=== PATIENT | male | born 1960 | race Caucasian/White ===

== ENCOUNTER 2020-03-18 20:54 | Emergency (ER) | payer MEDICARE, SELFPAY ==
--- NOTE | ~2020-03-18 | XR_ITS ---
XR chest 1V portable DATE: 03/18/2020 21:21 INDICATION: Syncope. Weakness. TECHNIQUE: Portable AP chest views on 03/18/2020 at 2124 hours COMPARISON: 09/06/2017 PA and lateral chest FINDINGS: Normal heart size. No hilar or mediastinal enlargement. No pulmonary infiltrate or consol idation, pulmonary vascular congestion or pleural effusion or pneumothorax. IMPRESSION: No active disease Reviewed, dictated and finalized at location A. IMPRESSION: No active disease
--- NOTE | 2020-03-18 21:04 | ECG_ITS ---
Measurements Intervals [place] Rate: 87 P: 63 NE: 132 QRS: -35 QRSD: 106 T: 76 QT: 365 QTc: 439 Interpretive Statements SINUS RHYTHM VENTRICULAR PREMATURE COMPLEX LEFT AXIS DEVIATION BASELINE ARTIFACT- II, III, AVF BORDERLINE ECG Electronically Signed On 03-19-2020 7:19:06 CDT by Magen Buitrago D.O.
[2020-03-18 21:07] VITALS: BP 108/65; PULSE 87; RESP 20; TEMP 36.9; O2SAT 100
--- NOTE | 2020-03-18 21:11 | ED.GENADULT ---
HPI - General Adult General Chief complaint: Neuro Symptoms/Deficit Stated complaint: dizzy,passed out History of Present Illness HPI narrative: Patient is a 59-year-old male who comes to the emergency department stating that he had a near syncopal event today. Apparently patient was getting up and moving to the door and he felt very weak, at that time he knew he was going to fall to the floor. He looked around to try and grab his couch but he could not find anything. Patient states that he hit the floor and then he thought to himself that if he did not get up quickly he was never going to get up ever again. Then he decided that he would hop right up and was able to stand up on his own. Patient tells me that he has had a couple of beers with his neighbor xander as well as smoking some marijuana, additionally states that he has not checked her sugars in quite some time. Overall patient seems noncompliant with most of his recommended care. He does state that he has 2 stents in his heart, after a heart attack. Patient tells me xander that he was pretty sure that the right side of his heart was not full and the left side of his heart was full and that is what he was feeling in his chest right after he fell to the floor. Also before the fall he states his head go really hot feeling. I asked for a better explanation and told the patient I did not understand this discription of feeling in his chest, however he states that the only way he can describe it. He is not having any discomfort at this time. Onset (ago): minute(s) Location: head Severity: mild Quality: other ( Like 1 side of his heart isn't filling up??) Pain Consistency: now resolved Exacerbating factors: movement Associated symptoms: loss of appetite ( patient has had loss of about 100 lb over the past several years. Patient states he just does not feel like eating anymore.) Related Data Home Medications Medication Instructions Recorded Confirmed aspirin 81 mg PO DAILY 03/18/20 03/18/20 clopidogrel 75 mg PO DAILY 03/18/20 03/18/20 diazepam 10 mg PO DAILY 03/18/20 03/18/20 duloxetine 60 mg PO DAILY 03/18/20 03/18/20 hydrocodone-acetaminophen 1 tablet PO DAILY 03/18/20 03/18/20 insulin glargine U-300 conc 1 unit SUBCUT DIRECTED 03/18/20 03/18/20 [Marcela Pelaez U-300 SoloStar] insulin glargine [Lantus Solostar 20 unit SUBCUT 03/18/20 03/18/20 U-100 Insulin] insulin lispro 1 unit SUBCUT DIRECTED 03/18/20 03/18/20 lisinopril 5 mg PO DAILY 03/18/20 03/18/20 metoprolol succinate 100 mg PO DAILY 03/18/20 03/18/20 mycophenolate mofetil 250 mg PO DAILY 03/18/20 03/18/20 rosuvastatin 20 mg PO DAILY 03/18/20 03/18/20 sirolimus 1 mg PO DAILY 03/18/20 03/18/20 temazepam 30 mg PO HS 03/18/20 03/18/20 Allergies Allergy/AdvReac Type Severity Reaction Status Date / Time No Known Allergies Allergy Verified 03/18/20 21:28 Review of Systems Constitutional: Constitutional: Denies chills, Denies fever(s) and Reports weakness Eyes: Eyes: Denies as per HPI, Denies no additional eye complaints, Denies change in vision and Denies photophobia ENT: Denies system reviewed and no additional complaints, except as documented, Denies as per HPI, Denies dysphagia, Denies vertigo, Denies dizziness, Denies epistaxis, Denies nasal congestion and Denies sore throat Cardiovascular: Cardiovascular: Reports chest pain ( Patient did not really have pain he just had a funny feeling in his chest) Respiratory: Respiratory: Reports no additional respiratory complaints Gastrointestinal: Gastrointestinal: Reports abdominal pain ( patient relates he has been having funny feelings in his abdomen as well) Musculoskeletal: Comments: patient states he is just generally weak overall now Neurologic: Denies confusion, Denies vertigo, Denies dizziness, Denies syncope, Denies headache(s), Denies focal weakness, Denies numbness and Reports weakness Comments: patient knew after he stood up he was feeling light
[2020-03-18 21:13] LABS: Glucose Point of Care 367 (65-105)
[2020-03-18 21:31] LABS: Basophils Absolute Auto 0.03 K/mm3 (0.00-0.10); Basophils Percent Auto 0.7 % (0.0-1.0); Eosinophils Absolute Auto 0.11 K/mm3 (0.02-0.50); Eosinophils Percent Auto 2.5 % (1.0-6.0); Hematocrit 34.4 % (40.0-54.0); Hemoglobin 12.1 g/dL (14.0-18.0); Immature Granulocyte Absolute 0.01 K/mm3 (0.00-0.00); Immature Granulocyte Percent A 0.2 % (0.0-0.0); Lymphocytes Percent Auto 29.7 % (18.0-42.0); Mean Corpuscular HGB Conc 35.2 g/dL (32.0-36.0); Mean Corpuscular Hemoglobin 32.5 pg (27.0-31.0); Mean Corpuscular Volume 92.5 fL (78.0-102.0); Mean Platelet Volume 10.3 fl (8.7-11.0); Monocytes Absolute Auto 0.56 K/mm3 (0.10-0.90); Monocytes Percent Auto 12.8 % (2.0-11.0); Neutrophils Absolute Auto 2.4 K/mm3 (1.7-7.2); Neutrophils Percent Auto 54.1 % (50.0-70.0); Platelet Count Result 161 K/mm3 (150-420); Red Blood Count 3.72 M/mm3 (4.70-6.10); Red Cell Distribution Width 13.2 % (11.6-14.4); White Blood Count 4.4 K/mm3 (4.8-10.8)
[2020-03-18 21:41] LABS: Ethanol 5 mg/dL (0-6)
[2020-03-18 21:43] VITALS: BP 102/56; PULSE 76
[2020-03-18 21:44] VITALS: BP 96/59; PULSE 74
[2020-03-18 21:44] LABS: Prothrombin Time 10.3 Seconds (9.64-11.0)
[2020-03-18] MEDS: SODIUM CHLORIDE 0.9% IV 1,000 ML 999 ML IV CONT (21:47)
[2020-03-18 21:48] LABS: Alanine Aminotransferase 43 U/L (16-63); Albumin Level 3.3 g/dL (3.4-5.0); Alkaline Phosphatase 118 U/L (46-116); Anion Gap 14.8 mmol/L (7-16); Aspartate Amino Transferase 32 U/L (15-37); Bilirubin,Total 0.3 mg/dL (0.00-1.00); Blood Urea Nitrogen 24 mg/dL (7-18); Calcium 8.4 mg/dL (8.5-10.1); Carbon Dioxide 28 mmol/L (21-32); Chloride 97 mmol/L (98-108); Estimated Glomerular Filt Rate 56; Glucose 398 mg/dL (70-99); Osmolality Calculated 301 mOsm/kg (285-295); Potassium 4.8 mmol/L (3.5-5.1); Sodium 135 mmol/L (136-145); Total Protein 6.6 g/dL (6.4-8.2)
[2020-03-18 21:50] LABS: Troponin I < 0.02 ng/mL (0.00-0.056)
[2020-03-18] MEDS: INSULIN HUMAN REGULAR (*BKC) 100 UNITS/ML 10 UNITS IV PUSH (22:08)
[2020-03-18 22:39] LABS: Glucose Point of Care 328 (65-105)
[2020-03-18 23:00] VITALS: BP 90/56; PULSE 78; RESP 18; O2SAT 96
[2020-03-19 00:21] LABS: Troponin I < 0.02 ng/mL (0.00-0.056)
[2020-03-19 00:25] VITALS: BP 96/58; PULSE 85; RESP 18; TEMP 36.8; O2SAT 96
== END 2020-03-19 00:32 | disposition home or self-care (01) ==
PROVIDERS: Emergency Provider Emergency Medicine
DX: Z94.4 Liver transplant status (principal); E11.9 Type 2 diabetes mellitus without complications; R53.1 Weakness; Z79.899 Other long term (current) drug therapy
CPT/HCPCS: 36415; 71045; 80053; 80307; 84484; 85025; 85610; 93005; 96361; 96374; 99283; 99284; J1815; J7030

== ENCOUNTER 2021-12-25 05:28 | Emergency (ER) | payer MEDICARE, SELFPAY ==
--- NOTE | ~2021-12-25 | CT_ITS ---
EXAMINATION: CT abdomen pelvis wo con DATE: 12/25/2021 06:50 INDICATION: Left flank pain TECHNIQUE: Computed tomography (CT) of the abdomen and pelvis was performed without intravenous contr ast. The dose-length product (DLP) was 345.19 mGy-cm. Automated exposure control and iterative recons truction technique were employed. COMPARISON: 09/06/2017 FINDINGS: Minimal dependent atelectasis is present in the lung bases. The heart size is normal. Dill es of liver transplantation are noted. There is chronic pneumobilia. The spleen, pancreas, and adrena l glands are normal. The gallbladder is absent. The kidneys are unremarkable. No stones are identifie d in the kidneys, ureters, or bladder. There is no hydronephrosis or hydroureter. No pathologically e nlarged abdominal or pelvic lymph nodes are identified. An IVC filter is noted. There is no free intr aperitoneal gas or evidence of bowel obstruction. There is mild lumbar spondylosis. IMPRESSION: 1. No CT correlate for the patient's symptoms. Reviewed, dictated and finalized at location A.
[2021-12-25 05:28] VITALS: BP 174/98; PULSE 104; RESP 18; TEMP 36.5; O2SAT 98
--- NOTE | 2021-12-25 05:41 | ED.ABDPAIN ---
HPI - Abdominal Pain General Chief Complaint: Urogenital-Male <Christ Barboza MD - Last Filed: 12/25/21 06:50> Stated Complaint: lower flank pain <Christ Barboza MD - Last Filed: 12/25/21 06:50> Time Seen by Provider: 12/25/21 05:42 <Christ Barboza MD - Last Filed: 12/25/21 06:50> Source: patient and RN notes reviewed <Christ Barboza MD - Last Filed: 12/25/21 06:50> Mode of arrival: ambulatory <Christ Barboza MD - Last Filed: 12/25/21 06:50> Limitations: no limitations <Christ Barboza MD - Last Filed: 12/25/21 06:50> History of Present Illness MD elicited complaint: flank pain <Christ Barboza MD - Last Filed: 12/25/21 06:50> Onset (ago): week(s) (3) <Christ Barboza MD - Last Filed: 12/25/21 06:50> Pain Consistency: intermittent <Christ Barboza MD - Last Filed: 12/25/21 06:50> Location: L flank <Christ Barboza MD - Last Filed: 12/25/21 06:50> Severity: moderate <Christ Barboza MD - Last Filed: 12/25/21 06:50> Quality: stabbing and sharp <Christ Barboza MD - Last Filed: 12/25/21 06:50> Radiation: back <Christ Barboza MD - Last Filed: 12/25/21 06:50> Migration to: no migration <Christ Barboza MD - Last Filed: 12/25/21 06:50> Exacerbating factors: nothing <Christ Barboza MD - Last Filed: 12/25/21 06:50> Relieving factors: nothing <Christ Barboza MD - Last Filed: 12/25/21 06:50> Associated symptoms: denies other symptoms <MD Eden Burden Last Filed: 12/25/21 06:50> Related Data Home Medications: Home Medications Medication Instructions Recorded Confirmed aspirin 81 mg PO DAILY 03/18/20 12/25/21 clopidogrel 75 mg PO DAILY 03/18/20 12/25/21 diazepam 10 mg PO DAILY 03/18/20 12/25/21 duloxetine 60 mg PO DAILY 03/18/20 12/25/21 hydrocodone-acetaminophen 1 tablet PO DAILY 03/18/20 12/25/21 insulin glargine U-300 conc 1 unit SUBCUT DIRECTED 03/18/20 12/25/21 [Tofinesse Max U-300 SoloStar] insulin glargine [Lantus Solostar 20 unit SUBCUT HS 03/18/20 12/25/21 U-100 Insulin] insulin lispro 1 unit SUBCUT DIRECTED 03/18/20 12/25/21 lisinopril 5 mg PO DAILY 03/18/20 12/25/21 metoprolol succinate 100 mg PO DAILY 03/18/20 12/25/21 mycophenolate mofetil 250 mg PO DAILY 03/18/20 12/25/21 rosuvastatin 20 mg PO DAILY 03/18/20 12/25/21 sirolimus 1 mg PO DAILY 03/18/20 12/25/21 temazepam 30 mg PO HS 03/18/20 12/25/21 <Christ Barboza MD - Last Filed: 12/25/21 06:50> Allergies/Adverse Reactions: Allergies Allergy/AdvReac Type Severity Reaction Status Date / Time No Known Allergies Allergy Verified 12/25/21 06:11 <Christ Barboza MD - Last Filed: 12/25/21 06:50> Review of Systems Constitutional: Constitutional: Reports chills and Denies fever(s) <Christ Barboza MD - Last Filed: 12/25/21 06:50> Gastrointestinal: Gastrointestinal: Denies nausea and Denies vomiting <Christ Barboza MD - Last Filed: 12/25/21 06:50> PMFSH Past Medical History Medical History: Medical History (Updated 12/25/21 @ 08:45 by Ruby Cage MD) Alcoholism Appendicitis Diabetes Drug abuse Myocardial infarct Renal colic on left side <Christ Barboza MD - Last Filed: 12/25/21 06:50> Surgical History Surgical History: Surgical History (Updated 04/11/22 @ 05:46 by Christ Barboza MD) H/O heart artery stent Liver transplant recipient <Christ Barboza MD - Last Filed: 12/25/21 06:50> Social History Social History: Social History (Updated 03/18/20 @ 21:25 by Vicky Alicea MD) Alcohol intake: current Substance use: current Substance use type: marijuana <Christ Barboza MD - Last Filed: 12/25/21 06:50> Exam Const: General: healthy appearing, no acute distress and alert <Christ Barboza MD - Last Filed: 12/25/21 06:50> Nutritional Appearance: well nourished and thin <Christ Barboza MD - Last Filed: 12/25/21 06:50> Orientation/consciousness: patient or
[2021-12-25] MEDS: KETOROLAC 30 MG/ML VIAL (*BKC) IV PUSH (06:02)
[2021-12-25 06:09] LABS: Basophils Absolute Auto 0.03 K/mm3 (0.00-0.10); Basophils Percent Auto 0.5 % (0.0-1.0); Eosinophils Absolute Auto 0.13 K/mm3 (0.02-0.50); Hematocrit 43.4 % (40.0-54.0); Hemoglobin 14.5 g/dL (14.0-18.0); Immature Granulocyte Absolute 0.02 K/mm3 (0.00-0.00); Immature Granulocyte Percent A 0.3 % (0.0-0.0); Lymphocytes Absolute Auto 1.41 K/mm3 (1.10-4.50); Lymphocytes Percent Auto 21.7 % (18.0-42.0); Mean Corpuscular HGB Conc 33.4 g/dL (32.0-36.0); Mean Corpuscular Hemoglobin 29.3 pg (27.0-31.0); Mean Corpuscular Volume 87.7 fL (78.0-102.0); Mean Platelet Volume 10.8 fl (8.7-11.0); Monocytes Absolute Auto 0.53 K/mm3 (0.10-0.90); Monocytes Percent Auto 8.1 % (2.0-11.0); Neutrophils Absolute Auto 4.4 K/mm3 (1.7-7.2); Neutrophils Percent Auto 67.4 % (50.0-70.0); Platelet Count Result 242 K/mm3 (150-420); Red Blood Count 4.95 M/mm3 (4.70-6.10); Red Cell Distribution Width 13.5 % (11.6-14.4); White Blood Count 6.5 K/mm3 (4.8-10.8)
[2021-12-25 06:19] LABS: Alanine Aminotransferase 28 U/L (16-63); Albumin Level 3.3 g/dL (3.4-5.0); Alkaline Phosphatase 135 U/L (46-116); Anion Gap 9 mmol/L (8-16); Aspartate Amino Transferase 20 U/L (15-37); Bilirubin,Total 0.5 mg/dL (0.00-1.00); Blood Urea Nitrogen 14 mg/dL (7-18); Calcium 9.2 mg/dL (8.5-10.1); Carbon Dioxide 29 mmol/L (21-32); Chloride 97 mmol/L (98-108); Estimated Glomerular Filt Rate > 60; Glucose 297 mg/dL (70-99); Osmolality Calculated 291 mOsm/kg (285-295); Potassium 4.1 mmol/L (3.5-5.1); Sodium 135 mmol/L (136-145)
[2021-12-25 06:20] LABS: CRP < 0.2 mg/dL (0.0-0.9); Ethanol < 3 mg/dL (0-6)
[2021-12-25 06:53] VITALS: BP 173/90; PULSE 91; RESP 16; O2SAT 100
[2021-12-25 08:13] LABS: Appearance Urine Clear (Clear); Bilirubin Urine Negative (Negative); Color Urine Yellow (Yellow); Glucose Urine UA 3+ (Negative); Ketones Urine Trace (Negative); Leukocyte Esterase Ur Negative LEU/UL (Negative); Nitrate Urine Negative (Negative); Protein Urine 3+ (Negative); Specific Grav Ur 1.025 (1.010-1.020); Urobilinogen Urine 0.2 mg/dL (0.2-1.0)
[2021-12-25 08:20] LABS: Amphetamine Screen Urine Negative (Negative); Barbiturate Screen Urine Negative (Negative); Benzodiazepines Screen Urine Positive (Negative); Cannabinoid Screen Urine Positive (Negative); Cocaine Screen Urine Negative (Negative); Methadone Screen Urine Negative (Negative); Opiate Screen Urine Negative (Negative); Phencyclidine Screen Urine Negative (Negative)
[2021-12-25 08:22] LABS: Add Urine Microscopic? YES; Blood Urine Trace-Intact (Negative)
[2021-12-25 08:23] LABS: Bacteria Urine 3+ /hpf; RBC Urine 0-2 /hpf (0-2); Squamous Epithelial Cell Urine Rare /hpf (Few); WBC Urine 0-3 /hpf (0-3)
[2021-12-25] MEDS: SODIUM CHLORIDE 0.9% IV 500 ML 999 ML IV CONT (08:36)
[2021-12-25 09:11] VITALS: BP 165/99; PULSE 88; RESP 20; TEMP 36.7; O2SAT 97
== END 2021-12-25 09:13 | disposition home or self-care (01) ==
PROVIDERS: Emergency Provider Emergency Medicine
DX: N23 Unspecified renal colic (principal); E11.65 Type 2 diabetes mellitus with hyperglycemia; N39.0 Urinary tract infection, site not specified; Z79.899 Other long term (current) drug therapy; Z79.4 Long term (current) use of insulin
CPT/HCPCS: 36415; 74176; 80053; 80307; 81001; 85025; 86140; 96374; 99284; J1885; J7040

== ENCOUNTER 2022-03-22 04:44 | Emergency (ER) | payer MEDICARE, SELFPAY ==
[2022-03-22] VITALS (7 sets, daily range): BP systolic 150–186; BP diastolic 70–89; PULSE 78–92; RESP 16–20; TEMP 36.6–37; O2SAT 98–100
--- NOTE | ~2022-03-22 | CT_ITS ---
EXAMINATION: CT diagnostic chest wo con DATE: 03/22/2022 05:25 INDICATION: Chest pressure and tightness. TECHNIQUE: Computed tomography (CT) of the chest was performed without intravenous contrast. The dose -length product was 171.55 mGy-cm. Automated exposure control and iterative reconstruction technique were employed. COMPARISON: CT dated 12/25/2021 FINDINGS: There is an 8 mm right lower lobe nodule, image 78. No focal airspace consolidation. No pne umothorax. The right lower lobe nodule was not definitely imaged on prior examinations. No significan t pleural or pericardial effusion. Small hiatal hernia. No thoracic lymphadenopathy. There are change s of previous cholecystectomy with pneumobilia. No endobronchial lesions. There is atherosclerosis of the coronary arteries. IMPRESSION: 1. No acute cardiopulmonary disease. 2: Right lower lobe nodule measuring 8 mm, not definitely included in prior examinations for evaluati on. Recommend follow-up low dose CT chest in 3 months to assess stability. Reviewed, dictated and finalized at location A. IMPRESSION: 1. No acute cardiopulmonary disease. 2: Right lower lobe nodule measuring 8 mm, not definitely included in prior exa minations for evaluation. Recommend follow-up low dose CT chest in 3 months to assess stability.
--- NOTE | ~2022-03-22 | XR_ITS ---
EXAMINATION: XR chest 1V portable INDICATION: Shortness of breath TECHNIQUE: Portable AP chest at 0505 hours COMPARISON: 03/18/2020 FINDINGS: The lungs are free of acute opacities. No pleural effusion or pneumothorax. The cardiomedia stinal silhouette is normal. There is mild osteoarthritis of the shoulders. IMPRESSION: 1. No acute cardiopulmonary abnormality. Reviewed, dictated and finalized at location B.
--- NOTE | 2022-03-22 04:49 | ECG_ITS ---
Measurements Intervals [place] Rate: 87 P: 61 MD: 156 QRS: -27 QRSD: 90 T: 55 QT: 355 QTc: 428 Interpretive Statements SINUS RHYTHM BASELINE ARTIFACT- II, III, AVF NORMAL ECG Electronically Signed On 03-22-2022 7:07:43 CDT by Magen Buitrago D.O.
[2022-03-22 05:15] LABS: Basophils Absolute Auto 0.02 K/mm3 (0.00-0.10); Basophils Percent Auto 0.3 % (0.0-1.0); Eosinophils Absolute Auto 0.05 K/mm3 (0.02-0.50); Eosinophils Percent Auto 0.8 % (1.0-6.0); Hematocrit 35.5 % (40.0-54.0); Hemoglobin 12.3 g/dL (14.0-18.0); Immature Granulocyte Absolute 0.01 K/mm3 (0.00-0.00); Immature Granulocyte Percent A 0.2 % (0.0-0.0); Lymphocytes Absolute Auto 0.96 K/mm3 (1.10-4.50); Mean Corpuscular HGB Conc 34.6 g/dL (32.0-36.0); Mean Corpuscular Hemoglobin 30.1 pg (27.0-31.0); Mean Corpuscular Volume 86.8 fL (78.0-102.0); Mean Platelet Volume 10.4 fl (8.7-11.0); Monocytes Absolute Auto 0.53 K/mm3 (0.10-0.90); Monocytes Percent Auto 8.3 % (2.0-11.0); Neutrophils Absolute Auto 4.8 K/mm3 (1.7-7.2); Neutrophils Percent Auto 75.4 % (50.0-70.0); Platelet Count Result 177 K/mm3 (150-420); Red Blood Count 4.09 M/mm3 (4.70-6.10); Red Cell Distribution Width 12.9 % (11.6-14.4); White Blood Count 6.4 K/mm3 (4.8-10.8)
[2022-03-22] MEDS: ASPIRIN 81 MG CHEWABLE TABLET 324 MG PO (05:25)
[2022-03-22] MEDS: SODIUM CHLORIDE 0.9% IV 1,000 ML 999 ML IV CONT (05:27)
[2022-03-22 05:31] LABS: INR 0.9; Partial Thromboplastin Time 27.1 SEC (23.90-30.70); Prothrombin Time 10.3 Seconds (9.50-12.10)
[2022-03-22 05:34] LABS: Glucose Point of Care 145 mg/dl (65-105)
[2022-03-22 05:39] LABS: D Dimer 0.66 mg/L (0.19-0.50)
[2022-03-22 05:43] LABS: Alanine Aminotransferase 22 U/L (16-63); Albumin Level 3.2 g/dL (3.4-5.0); Alkaline Phosphatase 151 U/L (46-116); Anion Gap 10 mmol/L (8-16); Aspartate Amino Transferase 27 U/L (15-37); Bilirubin,Total 0.4 mg/dL (0.00-1.00); Blood Urea Nitrogen 16 mg/dL (7-18); Calcium 8.8 mg/dL (8.5-10.1); Carbon Dioxide 26 mmol/L (21-32); Chloride 101 mmol/L (98-108); Estimated CRCL calculation 70 ml/min; Estimated Glomerular Filt Rate > 60; Glucose 117 mg/dL (70-99); Lipase 119 U/L (73-393); NT Pro B Type Natriuretic Pept 622 pg/mL (0-125); Osmolality Calculated 286 mOsm/kg (285-295); Potassium 3.3 mmol/L (3.5-5.1); Sodium 137 mmol/L (136-145); Total Protein 6.8 g/dL (6.4-8.2); Troponin I 13.4 ng/L (0.00-60.4)
[2022-03-22 05:43] LABS: SARS-CoV-2 Ag Negative (Negative)
[2022-03-22 05:44] LABS: Ethanol < 3 mg/dL (0-6)
[2022-03-22] MEDS: POTASSIUM BICARBONATE 25 MEQ TABEF 50 MEQ PO (05:59)
[2022-03-22 06:29] LABS: Add Urine Microscopic? YES; Appearance Urine Clear (Clear); Bilirubin Urine Negative (Negative); Blood Urine Negative (Negative); Color Urine Light Yellow (Yellow); Glucose Urine UA Negative (Negative); Ketones Urine Negative (Negative); Leukocyte Esterase Ur Negative LEU/UL (Negative); Nitrate Urine Negative (Negative); Protein Urine 2+ (Negative); Specific Grav Ur 1.015 (1.010-1.020); Urobilinogen Urine 0.2 mg/dL (0.2-1.0); pH Urine 7.5 (5.0-8.0)
[2022-03-22 06:33] LABS: RBC Urine None seen /hpf (0-2); WBC Urine None seen /hpf (0-3)
[2022-03-22 06:34] LABS: Bacteria Urine Trace /hpf
[2022-03-22 06:35] LABS: Amphetamine Screen Urine Negative (Negative); Barbiturate Screen Urine Negative (Negative); Benzodiazepines Screen Urine Negative (Negative); Cannabinoid Screen Urine Positive (Negative); Cocaine Screen Urine Negative (Negative); Methadone Screen Urine Negative (Negative); Opiate Screen Urine Negative (Negative); Phencyclidine Screen Urine Negative (Negative)
--- NOTE | 2022-03-22 07:10 | ED.CHESTPAIN ---
HPI - Chest Pain General Chief Complaint: Chest Pain Stated Complaint: chest pain Time Seen by Provider: 03/22/22 04:48 Source: patient and RN notes reviewed Mode of arrival: ambulatory Limitations: no limitations History of Present Illness MD complaint: other (lower central to epigastric chest pain x 1 hr. ) Pertinent past history: coronary artery disease and prior GA Onset (ago): hour(s) (1) Timing of current episode: constant Prior episodes: Yes Onset: during rest Pain location: substernal, epigastric and parasternal Pain radiation: none Severity: mild Pain scale (0-10): 3 Quality: aching and dull Relieving factors: nothing Exacerbating factors: exertion Risk Factors Coronary artery disease risk factors: hypertension and family history of CAD before age 50 Thoracic aortic dissection risk factors: longstanding hypertension Pulmonary embolism risk factors: history of deep vein thrombosis Related Data Home Medications Medication Instructions Recorded Confirmed aspirin 81 mg chewable tablet 81 mg PO DAILY 03/18/20 03/22/22 clopidogrel 75 mg tablet 75 mg PO DAILY 03/18/20 03/22/22 diazepam 10 mg tablet 10 mg PO DAILY 03/18/20 03/22/22 duloxetine 60 mg capsule,delayed 60 mg PO DAILY 03/18/20 03/22/22 release hydrocodone 10 mg-acetaminophen 1 tablet PO DAILY 03/18/20 03/22/22 325 mg tablet insulin glargine 100 unit/mL (3 20 unit subcut HS 03/18/20 03/22/22 mL) subcutaneous pen (Lantus Solostar U-100 Insulin) insulin glargine U-300 conc 300 1 unit subcut DIRECTED 03/18/20 03/22/22 unit/mL (3 mL) subcutaneous pen (Toujeo Max U-300 SoloStar) insulin lispro 100 unit/mL 1 unit subcut DIRECTED 03/18/20 03/22/22 subcutaneous pen lisinopril 5 mg tablet 5 mg PO DAILY 03/18/20 03/22/22 metoprolol succinate 100 mg 100 mg PO DAILY 03/18/20 03/22/22 tablet,extended release 24 hr mycophenolate mofetil 250 mg 250 mg PO DAILY 03/18/20 03/22/22 capsule rosuvastatin 20 mg tablet 20 mg PO DAILY 03/18/20 03/22/22 sirolimus 1 mg tablet 1 mg PO DAILY 03/18/20 03/22/22 temazepam 30 mg capsule 30 mg PO HS 03/18/20 03/22/22 Allergies Allergy/AdvReac Type Severity Reaction Status Date / Time No Known Allergies Allergy Verified 12/25/21 06:11 Review of Systems Review of Systems: All systems reviewed & are unremarkable except as noted in HPI and below Constitutional: Constitutional: Reports no additional constitutional complaints Eyes: Eyes: Reports no additional eye complaints ENT: Reports system reviewed and no additional complaints, except as documented Cardiovascular: Cardiovascular: Reports no additional cardiovascular complaints Respiratory: Respiratory: Reports no additional respiratory complaints Gastrointestinal: Gastrointestinal: Reports no additional gastrointestinal complaints Musculoskeletal: Musculoskeletal: Reports no additional musculoskeletal complaints Integumentary/Breasts: Skin/Breast: Reports system reviewed and no additional complaints, except as docu Neurologic: Reports system reviewed and no additional complaints, except as documented Psychiatric: Psychiatric: Reports no additional psychiatric complaints Endocrine: Endocrine: Reports no additional endocrine complaints Hematologic/Lymphatic: Hematologic/Lymphatic: Reports no additional hematologic/lymphatic complaints Allergic/Immunologic: Allergic/Immunologic: Reports no additional allergic/immunologic complaints [facility] Past Medical History Medical History Alcoholism Appendicitis Diabetes Drug abuse Myocardial infarct Renal colic on left side Surgical History Surgical History H/O heart artery stent Liver transplant recipient Social History Social History Alcohol intake: current Substance use: current Substance use type: marijuana Exam
== END 2022-03-22 07:43 | disposition home or self-care (01) ==
PROVIDERS: Emergency Provider Emergency Medicine
DX: R07.89 Other chest pain (principal); E87.6 Hypokalemia; Z20.822 Contact with and (suspected) exposure to COVID-19; E11.9 Type 2 diabetes mellitus without complications; I10 Essential (primary) hypertension; Z79.899 Other long term (current) drug therapy
CPT/HCPCS: 36415; 71045; 71250; 80053; 80307; 81001; 82948; 83690; 83880; 84484; 85025; 85380; 85610; 85730; 87426; 93005; 96360; 99284; A9270; C9803; J7030

== ENCOUNTER 2022-12-03 08:54 | Observation (INO) | payer MEDICARE, SELFPAY ==
[2022-12-03] VITALS (126 sets, daily range): BP systolic 72–165; BP diastolic 40–98; PULSE 78–148; RESP 9–28; TEMP 36.6; O2SAT 79–100
--- NOTE | ~2022-12-03 | XR_ITS ---
Clinical Indication: Leukocytosis PA and lateral views of the chest: Comparison: 03/22/2022 Findings: Bibasilar nipple shadows noted. The lungs are otherwise clear, without evidence of focal co nsolidation or pleural effusion. Cardiomediastinal silhouette is within normal limits. Bones and sof t tissues are unremarkable. Impression: No significant abnormality seen. Reviewed, dictated and finalized at location M. Impression: No significant abnormality seen.
[2022-12-03] MEDS: SODIUM CHLORIDE 0.9% IV 1,000 ML 999 ML IV CONT (08:55)
[2022-12-03 09:03] LABS: Glucose Point of Care 33 mg/dl (65-105)
[2022-12-03 09:07] LABS: Glucose Point of Care > 450 mg/dl (65-105)
--- NOTE | 2022-12-03 09:18 | PC.NURSE ---
initial glucose of 33 is mistaken entry of account, attempted to qc equipment.
--- NOTE | 2022-12-03 09:20 | ED.GENADULT ---
HPI - General Adult General Chief complaint: Unspecified Stated complaint: high blood sugar Time Seen by Provider: 12/03/22 09:10 Source: patient, EMS and RN notes reviewed Mode of arrival: EMS Limitations: no limitations History of Present Illness HPI narrative: patient brought to the emergency room by EMS because blood sugar was elevated. He said he had been vomiting since yesterday. Says blood sugar was high yesterday and he treated it. He said whenever he eats anything can not keep anything down. Had a history of type 1 diabetes. Eating makes it worse nothing has made it better. EMS Accu-Chek machine has a limit upped 800 and they stated it was greater than that. He otherwise is awake and alert. MD complaint: High blood sugar Onset (ago): day(s) (3) Related Data Home Medications Medication Instructions Recorded Confirmed aspirin 81 mg chewable tablet 81 mg PO DAILY 03/18/20 12/03/22 clopidogrel 75 mg tablet 75 mg PO DAILY 03/18/20 12/03/22 duloxetine 60 mg capsule,delayed 60 mg PO DAILY 03/18/20 12/03/22 release hydrocodone 10 mg-acetaminophen 1 tablet PO Q6H PRN Pain 03/18/20 12/04/22 325 mg tablet insulin glargine 100 unit/mL (3 20 unit subcut HS 03/18/20 12/03/22 mL) subcutaneous pen (Lantus Solostar U-100 Insulin) insulin glargine U-300 conc 300 1 unit subcut DIRECTED 03/18/20 12/03/22 unit/mL (3 mL) subcutaneous pen (Toujeo Max U-300 SoloStar) insulin lispro 100 unit/mL 1 unit subcut DIRECTED 03/18/20 12/03/22 subcutaneous pen lisinopril 5 mg tablet 5 mg PO DAILY 03/18/20 12/03/22 metoprolol succinate 100 mg 100 mg PO DAILY 03/18/20 12/03/22 tablet,extended release 24 hr mycophenolate mofetil 250 mg 250 mg PO BID 03/18/20 12/04/22 capsule rosuvastatin 20 mg tablet 20 mg PO DAILY 03/18/20 12/03/22 temazepam 30 mg capsule 30 mg PO HS 03/18/20 12/03/22 ergocalciferol (vitamin D2) 1,250 25,000 unit PO WEEKLY 12/03/22 12/03/22 mcg (50,000 unit) capsule sirolimus 2 mg tablet 2 mg PO DAILY 12/04/22 12/04/22 Allergies Allergy/AdvReac Type Severity Reaction Status Date / Time No Known Allergies Allergy Verified 12/03/22 09:11 Review of Systems Review of Systems: All systems reviewed & are unremarkable except as noted in HPI and below PMFSH Past Medical History Medical History (Updated 12/03/22 @ 23:03 by Christ Barboza MD) Alcoholism Appendicitis Diabetes Drug abuse Hyperlipidemia Myocardial infarct Renal colic on left side Surgical History Surgical History H/O heart artery stent Liver transplant recipient Family History Family History (Updated 12/04/22 @ 11:09 by Araceli Castano RN) Mother Diabetes mellitus Father Diabetes mellitus Sibling Diabetes mellitus Social History Social History Smoking status: Never smoker Second hand tobacco smoke exposure: No Alcohol intake: former Substance use: unknown Substance use type: marijuana Lack of Transportation: No Lack of Food: Never True Current Housing: I Have Housing Concerned About Future Housing: No Difficulty Paying Gas/Electric Bills: No Difficulty Paying for Meds: No Currently Unemployed: No Education: High School Diploma/GED Difficulty w/ Childcare or Family Care: No Occupation/Education: unemployed Gender identity (if verbalized by the patient): Male Sexual Orientation (if Verbalized by the Patient): Straight or Heterosexual Spiritual care concerns: No Exam Const: General: cooperative, no acute distress, alert, awake, Physically active and ill appearing chronically Nutritional Appearance: thin Orientation/consciousness: patient oriented x3 Limitations: no limitations HENMT: Head: normal to inspection and normocephalic Ears: hearing grossly normal bilaterally and external ears normal Face/Nose/Sinus: Normal external nose present Face and sinus: n
[2022-12-03] MEDS: INSULIN HUMAN REGULAR (*BKC) 1,000 UNITS/10 ML VIAL 10 UNITS IV PUSH (09:26)
[2022-12-03 09:43] LABS: Basophils Absolute Auto 0.01 K/mm3 (0.00-0.10); Basophils Percent Auto 0.1 % (0.0-1.0); Hematocrit 41.2 % (40.0-54.0); Hemoglobin 13.8 g/dL (14.0-18.0); Immature Granulocyte Absolute 0.06 K/mm3 (0.00-0.00); Immature Granulocyte Percent A 0.6 % (0.0-0.0); Lymphocytes Absolute Auto 0.44 K/mm3 (1.10-4.50); Lymphocytes Percent Auto 4.2 % (18.0-42.0); Mean Corpuscular HGB Conc 33.5 g/dL (32.0-36.0); Mean Corpuscular Hemoglobin 30.3 pg (27.0-31.0); Mean Corpuscular Volume 90.4 fL (78.0-102.0); Mean Platelet Volume 11.9 fl (8.7-11.0); Monocytes Absolute Auto 0.25 K/mm3 (0.10-0.90); Monocytes Percent Auto 2.4 % (2.0-11.0); Neutrophils Absolute Auto 9.8 K/mm3 (1.7-7.2); Neutrophils Percent Auto 92.7 % (50.0-70.0); Platelet Count Result 282 K/mm3 (150-420); Red Blood Count 4.56 M/mm3 (4.70-6.10); Red Cell Distribution Width 13.1 % (11.6-14.4); White Blood Count 10.5 K/mm3 (4.8-10.8)
--- NOTE | 2022-12-03 09:47 | PC.NURSE ---
LAB AT BEDSIDE. WATER PROVIDED. PT HAS UTILIZED URINAL WITHOUT ASSISTANCE OR DIFFICULTY. WILL CONTINUE TO MONITOR.
[2022-12-03 09:52] LABS: Device ROOM AIR; HCO3 ABG 15.7 mmol/L (23-29); Modified Allen's Test Pass; Oxygen Content ABG 19.6 %vol (16.0-22.0); Oxygen Saturation ABG 96.4 % (95-97); Oxyhemoglobin 95.6 % (94-100); PCO2 ABG 34.3 mmHg (35-45); PO2 ABG 101.6 mmHg (80-90); Site Drawn RIGHT RADIAL; Total Hemoglobin 14.5 g/dL (12.0-18.0); pH ABG 7.28 (7.35-7.45)
[2022-12-03 09:59] LABS: Alanine Aminotransferase 29 U/L (16-63); Albumin Level 3.1 g/dL (3.4-5.0); Alkaline Phosphatase 176 U/L (46-116); Anion Gap 19 mmol/L (8-16); Aspartate Amino Transferase 16 U/L (15-37); Bilirubin,Total 0.8 mg/dL (0.00-1.00); Blood Urea Nitrogen 67 mg/dL (7-18); CRP 3.1 mg/dL (0.0-0.9); Calcium 7.7 mg/dL (8.5-10.1); Carbon Dioxide 23 mmol/L (21-32); Chloride 81 mmol/L (98-108); Estimated CRCL calculation 26 ml/min; Estimated Glomerular Filt Rate 23; Magnesium 2.6 mg/dL (1.8-2.4); Potassium 5.1 mmol/L (3.5-5.1); Sodium 123 mmol/L (136-145); Total Protein 7.2 g/dL (6.4-8.2)
[2022-12-03 10:05] LABS: Lactic Acid Reflex 2.2 mmol/L (0.4-2.0)
[2022-12-03 10:08] LABS: Osmolality Calculated 314 mOsm/kg (285-295)
[2022-12-03] MEDS: LACTATED RINGERS 1,000 ML 999 ML IV CONT ×2 (10:24→14:00)
[2022-12-03 10:29] LABS: Glucose Point of Care > 450 mg/dl (65-105)
--- NOTE | 2022-12-03 10:35 | PC.NURSE ---
PT HAS HAD 500 ML CLEAR URINE OUTPUT. IS AWARE OF PLAN OF CARE. IVF INFUSING ORDERED WITHOUT DIFFICULTY. PT IS AWAITING INSULIN DRIP FROM PHARMACY AT THIS TIME. CALL PLACED TO [facility] FOR TRANSFER. WILL CONTINUE TO MONITOR.
[2022-12-03 10:42] LABS: Appearance Urine Clear (Clear); Bilirubin Urine Negative (Negative); Blood Urine Trace-Intact (Negative); Color Urine Light Yellow (Yellow); Glucose Urine UA 3+ (Negative); Ketones Urine 2+ (Negative); Leukocyte Esterase Ur Negative LEU/UL (Negative); Nitrate Urine Negative (Negative); Protein Urine Trace (Negative); Urobilinogen Urine 0.2 mg/dL (0.2-1.0); pH Urine 5.5 (5.0-8.0)
[2022-12-03 10:51] LABS: Add Urine Microscopic? YES; Bacteria Urine Rare /hpf; RBC Urine None seen /hpf (0-2); WBC Urine None seen /hpf (0-3)
[2022-12-03] MEDS: INSULIN REG 100 UNITS/100 ML 100 UNITS/100 ML BAG 20 UNITS IV CONT ×2 (11:14→15:30)
--- NOTE | 2022-12-03 11:32 | PC.NURSE ---
PT IS RESTING ON STRETCHER INSULIN DRIP INFUSING ORDERED WITHOUT DIFFICULTY. MORE WARM BLANKETS PROVIDED. PT IS AWARE OF PLAN OF CARE. PT REFUSED TO GO TO [facility]. [facility] DID RETURN CALL, STATES HE IS ON THE WAITLIST. PT HAS BEEN UPDATED. WILL CONTINUE TO MONITOR.
[2022-12-03 12:09] LABS: SARS-CoV-2 RNA PCR Negative (Negative)
[2022-12-03 12:41] LABS: Reflex Lactic Acid Yes or No Add Lactic
[2022-12-03 12:43] LABS: Glucose Point of Care > 450 mg/dl (65-105)
--- NOTE | 2022-12-03 12:58 | PC.NURSE ---
PT PLACED IN GOWN, HAD URINARY INCONTINENCE, [facility] CARE PROVIDED. PT ALSO HAD ANOTHER 300 ML URINE OUTPUT IN URINAL. PT HAS IV INSULIN DRIP INFUSING ORDERED WITHOUT DIFFICULTY. 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 PT APPEARS MORE CONFUSED THAN UPON ARRIVAL, ERP IS AWARE. LAB IS AT BEDSIDE AT THIS TIME. CALL PLACED TO [facility] TO SEARCH FOR AVAILABLE FACILITIES, NO ICU BEDS AVAILABLE WITHIN [facility] AT THIS TIME. WILL CONTINUE TO MONITOR. FSBS REMAINS GREATER THAN 500 AT THIS TIME.
[2022-12-03 13:21] LABS: Lactic Acid 4.6 mmol/L (0.4-2.0)
[2022-12-03 13:24] LABS: Anion Gap 16 mmol/L (8-16); Blood Urea Nitrogen 67 mg/dL (7-18); Calcium 8.4 mg/dL (8.5-10.1); Carbon Dioxide 27 mmol/L (21-32); Chloride 87 mmol/L (98-108); Estimated CRCL calculation 26 ml/min; Estimated Glomerular Filt Rate 23; Potassium 4.6 mmol/L (3.5-5.1); Sodium 130 mmol/L (136-145)
[2022-12-03 13:31] LABS: Osmolality Calculated 328 mOsm/kg (285-295)
--- NOTE | 2022-12-03 13:43 | PC.NURSE ---
LAB NOTIFIED GLUCOSE OF 1006, ERP IS AWARE.
[2022-12-03 13:45] LABS: Glucose > 800 mg/dL (70-99)
[2022-12-03 13:46] LABS: Glucose > 800 mg/dL (70-99)
[2022-12-03] MEDS: SODIUM BICARBONATE 8.4% 50 MEQ/50 ML SYRINGE 90 MEQ IV PUSH ×2 (13:59→17:26)
[2022-12-03 14:00] LABS: Glucose Point of Care > 450 mg/dl (65-105)
--- NOTE | 2022-12-03 14:17 | PC.NURSE ---
PT IS MORE CONFUSED, DOES NOT KNOW WHERE HE IS OR WHY HE IS HERE. ERP IS AWARE. MEDICATIONS WERE ADMINISTERED ORDERED. A SECOND IV SITE WAS ESTABLISHED WITHOUT DIFFICULTY. SITES WERE SECURED WITH COBAN. PT IS REPOSITIONED ON STRETCHER. PT HAS IVF INFUSING WITHOUT DIFFICULTY. INSULIN DRIP CONTINUES TO INFUSE WITHOUT DIFFICULTY. WILL CONTINUE TO MONITOR.
--- NOTE | 2022-12-03 14:35 | PC.NURSE ---
PT CONFUSED, ATTEMPTING TO CLIMB OUT OF BED, REPORTING HE NEEDED TO USE THE RR. URINAL PROVIDED ANOTHER 200ML CLEAR URINE OUTPUT NOTED. WILL CONTINUE TO MONITOR.
[2022-12-03 14:54] LABS: Glucose Point of Care > 450 mg/dl (65-105)
--- NOTE | 2022-12-03 15:04 | PC.NURSE ---
1440 MESSAGE LEFT WITH SON FSBS >500. PT HAS BEEN MOVED TO A HOSPITAL BED AT THIS TIME. IV INSULIN CONTINUES TO INFUSE WITHOUT DIFFICULTY. PT REMAINS CONFUSED. WILL CONTINUE TO MONITOR. PT APPEARS TO BE IN A FLUTTER AT THIS TIME. ERP IS AWARE. WILL CONTINUE TO MONITOR.
[2022-12-03 16:06] LABS: Anion Gap 7 mmol/L (8-16); Blood Urea Nitrogen 67 mg/dL (7-18); Calcium 8.9 mg/dL (8.5-10.1); Carbon Dioxide 36 mmol/L (21-32); Chloride 96 mmol/L (98-108); Estimated CRCL calculation 28 ml/min; Estimated Glomerular Filt Rate 25; Potassium 3.9 mmol/L (3.5-5.1); Sodium 139 mmol/L (136-145)
--- NOTE | 2022-12-03 16:07 | PC.NURSE ---
LAB RESULTS FSBS 550 AT THIS TIME.
[2022-12-03 16:08] LABS: Glucose 550 mg/dL (70-99); Osmolality Calculated 332 mOsm/kg (285-295)
--- NOTE | 2022-12-03 16:33 | PC.NURSE ---
[place] transfer line called; RN provided COVID result update. Awaiting bed.
[2022-12-03 16:38] LABS: Glucose Point of Care > 450 mg/dl (65-105)
--- NOTE | 2022-12-03 16:42 | PC.NURSE ---
FSBS 452 AT THIS TIME. PT IS AWAITING REPEAT LACTIC AT THIS TIME. PT REMAINS CONFUSED, IV MEDICATION INFUSING WITHOUT DIFFICULTY. WILL CONTINUE TO MONITOR. [facility] CALLED FOR COVID RESULTS. NO BED AVAILABLE AT THIS TIME.
[2022-12-03 17:05] LABS: Lactic Acid Reflex 4.7 mmol/L (0.4-2.0)
[2022-12-03 17:38] LABS: Base Excess ABG 16.3 mmol/L (0-2); HCO3 ABG 34.4 mmol/L (23-29); Oxygen Content ABG 19.1 %vol (16.0-22.0); Oxygen Saturation ABG 98.2 % (95-97); Oxyhemoglobin 97.6 % (94-100); PCO2 ABG 23.4 mmHg (35-45); PO2 ABG 134.7 mmHg (80-90); Total Hemoglobin 13.8 g/dL (12.0-18.0)
[2022-12-03] MEDS: LACTATED RINGERS 1,000 ML 250 ML IV CONT (17:38)
[2022-12-03 17:40] LABS: Device NASAL CANNULA; Modified Allen's Test Pass; Site Drawn RIGHT RADIAL; pH ABG 7.79 (7.35-7.45)
--- NOTE | 2022-12-03 17:43 | PC.NURSE ---
pt is more alert at this time. fsbs >500 at this time. pt has ivf and iv insulin infusing as ordered. insulin has been titrated to 10 units / hr. will continue to monitor.
[2022-12-03 17:44] LABS: Glucose Point of Care > 450 mg/dl (65-105)
--- NOTE | 2022-12-03 18:02 | PC.NURSE ---
pt reports he feels as if his head is swimming, he does not feel well. water provided. pt repositioned on bed at this time. iv fluids and medications are infusing as ordered without difficulty. will continue to monitor.
--- NOTE | 2022-12-03 18:14 | PC.NURSE ---
PT IS SITTING UP ON BED, TALKING WITHOUT DIFFICULTY. PT REPORTS HE AND HIS SON DO NOT GET ALONG, STATES HE DOES NOT HAVE ANYONE ELSE TO NOTIFY OR AN EMERGENCY CONTACT. PT DID SPEAK WITH ECHO EARLIER, SHE IS TAKING CARE OF HIS DOG. PT WAS ABLE TO DRINK 36 OZ OF WATER WITHOUT ANY DIFFICULTY AT THIS TIME. PT IS MORE ALERT, CALM. PT DENIES ANY NEEDS OR COMPLAINTS, IS AWARE OF SURROUNDINGS AT THIS TIME. WILL CONTINUE TO MONITOR.
[2022-12-03 18:49] LABS: Glucose Point of Care > 450 mg/dl (65-105)
--- NOTE | 2022-12-03 18:53 | PC.NURSE ---
pt has drank another 24 oz water at this time. fsbs >500 at this time. erp is aware, ivf and insulin are infusing as ordered without difficulty. will continue to monitor.
--- NOTE | 2022-12-03 19:05 | PC.NURSE ---
report to guadalupe macdonald
--- NOTE | 2022-12-03 19:15 | PC.NURSE ---
1900: This RN assumed Care. approved diabetic diet for the pt. turkey sandwich provided to the pt. no other requests at this time.
[2022-12-03 19:28] LABS: Lactic Acid Reflex 4.4 mmol/L (0.4-2.0)
[2022-12-03 19:35] LABS: Alanine Aminotransferase 28 U/L (16-63); Albumin Level 3.1 g/dL (3.4-5.0); Alkaline Phosphatase 151 U/L (46-116); Anion Gap 5 mmol/L (8-16); Aspartate Amino Transferase 23 U/L (15-37); Bilirubin,Total 0.5 mg/dL (0.00-1.00); Blood Urea Nitrogen 65 mg/dL (7-18); Carbon Dioxide 41 mmol/L (21-32); Chloride 99 mmol/L (98-108); Estimated CRCL calculation 32 ml/min; Estimated Glomerular Filt Rate 30; Glucose 155 mg/dL (70-99); Osmolality Calculated 321 mOsm/kg (285-295); Potassium 3.7 mmol/L (3.5-5.1); Sodium 145 mmol/L (136-145); Total Protein 6.7 g/dL (6.4-8.2)
[2022-12-03 19:51] LABS: Glucose Point of Care 152 mg/dl (65-105)
[2022-12-03] MEDS: DEXTROSE 5% 1,000 ML 1,000 ML 100 ML IVPB (19:55)
[2022-12-03 20:55] LABS: Glucose Point of Care 326 mg/dl (65-105)
[2022-12-03] MEDS: INSULIN HUMAN REGULAR (*BKC) 1,000 UNITS/10 ML VIAL 10 UNITS SUB-Q (21:01)
[2022-12-03] MEDS: INSULIN GLARGINE (*BKC) 1,000 UNITS/10 ML VIAL 20 UNITS SUB-Q (21:25)
[2022-12-03 21:59] LABS: Glucose Point of Care 181 mg/dl (65-105)
[2022-12-03 22:55] LABS: Glucose Point of Care 194 mg/dl (65-105)
[2022-12-03 23:57] LABS: Glucose Point of Care 135 mg/dl (65-105)
[2022-12-04] VITALS (38 sets, daily range): BP systolic 102–115; BP diastolic 47–75; PULSE 70–96; RESP 14–17; TEMP 36.6–36.8; O2SAT 87–100; BMI 23.1
[2022-12-04 00:57] LABS: Glucose Point of Care 121 mg/dl (65-105)
[2022-12-04 02:12] LABS: Glucose Point of Care 97 mg/dl (65-105)
[2022-12-04 03:10] LABS: Glucose Point of Care 162 mg/dl (65-105)
[2022-12-04 04:07] LABS: Glucose Point of Care 82 mg/dl (65-105)
--- NOTE | 2022-12-04 04:11 | PC.NURSE ---
upon entry to room pt was sitting in bed in no apprent distress or discomfort. pt had pulled out both of his IV's and his Pulse OX off. pt is currently AOx4 BG is 81. When this RN asked why he pulled out his IV's pt responded I didn't.
[2022-12-04 04:31] LABS: Alanine Aminotransferase 31 U/L (16-63); Albumin Level 2.9 g/dL (3.4-5.0); Alkaline Phosphatase 138 U/L (46-116); Anion Gap 7 mmol/L (8-16); Aspartate Amino Transferase 33 U/L (15-37); Bilirubin,Total 0.4 mg/dL (0.00-1.00); Blood Urea Nitrogen 63 mg/dL (7-18); Calcium 8.5 mg/dL (8.5-10.1); Carbon Dioxide 38 mmol/L (21-32); Chloride 97 mmol/L (98-108); Estimated CRCL calculation 39 ml/min; Estimated Glomerular Filt Rate 38; Glucose 91 mg/dL (70-99); Osmolality Calculated 312 mOsm/kg (285-295); Sodium 142 mmol/L (136-145); Total Protein 6.6 g/dL (6.4-8.2)
[2022-12-04 04:43] LABS: Lactic Acid Reflex 1.3 mmol/L (0.4-2.0)
[2022-12-04 05:05] LABS: Glucose Point of Care 192 mg/dl (65-105)
[2022-12-04] MEDS: DEXTROSE 5% 1,000 ML 1,000 ML 100 ML IVPB (05:54)
[2022-12-04 05:58] LABS: Glucose Point of Care 184 mg/dl (65-105)
[2022-12-04] MEDS: TEMAZEPAM (*CRX) 15 MG CAPSULE 30 MG PO ×2 (06:29→20:07)
[2022-12-04 06:48] LABS: Ethanol < 3 mg/dL (0-6)
[2022-12-04] MEDS: OLANZapine 10 MG INJ VIAL 5 MG IM (06:49)
[2022-12-04] MEDS: KCL 20 MEQ/SW 100 ML 100 ML 50 MEQ IVPB ×2 (06:50→10:47)
--- NOTE | 2022-12-04 07:56 | PC.NURSE ---
0710 report from guadalupe macdonald. pt is resting on stretcher to be admitted to room 207. calling report to guadalupe russell at this time. pt has iv medications infusing as ordered without difficulty. pt was requesting breakfast upon arrival of this rn this am.
[2022-12-04 08:22] LABS: Glucose Point of Care 278 mg/dl (65-105)
[2022-12-04 09:41] LABS: Hematocrit 36.8 % (40.0-54.0); Hemoglobin 13.1 g/dL (14.0-18.0); Mean Corpuscular HGB Conc 35.6 g/dL (32.0-36.0); Mean Corpuscular Hemoglobin 30.1 pg (27.0-31.0); Mean Corpuscular Volume 84.6 fL (78.0-102.0); Mean Platelet Volume 10.4 fl (8.7-11.0); Platelet Count Result 221 K/mm3 (150-420); Red Blood Count 4.35 M/mm3 (4.70-6.10); Red Cell Distribution Width 12.2 % (11.6-14.4); White Blood Count 13.2 K/mm3 (4.8-10.8)
[2022-12-04 10:01] LABS: Alanine Aminotransferase 16 U/L (16-63); Albumin Level 2.9 g/dL (3.4-5.0); Alkaline Phosphatase 132 U/L (46-116); Anion Gap 8 mmol/L (8-16); Aspartate Amino Transferase 33 U/L (15-37); Bilirubin,Total 0.4 mg/dL (0.00-1.00); Blood Urea Nitrogen 64 mg/dL (7-18); Calcium 8.3 mg/dL (8.5-10.1); Carbon Dioxide 38 mmol/L (21-32); Chloride 91 mmol/L (98-108); Estimated CRCL calculation 34 ml/min; Estimated Glomerular Filt Rate 32; Glucose 305 mg/dL (70-99); Osmolality Calculated 313 mOsm/kg (285-295); Potassium 3.3 mmol/L (3.5-5.1); Sodium 137 mmol/L (136-145); Total Protein 6.5 g/dL (6.4-8.2)
[2022-12-04] MEDS: METOPROLOL SUCCINATE EXT REL 50 MG TABCR 100 MG PO (10:54)
[2022-12-04] MEDS: DULoxetine HCL 30 MG CAPSULE.DR 60 MG PO (10:55)
--- NOTE | 2022-12-04 11:00 | PC.NURSE ---
Pt admitted to room 207 from ED. VSS, IV fluids and K rider infusing into 20 G in LAC. Pt is A/O x2. Pt oriented to call system, TV control and bed alarm. Pt instructed regarding the telephone.
[2022-12-04] MEDS: INSULIN HUMAN LISPRO (*BKC) 1,000 UNITS/10 ML VIAL SUB-Q ×3 (11:55→20:19)
[2022-12-04 11:56] LABS: Glucose Point of Care 395 mg/dl (65-105)
--- NOTE | 2022-12-04 12:16 | PHAR ---
VERIFIED PT.'S HOME MEDICATIONS: SIROLIMUS 2MG TABLET BY MOUTH DAILY AND MYCOPHENOLATE MOFETIL 250MG CAPSULE BY MOUTH TWICE DAILY. TLS
--- NOTE | 2022-12-04 15:25 | PC.NURSE ---
STOPPED PRN INFUSION OF D5NS, PER LAST FSBS REPORTED AND NOTED AT 395. CHARGE NURSE DHAVAL FLETCHER AWARE.
[2022-12-04 16:35] LABS: Glucose Point of Care > 450 mg/dl (65-105)
--- NOTE | 2022-12-04 16:53 | PC.NURSE ---
Eliezer Espinoza, BED SETTER/Hospitalist, notified that patient's supper blood was >459. Lab notified to obtain blood glucose level.
--- NOTE | 2022-12-04 16:55 | PC.NURSE ---
FSBS per POC >450, notified charge nurse Anna. Per Anna, verbal order rec'd from Rosa OVERNIGHT ASSOCIATE/Hospitalist to administer 10units SSI (humalog) See NOV. Per Anna,RN, Lab notified of need to draw venous.
[2022-12-04] MEDS: INSULIN HUMAN LISPRO (*BKC) 1,000 UNITS/10 ML VIAL 4 UNITS SUB-Q (17:00)
[2022-12-04 17:13] LABS: Glucose 437 mg/dL (70-99)
--- NOTE | 2022-12-04 17:19 | PC.NURSE ---
Eliezer Espinoza notified of lab result. 10 units of Humalog given per orders.
[2022-12-04 18:09] LABS: Glucose Point of Care 405 mg/dl (65-105)
--- NOTE | 2022-12-04 18:30 | PC.NURSE ---
Addendum entered by Erin Burger RN 12/04/22 19:08: 1830: ADDENDUM; 8 UNITS HUMALOG ADMINSTERED TO LEFT ABDOMEN. Original Note: PER VERBAL ORDER FROM BRE ALVES/HOSPITALIST VERIFIED BY DHAVAL FLETCHER, 1829 FSBS 405, ORDER REC'D TO ADMINISTER 8 UNITS PER SLIDING SCALE. CONTINUE TO MONITOR FSBS Q2HR AND ADMINISTER SSI ORDERED UNTIL FSBS <200.
[2022-12-04] MEDS: HYDROcodone/acetaminophen (*CRX) 10-325 MG TABLET 1 TAB PO (20:06)
[2022-12-04] MEDS: INSULIN GLARGINE (*BKC) 1,000 UNITS/10 ML VIAL 20 UNITS SUB-Q (20:16)
[2022-12-04 20:21] LABS: Glucose Point of Care 269 mg/dl (65-105)
[2022-12-04 22:05] LABS: Glucose Point of Care 102 mg/dl (65-105)
--- NOTE | 2022-12-04 22:15 | PC.NURSE ---
Pt's bg level at 102; charge nurse was notified by this RN. Rosa Espinoza DIRECTOR MARKETING ANALYTICS. notified of results, and agreed to one final bg check to make sure the pt's bg level did not drop too low. Orders also changed from bg checks q2hr to AC/HS.
--- NOTE | 2022-12-04 23:15 | PC.NURSE ---
Eliezer Espinoza NP, called to verify new orders; New orders were verified.
[2022-12-04] MEDS: SODIUM CHLORIDE 0.9% IV 1,000 ML 100 ML IV CONT (23:20)
[2022-12-04 23:21] LABS: Glucose Point of Care 100 mg/dl (65-105)
[2022-12-05 03:04] VITALS: PULSE 78
[2022-12-05 05:17] LABS: Hematocrit 36.7 % (40.0-54.0); Hemoglobin 12.4 g/dL (14.0-18.0); Mean Corpuscular HGB Conc 33.8 g/dL (32.0-36.0); Mean Corpuscular Volume 88.6 fL (78.0-102.0); Mean Platelet Volume 11.1 fl (8.7-11.0); Platelet Count Result 185 K/mm3 (150-420); Red Blood Count 4.14 M/mm3 (4.70-6.10); Red Cell Distribution Width 12.4 % (11.6-14.4); White Blood Count 7.2 K/mm3 (4.8-10.8)
[2022-12-05 05:28] LABS: Hemoglobin A1C 10.9 % (<5.7)
[2022-12-05 05:31] LABS: Alanine Aminotransferase 28 U/L (16-63); Albumin Level 2.5 g/dL (3.4-5.0); Alkaline Phosphatase 117 U/L (46-116); Anion Gap 5 mmol/L (8-16); Aspartate Amino Transferase 22 U/L (15-37); Bilirubin,Total 0.2 mg/dL (0.00-1.00); Blood Urea Nitrogen 60 mg/dL (7-18); Carbon Dioxide 36 mmol/L (21-32); Chloride 102 mmol/L (98-108); Estimated CRCL calculation 49 ml/min; Estimated Glomerular Filt Rate 46; Glucose 189 mg/dL (70-99); Osmolality Calculated 317 mOsm/kg (285-295); Potassium 4.6 mmol/L (3.5-5.1); Sodium 143 mmol/L (136-145); Total Protein 5.7 g/dL (6.4-8.2)
[2022-12-05 07:48] LABS: Glucose Point of Care 176 mg/dl (65-105)
[2022-12-05 08:00] VITALS: BP 120/75; PULSE 83; PULSE 84; RESP 14; TEMP 36.9; O2SAT 98
--- NOTE | 2022-12-05 08:38 | PM.SD2 ---
Same Day Admit/Disch: HPI History of Present Illness Chief complaint: ACUTE KIDNEY INJURY TYPE 1 DIABETES DKA Narrative: GENERAL: This is a well-nourished, well-developed patient, in no apparent distress. HEAD: normocephalic, atraumatic. EYES: PERRL. Sclera clear/white. Vision is grossly intact. EARS: External ears normal, auditory canals clear and without drainage, TMs normal without perforation. Hearing grossly intact. NOSE: External nose normal with no obvious nasal discharge, nares without redness, no rhinorrhea. THROAT: Mucous membranes moist, posterior pharynx clear. NECK: Neck supple, non-tender without lymphadenopathy, masses or thyromegaly. CARDIOVASCULAR: Regular rate and rhythm without murmurs, gallops, or rubs. RESPIRATORY: Clear to auscultation. Breath sounds equal bilaterally. No wheezes, rales, or rhonchi. GASTROINTESTINAL: Abdomen soft, non-tender, nondistended. Bowel sounds are active. No hepato-splenomegaly, or palpable masses. No guarding. SKIN: warm, intact with no suspicious lesions or rash, good texture and turgor. NEURO: awake, alert, and oriented to person, place and time. There were no obvious focal neurologic abnormalities. EXTREMITIES: Normal range of motion. No edema. No calf tenderness. [facility] Past Medical History Medical History (Updated 12/03/22 @ 23:03 by Christ Barboza MD) Alcoholism Appendicitis Diabetes Drug abuse Hyperlipidemia Myocardial infarct Renal colic on left side Surgical History Surgical History H/O heart artery stent Liver transplant recipient Family History Family History (Updated 12/04/22 @ 11:09 by Araceli Castano RN) Mother Diabetes mellitus Father Diabetes mellitus Sibling Diabetes mellitus Social History Social History Smoking status: Never smoker Second hand tobacco smoke exposure: No Alcohol intake: former Substance use: unknown Substance use type: marijuana Lack of Transportation: No Lack of Food: Never True Current Housing: I Have Housing Concerned About Future Housing: No Difficulty Paying Gas/Electric Bills: No Difficulty Paying for Meds: No Currently Unemployed: No Education: High School Diploma/GED Difficulty w/ Childcare or Family Care: No Occupation/Education: unemployed Gender identity (if verbalized by the patient): Male Sexual Orientation (if Verbalized by the Patient): Straight or Heterosexual Spiritual care concerns: No Same Day Admit/Disch: Med Pre-admit Medications Home Medications Medication Instructions Recorded Confirmed Type aspirin 81 mg chewable tablet 81 mg PO DAILY 03/18/20 12/03/22 History clopidogrel 75 mg tablet 75 mg PO DAILY 03/18/20 12/03/22 History duloxetine 60 mg capsule,delayed 60 mg PO DAILY 03/18/20 12/03/22 History release hydrocodone 10 mg-acetaminophen 1 tablet PO Q6H PRN Pain 03/18/20 12/04/22 History 325 mg tablet insulin glargine 100 unit/mL (3 20 unit subcut HS 03/18/20 12/03/22 History mL) subcutaneous pen (Lantus Solostar U-100 Insulin) insulin glargine U-300 conc 300 1 unit subcut DIRECTED 03/18/20 12/03/22 History unit/mL (3 mL) subcutaneous pen (Toujeo Max U-300 SoloStar) insulin lispro 100 unit/mL 1 unit subcut DIRECTED 03/18/20 12/03/22 History subcutaneous pen lisinopril 5 mg tablet 5 mg PO DAILY 03/18/20 12/03/22 History metoprolol succinate 100 mg 100 mg PO DAILY 03/18/20 12/03/22 History tablet,extended release 24 hr mycophenolate mofetil 250 mg 250 mg PO BID 03/18/20 12/04/22 History capsule rosuvastatin 20 mg tablet 20 mg PO DAILY 03/18/20 12/03/22 History temazepam 30 mg capsule 30 mg PO HS 03/18/20 12/03/22 History tramadol 50 mg tablet 50 mg PO Q12H PRN pain #6 tabs 12/25/21 12/03/22 Rx ergocalciferol (vitamin D2) 1,250 25,000 unit PO WEEKLY 12/03/22 12/03/22 History mcg (50,000 unit) capsule dextro
[2022-12-05 09:04] VITALS: PULSE 84
[2022-12-05] MEDS: METOPROLOL SUCCINATE EXT REL 50 MG TABCR 100 MG PO (09:04)
[2022-12-05] MEDS: ASPIRIN 81 MG CHEWABLE TABLET PO (09:04)
[2022-12-05] MEDS: DULoxetine HCL 30 MG CAPSULE.DR 60 MG PO (09:05)
[2022-12-05] MEDS: lisinopriL 5 MG TABLET PO (09:05)
[2022-12-05] MEDS: CLOPIDOGREL BISULFATE 75 MG TABLET PO (09:05)
[2022-12-05] MEDS: ROSUVASTATIN 10 MG TABLET 20 MG PO (09:06)
--- NOTE | 2022-12-05 10:34 | PC.NURSE ---
Pt discharged to self care. RN instructed pt regarding his medications: doses, times, purpose and SE. Pt instructed on the S&S of Hyperglycemia and actions to take. Pt placed his DEXCOM sensor and paired it to the DEXCOM monitor. Pt verbilized understanding of instructions and follow up MD appointments on 12/10 and 12/11. Pt states he has a ride to these appointments already. Pt taken to the car via WC by Sheri KANG.
--- NOTE | 2022-12-10 10:30 | PC.NURSE ---
Unable to contact for discharge call back.
== END 2022-12-05 09:55 | disposition home or self-care (01) ==
LOC: CHSED 10:44 → CHS2ND 12-04 07:07
PROVIDERS: Nurse Practitioner; Admitting Provider Internal Medicine; Emergency Provider Emergency Medicine; Visit Provider Internal Medicine
DX: E10.10 Type 1 diabetes mellitus with ketoacidosis without coma (principal); N17.9 Acute kidney failure, unspecified; E78.5 Hyperlipidemia, unspecified; I25.2 Old myocardial infarction; F10.20 Alcohol dependence, uncomplicated; Z20.822 Contact with and (suspected) exposure to COVID-19; Z79.02 Long term (current) use of antithrombotics/antiplatelets; Z79.82 Long term (current) use of aspirin; Z79.4 Long term (current) use of insulin; Z95.5 Presence of coronary angioplasty implant and graft; Z94.4 Liver transplant status
CPT/HCPCS: 36415; 36600; 71046; 80048; 80053; 80307; 81001; 82805; 82947; 82948; 83036; 83605; 83735; 85025; 85027; 86140; 87040; 96361; 96365; 96366; 96367; 96372; 96374; 96375; 96376; 99285; A9270; G0378; J1815; J3480; J7030; J7070; J7120; U0003; U0005

== ENCOUNTER 2023-01-02 14:57 | Outpatient (CLI) | payer MEDICARE, SELFPAY ==
[2023-01-02 15:32] LABS: Basophils Absolute Auto 0.03 K/mm3 (0.00-0.10); Basophils Percent Auto 0.6 % (0.0-1.0); Eosinophils Absolute Auto 0.06 K/mm3 (0.02-0.50); Eosinophils Percent Auto 1.1 % (1.0-6.0); Hematocrit 34.8 % (40.0-54.0); Hemoglobin 11.1 g/dL (14.0-18.0); Immature Granulocyte Absolute 0.01 K/mm3 (0.00-0.00); Immature Granulocyte Percent A 0.2 % (0.0-0.0); Lymphocytes Absolute Auto 0.97 K/mm3 (1.10-4.50); Lymphocytes Percent Auto 18.1 % (18.0-42.0); Mean Corpuscular HGB Conc 31.9 g/dL (32.0-36.0); Mean Corpuscular Hemoglobin 30.4 pg (27.0-31.0); Mean Corpuscular Volume 95.3 fL (78.0-102.0); Monocytes Percent Auto 9.3 % (2.0-11.0); Neutrophils Absolute Auto 3.8 K/mm3 (1.7-7.2); Neutrophils Percent Auto 70.7 % (50.0-70.0); Platelet Count Result 206 K/mm3 (150-420); Red Blood Count 3.65 M/mm3 (4.70-6.10); White Blood Count 5.4 K/mm3 (4.8-10.8)
[2023-01-02 16:14] LABS: Alanine Aminotransferase 62 U/L (16-63); Albumin Level 3.1 g/dL (3.4-5.0); Alkaline Phosphatase 175 U/L (46-116); Anion Gap 6 mmol/L (8-16); Aspartate Amino Transferase 49 U/L (15-37); Bilirubin,Total 0.3 mg/dL (0.00-1.00); Blood Urea Nitrogen 34 mg/dL (7-18); Calcium 8.6 mg/dL (8.5-10.1); Carbon Dioxide 31 mmol/L (21-32); Chloride 104 mmol/L (98-108); Estimated Glomerular Filt Rate > 60; GGT 85 U/L (15-85); Glucose 168 mg/dL (70-99); Osmolality Calculated 303 mOsm/kg (285-295); Potassium 4.7 mmol/L (3.5-5.1); Sodium 141 mmol/L (136-145); Total Protein 6.3 g/dL (6.4-8.2)
[2023-01-05 08:55] LABS: Sirolimus 2.6 mcg/L (3.0-18.0)
[2023-01-06 21:22] LABS: PSA, Total 2.2 ng/mL (<=4.0)
== END 2023-01-02 14:58 | disposition home or self-care (01) ==
LOC: CHSLAB 15:14
PROVIDERS: PCP Internal Medicine; Visit Provider Internal Medicine Gastroenterology
DX: Z94.4 Liver transplant status (principal); Z79.899 Other long term (current) drug therapy; Z12.5 Encounter for screening for malignant neoplasm of prostate; R97.20 Elevated prostate specific antigen [PSA]
CPT/HCPCS: 36415; 80053; 80195; 82977; 84153; 84154; 85025

== ENCOUNTER 2023-06-11 12:21 | Outpatient (RCR) | payer MEDICARE, SELFPAY ==
[2023-06-11 12:39] LABS: Basophils Absolute Auto 0.02 K/mm3 (0.00-0.10); Basophils Percent Auto 0.5 % (0.0-1.0); Eosinophils Percent Auto 2.3 % (1.0-6.0); Hematocrit 36.8 % (40.0-54.0); Hemoglobin 12.2 g/dL (14.0-18.0); Immature Granulocyte Absolute 0.02 K/mm3 (0.00-0.00); Immature Granulocyte Percent A 0.5 % (0.0-0.0); Lymphocytes Absolute Auto 0.92 K/mm3 (1.10-4.50); Lymphocytes Percent Auto 21.3 % (18.0-42.0); Mean Corpuscular HGB Conc 33.2 g/dL (32.0-36.0); Mean Corpuscular Hemoglobin 29.9 pg (27.0-31.0); Mean Corpuscular Volume 90.2 fL (78.0-102.0); Mean Platelet Volume 10.2 fl (8.7-11.0); Monocytes Absolute Auto 0.41 K/mm3 (0.10-0.90); Monocytes Percent Auto 9.5 % (2.0-11.0); Neutrophils Absolute Auto 2.8 K/mm3 (1.7-7.2); Neutrophils Percent Auto 65.9 % (50.0-70.0); Platelet Count Result 191 K/mm3 (150-420); Red Blood Count 4.08 M/mm3 (4.70-6.10); Red Cell Distribution Width 12.6 % (11.6-14.4); White Blood Count 4.3 K/mm3 (4.8-10.8)
[2023-06-11 13:14] LABS: Alanine Aminotransferase 48 U/L (16-63); Albumin Level 3.3 g/dL (3.4-5.0); Alkaline Phosphatase 160 U/L (46-116); Anion Gap 5 mmol/L (8-16); Aspartate Amino Transferase 35 U/L (15-37); Bilirubin,Total 0.5 mg/dL (0.00-1.00); Blood Urea Nitrogen 24 mg/dL (7-18); Calcium 8.7 mg/dL (8.5-10.1); Carbon Dioxide 31 mmol/L (21-32); Chloride 98 mmol/L (98-108); Estimated Glomerular Filt Rate > 60; GGT 67 U/L (15-85); Osmolality Calculated 300 mOsm/kg (285-295); Potassium 4.8 mmol/L (3.5-5.1); Sodium 134 mmol/L (136-145); Total Protein 6.3 g/dL (6.4-8.2)
[2023-06-11 13:26] LABS: Glucose 429 mg/dL (70-99)
== END 2023-09-09 23:59 | disposition home or self-care (01) ==
LOC: CHSLAB 12:21
PROVIDERS: PCP Internal Medicine Gastroenterology; Visit Provider Internal Medicine Gastroenterology
DX: Z51.81 Encounter for therapeutic drug level monitoring (principal); Z95.5 Presence of coronary angioplasty implant and graft; Z94.4 Liver transplant status; Z79.899 Other long term (current) drug therapy
CPT/HCPCS: 36415; 80053; 80195; 82977; 85025

== ENCOUNTER 2023-11-30 16:12 | Emergency (ER) | payer MEDICARE, SELFPAY ==
[2023-11-30] VITALS (22 sets, daily range): BP systolic 148–183; BP diastolic 67–88; PULSE 67–80; RESP 12–24; TEMP 36.6; O2SAT 98–100
--- NOTE | ~2023-11-30 | XR_ITS ---
EXAMINATION: XR chest 1V portable Exam Date/Time: 11/30/2023 16:50 CDT HISTORY: altered mental status Comparison: 12/05/2022. RESULT: Lines, tubes, and devices: None. Lungs and pleura: Streaky bibasilar atelectasis/scar, otherwise clear. Cardiomediastinal silhouette: Stable. Other: No acute osseous or upper abdominal finding. IMPRESSION: No acute cardiopulmonary process. Reviewed, dictated and finalized at location K.
--- NOTE | ~2023-11-30 | CT_ITS ---
EXAMINATION: CT brain wo con DATE: 11/30/2023 16:48 INDICATION: altered mental status . TECHNIQUE: Computed tomography (CT) of the head was performed without intravenous contrast. The mA wa s adjusted according to patient size. Iterative reconstruction technique was employed. The dose-lengt h product was 681.00 mGy-cm. COMPARISON: None. FINDINGS: No acute intracranial hemorrhage or extra-axial fluid collection. No hydrocephalus, mass, or herniation. No acute ischemic infarct. Unremarkable dural venous sinus attenuation. No acute osseous abnormality. The aerated spaces are clear. Mild atrophy and chronic white matter change. Atherosclerotic intracranial calcification. Bilateral l ens replacements. IMPRESSION: No acute intracranial process. Reviewed, dictated and finalized at location K.
[2023-11-30] MEDS: DEXTROSE 50% 25 GM/50 ML SYRINGE (16:18)
[2023-11-30 16:24] LABS: Glucose Point of Care 286 mg/dl (65-105)
--- NOTE | 2023-11-30 16:29 | ECG_ITS ---
Measurements Intervals [place] Rate: 71 P: 52 OR: 184 QRS: -11 QRSD: 101 T: 39 QT: 402 QTc: 438 Interpretive Statements SINUS RHYTHM BASELINE ARTIFACT- II, III, AVF NORMAL ECG COMPARED TO ECG 03/22/2022 05:07:26 NO SIGNIFICANT CHANGES Electronically Signed On 11-30-2023 19:04:41 CDT by Magen Buitrago D.O.
--- NOTE | 2023-11-30 16:30 | PC.NURSE ---
Upon arrival to ED patient was talking with staff stating he didn't want to be at the Ed and wanted to go home. after patient getting patient in to the bed patient has stopped talking and not wanting to communicate with staff. patient was able to state his name and make grunting noises during needle stick from lab but has not wanted to communicate since.
[2023-11-30 16:32] LABS: Glucose Point of Care 224 mg/dl (65-105)
[2023-11-30] MEDS: DEXTROSE 5%/0.9% SOD CHL 1,000 ML 100 ML IV CONT (16:45)
[2023-11-30 16:53] LABS: Glucose Point of Care 186 mg/dl (65-105)
[2023-11-30 17:00] LABS: Basophils Absolute Auto 0.02 K/mm3 (0.00-0.10); Basophils Percent Auto 0.2 % (0.0-1.0); Eosinophils Absolute Auto 0.02 K/mm3 (0.02-0.50); Eosinophils Percent Auto 0.2 % (1.0-6.0); Hemoglobin 12.5 g/dL (14.0-18.0); Immature Granulocyte Absolute 0.04 K/mm3 (0.00-0.00); Immature Granulocyte Percent A 0.5 % (0.0-0.0); Lymphocytes Absolute Auto 0.59 K/mm3 (1.10-4.50); Lymphocytes Percent Auto 6.7 % (18.0-42.0); Mean Corpuscular HGB Conc 32.1 g/dL (32-36); Mean Corpuscular Hemoglobin 29.3 pg (27.0-31.0); Mean Corpuscular Volume 91.3 fL (78.0-102.0); Mean Platelet Volume 10.3 fl (8.7-11.0); Monocytes Absolute Auto 0.49 K/mm3 (0.10-0.90); Monocytes Percent Auto 5.6 % (2.0-11.0); Neutrophils Absolute Auto 7.66 K/mm3 (1.70-7.20); Neutrophils Percent Auto 86.8 % (50.0-70.0); Platelet Count Result 184 K/mm3 (150-420); Red Blood Count 4.27 M/mm3 (4.70-6.10); White Blood Count 8.8 K/mm3 (4.8-10.8)
--- NOTE | 2023-11-30 17:13 | PC.NURSE ---
RN at bedside talking to patient about need for urine sample patient states he cannot pee at this time shaking his head. Patient educated that straight cath was an option and he shook his head no. Patient asked what his friends name was that was in the room at this time and was able to state his friends name was godfrey, patient also was able to stay that he is in a hospital.
[2023-11-30 17:14] LABS: Glucose Point of Care 229 mg/dl (65-105)
[2023-11-30 17:19] LABS: Partial Thromboplastin Time 27.1 Sec (23.9-30.70); Prothrombin Time 10.7 Seconds (9.50-12.1)
[2023-11-30 17:23] LABS: Alanine Aminotransferase 45 U/L (16-63); Albumin Level 3.7 g/dL (3.4-5.0); Alkaline Phosphatase 143 U/L (46-116); Anion Gap 8 mmol/L (8-16); Aspartate Amino Transferase 31 U/L (15-37); Bilirubin,Total 0.5 mg/dL (0.00-1.00); Blood Urea Nitrogen 22 mg/dL (7-18); Calcium 8.8 mg/dL (8.5-10.1); Carbon Dioxide 31 mmol/L (21-32); Chloride 101 mmol/L (98-108); Estimated Glomerular Filt Rate > 60; Glucose 178 mg/dL (70-99); Osmolality Calculated 297 mOsm/kg (285-295); Potassium 3.3 mmol/L (3.5-5.1); Sodium 140 mmol/L (136-145); Total Protein 7.2 g/dL (6.4-8.2); Troponin I 13.6 ng/L (0.00-60.4)
[2023-11-30 17:26] LABS: Lactic Acid Reflex 3.2 mmol/L (0.4-2.0)
[2023-11-30 17:38] LABS: Glucose Point of Care 210 mg/dl (65-105)
[2023-11-30] MEDS: SODIUM CHLORIDE 0.9% IV 1,000 ML 999 ML IV CONT (17:44)
--- NOTE | 2023-11-30 17:46 | PC.NURSE ---
Patient has now started talking and able to hold conversation with RN and friend in room. erp notified.
--- NOTE | 2023-11-30 18:07 | PC.NURSE ---
Patient was able to urinate at this time, Crackers, chips and fruit cup provided to patient with erp approval. Per ERP D5/NS will be stopped.
[2023-11-30 18:29] LABS: Appearance Urine Clear (Clear); Bilirubin Urine Negative (Negative); Blood Urine Trace-intact (Negative); Color Urine Light Yellow (Yellow); Glucose Urine UA 2+ (Negative); Ketones Urine Negative (Negative); Leukocyte Esterase Ur Negative LEU/UL (Negative); Nitrate Urine Negative (Negative); Protein Urine 3+ (Negative); Urobilinogen Urine 0.2 mg/dL (0.2-1.0)
[2023-11-30 18:32] LABS: Amphetamine Screen Urine Negative (Negative); Barbiturate Screen Urine Negative (Negative); Benzodiazepines Screen Urine Negative (Negative); Cannabinoid Screen Urine Positive (Negative); Cocaine Screen Urine Negative (Negative); Methadone Screen Urine Negative (Negative); Opiate Screen Urine Negative (Negative); Phencyclidine Screen Urine Negative (Negative)
[2023-11-30 18:36] LABS: Add Urine Microscopic? YES; RBC Urine None seen /hpf (0-2)
--- NOTE | 2023-11-30 18:41 | ED.AMS ---
HPI - Altered Mental Status General Chief Complaint: Altered Mental Status Stated Complaint: DIABETIC PROBLEM Time Seen by Provider: 11/30/23 16:18 Source: patient Mode of arrival: wheelchair Limitations: altered mental status History of Present Illness HPI narrative: This is a 63-year-old male that was driving along highway with his friend and apparently has a history of diabetes and took a little extra insulin which dropped his blood sugars causing confusion and altered mental status. Patient received amp of D50 and did respond but was still lethargic. Patient did respond to verbal commands by shaking his head denied any chest pain or shortness of breath denied any drug use no fever chills no abdominal pain no diarrhea constipation. Blood sugars initially in the 50s and after D50 did increase to 189. MD complaint: altered mental status Onset (ago): hour(s) Timing confirmed by: other Severity: moderate Consistency of symptoms: waxing and waning Context: other Related Data Home Medications Medication Instructions Recorded Confirmed aspirin 81 mg chewable tablet 81 mg PO DAILY 03/18/20 12/03/22 clopidogrel 75 mg tablet 75 mg PO DAILY 03/18/20 12/03/22 duloxetine 60 mg capsule,delayed 60 mg PO DAILY 03/18/20 12/03/22 release hydrocodone 10 mg-acetaminophen 1 tablet PO Q6H PRN Pain 03/18/20 12/04/22 325 mg tablet insulin glargine 100 unit/mL (3 20 unit subcut HS 03/18/20 12/03/22 mL) subcutaneous pen (Lantus Solostar U-100 Insulin) insulin glargine U-300 conc 300 1 unit subcut DIRECTED 03/18/20 12/03/22 unit/mL (3 mL) subcutaneous pen (Toujeo Max U-300 SoloStar) insulin lispro 100 unit/mL 1 unit subcut DIRECTED 03/18/20 12/03/22 subcutaneous pen lisinopril 5 mg tablet 5 mg PO DAILY 03/18/20 12/03/22 metoprolol succinate 100 mg 100 mg PO DAILY 03/18/20 12/03/22 tablet,extended release 24 hr mycophenolate mofetil 250 mg 250 mg PO BID 03/18/20 12/04/22 capsule rosuvastatin 20 mg tablet 20 mg PO DAILY 03/18/20 12/03/22 temazepam 30 mg capsule 30 mg PO HS 03/18/20 12/03/22 ergocalciferol (vitamin D2) 1,250 25,000 unit PO WEEKLY 12/03/22 12/03/22 mcg (50,000 unit) capsule sirolimus 2 mg tablet 2 mg PO DAILY 12/04/22 12/04/22 Allergies Allergy/AdvReac Type Severity Reaction Status Date / Time No Known Allergies Allergy Verified 11/30/23 16:53 Review of Systems Review of Systems: All systems reviewed & are unremarkable except as noted in HPI and below PMFSH Past Medical History Medical History Alcoholism Appendicitis Diabetes Drug abuse Hyperlipidemia Myocardial infarct Renal colic on left side Surgical History Surgical History H/O heart artery stent Liver transplant recipient Family History Family History Mother Diabetes mellitus Father Diabetes mellitus Sibling Diabetes mellitus Social History Social History Smoking status: Never smoker Second hand tobacco smoke exposure: No Alcohol intake: former Substance use: unknown Substance use type: marijuana Lack of Transportation: No Lack of Food: Never True Current Housing: I Have Housing Concerned About Future Housing: No Difficulty Paying Gas/Electric Bills: No Difficulty Paying for Meds: No Currently Unemployed: No Education: High School Diploma/GED Difficulty w/ Childcare or Family Care: No Occupation/Education: unemployed Gender identity (if verbalized by the patient): Male Sexual Orientation (if Verbalized by the Patient): Straight or Heterosexual Spiritual care concerns: No Exam Const: General: confusion Nutritional Appearance: well nourished Eyes: Conjunctivae: conjunctivae normal Neck: Neck: normal visual inspection and no lymphadenopathy Chest:
--- NOTE | 2023-11-30 18:50 | PC.NURSE ---
ERP denies need for discharge blood glucose, states patient has been maintain during visit and has eaten.
--- NOTE | 2023-12-07 12:10 | PC.NURSE ---
12/07/23 BLOOD CULTURES FINAL NO GROWTH AFTER 5 DAYS
== END 2023-11-30 18:55 | disposition home or self-care (01) ==
PROVIDERS: Emergency Provider Emergency Medicine
DX: E11.649 Type 2 diabetes mellitus with hypoglycemia without coma (principal); R53.83 Other fatigue; E78.5 Hyperlipidemia, unspecified; I25.2 Old myocardial infarction; Z79.899 Other long term (current) drug therapy; Z79.02 Long term (current) use of antithrombotics/antiplatelets; Z79.82 Long term (current) use of aspirin; Z79.4 Long term (current) use of insulin; Z79.623 Long term (current) use of mammalian target of rapamycin (mTOR) inhibitor; Z94.4 Liver transplant status; Z95.5 Presence of coronary angioplasty implant and graft
CPT/HCPCS: 36415; 70450; 71045; 80053; 80307; 81001; 82948; 83605; 84484; 85025; 85610; 85730; 87040; 93005; 96361; 96374; 99284; J7030; J7042

== ENCOUNTER 2024-01-16 10:02 | Outpatient (CLI) | payer MEDICARE, SELFPAY ==
--- NOTE | ~2024-01-16 | US_ITS ---
US abdomen limited INDICATION: Liver transplant recipient. Elevated liver enzymes. PROCEDURE: Realtime right upper abdominal ultrasound. COMPARISON: No prior studies for comparison. FINDINGS: The pancreas is normal without focal mass or pancreatic ductal dilation. Liver echotexture is normal without focal mass or intrahepatic biliary dilatation. There is normal directional flow i n the portal vein. Gallbladder is surgically absent. Common bile duct measures 5 mm. No sonographic Linda's sign. IMPRESSION: 1: Normal limited abdominal ultrasound. Reviewed, dictated and finalized at location B.
== END 2024-01-16 10:03 ==
LOC: GOSHIMG 10:04
PROVIDERS: PCP Internal Medicine Gastroenterology; Visit Provider Internal Medicine Gastroenterology
DX: R74.8 Abnormal levels of other serum enzymes (principal); Z94.4 Liver transplant status
CPT/HCPCS: 76705

== ENCOUNTER 2024-02-20 12:27 | Outpatient (CLI) | payer MEDICARE, SELFPAY ==
[2024-02-20 13:21] LABS: Basophils Absolute Auto 0.03 K/mm3 (0.00-0.10); Basophils Percent Auto 0.5 % (0.0-1.0); Eosinophils Absolute Auto 0.13 K/mm3 (0.02-0.50); Eosinophils Percent Auto 2.3 % (1.0-6.0); Hematocrit 38.8 % (40.0-54.0); Hemoglobin 12.3 g/dL (14.0-18.0); Immature Granulocyte Absolute 0.02 K/mm3 (0.00-0.00); Immature Granulocyte Percent A 0.4 % (0.0-0.0); Lymphocytes Absolute Auto 0.94 K/mm3 (1.10-4.50); Lymphocytes Percent Auto 16.9 % (18.0-42.0); Mean Corpuscular HGB Conc 31.7 g/dL (32-36); Mean Corpuscular Hemoglobin 29.9 pg (27.0-31.0); Mean Corpuscular Volume 94.2 fL (78.0-102.0); Mean Platelet Volume 10.8 fl (8.7-11.0); Monocytes Absolute Auto 0.49 K/mm3 (0.10-0.90); Monocytes Percent Auto 8.8 % (2.0-11.0); Neutrophils Absolute Auto 3.94 K/mm3 (1.70-7.20); Neutrophils Percent Auto 71.1 % (50.0-70.0); Platelet Count Result 194 K/mm3 (150-420); Red Blood Count 4.12 M/mm3 (4.70-6.10); White Blood Count 5.6 K/mm3 (4.8-10.8)
[2024-02-20 13:44] LABS: Alanine Aminotransferase 53 U/L (16-63); Albumin Level 3.2 g/dL (3.4-5.0); Alkaline Phosphatase 160 U/L (46-116); Anion Gap 3 mmol/L (4-12); Aspartate Amino Transferase 39 U/L (15-37); Bilirubin,Total 0.4 mg/dL (0.00-1.00); Blood Urea Nitrogen 16 mg/dL (7-18); Calcium 8.4 mg/dL (8.5-10.1); Carbon Dioxide 36 mmol/L (21-32); Chloride 102 mmol/L (98-108); Creatinine Urine 148.36 mg/dL (40-278); Estimated Glomerular Filt Rate > 60; GGT 78 U/L (15-85); Glucose 222 mg/dL (70-99); Osmolality Calculated 300 mOsm/kg (285-295); Potassium 4.8 mmol/L (3.5-5.1); Sodium 141 mmol/L (136-145); Total Protein 6.5 g/dL (6.4-8.2)
[2024-02-20 14:25] LABS: MALB Creatinine Ratio 269.6 mg/g (0-30); Microalbumin Urine Random > 400.0 mg/L
[2024-02-22 11:53] LABS: Sirolimus 9.7 ng/mL (3.0-18.0)
== END 2024-02-20 12:28 | disposition home or self-care (01) ==
LOC: CHSLAB 12:34
DX: E11.65 Type 2 diabetes mellitus with hyperglycemia (principal); R74.01 Elevation of levels of liver transaminase levels; E87.5 Hyperkalemia; Z79.899 Other long term (current) drug therapy; Z94.4 Liver transplant status
CPT/HCPCS: 36415; 80053; 80195; 82043; 82977; 85025

== ENCOUNTER 2024-09-29 11:04 | Outpatient (CLI) | payer MEDICARE, SELFPAY ==
--- NOTE | ~2024-09-29 | XR_ITS ---
XR cervical spine 4-5V Ordering provider: Julian Hernandez History: . NECK PAIN THRU RT SIDE X6MO S/P FALL . Comparison: None FINDINGS: VERTEBRAL BODIES: Normal height and alignment. No visible fracture or subluxation. The dens is intact . Degenerative changes of the spine. DISK SPACES: Well maintained. Narrowing of the disc C7-T1. Narrowing of the foramina and the lower ce rvical area bilaterally. Uncovertebral joint osteoarthritic changes at the level of C5-C6 and C6-C7. PARASPINOUS SOFT TISSUES: No prevertebral soft tissue swelling. IMPRESSION: No acute osseous abnormality cervical spine. Reviewed, dictated and finalized at location A. PLUCK TRIMMER
--- NOTE | ~2024-09-29 | XR_ITS ---
[id number] Ordering provider: Julian Hernandez History: . RT LATERAL RIB PAIN X6MO S/P FALL . Comparison: None. FINDINGS: BONES: No acute right rib fracture or fracture of the visualized osseous structures. LUNGS: No effusions or infiltrates. No pneumothorax. SOFT TISSUES: Normal. IMPRESSION: No right rib fracture . Reviewed, dictated and finalized at location A. R ERECTOR IMPRESSION: No right rib fracture .
--- NOTE | ~2024-09-29 | XR_ITS ---
XR hip RT min 2V Ordering provider: Collette Myles History: . RT HIP PAIN X6MO S/P FALL . Comparison: None. FINDINGS: BONES: Sclerotic area seen in the subcapital region of the right femur head. Small bony fragment is s een in the area of the joint. CT evaluation advised. Otherwise, No no definite acute fracture or disl ocation. HIP JOINT SPACES: Severe osteoarthritic changes of the right hip. PUBIC SYMPHYSIS: Pubic symphysitis. SOFT TISSUES: Normal. IMPRESSION: Sclerotic area in the subcapital region. Bony fragment seen medially in the joint space area. CT eval uation advised. Severe right hip osteoarthritic changes. Reviewed, dictated and finalized at location A. QUALITY ASSURANCE ANALYST IMPRESSION: Sclerotic area in the subcapital region. Bony fragment seen medially in the nabil nt space area. CT evaluation advised. Severe right hip osteoarthritic changes.
--- NOTE | ~2024-09-29 | XR_ITS ---
XR shoulder RT min 2V Ordering provider: Collette Myles History: . RT SHOULDER PAIN THRU JOINT X6MO S/P FALL . Comparison: None. FINDINGS: BONES: No acute fracture or dislocation. JOINT SPACES: The acromioclavicular joint shows mild osteoarthritic changes. The glenohumeral joint i s normal. SOFT TISSUES: Normal. IMPRESSION: No acute osseous abnormality right shoulder. Reviewed, dictated and finalized at location A. ARCH ENVIRONMENTAL SCIENTIST
== END 2024-09-29 11:05 | disposition home or self-care (01) ==
LOC: CHSLAB 11:13 → CHSIMG 11:24
DX: M25.551 Pain in right hip (principal); S46.811D Strain of other muscles, fascia and tendons at shoulder and upper arm level, right arm, subsequent encounter; M54.2 Cervicalgia; M16.11 Unilateral primary osteoarthritis, right hip
CPT/HCPCS: 71101; 72050; 73030; 73502

== ENCOUNTER 2024-10-22 12:32 | Outpatient (CLI) | payer MEDICARE, MEDICAID, SELFPAY ==
--- NOTE | ~2024-10-22 | CT_ITS ---
EXAMINATION: CT hip RT wo con DATE: 10/22/2024 13:23 INDICATION: Right hip pain. TECHNIQUE: Computed tomography (CT) of the right hip was performed without intravenous contrast. Auto mated exposure control and iterative reconstruction technique were employed. The dose-length product was 194.14 mGy-cm. COMPARISON: CT abdomen and pelvis 12/25/2021, right hip radiographs 09/29/2024 FINDINGS: Alignment is normal. No fracture. There is severe right hip osteoarthritis. There is a 4 mm x 9 mm loose body in the hip joint. There is mild lumbar spondylosis. IMPRESSION: 1. Severe right hip osteoarthritis with loose body. Reviewed, dictated and finalized at location A. CAID ELIGIBILITY SPECIALIST
--- OUTSIDE RECORDS SUMMARY | 2024-10-22 12:37 | XMS_ITS | Referral Summary ---
Author Organization [facility] comp[facility]ago Address [address] [place] [address] Care Team Providers Care Foundation Director Name Role Phone Theo Stringer MD Primary Care Provider [phone] Theo Stringer MD Unavailable [phone] Isaac Callahan MD Unavailable [phone] Source Comments [facility],non-owned Affiliates and Associated Physician Practices is amultiple site organization consisting of ambulatory clinics and hospital sitesin [place], [place], [place] and [place]. This disclosure is being madepursuant to the Care Everywhere program and may not contain all information available regarding this patient. Last updated 18.[facility] Allergies Active Allergy Reactions Criticality Noted Date Comments Acetaminophen 03/25/2013 rash Oxycodone 03/25/2013 Rash Oxycodone-Acetaminophen Itching 02/16/2019 Medications * Be aware that medications may not be up to date on this document. Alwaysverify current medications with the patient. Medication Sig Dispensed Refills Start Date End Date Status sirolimus (RAPAMUNE) 1 MG tablet Take 1 Tab by mouth every 4 hours. After cyclosporine Active mycophenolate (CELLCEPT) 250 MG capsule Take 3 Caps by mouth 2 times daily. Active insulin aspart (NOVOLOG) vial Max daily dose 266 units in insulin pump 8 Vial 0 04/26/2015 Active insulin lispro (HUMALOG KWIKPEN) pen Inject 8 Units subcutaneously 3 times daily before meals 1 Box 0 05/10/2015 Active HYDROcodone-aceta minophen (NORCO) 10-325 MG tablet Take 1 tablet by mouth every 6 hours as needed for Pain Active insulin glargine (LANTUS SOLOSTAR) pen Inject 10 Units subcutaneously at bedtime 1 Box 02/17/2019 Active lisinopril (PRINIVIL;ZESTRIL ) 5 MG tablet Take 1 tablet by mouth once daily 30 tablet 2 02/18/2019 Active aspirin (ASPIRIN) 81 MG chew tablet 1 tablet by Enteral Tube route once daily 30 tablet 2 02/18/2019 Active rosuvastatin (CRESTOR) 20 MG tablet Take 1 tablet by mouth once daily 30 tablet 2 02/18/2019 Active ticagrelor (BRILINTA) 90 MG tablet 1 tablet by Enteral Tube route 2 times daily 30 tablet 2 02/17/2019 Active metoprolol succinate XL 24hr (TOPROL XL) 100 MG tablet Take 1 tablet by mouth once daily 30 tablet 2 02/18/2019 Active Active Problems Problem Noted Date Diagnosed Date Cardiac arrest 02/14/2019 Diabetes mellitus type I 03/25/2013 Overview (03/25/2013): Diagnosed in 2004. Insulin pump since 2009 Insulin pump status 03/25/2013 Overview (03/25/2013): medtronic Since 2009 Current settings: 1u/15gm CHO, sensitivity 1u/40/100 Basal: 1.1u/hr Status post liver transplant 03/25/2013 Overview (03/25/2013): In 2004. For liver cirrhosis, 2ry hep C and ETOH. Followed by jesus Patino Social History Tobacco Use Types Packs/Day Years Used Date Smoking Tobacco: Never Smokeless Tobacco: Never Alcohol Use Standard Drinks/Week Comments Yes 0 (1 standard drink = 0.6 oz pure alcohol) family unsure, never has withdrawn from alcohol Sex and Gender Information Value Date Recorded Sex Assigned at Not on file Gender Identity Not on file Sexual Orientation Not on file Last Filed Vital Signs Vital Sign Reading Time Taken Comments Blood Pressure 116/69 02/17/2019 11:08 AM CDT Pulse 98 02/17/2019 11:08 AM CDT Temperature 36.9 C (98.4 F) 02/17/2019 11:08 AM CDT Respiratory Rate 20 02/17/2019 11:08 AM CDT Oxygen Saturation 95% 02/17/2019 7:24 AM CDT Inhaled Oxygen Concentration 30% 02/15/2019 1 0:00 AM CDT Weight 79.4 kg (175 lb) 02/14/2019 9:43 PM CDT Height 185.4 cm (6' 1 ) 02/14/2019 9:43 PM CDT Body Mass Index 23.09 02/14/2019 9:43 PM CDT Functional Status Functional Status Response Date of Assess ment Is person deaf or have serious hearing difficult y? No 02/17/2019 Is person blind or have serious difficulty seein g? No 02/17/2019 Does person have serious dif ficulty walking/climbing stairs? No 02/17/2019 Does person have difficulty dressing/bathing? No 02/17/2019 Does person have difficulty doing errands alone? No 02/17/2019 Cognitive Status Response Date of Assessm ent Does person have difficulty concentrating/remembering/making decisions? No 02/17/2019 Plan of Treatment Not on file Medical Devices Implanted Type Area Drink Mixer Device Identifier Shelf Expiration Date Model / Serial / Lot Sys Cor Stent 32mm 3mm Sng Monrl Implanted:Qty: 1 on 02/14/2019 by Clotilde Chao MD at [facility] Left: Coronary [employer] Scimed 08/26/2020 [id number] / / Description:Mid LAD Sys Cor Stent 12mm 3mm Sng Monrl Implanted:Qty: 1 on 02/14/2019 by Clotilde Chao MD at [facility] Left: Coronary [employer] Scimed 07/15/2020 [id number] / / Procedures Procedure Name Priority Date/Time Associated Diagnosis Comments BASIC METABOLIC PANEL (CALCIUM TOTAL) AM Draw 02/17/2019 5:55 AM CDT HEMOGLOBIN A1C Routine 02/15/2019 1:15 AM CDT from Last 3 Months or Most Recently Relevant to Health Maintenance Results * (ABNORMAL) BASIC METABOLIC PANEL (CALCIUM TOTAL) (02/17/2019 5:55 AM CDT) BUN 14 7 - 26 mg/dL 02/17/2019 6:53 AM [facility] Creatinine 0.8 0.6 - 1.2 mg/dL 02/17/2019 6:53 AM [facility] Sodium 134(L) 136 - 145 mmol/L 02/17/2019 6:53 AM [facility] Potassium 4.0 3.5 - 4.5 mmol/L 02/17/2019 6:53 AM [facility] Chloride 97(L) 98 - 107 mmol/L 02/17/2019 6:53 AM [facility] CO2 28 22 - 29 mmol/L 02/17/2019 6:53 AM [facility] Glucose 253(H) 70 - 115 mg/dL 02/17/2019 6:53 AM [facility] Calcium 8.7 8.4 - 10.2 mg/dL 02/17/2019 6:53 AM [facility] Anion Gap 13 8 - 18 02/17/2019 6:53 AM [facility] BUN/Creatinine Ratio 18 7 - 23 02/17/2019 6:53 AM [facility] Osmolality Calculated 287 270 - 300 mOsm/kg 02/17/2019 6:53 AM [facility] eGFR >60 >60 mL/min/1.7 3 m2 02/17/2019 6:53 AM [facility] Blood BLOOD SPECIMEN / Unknown Lab Venipuncture / Unknown 02/17/2019 5:55 AM CDT 02/17/2019 6:19 AM CDT Clotilde Chao MD LAB - CHEMISTRY [facility] [address] [phone] * (ABNORMAL) HEMOGLOBIN A1C (02/15/2019 1:15 AM CDT) Hemoglobin A1c 13.0(H) 4.4 - 6.3 % 02/15/2019 11:47 AM CDT [facility] Estimated Average Glucose 326 mg/dL 02/15/2019 11:47 AM [facility] Comment: HbA1c Interpretation: Treatment target values recommended by ADA and other clinical organizations should be used to evaluate metabolic control in patients. Treatment Target Values: Normal : < 5.7% Pre-diabetes: 5.7-6.4% Diabetes: Equal to or greater than 6.5% Reference: [place] [employer] Standards of Care in Diabetes -2014 In patients 70 years and older consider HbA1c target range of 7.0-7.5% Reference: Diabetes Mellitus in Older People: Position Statement on behalf of the International Association of Gerontology and Geriatrics (IAGG), the Diabetes Working [employer] for Older People (EDWPOP), and the International Task Force of Experts in Diabetes. Jaya Branch, et al. J [employer]. 2012 Test results diagnostic of diabetes should be repeated for confirmation. The Sebia Capillary 2 assay for the measurement of HbA1c is a National Glycohemoglobin Standardization Program (NGSP)certified method. Blood BLOOD SPECIMEN / Unknown Venipuncture / Unknown 02/15/2019 1:15 AM CDT 02/15/2019 1:25 AM CDT Natali Ko DO LAB - CHEMISTRY OR DERABLES [facility] [address] [place] [address] from Last 3 Months or Most Recently Relevant to Health Maintenance Advance Directives * Full Code (Latest Code Status on File) Date Activated Date Inactivated Comments 02/14/2019 11:43 PM 02/17/2019 5:53 PM Care Teams Foundation Director Relationship Specialty Start Date End Date Theo Stringer MD [address] [place] [address] JUJU KO [address] [place] [phone] PCP - General Internal Medicine 02/14/19 Theo Stringer MD [address] [place] [address] JUJU KO [address] [place] [phone] Internal Medicine 02/14/19 Isaac Callahan MD [address] [place] [address], [address] [place] [id number] Endocrinology 03/25/13
--- OUTSIDE RECORDS SUMMARY | 2024-10-22 12:37 | XMS_ITS | Referral Summary ---
Author Organization [facility] Address [address] [place] [address] Care Team Providers Care Unit Supervisor Name Role Phone Theo Stringer MD Primary Care Provider [phone] Kaylee Gutierrez RN Unavailable Kimberly Camarillo RN Unavailable Unavailab Maco Higuera MD Unavailable Angelina Zavala Unavailable [phone] Marshall Sherman MD PhD Unavailable [phone] Encounters Date Type Department Care Team Description 10/21/[address] [place] [address] Order Rqst (CT of R hip w/o contrast) 10/20/2024 10:30 AM PREFORM MACHINE OPERATOR Ancillary Procedure [facility] Orthopaedic Surgery [address] [facility] Medical Office Building [address] [place] [address] Right shoulder pain, unspecified chronicity 10/20/2024 8:00 AM PREFORM MACHINE OPERATOR - 10/20/2024 11:59 PM PREFORM MACHINE OPERATOR Hospital Encounter [facility] Radiology [facility] [facility] [address] [place] [address] Chronic right shoulder pain; Intercostal muscle pain; Trapezius strain, right, subsequent encounter; Posterior pain of right hip Discharge Disposition: Discharge to home or self care 10/20/2024 8:40 AM PREFORM MACHINE OPERATOR Office Visit [facility] Orthopaedic Surgery [address] [facility] [address] [place] [address] Jacinda Collado MD Right shoulder pain, unspecified chronicity (Primary Dx); Chronic right shoulder pain; Intercostal muscle pain; Trapezius strain, right, subsequent encounter; Posterior pain of right hip 10/19/[address] [address] Karley Garrido 10/16/[address] [address] Theo Stringer MD Med Refill SERG 10/14/2024 11:30 AM PREFORM MACHINE OPERATOR Office Visit [facility] Endocrinology Metabolism and Lipid [facility] 13th [place] [address] [place] [id number] Angelina Zavala PA Uncontrolled type 2 diabetes mellitus with hyperglycemia (CMS/HCC) (HCC) (Primary Dx); Diabetic peripheral neuropathy (CMS/HCC) (HCC); Primary hypertension; Mixed hyperlipidemia; Liver transplant recipient (CMS/HCC) (HCC); Long-term insulin use (CMS/HCC) (HCC) 10/09/[address] [address] Theo Stringer MD Fall; Request Call Back 10/01/[address] [address] Theo Stringer MD Request Call Back; Discuss Test Results (CT testing & X-Ray) 09/30/2024 Orders Only [address] [phone] Collette Myles NP Posterior pain of right hip (Primary Dx); Abnormal bone xray; Hip joint loose body, right 09/29/2024 Orders Only [address] [phone] Collette Myles NP Trapezius strain, right, subsequent encounter (Primary Dx); Posterior pain of right hip 09/28/2024 Telephone [facility] Transplant Liver [address] [facility] [address] Mailstop [phone] [place] [address] Kaylee Gutierrez RN Appointment/Schedul es 09/28/2024 Orders Only [address] [phone] Collette Myles NP Trapezius strain, right, subsequent encounter (Primary Dx); Chronic right shoulder pain; Intercostal muscle pain; Posterior pain of right hip 09/25/2024 11:30 AM PREFORM MACHINE OPERATOR Office Visit [address] [phone] Collette Myles NP Chronic right shoulder pain (Primary Dx); Intercostal muscle pain; Trapezius strain, right, subsequent encounter; Posterior pain of right hip; Vision impairment; Uncontrolled type 2 diabetes mellitus with hyperglycemia (HCC); Chronic pain syndrome 09/17/[address] [phone] Theo Stringer MD Appointment Request (R arm pain) 09/07/[address] [phone] Theo Stringer MD 08/17/[address] [phone] Theo Stringer MD Med Refill SERG from Last 3 Months Allergies Active Allergy Reactions Criticality Noted Date Comments Oxycodone Rash Medium Reaction: rash, Oxycodone-Acetaminophen Hives,Itching Low 9 Reaction: HIVES, Medications multivit gdjjauoq-zqsg-II- calcium (THERA-M) 9 mg iron-400 mcg tablet Take 1 tablet by mouth daily Over the counter med Active blood-glucose meter [facility] 1 Device once for 1 dose 1 each 1 Active naloxone (NARCAN) 4 mg/actuation spray,non-aerosol Administer 1 spray into affected nostril(s) as needed for opioid reversal or respiratory depression Call 911. Administer a single spray in one nostril. Repeat every 3 minutes as needed if no or minimal response. 1 each Active blood glucose diagnostic strip For testing blood sugar twice daily 200 strip 11 Active OneTouch Delica Plus Lancet 33 gauge [facility] as directed Active diclofenac sodium (VOLTAREN) 1 % gelIndications:Ac myranda left lumbar radiculopathy,Cer vicalgia Apply 4 g topically 4 (four) times a day as needed (along R lateral neck & lower back near pain) 100 g 022 Active clopidogreL (PLAVIX) 75 mg tablet Take 1 tablet (75 mg total) by mouth daily CALL OFFICE FOR APPT for further refills 30 tablet 3 022 Active Alcohol Pads pads, medicated Use to administer insulin 4 times daily 200 each 11 Active potassium chloride ER 20 mEq CR tablet Take 1 tablet (20 mEq total) by mouth daily Active FreeStyle Test stripIndications: insulin dependent diabetes Check blood sugar four times a day or as directed 100 each 11 023 Active blood-glucose sensor device G7 1 each Active blood-glucose meter,continuous (Dexcom G6 Snout Puller) [facility] One account supervisor to be used with DexCom sensor/transmit ter unit 1 each Active blood-glucose transmitter (Dexcom G6 Transmitter) device Patient uses continuous monitor for injection of insulin four times daily 1 each 023 Active finasteride (PROSCAR) 5 mg tablet Take 1 tablet (5 mg total) by mouth daily 90 tablet 4 Active tamsulosin (FLOMAX) 0.4 mg extended release capsuleIndication s:Benign prostatic hyperplasia with incomplete bladder emptying TAKE 1 CAPSULE(0.4 MG) BY MOUTH DAILY 30 capsule [address] (CYMBALTA) 60 mg capsuleIndication s:Anxiety and depression TAKE 1 CAPSULE(60 MG) BY MOUTH TWICE DAILY 60 capsule 5 024 Active blood-glucose meter kitIndications:Un controlled type 2 diabetes mellitus with hyperglycemia (HCC),Uncontrolle d diabetes mellitus with hyperglycemia, with long-term current use of insulin (HCC) To check glucose three times daily prior to meals or twice daily as needed for symptoms of hypo- or hyperglycemia 1 kit 11 024 Active ergocalciferol (VITAMIN D) 50,000 unit capsuleIndication s:Vitamin D deficiency Take 1 capsule (50,000 Units total) by mouth once a week 12 capsule 3 024 2024 Active ursodioL (ACTIGALL) 300 mg capsule Take 2 capsules (600 mg total) by mouth 2 (two) times a day 120 capsule 11 024 Active glucagon (Baqsimi) 3 mg/actuation spray,non-aerosol Indications:Uncon trolled type 2 diabetes mellitus with hyperglycemia (HCC) Administer 1 spray (3 mg total) into one nostril as needed (for use in case of emergency for hypoglycemia) 1 each 2 024 Active QUEtiapine (SEROquel) 50 mg tablet daily Active sirolimus (RAPAMUNE) 2 mg tablet TAKE 1 TABLET BY MOUTH DAILY 90 tablet 3 024 Active metoprolol XL (TOPROL-XL) 50 mg extended release tablet TAKE 1 TABLET(50 MG) BY MOUTH DAILY 90 tablet 024 Active mycophenolate mofetil (CELLCEPT) 250 mg capsule Take 1 capsule (250 mg total) by mouth 2 (two) times a day Please get labs drawn for additional refills 60 capsule 1 024 Active temazepam (RESTORIL) 30 mg capsuleIndication s:Insomnia, idiopathic TAKE 1 CAPSULE(30 MG) BY MOUTH EVERY NIGHT NEEDED FOR SLEEP 30 capsule 1 025 Active rosuvastatin (CRESTOR) 20 mg tabletIndications :Mixed hyperlipidemia TAKE 1 TABLET BY MOUTH EVERY DAY 90 tablet 1 025 Active pen needle, diabetic 31 gauge x 3/16 needleIndications :Uncontrolled type 2 diabetes mellitus with hyperglycemia (HCC) Use to inject insulin up to 6 times daily. 400 each 11 Active insulin glargine (TOUJEO) 300 unit/mL (1.5 mL) pen for injectionIndicati ons:Uncontrolled type 2 diabetes mellitus with hyperglycemia (HCC) Inject 30 units under the skin daily 27 mL 3 Active insulin lispro (HumaLOG, ADMELOG) 100 unit/mL pen for injectionIndicati ons:Uncontrolled type 2 diabetes mellitus with hyperglycemia (HCC) Inject 12 units plus 1:25 > 150 mg/dL under the skin 10-15 minutes before meals. MDD 60 units. 54 mL 3 Active urine glucose-ketones test stripIndications: Uncontrolled type 2 diabetes mellitus with hyperglycemia (HCC) Test during periods of hyperglycemia with nausea and vomiting. 100 strip Active gabapentin (NEURONTIN) 300 mg capsuleIndication s:Uncontrolled type 2 diabetes mellitus with hyperglycemia (HCC),Diabetic peripheral neuropathy (CMS/HCC) (HCC) Take 1 capsule (300 mg total) by mouth 3 (three) times a day 90 capsule 2025 Active cyclobenzaprine (FLEXERIL) 10 mg tabletIndications :Chronic right shoulder pain,Intercostal muscle pain,Trapezius strain, right, subsequent encounter,Posteri or pain of right hip Take 1 tablet (10 mg total) by mouth nightly as needed for muscle spasms 20 tablet 025 2024 Active HYDROcodone-aceta minophen (NORCO) 10-325 mg per tabletIndications :Pain Take 1 tablet by mouth every 6 (six) hours as needed for pain 120 tablet Active sertraline (ZOLOFT) 25 mg tablet 1 tablet once a day for 7 days, 2 tablets once a day for 23 days Orally for 30 days Active pen needle, diabetic 31 gauge x 11/29 needle Pt injecting qid 200 each 11 022 2024 Discontinued(R eorder) insulin glargine (TOUJEO) 300 unit/mL (1.5 mL) pen for injectionIndicati ons:Uncontrolled type 2 diabetes mellitus with hyperglycemia (HCC) Inject 25 units under the skin daily 9 mL 3 024 2024 Discontinued(R eorder) gabapentin (NEURONTIN) 100 mg capsuleIndication s:Chronic pain syndrome TAKE 1 CAPSULE(100 MG) BY MOUTH THREE TIMES DAILY 270 capsule 3 024 2024 Discontinued rosuvastatin (CRESTOR) 20 mg tabletIndications :Mixed hyperlipidemia TAKE 1 TABLET BY MOUTH EVERY DAY 90 tablet 3 024 2024 Discontinued HYDROcodone-aceta minophen (NORCO) 10-325 mg per tabletIndications :Pain Take 1 tablet by mouth every 6 (six) hours as needed for pain 120 tablet 024 2024 Discontinued(R eorder) cyclobenzaprine (FLEXERIL) 10 mg tabletIndications :Chronic right shoulder pain,Intercostal muscle pain,Trapezius strain, right, subsequent encounter,Posteri or pain of right hip Take 1 tablet (10 mg total) by mouth nightly as needed for muscle spasms 20 tablet 025 2024 Discontinued(R eorder) Active Problems Patient Care Coordination No te Formatting of this note migh t be different from the original. Labs at [facility]. LAB: [facility] ([facility]) PH: [phone], FAX: [phone] OR [phone] Problem Noted Date Diagnosed Date Recurrent major depressive episodes, moderate Chronic right shoulder pain 09/25/2024 Assessment & Plan (09/25/2024 1:24 PM PREFORM MACHINE OPERATOR): Subacute on chronic following mechanical fall 4 months ago Hx RTC repair >10yrs ago Exam c/w adhesive capsulitis Xray today given etiology;NV intact w/o apparent assoc w/ lateral neck pain No desire surgery but given chronicity, Hx- agreeable PMR referral discuss nonsurgical treatment Formal PT Counseled of HEP, relative rest, topical analgesics, ice/heat & stretching Revisit 4 weeks interim regarding x-ray Trapezius strain, right, subsequent encounter Assessment & Plan (09/25/2024 1:13 PM PREFORM MACHINE OPERATOR): Gradual onset following mechanical fall (?jarring) Known cervical DDDx w/o evidence cspine involvement;NV intact affected limb- deferred cervical films Supportive mgmt-topical analgesics,heat,massage, trial muscle relaxer prn, formal PT Revisit warrant PMR eval, update cpine xray nxt OV 4wks Posterior pain of right hip 09/25/2024 Assessment & Plan (09/25/2024 1:31 PM PREFORM MACHINE OPERATOR): Subacute following mechanical fall in sept Exam c/w msk fascial etiology (thoracolumbar strain) Baseline xray today r/o Fx +flexeril prn(SER),topical analgesics,heat/ice, stretching, activity modifications, PT interim xray PMR referral pending imaging though preferring nonsurg therapies Revisit in the month interim w/ results Intercostal muscle pain 06/23/2024 Assessment & Plan (09/25/2024 1:25 PM PREFORM MACHINE OPERATOR): Progressed from prior OV following mechanical fall w/ referred lateral back to posterior hip pain Prior 06/09 xray normal-reviewed again today Update R rib,chest, tspine xrays today Topical analgesics, heat/ice, massage, HEP pending update w/ imaging Assessment & Plan (06/23/2024 3:15 PM CDT): Slowly resolving;mechanical fall related Reviewed 06/09 CXR w/o abnormalities,rib fractures Exam, HPI C/W myofascial costochondritis liekly self resolve over nxt 1-2wks w/ supportive care mgmt (provided) Update otherwise revisit imaging Secondary DM with DKA, uncontrolled 06/09/2024 Benign prostatic hyperplasia with incomplete bladder emptying 06/21/2023 Assessment & Plan (01/13/2024 11:41 AM CDT): Manageable w/ finasteride Followed by urology Assessment & Plan (06/21/2023 2:21 PM CDT): Adding in finasteride for now. Suggest urology follow up. Swelling of left foot 01/16/2023 Assessment & Plan (01/16/2023 11:28 AM CDT): Patient with 1 month of LLE swelling, erythema, on Plavix for cardiac stents. Ordered left lower extremity venous duplex to rule out DVT. Encounter for immunosuppress ion management after liver transplant 01/16/2023 Assessment & Plan (01/13/2024 11:41 AM CDT): Followed by transplant team Assessment & Plan (01/16/2023 11:27 AM CDT): Safety labs will be obtained every 3-4 months. Labs 01/02/2023 notable for elevated Alk Phos and AST. Will repeat CMP and Sirolimus today at local hospital. Primary hypertension 12/20/2022 Assessment & Plan (06/23/2024 2:56 PM CDT): BP remained stable, near baseline Cnt HTN regimen as prior RTC 4 mos Assessment & Plan (01/13/2024 11:59 AM CDT): BP remained stable, near baseline Cnt HTN regimen as prior RTC 4 mos Assessment & Plan (12/20/2022 4:36 PM CDT): 62 y.o. male with history of hypertension associated with diabetes on Lisinopril 5 mg + Metoprolol XL 50 mg daily (target <120/80 mmHg) Effective BP treatment in patients with diabetes reduces CV risk and CKD progression ACEI or ARB are usually beneficial, in the absence of contraindications Plan: 1) Recommend comprehensive lifestyle changes Dietary modification: Mediterranean-style or DASH diet Exercise: 30-60 min of mod-intensity aerobic activity daily Smoking cessation (if applicable) 2) Check renal function panel (RFP) and urine albumin 3) Continue Lisinopril 5 mg + Metoprolol XL 50 mg daily 4) Reassess BP control and adverse effects next office visit Cervicalgia 12/27/2021 Assessment & Plan (12/27/2021 11:19 AM CDT): Acute on chronic D/T mechanical injury Exam c/w strain Xray today D/T traumatic onset; NV intact Avoiding further sedating meds- trial voltaren, ice/heat, stretching Formal PT to pursue Further direction pending imaging Vision impairment 06/24/2021 Assessment & Plan (01/13/2024 11:31 AM CDT): Worse interim prior cataract extraction & overdue for DMII retinal exam- referral placed to arrange appt to discuss Assessment & Plan (06/27/2021 1:48 PM CDT): -Reports progressive vision impairment involving both eyes over multiple months, suspect component of diabetic retinopathy -he has an optometry appt scheduled with the [place], [place] --Home health RN to help with meds. He reports all medications feel the same and he is unable to distinguish between them to fill a pill box Assessment & Plan (06/25/2021 7:03 AM CDT): -Reports progressive vision impairment involving both eyes over multiple months, suspect component of diabetic retinopathy -he has an optometry appt scheduled with the [place], [place] Assessment & Plan (06/24/2021 12:03 PM CDT): -Reports progressive vision impairment involving both eyes over multiple months, suspect component of diabetic retinopathy -he has an optometry appt scheduled with the [place], [place] Assessment & Plan (06/24/2021 4:12 AM CDT): -Reports progressive vision impairment involving both eyes over multiple months, suspect component of diabetic retinopathy -States he has an optometry appt scheduled Diabetic peripheral neuropathy ([facility]/HCC) 021 Assessment & Plan (04/13/2022 12:05 PM CDT): Increase in symptoms lately Suggested he consider increase gabapentin as needed. Assessment & Plan (08/15/2021 2:08 PM PREFORM MACHINE OPERATOR): Adequate pain control. No obvious new complications Assessment & Plan (07/07/2021 1:23 PM CDT): Continue supportive care. Attempting better control of dm over time. Use moisturizer on legs since profoundly dry. Assessment & Plan (06/27/2021 1:46 PM CDT): -mentions of numbness and burning sensation on feet -feels like stepping on bubbles when he steps on the ground and starts to feel burning sensation soon after -started gabapentin, titrate outpatient -follow-up with Podiatry as OP, patient requested a [place] physician Assessment & Plan (06/25/2021 7:04 AM CDT): -mentions of numbness and burning sensation on feet -feels like stepping on bubbles when he steps on the ground and starts to feel burning sensation soon after -will start on gabapentin and uptitrate based on response -follow-up with Podiatry as OP, patient requested a [place] physician Assessment & Plan (06/24/2021 12:09 PM CDT): -mentions of numbness and burning sensation on feet -feels like stepping on bubbles when he steps on the ground and starts to feel burning sensation soon after -will start on gabapentin and uptitrate based on response -follow-up with Podiatry as OP, patient requested a [place] physician Foot pain, left 03/16/2021 Assessment & Plan (12/12/2021 12:04 PM CDT): Continue current regimen pain regimen. No progression of symptms Assessment & Plan (03/16/2021 10:32 AM CDT): Following trauma - will get imaging to r/o fracture UTD on tdap Discussed conservative measures/RICE therapy/ fernando taping and using an GEORGINA wrap and also sent a message to Dr Stringer for pain meds. Shared ortho injury clinic information and instructed pt to reach out [facility] as he may need a cast Gave strong warnings on when to seek UC or ER care Pt voiced understanding and is agreeable with this plan Severe protein-calorie malnutrition (CMS/HCC) Assessment & Plan (01/13/2021 12:36 PM CDT): Weight back to normal. He has no other new complaints. Assessment & Plan (01/08/2021 1:36 PM CDT): likely 2/2 poor po intake/FTT. Patient reports poor appetite, which is likely r/t depression. Significant fat/muscle wasting on exam, ongoing weight loss. Only eating 1 meal a day on most days. -RD evaluated and rec Ensure TID w/ meals. -continue MVI Assessment & Plan (01/06/2021 2:48 PM CDT): likely 2/2 poor po intake/FTT. Patient reports poor appetite, which is likely r/t depression. Significant fat/muscle wasting on exam, ongoing weight loss. Only eating 1 meal a day on most days. -RD evaluated and rec Ensure TID w/ meals. -MVI Fatigue 01/05/2021 Assessment & Plan (12/12/2021 12:08 PM CDT): Checking labs now. Wonder if this is related to polypharmacy. Assessment & Plan (01/08/2021 1:39 PM CDT): -Likely multifactorial including uncontrolled diabetes, volume depletion, benzos and depression. -Improved after decreasing benzos and hydrating w/ IVF -PCP to continue to wean benzos -DM control as elsewhere -continue duloxetine. Encouraged outpatient psychiatry follow up Assessment & Plan (01/06/2021 3:20 PM CDT): -Likely multifactorial including uncontrolled diabetes, volume depletion 2/2 osmotic diuresis and poor PO intake, and depression. Suspect poor clearance of benzos as well given ongoing volume depletion. -IVF -wean benzos as elsewhere -DM control as elsewhere -continue duloxetine. Encouraged outpatient psychiatry follow up Assessment & Plan (01/05/2021 10:04 PM CDT): -Likely multifactorial including uncontrolled diabetes, volume depletion 2/2 osmotic diuresis and poor PO intake, and depression -IVF -Titrate insulin regimen as discussed elsewhere -Likely outpatient psychiatry follow up Anxiety and depression 01/05/2021 Assessment & Plan (02/19/2024 12:11 PM CDT): Remains severe and awaiting psych input Assessment & Plan (01/13/2024 11:40 AM CDT): Ongoing MDD, anxiety suggestively complicating insomnia No reported S/I or H/I Cnt w/ duloxetine No desire to connect with psych as once again offered & encouraged Insomnia related concerns needing addressed-sleep medicine referral active [place] arrange [place] home Assessment & Plan (09/23/2023 2:08 PM PREFORM MACHINE OPERATOR): Ongoing MDD, anxiety suggestively complicating insomnia No reported S/I or H/I Cnt w/ duloxetine Insomnia plan discussed above Assessment & Plan (06/21/2023 2:14 PM CDT): Remains severe though tolerable . NO SI/HI. Generally this a little better than it had been . Assessment & Plan (04/02/2023 10:37 AM CDT): Much better of recent Optimistic corrected vision will expand current social limitations, overall dysthymia mgmnt Cnt current regimen, supportives as prior Assessment & Plan (04/13/2022 12:06 PM CDT): Well controlled on current regimen though had some increase in grief symptoms though tolerable Assessment & Plan (12/12/2021 12:06 PM CDT): He has refractory depresssion. Continue with antidperessants. Assessment & Plan (08/15/2021 2:17 PM PREFORM MACHINE OPERATOR): No progressive complaints. Continue current meds. Assessment & Plan (07/07/2021 1:27 PM CDT): Still a major issue though refractory to adjustment of meds. For now continue duloxetine. Assessment & Plan (06/12/2021 10:25 AM CDT): Psychological condition is worsening. Regular aerobic exercise. Medication changes per orders. Referral to psychiatry. Psychological condition will be reassessed in 4 weeks. Declined desire to change medication management D/T prior intolerances. Agreeable to increase temazepam for insomnia to assist with daytime symptoms Referral to psych to discuss further refills or further treatment options. Cont cymbalta as prior Assessment & Plan (03/31/2021 9:40 AM CDT): Psychological condition is Stable. Continue current treatment regimen. Psychological condition will be reassessed at the next regular appointment. Assessment & Plan (01/13/2021 1:13 PM CDT): Improving tough still an issue. Refuses psych. Will continue cymbalta and monitor with me Assessment & Plan (01/08/2021 1:41 PM CDT): Patient reports ongoing uncontrolled depression. Denies SI/HI. -Continue Cymbalta. On max dose. If he is weaned off benzos, could consider adding mirtazapine in the future given poor appetite/weight loss. As of now, it would likely contribute to fatigue. -Given recent symptoms, agree with PCP (Dr. Stringer) plan of titrating down BZD use. Currently has been taking temazepam 30 QHS PRN and Valium 10 nightly -Decreased Valium to 7.5, temazepam 15 QHS PRN -Strongly encouraged patient to f/u with psychiatry Assessment & Plan (01/06/2021 3:28 PM CDT): Patient reports ongoing uncontrolled depression. Denies SI/HI. -Continue Cymbalta. On max dose. If he is weaned off benzos, could consider adding mirtazapine in the future given poor appetite/weight loss. As of now, it would likely contribute to fatigue. -Given recent symptoms, agree with PCP (Dr. Stringer) plan of titrating down BZD use. Currently has been taking temazepam 30 QHS PRN and Valium 10 nightly -Decrease to Valium 7.5 for now, temazepam 15 QHS PRN -Strongly encouraged patient to f/u with psychiatry Assessment & Plan (01/05/2021 10:01 PM CDT): -Continue Cymbalta. Given recent symptoms, agree with PCP (Dr. Stringer) plan of titrating down BZD use. Currently has been taking temazepam 30 QHS PRN and Valium 10 nightly -Decrease to Valium 7.5 for now, temazepam 15 QHS PRN -Outpatient follow up CAD (coronary artery disease) 01/05/2021 Assessment & Plan (06/21/2023 2:14 PM CDT): No new chest pain, palpitations or other complaints. Assessment & Plan (04/02/2023 10:35 AM CDT): No reported CP, angina Exam benign Discussed limited surgical risk of cont antiplatelet & anticoag regimen- fine to continue current DAPT, apixaban regimen as prior Followed by card - cleared for surgery Cnt routine f/u as scheduled Assessment & Plan (12/12/2021 12:06 PM CDT): No chest pain, palpitations, sob or other complaints. Assessment & Plan (08/15/2021 2:17 PM PREFORM MACHINE OPERATOR): No obvious new chest pain, palpitations , shortness of breath . Continue current regien. Assessment & Plan (06/27/2021 1:46 PM CDT): -s/p PCI to LAD in 2019 -Continue ASA, Plavix, Crestor 20 -Follow up w/Dr. Palomino -monitor vitals Assessment & Plan (06/25/2021 7:02 AM CDT): -s/p PCI to LAD in 2019 -Continue ASA, Plavix, Crestor 20 -Follow up w/Dr. Palomino -monitor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 concerns. Assessment & Plan (09/23/2023 2:17 PM PREFORM MACHINE OPERATOR): Severe, manageable Cnt norco, gabapentin (discussed increase but deferred tentative to sleep med eval) as prior Aware of concerns with concurrent benzo use, cont norco use as prescribed & reportable S.Es RTC 3 months Assessment & Plan (06/21/2023 2:11 PM CDT): Symptoms remain severe . Can increase the gabapentin. Assessment & Plan (04/05/2020 12:55 PM CDT): Continue current meds for this as listed Assessment & Plan (04/08/2019 1:59 PM CDT): Feet feel like they are on fire Managed by Dr. Gallegos Assessment & Plan (02/25/2019 3:32 AM CDT): Likely due to poorly controlled DM -Continue Tresckow, Cymbalta Assessment & Plan (02/21/2019 4:54 PM CDT): Continue meds though encouraged restart of cymbalta. Assessment & Plan (01/30/2019 11:40 AM CDT): Continue with current regimen. . No obvious complications. Assessment & Plan (08/05/2018 4:14 PM PREFORM MACHINE OPERATOR): Chronic pain in the bilateral feet . This is creating the chronic pain and has been on pain meds for this. Refilled . Unable to tolerate reduction in the pain meds Other proteinuria 07/01/2018 Assessment & Plan (02/19/2024 12:07 PM CDT): No obvious side effects. Assessment & Plan (07/01/2018 9:57 AM CDT): Needs microalbumin/cr ratio done Start lisinopril 2.5 mg / day Follow up with bmp and repeat micro/cr next visit Insomnia, idiopathic 08/02/2015 Assessment & Plan (02/19/2024 12:03 PM CDT): Remains a very bothersome symptom. Discussed my desire to avoid any dose escalation of his bdzp. Suggested he take his gabapentin all at night and may increase this. Also psych opinion could be helpful Assessment & Plan (01/13/2024 12:04 PM CDT): Chronic, unchanged Re-educated concerns of going up on temazepam D/T side effects, habit-forming properties, mercedes w/ concurrent use of narcotics- verbalized understanding but would like to discuss this w/ PCP further. OV to arrange in the month to revisit RX changes Encouraged connecting with sleep medicine as prior referred Assessment & Plan (09/23/2023 2:14 PM PREFORM MACHINE OPERATOR): Ongoing No reported psychogenic causes but poor sleep habits, daytime naps definitely impacting Discussed limited ability, risks with increasing temazepam Will arrange for sleep med referral to evaluate & discuss alternatives further Assessment & Plan (06/21/2023 2:20 PM CDT): Informed him it is not safe to increase the temazepam. Suggest he increase the gabapentin Assessment & Plan (12/12/2022 12:23 PM CDT): Long discussion about risk /benefits of treatment. He wants xanax that I state contraindicated given his tenuous mental status, His risk factors for use and already on temazepam. I informed him I am not willing to prescribe more bdzp. Stated he could see a psychiatrist, Try some gabapentin(which supposedly he is on -however noted no evidence he is refilling) Assessment & Plan (08/15/2021 2:19 PM PREFORM MACHINE OPERATOR): He states completely unable to reduce his temazepam. Have encouraged he minimize this He is aware of the danger related to these meds mercedes with the opiates. Assessment & Plan (11/04/2018 12:58 PM PREFORM MACHINE OPERATOR): Stable on restoril. No obvious complications. Assessment & Plan (08/05/2018 4:21 PM PREFORM MACHINE OPERATOR): restoril prn, He is unable to reduce this further . NO new complications. Assessment & Plan (05/05/2018 4:49 PM CDT): Continue meds . Has been stable for some time on this Assessment & Plan (04/01/2018 4:39 PM CDT): Stable on temazepam. No sign of abuse or overuse . Liver transplant recipient (CMS/HCC) 01/30/2014 Overview (12/22/2016): Liver transplant Assessment & Plan (02/19/2024 12:10 PM CDT): Checking labs today and will follow up No symptoms related currently Assessment & Plan (01/16/2023 11:27 AM CDT): Emilio Loera is a very pleasant 60 y.o. gentleman with history of orthotopic liver transplant (12/27/2004 for decompensated cirrhosis secondary to hepatitis C that is now in a sustained virologic response) that is here for follow-up. He is 18 years from transplant with 3-episodes of early T-cell mediated rejection (2 weeks, 3 months, 4 months) while he was on tacrolimus (calcineurin-inhibitor) back-bone. Since transitioning to sirolimus-based regimen, his allograft has done well. Aside from the role of mTOR inhibitors facilitating diabetes mellitus, there is no clear complication of his immunosuppression regimen. I will make no changes at this time. He will continue on current duel immunosuppressive therapy with Sirolimus 2mg once a day Cellcept 250 mg po BID. Recent Trough 2.6. Assessment & Plan (04/13/2022 12:08 PM CDT): Liver transplant team is utd with visits Assessment & Plan (08/15/2021 2:20 PM PREFORM MACHINE OPERATOR): Following with transplant team Assessment & Plan (06/27/2021 1:47 PM CDT): -s/p OLT 2004 -Continue sirolimus 2mg QAM and MMF 250 BID. Per notes, continued on dual IS given hx of multiple episodes of T-cell mediated rejection within the 1st 4 months after transplant -Continue f/u in liver txp clinic Assessment & Plan (06/25/2021 7:02 AM CDT): -s/p OLT 2004 -Continue sirolimus 2mg QAM and MMF 250 BID. Per notes, continued on dual IS given hx of multiple episodes of T-cell mediated rejection within the 1st 4 months after transplant -Continue f/u in liver txp clinic Assessment & Plan (06/24/2021 11:57 AM CDT): -s/p OLT 2004 -Continue sirolimus 2mg QAM and MMF 250 BID. Per notes, continued on dual IS given hx of multiple episodes of T-cell mediated rejection within the 1st 4 months after transplant -Continue f/u in liver txp clinic Assessment & Plan (06/24/2021 4:04 AM CDT): -s/p OLT 2004 -Continue sirolimus 2mg QAM and MMF 250 BID. Per notes, continued on dual IS given hx of multiple episodes of T-cell mediated rejection within the 1st 4 months after transplant -Continue f/u in liver txp clinic Assessment & Plan (01/13/2021 1:15 PM CDT): Has been stable Reminded that overdue for transplant follow up. Scheduled Assessment & Plan (01/08/2021 1:38 PM CDT): -s/p OLT in 2004 for HCV cirrhosis. He has had 3 episode of rejection with last episode 4 months after transplant. -Continue sirolimus 1mg daily, CellCept 250 BID. Sirolimus level 2.6. -Follow up in liver txp clinic as scheduled. Assessment & Plan (01/06/2021 3:13 PM CDT): -s/p OLT in 2005 for HCV cirrhosis. He has had 3 episode of rejection with last episode 4 months after transplant. -Continue sirolimus 1mg daily, CellCept 250 BID. Sirolimus level 2.6. -Follow up in liver txp clinic Assessment & Plan (01/05/2021 9:57 PM CDT): -s/p OLT in 2004 for HCV cirrhosis. He has had 3 episode of rejection with last episode 4 months after transplant. -Continue sirolimus 1mg daily, CellCept 250 BID. Will check sirolimus trough now as he typically takes ~9PM. -Follow up in liver txp clinic Assessment & Plan (01/05/2021 2:41 PM CDT): Overdue for transplant team visit . Assessment & Plan (10/05/2020 1:00 PM PREFORM MACHINE OPERATOR): He needs to schedule with his hepatology team and he will Assessment & Plan (04/24/2019 11:31 AM CDT): Is being monitored by transplant team. Assessment & Plan (04/08/2019 2:01 PM CDT): Immunosuppression complicates diabetes management Assessment & Plan (02/25/2019 3:28 AM CDT): History of Cirrhosis secondary to Hep C and EtOH abuse. S/p liver transplant 2004 on immunosuppression. -Follows with Dr. Singh -Patient unclear about immunosuppression regimen -Continue Cellcept 250 bid, Sirolimus 1mg daily -TBW transplant -Check HCV, HBV as above Assessment & Plan (02/21/2019 4:51 PM CDT): Sent notes to hepatology to bring up to speed with situation. Also given the ampulla of vater thickness . This needs f/u though after stabilization of cardiac situation. Assessment & Plan (04/01/2018 4:40 PM CDT): Stable on meds History of insertion of insulin pump 05/08/2011 Overview (12/21/2016): Insulin pump in place Vitamin D deficiency 12/04/2007 Assessment & Plan (02/19/2024 12:10 PM CDT): Encouraged vitamin d supplements. Assessment & Plan (01/13/2024 11:56 AM CDT): Update labs today Assessment & Plan (04/08/2019 2:00 PM CDT): Vitamin D was 23 in June,. Recommend Vitamin D3, 2000 IU once daily Repeat vitamin D level in June, Resolved Problems Problem Noted Date Diagnosed Date Resolved Date Disability examination 01/13/202401/21 Assessment & Plan (01/13/2024 12:06 PM CDT): Requesting disability form completion today as well. Has been disabled since 2001 with debilitating neuromuscular, vascular related ailments limiting ability to physically perform job related activities. Uncertain of exact date documenting disability though will need to complete further EMR review to complete forms & update Pt thereafter Preop exam for internal medicine 04/02/2023 01/22/2024 Assessment & Plan (04/02/2023 10:04 AM CDT): Pt is medically stable and/or cleared to proceed with surgery per internal medicine standpoint once all labs and other diagnostics (possibly including labs, EKG and/or CXR based on surgeon discretion, PMHx risks) have been received and reviewed. If applicable, RCRI evaluated and addressed through detailed PMHx below Counseled of any applicable prescribed or OTC medications, supplements to discontinue and/or hold preoperatively w/ direction of when to resume postoperatively as agreed by surgeon. Pt was instructed to contact the office with absolutely any changes prior to and post surgery. Dysthymia 08/14/2022 01/22/2024 Assessment & Plan (12/12/2022 1:41 PM CDT): Severe depression No SI/HI. If he develops this then needs to go to hospital Suggested psychiatry he is not willing -doesn't trust . Suggested antipsychotic med since having some hallucinations . Thought in low dose could help depression. Will rediscuss at next visit . For now adding back the gabapentin. Assessment & Plan (08/14/2022 11:14 AM PREFORM MACHINE OPERATOR): Chronic, ongoing w/o S/I Notably more isolated since pandemic; multifactorial overall Cnt current SNRI as prior Discussed concerns w/ concurrent benzo use OR referral psych discuss- agreeable to hold benzo; declined psych referral Counseling resources, info provided regarding optimizing social connections, exercise, etc Re-address at next OV or sooner w/ progression Chest pain 06/24/2021 07/07/2021 Assessment & Plan (06/27/2021 1:46 PM CDT): -L-sided CP x 2 weeks, history not c/w angina. Per review of records, he has a hx of chronic non-anginal chest pain. NM stress test negative 03/2021. -no pain at present -monitor vitals Assessment & Plan (06/25/2021 7:03 AM CDT): -L-sided CP x 2 weeks, history not c/w angina. Per review of records, he has a hx of chronic non-anginal chest pain. NM stress test negative 03/2021. -no pain at present -monitor vitals Assessment & Plan (06/24/2021 12:02 PM CDT): -L-sided CP x 2 weeks, history not c/w angina. Per review of records, he has a hx of chronic non-anginal chest pain. NM stress test negative 03/2021. -no pain at present -monitor vitals Assessment & Plan (06/24/2021 4:16 AM CDT): -L-sided CP x 2 weeks, history not c/w angina. Per review of records, he has a hx of chronic non-anginal chest pain. NM stress test negative 03/2021. History of recent hospitalization 03/31/2021 03/31/2021 Assessment & Plan (03/31/2021 9:09 AM CDT): Recent hospitalization records reviewed with labs and diagnostics all detailed below Diabetic neuropathy associat ed with type 2 diabetes mellitus ([facility]) 03/31/2021 08/15/2021 Assessment & Plan (03/31/2021 9:39 AM CDT): Continue with Cymbalta as prior prescribed. Tresckow refilled today in office as requested. DMII control to prevent progression discussed Podiatry consult placed Re-eval in 3 months Diabetic ketoacidosis withou t coma associated with type 2 diabetes mellitus ([facility]) 03/20/2021 03/31/2021 Abrasion 03/16/2021 08/15/2021 Assessment & Plan (03/16/2021 10:35 AM CDT): Will cover with abx since this was 2/ trauma - SER Reviewed wound care instructions UTD on tdap in 2019 Chest discomfort 03/16/2021 08/15/2021 Assessment & Plan (03/16/2021 10:28 AM CDT): Reviewed EKG with Dr Benitez. No acute concerns Gave appropriate warnings Consider further work up but deferred today Medicare annual wellness visit, subsequent 01/25/2021 01/22/2024 Assessment & Plan (01/13/2024 12:00 PM CDT): Updating recommended labs per routine and pertaining to problems listed HM items reviewed, updated, providing recommendations per guidelines Believed to be UTD on various overdue vaccinations-requesting records verify Shingrix, pneumococcal vaccination records from local pharmacy Assessment & Plan (12/12/2022 1:35 PM CDT): Checking labs per routine and pertaining to problems listed . HM items reviewed and updated . No new concerns. Immunizations need to be updated Routine physical examination 01/05/2021 01/25/2021 Assessment & Plan (01/05/2021 2:21 PM CDT): Checking labs per routine and pertaining to problems listed . HM items reviewed and updated . No new concerns. Peripheral neuropathy 01/05/20212020 Assessment & Plan (01/08/2021 1:37 PM CDT): -likely 2/2 diabetic neuropathy with recent worsening in setting of uncontrolled diabetes. -B12 normal -Continue home Tresckow PRN, Cymbalta. PCP can start gabapentin once benzos are weaned to prevent further sedation. Assessment & Plan (01/06/2021 2:52 PM CDT): -likely 2/2 diabetic neuropathy with recent worsening in setting of uncontrolled diabetes. -B12 normal -Continue home Tresckow PRN, Cymbalta. Would not start gabapentin at this time as could worsen sedation/fatigue. Assessment & Plan (01/05/2021 10:02 PM CDT): -likely 2/2 diabetic neuropathy with recent worsening in setting of uncontrolled diabetes -Will check B12 level given chart hx of B12 deficiency -Continue home Tresckow PRN, Cymbalta. Would not start gabapentin at this time as could worsen sedation/fatigue. Orthostatic hypotension 01/05/2021 05/0 04/2024 Assessment & Plan (04/13/2022 12:05 PM CDT): Not progressive recently . No complications. Better sugar control has helped. Assessment & Plan (07/07/2021 1:24 PM CDT): Remains overall stable. NO further syncope Assessment & Plan (06/27/2021 1:47 PM CDT): -Symptoms c/w orthostatic hypotension likely 2/2 volume depletion related to osmotic diuresis, may also have component of diabetic autonomic neuropathy -s/p >4L IVF in ED, check orthostatic vitals in AM. Will continue metop XL 50, lisinopril 2.5 Assessment & Plan (06/25/2021 7:03 AM CDT): -Symptoms c/w orthostatic hypotension likely 2/2 volume depletion related to osmotic diuresis, may also have component of diabetic autonomic neuropathy -s/p >4L IVF in ED, check orthostatic vitals in AM. Will continue metop XL 50, lisinopril 2.5 Assessment & Plan (06/24/2021 12:01 PM CDT): -Symptoms c/w orthostatic hypotension likely 2/2 volume depletion related to osmotic diuresis, may also have component of diabetic autonomic neuropathy -s/p >4L IVF in ED, check orthostatic vitals in AM. Will continue metop XL 50, lisinopril 2.5 (lisinopril held this am for hyperK) -appeared dehydrated this am, will resume on IVF Assessment & Plan (06/24/2021 4:17 AM CDT): -Symptoms c/w orthostatic hypotension likely 2/2 volume depletion related to osmotic diuresis, may also have component of diabetic autonomic neuropathy -s/p >4L IVF in ED, check orthostatic vitals in AM. Will continue metop XL 50, lisinopril 2.5 for now but can consider decreasing or discontinuing if continues to have orthostasis despite volume repletion. Assessment & Plan (06/12/2021 10:22 AM CDT): + orthostatics today Decrease lisinopril 2.5mg once daily Rising precautions, adequate hydration discussed RTC 3 months for re-eval Assessment & Plan (01/13/2021 1:12 PM CDT): Improved with rehydration. BPgood today Assessment & Plan (01/08/2021 1:37 PM CDT): Symptoms c/w orthostasis likely 2/2 volume depletion + antihypertensives. Patient has had hospitalizations in the past for orthostatic syncope per clinic notes. -s/p hydration -no further sxs Assessment & Plan (01/06/2021 3:29 PM CDT): Symptoms c/w orthostasis likely 2/2 volume depletion + antihypertensives. Patient has had hospitalizations in the past for orthostatic syncope per clinic notes. -continue IVFs. -Will hold lisinopril for now. Already received his metoprolol XL this AM. Assessment & Plan (01/05/2021 9:59 PM CDT): -Symptoms c/w orthostatic hypotension which are likely in part due to volume depletion although could also have autonomic neuropathy 2/2 uncontrolled DM -IVF -If symptoms continue, can consider decreasing metoprolol Gynecomastia 10/07/2019 01/25/2021 Assessment & Plan (10/07/2019 7:01 AM PREFORM MACHINE OPERATOR): No discrete mass though asymmetry L>>R. Will get mammogram and labs as listed . Pending this can decide about surgical eval Abdominal pain 04/24/2019 07/06/2019 Assessment & Plan (04/24/2019 11:36 AM CDT): Patient has had abdominal pain for last few months. Recent CT showed cystic changes on ampulla of graeme. Sent message to transplant team to make sure EUS was scheduled now that he has been cleared by cardiology. Night sweats 02/25/2019 01/13/2021 Assessment & Plan (02/25/2019 3:31 AM CDT): Patient complains of worsening night sweats that started back at the beginning. Underwent CT CAP 01/28 which showed thickening at the ampulla of graeme and is concerning for possible underlying malignancy. No TB risk factors. White blood cell count normal, no adenopathy on imaging, and no physical exam findings to suggest lymphoma. Last HCV negative 2016. May be due to severe hyperglycemia or possibly overnight hypoglycemia if taking insulin incorrectly -Needs outpatient EUS -Check HCV, HBV, HIV -No signs of TB on CT PE -Hold on cultures unless fevers Hyponatremia 02/25/2019 01/13/2021 Assessment & Plan (07/29/2019 12:53 PM PREFORM MACHINE OPERATOR): Continue with current regimen and check labs with endocrine. Assessment & Plan (02/25/2019 3:24 AM CDT): Pseudohyponatremia with Na 130 but corrects to 135 based on Glucose Anxiety 02/25/2019 01/13/2021 Overview (07/05/2020): Controlled on chronic bdzp. Though not ideal rx and he is aware he has been stable for years. No allowance of drug escalation. So continue for now. Assessment & Plan (01/05/2021 2:39 PM CDT): Taking too much bdzp. Will work hard to wean off the valium and lower dose of the temazepam in 1 Assessment & Plan (10/05/2020 12:58 PM PREFORM MACHINE OPERATOR): No progression in symptoms though some longstanding depression. Continue meds now as listed. Assessment & Plan (07/05/2020 4:41 PM CDT): Controlled on chronic bdzp. Though not ideal rx and he is aware he has been stable for years. No allowance of drug escalation. So continue for now. Assessment & Plan (04/05/2020 1:00 PM CDT): Doing fine now. No concerns. Assessment & Plan (02/25/2019 3:33 AM CDT): -continue Xanax Severe malnutrition (CMS/HCC) 02/25/2019 01/22/2024 Assessment & Plan (06/21/2023 2:13 PM CDT): Still no weight gain. He thinks he is eating more regularly Assessment & Plan (10/07/2019 7:01 AM PREFORM MACHINE OPERATOR): Increasing the po intake as possible. Vitamin supplements ASHD (arteriosclerotic heart disease) 02/21/2019 01/22/2024 Overview (02/21/2019): Stent to LAD in 01/2019 Assessment & Plan (01/14/2024 7:45 AM CDT): No reported cardiac symptoms Pt counseled of ASCVD risk reduction, secondary preventative measures reduce reoccurrence Cnt with secondary preventatives including statin as prior RTC 4 months Assessment & Plan (12/12/2022 1:37 PM CDT): No recent cardiac symptoms. That stated not certain what was done when found down and sent to the hospital. Apparently no cardiac interventions recommended. Assessment & Plan (01/05/2021 2:40 PM CDT): Having some atypical chest pain . Will need follow up with dr palomino Assessment & Plan (10/05/2020 12:59 PM PREFORM MACHINE OPERATOR): No complications though the chronic symptoms . Seeing his delivery crew worker soon Assessment & Plan (07/05/2020 4:42 PM CDT): Discrepancy of current cardiac testing . He will clarify with his cardiologists and doing well enough on meds no adjustment. Assessment & Plan (04/05/2020 1:00 PM CDT): No recurrent sx. No further chest pain . Palpitations or other complaints. Assessment & Plan (10/06/2019 2:19 PM PREFORM MACHINE OPERATOR): Atypical chest pain . NO new complications. Continue current regimen . Continue follow up with delivery crew worker. Assessment & Plan (07/29/2019 12:53 PM PREFORM MACHINE OPERATOR): No complications cardiac sx. Assessment & Plan (04/24/2019 11:34 AM CDT): 2 Stents to LAD in February. Is being monitored by Dr. Palomino. Will follow up with cardiac rehab. Appointment with cardiology later this month. Assessment & Plan (02/21/2019 4:48 PM CDT): Coronary artery disease is well compensated currently . No complications related. No residual symptoms other than some ongoing fatigue. No chest pain , no marked sob. Continue current meds. Cardiac arrest 02/14/2019 07/06/[address] scan 01/22/2019 07/06/2019 Overview (01/22/2019): Added automatically from request for surgery [id number] Assessment & Plan (01/30/2019 11:32 AM CDT): Awaiting gi eval. NO progression. Chest pain 01/14/2019 04/05/2020 Assessment & Plan (02/25/2019 3:40 AM CDT): Patient presents with intermittent chest pain s/p cardiac arrest 02/14. EKG with new, diffuse,T wave inversions in V1-V6 without troponin elevation concerning for worsening ischemia. CT PE negative. No signs of pneumonia or rib fracture on CT -Troponin negative x2 -Likely MSK from recent CPR -Continue GDMT: ASA, Brilinta, Metop, Lisinopril, Statin -Consider Echo as not done at [facility] -Discuss need for repeat Cath with cardiology in the morning Assessment & Plan (01/14/2019 2:51 PM CDT): Pt has anginal pain Insulin long-term use ([facility]) 07/01/2018 01/13/2021 Fracture of left toe 07/01/2018 018 Diaphoresis 05/05/2018 01/13/2021 Assessment & Plan (05/05/2018 4:49 PM CDT): No obvious localizing signs of infection. Has had no documented fever. Could be related to meds Weight loss, non-intentional 05/05/2018 01/13/2021 Assessment & Plan (01/08/2021 11:17 AM CDT): Likely related to depression and uncontrolled diabetes. He previously had cancer w/u for this. PCP and Gear Tester feel likely r/t depression as well. Weight history shows Pt lost 11 pounds in 2 months. -CXR clear, TSH normal, UA w/o blood -Denies blood in stool. Colonoscopy in 02/2017 unrevealing. Recommended f/u in 10 years -No GI sxs. EGD 08/2017 normal -PSA ordered by PCP -Denies ETOH, tobacco or drug abuse -HIV negative -RD evaluated and recommended Ensure supplements -continue duloxetine. Encouraged psychiatry f/u. Assessment & Plan (01/06/2021 3:16 PM CDT): May just be d/t poor po intake r/t depression/FTT. He previously had cancer w/u for this. PCP and Gear Tester feel likely r/t depression as well. Weight history shows Pt lost 11 pounds in 2 months. -CXR clear, TSH normal, UA w/o blood -Denies blood in stool. Colonoscopy in 02/2017 unrevealing. Recommended f/u in 10 years -No GI sxs. EGD 08/2017 normal -PSA ordered by PCP -Denies ETOH, tobacco or drug abuse -check HIV -RD evaluated and recommended Ensure supplements -continue duloxetine. Encouraged psychiatry f/u. Assessment & Plan (07/06/2019 3:50 PM CDT): No obvious new cause except the poor nutrition, Poorly controlled dm. Will clarify his meds Assessment & Plan (02/21/2019 4:56 PM CDT): Has stabilized recently . No underlying etiology though likely some poor appetite and low calorie intake No further workup unless recurrent symptoms Assessment & Plan (01/30/2019 11:30 AM CDT): Pt continues to lose weight , not eating . Awaiting better control of blood sugars and trying to eat more. Also gi eval pending Assessment & Plan (11/04/2018 1:02 PM PREFORM MACHINE OPERATOR): He thinks maybe related to poor po intake. No overt symptoms to suggest serious etiology though marked wt loss. Assessment & Plan (08/05/2018 4:14 PM PREFORM MACHINE OPERATOR): Has now resolved. Eating better recently Assessment & Plan (05/05/2018 4:54 PM CDT): No obvious source. He is eating regularly . Continues having trouble sustaining his weight. Some sweats. No fevers. Checking routine labs. Then further eval pending this. Syncope 04/01/2018 05/05/2018 Assessment & Plan (04/01/2018 4:38 PM CDT): Normal evaluation per his report. No obvious cause of his Only issue was abnormal breathing pattern while sleeping. So sleep apnea eval . Reactive depression 12/18/2016 01/14/20 Assessment & Plan (10/05/2020 12:59 PM PREFORM MACHINE OPERATOR): Continue duloxetin. Assessment & Plan (07/05/2020 4:43 PM CDT): NO SI/HI though chronic low mood and the isolation of pandemic difficult Assessment & Plan (04/05/2020 12:55 PM CDT): Has been limited socially given pandemic. For now duloxetine Assessment & Plan (10/07/2019 7:01 AM PREFORM MACHINE OPERATOR): Stable on current regimen Though still depressed. NO SI/HI . Assessment & Plan (07/29/2019 12:52 PM PREFORM MACHINE OPERATOR): No progression. NO SI/HI. Continue meds for now. On the cymbalta. Assessment & Plan (07/06/2019 3:51 PM CDT): Encouraged he send me a pic of his presumptive antidepressant meds he is taking To verify the right dose and med. No alarm sx though may need further adjustment of meds. ? Addition of abilify etc in low dose. However would need to coordinate this with entire team. Assessment & Plan (04/24/2019 11:31 AM CDT): Has prominent depression symptoms that have been bad since heart attack. Was on low dose cymbalta for pain control. Will increase dose to 60mg for help with depression. Assessment & Plan (02/21/2019 4:53 PM CDT): Psychological condition is stable despite the recent events. Will monitor closely . Assessment & Plan (01/30/2019 11:31 AM CDT): Psychological condition is poorly controlled . He states no SI/HI.. He states his Stressors remain high . Assessment & Plan (11/04/2018 1:06 PM PREFORM MACHINE OPERATOR): He is having some marked increase in depression. Discussed this in great detail. Should work on cymbalta adherence. Assessment & Plan (08/05/2018 4:15 PM PREFORM MACHINE OPERATOR): Stable on duloxetine. He would like to get more active to treat this . No progression Assessment & Plan (05/05/2018 5:01 PM CDT): Psychological condition is unchanged. Remains depressed. However he is willig to try a low dose of meds. Perhaps a trial of duloxetine . This doesn't interact with his other meds. Assessment & Plan (04/01/2018 4:39 PM CDT): Psychological condition is depressed though not interested in meds. Pain of toe 08/02/2015 08/05/2018 Type 2 diabetes mellitus wit h other specified complication 01/30/2014 01/13/2021 Overview (12/21/2016): DMII WO CMP UNCNTRLD Assessment & Plan (01/05/2021 2:38 PM CDT): He is not taking insulin as prescribed-states he forgets to check Doesn't check sugars often since slept through delivery of dexcom supplies Hasn't seen his yarn sorter since he states he slept through the appointment and unable to schedule properly . Will check labs if severe may need to admit to get htisunder control Will attempt to connect with his dm EXECUTIVE TALENT ACQUISITION CONSULTANT. Assessment & Plan (10/05/2020 12:58 PM PREFORM MACHINE OPERATOR): Checking hba1c. He states his blood sugars are better though still remains quite elevated. Offered heat plant specialist though for now he prefers to work with his dexcom and adjust insulin better. Assessment & Plan (08/04/2020 8:54 AM PREFORM MACHINE OPERATOR): Very poorly controlled. Working on getting cgm and then do better with insulin adjustment Emilio Loera was last seen on our office today Patient was seen in the office for treatment and monitoring of E11.9 Patient's current regimen for blood glucose monitoring (BGM) testing is greater then 4 times per day . Patient takes more than 3 daily injections of insulin. Due to frequent testing of blood glucose and use of insulin to maintain blood glucose levels patient requires frequent adjustments to their treatment regimen based on BGM testing results and I am recommending the patient to use the Dexcom CGM. Assessment & Plan (04/05/2020 12:54 PM CDT): Very poorly controlled and dangerous side effects including ongoing weight loss. This despite toujeo and humalog- four total shots daily . Needs dexcom Assessment & Plan (10/06/2019 2:18 PM PREFORM MACHINE OPERATOR): Continue with current regimen as per endocrine. No complications Assessment & Plan (07/29/2019 12:52 PM PREFORM MACHINE OPERATOR): He will be seeing endocrine soon and anticipate labs being drawn Assessment & Plan (07/06/2019 3:48 PM CDT): Poorly controlled as listed. NO new complications. He continues with sugars in the 400's at times. Continue with monitoring of his sugars and insulin Assessment & Plan (04/24/2019 11:33 AM CDT): Sugars have been high as of late. Patient has been attempting to eat more to gain weight and has also been forgetful about diabetes meds from depression. Has appointment with yarn sorter at the end of the month to f/u about this. Assessment & Plan (04/08/2019 2:18 PM CDT): Diabetes improving, A1c was 13.9% in Jan, 2019; 11.2% in February,. Reports blood glucose persistently high in 200-300+ range. Reports improved adherence with basal insulin since he starting taking this at night before bed; but often misses pre-meal insulin and will take it after eating. He is interested in CGM; spoke with CDE today and will start the paperwork for approval. Please monitor/log blood glucose and insulin doses at least 4 times/day and fax to the office. At this time we will continue the current insulin regimen, but tighten the ICR to 1:10. - Tresiba/Lantus 20 units every night (occasionally misses doses) - Humalog 1 unit per 10 grams carbs - Humalog 1 unit per 50 over 150 Recommend counting carbohydrates and measuring servings of food to ensure appropriate insulin to carbohydrate ratio. Recommend downloading the Calorie Kory application to phone to aid in carb counting (especially if eating out). Return to clinic in 3 months to re-assess glycemic control and to titrate insulin as needed. Please contact diabetes center with any questions/concerns Assessment & Plan (02/25/2019 3:23 AM CDT): Poorly controlled with last A1c 13.9. Previously on insulin pump but stopped due admission for DKA. -Follows with endocrinology Dr. Salmeron -Home Regimen: Tresiba 20 units, Humalog 1 unit per 20 grams, Humalog 1 unit per 50 over 150 -Start Glargine 10units nightly, LDSSI Assessment & Plan (02/21/2019 4:50 PM CDT): Diabetes is being followed by endocrine. No new sx related. Continue current meds and monitoring blood sugars. Assessment & Plan (01/30/2019 11:31 AM CDT): Diabetes is very poorly controlled though has been very difficult. Assessment & Plan (11/04/2018 1:00 PM PREFORM MACHINE OPERATOR): Diabetes is working with yarn sorter. Will d/w them adjustment of meds Assessment & Plan (08/05/2018 4:21 PM PREFORM MACHINE OPERATOR): Diabetes is being monitored by endocrine. No complications. Assessment & Plan (07/01/2018 10:08 AM CDT): Continue same insulin regimen Check BS 3-4x/ day for precision Assessment & Plan (05/05/2018 4:41 PM CDT): Diabetes is being monitored by enocrinology. Continues on current regimen as per dr salmeron. Assessment & Plan (04/01/2018 4:39 PM CDT): Diabetes is under improved control he thinks from the marked elevation when he was down in [facility]. Hepatitis C virus infection 01/30/2014 01/20/2020 Overview (12/22/2016): Hepatitis C Alcoholic cirrhosis (CMS/HCC) 01/13/2011 01/20/2020 Assessment & Plan (11/04/2018 12:59 PM PREFORM MACHINE OPERATOR): Continue with supportive . No use of etoh. Immunizations Name Administration Dates Next Due Influenza, Quadrivalent, Spl it, Preservative Free, Intramuscular 06/21/2023,06/23/2021,07/05/2020,07/06,08/01/2015 Influenza, Trivalent, IM (MDV) 06/16/2011 Influenza, Trivalent, Preser vative Free, Intramuscular 09/23/2013,06/02/2012,07/04/2006 Influenza, Trivalent, Recomb inant, Egg Free, Preservative Free, Antibiotic Free, IM (FLUBLOK) 06/23/2024 Influenza, Trivalent, Split, Preservative Free, Intradermal 05/22/2016,07/14/2014 Moderna SARS-CoV-2 Monovalen t Vaccination (12+ YRS) 11/18/2020 PPD TEST 06/25/2012 Tdap 10/06/2019 ZOSTER Recombinant 06/04/2022,04/16/2022 Social History Tobacco Use Types Packs/Day Years Used Date Smoking Tobacco: Never Smokeless Tobacco: Never Tobacco Cessation:Counseling Given: Not Answered Alcohol Use Standard Drinks/Week Comments Not Currently 0 (1 standard drink = 0.6 oz pur e alcohol) Social Connection and Isolat ion Panel [NHANES] Answer Date Recorded In a typical week, how many times do you talk on the phone with family, friends, or neighbors? More than three times a week 03/23/2021 How often do you get togethe r with friends or relatives? More than three times a week 03/23/2021 How often do you attend chur or gnosticism services? Never 03/23/2021 Do you belong to any clubs o r organizations such as yarsanism groups, unions, fraternal or athletic groups, or school groups? No 03/23/2021 How often do you attend meet ings of the clubs or organizations you belong to? Never 03/23/2021 Are you , , di vorced, , never , or living with a partner? Patient declined 03/23/2021 AUDIT-C Answer Date Recorded Q1: How often do you have a drink containing alcohol? Never 07/14/2024 Q2: How many drinks containi ng alcohol do you have on a typical day when you are drinking? Patient does not drink Q3: How often do you have si x or more drinks on one occasion? Never 07/14/2024 Overall Financial Resource Strain (CARDIA) Answe r Date Recorded How hard is it for you to pa y for the very basics like food, housing, medical care, and heating? Somewhat hard 03/23/2021 PHQ-2 Answer Date Recorded PHQ-2 Total Score (If total score is 3 or more points, staff should administer the PHQ-9) 6 12/12/2022 Hunger Vital Sign Answer Date Recorded Within the past 12 months, y ou worried that your food would run out before you got the money to buy more. Never true 03/23/20 21 Within the past 12 months, t he food you bought just didn't last and you didn't have money to get more. Never true 03/23/2021 PRAPARE - Transportation Answer Date Re corded In the past 12 months, has l ack of transportation kept you from medical appointments or from getting medications? No 04/2021 In the past 12 months, has l ack of transportation kept you from meetings, work, or from getting things needed for daily living? No 03/23/2021 Housing Stability Vital Sign Answer Tyree e Recorded In the last 12 months, was t here a time when you were not able to pay the mortgage or rent on time? No 03/23/2021 In the last 12 months, how many places have you lived? 1 03/23/2021 In the last 12 months, was t here a time when you did not have a steady place to sleep or slept in a correction (including now)? No 03/23/2021 Personal Safety Answer Date Recorded Have you ever been in or are you currently in a harmful physical or emotional relationship or is someone making you feel afraid or unsafe? Denies 06/11/2024 Sex and Gender Information Value Date Recorded Sex Assigned at Not on file Legal Sex Male 1:20 AM PREFORM MACHINE OPERATOR Gender Identity Not on file Sexual Orientation Not on file Last Filed Vital Signs Vital Sign Reading Time Taken Comments Blood Pressure 145/74 10/14/2024 11:35 AM PREFORM MACHINE OPERATOR Pulse 69 10/14/2024 11:35 AM PREFORM MACHINE OPERATOR Temperature 37 C (98.6 F) 10/14/2024 11:35 AM PREFORM MACHINE OPERATOR Respiratory Rate 18 07/14/2024 2:18 PM CDT Oxygen Saturation 97% 09/25/2024 11:19 AM PREFORM MACHINE OPERATOR Inhaled Oxygen Concentration - - Weight 76.7 kg (169 lb) 10/14/2024 11:35 AM PREFORM MACHINE OPERATOR Height 177.8 cm (5' 10 ) 10/14/2024 11:35 AM PREFORM MACHINE OPERATOR Body Mass Index 24.25 10/14/2024 11:35 AM PREFORM MACHINE OPERATOR Plan of Treatment Not on file Procedures Procedure Name Priority Date/Time Associated Diagnosis Comments POCUS LIMITED EXTREMITY Schedule Routine, Read Routine (OP Routine) 10/20/2024 10:28 AM PREFORM MACHINE OPERATOR Right shoulder pain, unspecified chronicity XR SHOULDER RIGHT 2 OR MORE VIEWS Schedule Routine, Read Routine (OP Routine) 10/20/2024 10:15 AM PREFORM MACHINE OPERATOR Chronic right shoulder pain Intercostal muscle pain Trapezius strain, right, subsequent encounter Posterior pain of right hip POCT HEMOGLOBIN A1C Routine 10/14/2024 11:41 AM PREFORM MACHINE OPERATOR Uncontrolled type 2 diabetes mellitus with hyperglycemia (CMS/HCC) (HCC) POCT GLUCOSE 71114 Routine 10/14/2024 11 :41 AM PREFORM MACHINE OPERATOR Uncontrolled type 2 diabetes mellitus with hyperglycemia (CMS/HCC) (HCC) EGFR Routine 06/13/2024 9:19 PM CDT LIPID PANEL Routine 01/13/2024 12:09 PM CDT Medicare annual wellness visit, subsequent Mixed hyperlipidemia Primary hypertension PSA SCREEN Routine 01/13/2024 12:09 PM CDT Benign prostatic hyperplasia with incomplete bladder emptying Screening for malignant neoplasm of prostate HEPATITIS C ANTIBODY Routine 02/25/2019 6:08 AM CDT ALBUMIN CREATININE RATIO, URINE Routine 07/07/2018 10:54 AM CDT Type 2 diabetes mellitus with complication, without long-term current use of insulin ([facility]) Other proteinuria COLONOSCOPY REPORT 02/14/2017 from Last 3 Months or Most Recently Relevant to Health Maintenance Results * POCUS LIMITED EXTREMITY (10/20/2024 10:28 AM PREFORM MACHINE OPERATOR) Narrative [facility] - 10/20/2024 10:28 AM PREFORM MACHINE OPERATOR This procedure was performed and interpreted by the provider. Please refer to the provider's procedure/OR operative note for results. us Jacinda Collado MD POCUS ORDERABLES Final Result [facility] * X-ray shoulder right 2+ views (10/20/2024 10:15 AM PREFORM MACHINE OPERATOR) Anatomical Region Laterality Modality Upper Extremities, Shoulder Right Comp uted Radiography 10/20/2024 11:1 3 AM PREFORM MACHINE OPERATOR Impressions 10/20/2024 11:13 AM PREFORM MACHINE OPERATOR Mild right shoulder osteoarthritis. Electronically signed by: Nadir Jenkins M.D. Narrative 10/20/2024 11:13 AM PREFORM MACHINE OPERATOR EXAMINATION: XR SHOULDER RIGHT 2 OR MORE VIEWS HISTORY: Right shoulder pain FINDINGS: 4 views of the right shoulder were performed without comparison. There is mild acromioclavicular and glenohumeral osteoarthritis. There is no acute fracture. There is a small focus of heterotopic ossification posterior to the humeral head. Procedure Note Nadir Jenkins MD PhD - 10/20/2024 EXAMINATION: XR SHOULDER RIGHT 2 OR MORE VIEWS HISTORY: Right shoulder pain FINDINGS: 4 views of the right shoulder were performed without comparison. There is mild acromioclavicular and glenohumeral osteoarthritis. There is no acute fracture. There is a small focus of heterotopic ossification posterior to the humeral head. IMPRESSION: Mild right shoulder osteoarthritis. Electronically signed by: Nadir Jenkins M.D. Jacinda Collado MD IMG XR PROCEDURES Final Result * POCT glucose (10/14/2024 11:41 AM PREFORM MACHINE OPERATOR) Glucose Blood, POC 346 mg/dL Blood 10/14/2024 11:4 1 AM PREFORM MACHINE OPERATOR Angelina ROQUE POINT OF CARE TEST ORDERA BLES Edited Result - Final * POCT hemoglobin A1c (10/14/2024 11:41 AM PREFORM MACHINE OPERATOR) Pathologist [facility] Hemoglobin A1C, POC 10.4 4.0 - 5.6 % Blood 10/14/2024 11:4 1 AM PREFORM MACHINE OPERATOR Angelina ROQUE POINT OF CARE TEST ORDERA BLES Edited Result - Final * eGFR (06/13/2024 9:19 PM CDT) Pathologist [facility] eGFR 83 >=60 mL/min/1. 73 m2 Comment: Interpretive Data Reference Interval Normal >/= 90 mL/min/1.73m2 Mildly decreased* 60 - 89 mL/min/1.73m2 Mildly to moderately decreased 45 - 59 mL/min/1.73m2 Moderately to severely decreased 30 - 44 mL/min/1.73m2 Severely decreased 15 - 29 mL/min/1.73m2 Kidney Failure < 15 mL/min/1.73m2 *Relative to young adult level Estimated glomerular filtration rate is determined by the 2020 CKD-EPI equation recommended by the National Kidney Foundation (A Unifying Approach to GFR Estimation: Recommendations of the NKF-ASK Task Force on Reassessing the Inclusion of Race in Diagnosing Kidney Disease, JASN 2020). The CKD-EPI equation should not be used for patients with unstable renal function and has not been validated in children and those over 70. Current interpretive data was last reviewed 2021. Blood 06/13/2024 9:19 PM CDT 06/13/2024 10:06 PM CDT Sivan Laird PA LAB BLOOD ORDERABLES Fin al Result Performing Organization Address [facility] de Phone Number [facility] [place] [address] * PSA screen (01/13/2024 12:09 PM CDT) PSA-Total 2.40 <=5.40 ng/mL Comment: Interpretive Data AGE SEX REFERENCE INTERVAL 0 minutes-150 years Female None 0 minutes-49 years Male None 50-59 years Male 0-3.90 60-69 years Male 0-5.40 70-79 years Male 0-6.20 80-150 years Male 0-6.20 The Mandi PSA Total assay procedure was used. Results from different manufacturers or methods may not be comparable. Serial testing should be performed using the same method. Current interpretive data last revised 22. Blood 01/13/2024 12:0 9 PM CDT 01/13/2024 1:52 PM CDT Collette Myles EXECUTIVE TALENT ACQUISITION CONSULTANT LAB BLOOD ORDERABLES Final R esult Performing Organization Address [facility] de Phone Number [facility] [place] [address] * Lipid panel (01/13/2024 12:09 PM CDT) Cholesterol 98 30 - 199 mg/dL Comment: Interpretive Data Ages < or = 19 years Acceptable: <170 mg/dL Borderline high: 170-199 mg/dL High: >or= 200 mg/dL Ages > or = 20 years Desirable: <200 mg/dL Borderline high: 200-239 mg/dL High: >or= 240 mg/dL Literature References: 1. Expert Panel on Integrated Guidelines for Cardiovascular Health and Risk Reduction in Children and Adolescents. Pediatrics 2011;128:S213 2. NCEP Expert Panel. Circulation 2004;110:227 Current Interpretive Data was last revised on 2018. Triglycerides 72 <=149 mg/dL [facility] Comment: Interpretive Data Ages < or = 9 years Acceptable: <75 mg/dL Borderline high: 75-99 mg/dL High: >or= 100 mg/dL Ages 10 to 20 years Acceptable: <90 mg/dL Borderline high: 90-129 mg/dL High: >or= 130 mg/dL Ages > or = 20 years Desirable: <150 mg/dL Borderline high: 150-199 mg/dL High: 200-499 mg/dL Very high: >or= 499 mg/dL Literature References: 1. Expert Panel on Integrated Guidelines for Cardiovascular Health and Risk Reduction in Children and Adolescents. Pediatrics 2011;128:S213 2. NCEP Expert Panel. Circulation 2004;110:227 Current Interpretive Data was last revised on 2018. HDL 49 >=40 mg/dL [facility] Comment: Interpretive Data Ages < or = 19 years Acceptable: >45 mg/dL Borderline low: 40-45 mg/dL Low: <40 mg/dL Ages > or = 20 years Desirable: >or= 60 mg/dL Low: <40 mg/dL Literature References: 1. Expert Panel on Integrated Guidelines for Cardiovascular Health and Risk Reduction in Children and Adolescents. Pediatrics 2011;128:S213 2. NCEP Expert Panel. Circulation 2004;110:227 Current Interpretive Data was last revised on 2018. LDL, calculated 35 <=129 mg/dL [facility] Comment: Interpretive Data Ages < or = 19 years Acceptable: <110 mg/dL Borderline high: 110-129 mg/dL High: >or= 130 mg/dL Ages > or = 20 years Optimal: <100 mg/dL Near optimal: 100-129 mg/dL Borderline high: 130-159 mg/dL High: >160 mg/dL Literature References: 1. Expert Panel on Integrated Guidelines for Cardiovascular Health and Risk Reduction in Children and Adolescents. Pediatrics 2011;128:S213 2. NCEP Expert Panel. Circulation 2004;110:227 Current Interpretive Data was last revised on 2018. Non-HDL Cholesterol 49 mg/dL [facility] Comment: Interpretive Data Ages < or = 19 years Acceptable: <120 mg/dL Borderline high: 120-144 mg/dL High: >145 mg/dL Ages > or = 20 years When triglycerides are >200 mg/dL, Non-HDL cholesterol is a secondary target of therapy with treatment goals that are 30 mg/dL greater than the LDL cholesterol target. Literature References: 1. Expert Panel on Integrated Guidelines for Cardiovascular Health and Risk Reduction in Children and Adolescents. Pediatrics 2011;128:S213 2. NCEP Expert Panel. Circulation 2004;110:227 Current Interpretive Data was last revised on 2018. Chol/HDL ratio 2 [facility] Blood 01/13/2024 12:0 9 PM CDT 01/13/2024 1:52 PM CDT Collette Mlyes NP LAB BLOOD ORDERABLES Final R esult Performing Organization Address [facility] de Phone Number [facility] [place] [address] * (ABNORMAL) Hepatitis C antibody (02/25/2019 6:08 AM CDT) Hep C Ab Reactive( A) Nonreactive [facility] Comment: Interpretive Data Positive results should be confirmed by a molecular method. If positive, a second separately collected sample should be submitted for Hepatitis C Virus (HCV) RNA Detection and Quantitation by Real-Time Reverse Fabrication Mig Welder-PCR (RT-PCR). Current interpretive data was last revised on 2016. Blood specimen (specimen) 02/25/2019 6:08 AM CDT 02/25/2019 6:53 AM CDT Narrative [facility] - 02/25/2019 1:47 PM CDT Reggie Woodall MD LAB MICROBIOLOGY - GENERAL ORDERABLES Edited Result - Final Performing Organization Address [facility] Co de Phone Number [facility] [place] [address] * (ABNORMAL) Microalbumin / creatinine ratio, urine, random (07/07/2018 10:54 AM CDT) Microalbumin, ur 2,835.2 mcg/mL [facility] Creatinine, ur 307.10 mg/dL [facility] Microalbumin/c reat ratio 923.2(H) 0.1 - 29.9 mcg/mg Cr [facility] Urine 07/07/2018 10:5 4 AM CDT 07/07/2018 11:16 AM CDT Narrative [facility] - 07/07/2018 12:29 PM CDT Lucero Segura EXECUTIVE TALENT ACQUISITION CONSULTANT LAB URINE ORDERABLES Final Resul t [facility] [place] [address] * COLONOSCOPY REPORT (02/14/2017) Anatomical Region Laterality Modality Other Narrative 02/14/2017 Ordered by an unspecified provider. Historical Provider GI PROCEDURE ORDERABLES F inal Result from Last 3 Months or Most Recently Relevant to Health Maintenance Insurance MEDICARE [employer] [facility] SOL[employer]IONS MEDICARE [facility] Address: [address] [address] [place] [address] [employer] MED[employer]ARE GOLD MEDICARE SOLUTIONS [employer] MED[employer]ARE SOLUTIONS [employer] Advance Directives For more information, please contact: [phone] * Full Code (Latest Code Status on File) Date Activated Date Inactivated Comments 06/09/2024 4:16 PM 06/14/2024 11:50 AM * Full Code Date Activated Date Inactivated Comments 06/23/2021 11:11 PM 06/26/2021 6:38 PM * Full Code Date Activated Date Inactivated Comments 03/20/2021 2:09 AM 03/24/2021 6:09 PM * Full Code Date Activated Date Inactivated Comments 01/05/2021 8:48 PM 01/08/2021 9:16 PM * Full Code Date Activated Date Inactivated Comments 05/27/2019 9:48 AM 05/27/2019 5:31 PM Care Teams Unit Supervisor Relationship Specialty Start Date End Date Theo Stringer MD PCP - General 01/15/11 Kaylee Gutierrez RN [id number] [facility] [address] [place] [address] Certified Optician 10/14/18 Kimberly Camarillo RN Registered Nurse Gastroenterology 01/27/19 Maco Palomino MD [address] [facility] [address] [place] [address] Cardiology 12/17/22 Angelina Zavala PA [address] [facility] [address] ENDOCRINOLOGY, [address] [address] Physician Metal Loader Physician Metal Loader 04/24/24 Marshall Sherman MD PhD [address] [facility] [address] [place] [address] Consulting Physician Endocrinology Diabetes & Metabolism 07/23/24
--- OUTSIDE RECORDS SUMMARY | 2024-10-22 12:37 | XMS_ITS | Encounter Summary ---
Author Organization [facility] Healthcare Address [address] [place] [address] Care Team Providers Care Sales Representative Trainee Name Role Phone Theo Stringer MD Primary Care Provider [phone] Kaylee Gutierrez RN Unavailable [phone] Kimberly Camarillo RN Unavailable Unavailab Maco Higuera MD Unavailable Angelina Zavala Unavailable [phone] Marshall Sherman MD PhD Unavailable Encounter Details Date Type Department Care Team (Latest Contact Info) Description 10/20/2024 8:00 AM TICKET PRINTER - 10/20/2024 11:59 PM [facility] Hospital Encounter [id number] Radiology [address] [facility] [address] [place] [address] Chronic right shoulder pain; Intercostal muscle pain; Trapezius strain, right, subsequent encounter; Posterior pain of right hip Discharge Disposition: Discharge to home or self care Social History Tobacco Use Types Packs/Day Years Used Date Smoking Tobacco: Never Smokeless Tobacco: Never Alcohol Use Standard Drinks/Week Comments Not Currently [...] 03/23/2021 How often do you attend chur ch or nondenominational services? Never 03/23/2021 Do you belong to any clubs o r organizations such as pentecostal groups, unions, fraternal or athletic groups, or [...] place to sleep or slept in a chcf (including now)? No 03/23/2021 Personal Safety Answer Date Recorded Have you ever been in or are you currently in a harmful physical or emotional relationship or is someone making you feel afraid or unsafe? Denies 06/11/2024 Sex and Gender Information Value Date Recorded Sex Assigned at Not on file Legal Sex Male 1:20 AM TICKET PRINTER Gender Identity Not on file Sexual Orientation Not on file documented as of this encounter Medications at Time of Discharge Alcohol Pads pads, medicated Use to administer insulin 4 times daily 200 each 11 2 blood glucose diagnostic strip For testing blood sugar twice daily 200 strip 11 2 blood-glucose meter kitIndications:Unco ntrolled type 2 diabetes mellitus with hyperglycemia (HCC),Uncontrolled diabetes mellitus with hyperglycemia, with long-term current use of insulin (HCC) To check glucose three times daily prior to meals or twice daily as needed for symptoms of hypo- or hyperglycemia 1 kit 11 4 blood-glucose meter,continuous (Dexcom G6 Flash Drier Operator) [facility] One tobacco buyer to be used with DexCom sensor/transmitter unit 1 each 3 blood-glucose sensor device G7 1 each 1 3 blood-glucose transmitter (Dexcom G6 Transmitter) device Patient uses continuous monitor for injection of insulin four times daily 1 each 3 clopidogreL (PLAVIX) 75 mg tablet Take 1 tablet (75 mg total) by mouth daily CALL OFFICE FOR APPT for further refills 30 tablet 3 2 cyclobenzaprine (FLEXERIL) 10 mg tabletIndications:C hronic right shoulder pain,Intercostal muscle pain,Trapezius strain, right, subsequent encounter,Posterior pain of right hip Take 1 tablet (10 mg total) by mouth nightly as needed for muscle spasms 20 tablet 5 12/15/19 25 diclofenac sodium (VOLTAREN) 1 % gelIndications:Acut e left lumbar radiculopathy,Cervi calgia Apply 4 g topically 4 (four) times a day as needed (along R lateral neck & lower back near pain) [address] (CYMBALTA) 60 mg capsuleIndications: Anxiety and depression TAKE 1 CAPSULE(60 MG) BY MOUTH TWICE DAILY 60 capsule 5 4 ergocalciferol (VITAMIN D) 50,000 unit capsuleIndications: Vitamin D deficiency Take 1 capsule (50,000 Units total) by mouth once a week 12 capsule 3 4 01/13/20 25 FreeStyle Test stripIndications:in sulin dependent diabetes Check blood sugar four times a day or as directed 100 each 11 3 gabapentin (NEURONTIN) 300 mg capsuleIndications: Uncontrolled type 2 diabetes mellitus with hyperglycemia (HCC),Diabetic peripheral neuropathy (CMS/HCC) (HCC) Take 1 capsule (300 mg total) by mouth 3 (three) times a day 90 capsule 11 5 10/14/19 26 glucagon (Baqsimi) 3 mg/actuation spray,non-aerosolIn dications:Uncontrol led type 2 diabetes mellitus with hyperglycemia (HCC) Administer 1 spray (3 mg total) into one nostril as needed (for use in case of emergency for hypoglycemia) 1 each 2 4 HYDROcodone-acetami nophen (NORCO) 10-325 mg per tabletIndications:P ain Take 1 tablet by mouth every 6 (six) hours as needed for pain 120 tablet 5 insulin glargine (TOUJEO) 300 unit/mL (1.5 mL) pen for injectionIndication s:Uncontrolled type 2 diabetes mellitus with hyperglycemia (HCC) Inject 30 units under the skin daily 27 mL 3 5 insulin lispro (HumaLOG, ADMELOG) 100 unit/mL pen for injectionIndication s:Uncontrolled type 2 diabetes mellitus with hyperglycemia (HCC) Inject 12 units plus 1:25 > 150 mg/dL under the skin 10-15 minutes before meals. MDD 60 units. 54 mL 3 5 metoprolol XL (TOPROL-XL) 50 mg extended release tablet TAKE 1 TABLET(50 MG) BY MOUTH DAILY 90 tablet 4 multivit yjkiczow-fchg-QX-ca lcium (THERA-M) 9 mg iron-400 mcg tablet Take 1 tablet by mouth daily Over the counter med 1 naloxone (NARCAN) 4 mg/actuation spray,non-aerosol Administer 1 spray into affected nostril(s) as needed for opioid reversal or respiratory depression Call 911. Administer a single spray in one nostril. Repeat every 3 minutes as needed if no or minimal response. 1 each 2 OneTouch Delica Plus Lancet 33 gauge misc as directed 2 pen needle, diabetic 31 gauge x 11/29 needleIndications:U ncontrolled type 2 diabetes mellitus with hyperglycemia (HCC) Use to inject insulin up to 6 times daily. 400 each 11 5 potassium chloride ER 20 mEq CR tablet Take 1 tablet (20 mEq total) by mouth daily 2 QUEtiapine (SEROquel) 50 mg tablet daily rosuvastatin (CRESTOR) 20 mg tabletIndications:M ixed hyperlipidemia TAKE 1 TABLET BY MOUTH EVERY DAY 90 tablet 1 5 sertraline (ZOLOFT) 25 mg tablet 1 tablet once a day for 7 days, 2 tablets once a day for 23 days Orally for 30 days 5 sirolimus (RAPAMUNE) 2 mg tablet TAKE 1 TABLET BY MOUTH DAILY 90 tablet 3 4 tamsulosin (FLOMAX) 0.4 mg extended release capsuleIndications: Benign prostatic hyperplasia with incomplete bladder emptying TAKE 1 CAPSULE(0.4 MG) BY MOUTH DAILY 30 capsule 1 4 temazepam (RESTORIL) 30 mg capsuleIndications: Insomnia, idiopathic TAKE 1 CAPSULE(30 MG) BY MOUTH EVERY NIGHT NEEDED FOR SLEEP 30 capsule 1 5 urine glucose-ketones test stripIndications:Un controlled type 2 diabetes mellitus with hyperglycemia (HCC) Test during periods of hyperglycemia with nausea and vomiting. 100 strip 11 5 documented as of this encounter Discharge Disposition Disposition Code Departure Means Destination Discharge to home or self care documented in this encounter Plan of Treatment Not on file documented as of this encounter Procedures Procedure Name Priority Date/Time Associated Diagnosis Comments XR SHOULDER RIGHT 2 OR MORE VIEWS Schedule Routine, Read Routine (OP Routine) 10/20/2024 10:15 AM TICKET PRINTER Chronic right shoulder pain Intercostal muscle pain Trapezius strain, right, subsequent encounter Posterior pain of right hip documented in this encounter Results * X-ray shoulder right 2+ views (10/20/2024 10:15 AM TICKET PRINTER) Anatomical Region Laterality Modality Upper Extremities, Shoulder Right Comp uted Radiography 10/20/2024 11:1 3 AM TICKET PRINTER Impressions 10/20/2024 11:13 AM TICKET PRINTER Mild right shoulder osteoarthritis. Electronically signed by: Nadir Jenkins M.D. Narrative 10/20/2024 11:13 AM TICKET PRINTER EXAMINATION: XR SHOULDER RIGHT 2 OR MORE [...] Collado MD IMG XR PROCEDURES Final Result documented in this encounter Visit Diagnoses Diagnosis Chronic right shoulder pain Pain in joint, shoulder region Intercostal muscle pain Trapezius strain, right, subsequent encounter Posterior pain of right hip documented in this encounter Care Teams Sales Representative Trainee Relationship Specialty Start Date End Date Theo Stringer MD PCP - General 01/15/11 Kaylee Gutierrez RN [id number] [address] Offset Plate Maker 10/14/18 Kimberly Camarillo RN Registered Nurse Gastroenterology 01/27/19 Maco Palomino MD [address] [facility] [address] [place] [address] Cardiology 12/17/22 Angelina Zavala PA [address] [facility] [address] IM ENDOCRINOLOGY, [facility] [address] [place] [address] Physician Aerospace Assembler Physician Aerospace Assembler 04/24/24 Marshall Sherman MD PhD [address] [facility] [address] [place] [address] Consulting Physician Endocrinology Diabetes & Metabolism 07/23/24 documented as of this encounter
--- OUTSIDE RECORDS SUMMARY | 2024-10-22 12:37 | XMS_ITS | Clinical Summary ---
Author Organization [facility] Address [address] [place] [address] Care Team Providers Care Beadworker Name Role Phone Theo Stringer MD Primary Care Provider [phone] Kaylee Gutierrez RN Unavailable Kimberly Camarillo RN Unavailable Unavailab Maco Higuera MD Unavailable Angelina Zavala Unavailable Marshall Sherman MD PhD Unavailable Allergies Active Allergy Reactions Criticality Noted Date Comments Oxycodone Rash Medium Reaction: rash, Oxycodone-Acetaminophen Hives,Itching Low 9 Reaction: HIVES, Medications multivit qhbeiwru-ihcz-AC- calcium (THERA-M) 9 mg iron-400 mcg tablet Take 1 tablet by mouth daily Over the counter med 021 Active blood-glucose meter misc 1 Device once for 1 dose 1 each 1 021 Active naloxone (NARCAN) 4 mg/actuation spray,non-aerosol Administer 1 spray into affected nostril(s) as needed for opioid reversal or respiratory depression Call 911. Administer a single spray in one nostril. Repeat every 3 minutes as needed if no or minimal response. 1 each Active blood glucose diagnostic strip For testing blood sugar twice daily 200 strip 11 Active OneTouch Delica Plus Lancet [address] [facility] as directed Active diclofenac sodium (VOLTAREN) 1 % gelIndications:[place] creek left lumbar radiculopathy,Cer vicalgia Apply 4 g topically 4 (four) times a day as needed (along R lateral neck & lower back near pain) 100 g 022 Active clopidogreL (PLAVIX) 75 mg tablet Take 1 tablet (75 mg total) by mouth daily CALL OFFICE FOR APPT for further refills 30 tablet 3 Active Alcohol Pads pads, medicated Use to administer insulin 4 times daily 200 each 11 Active potassium chloride ER 20 mEq CR tablet Take 1 tablet (20 mEq total) by mouth daily Active FreeStyle Test stripIndications: insulin dependent diabetes Check blood sugar four times a day or as directed 100 each 11 023 Active blood-glucose sensor device G7 1 each 1 023 Active blood-glucose meter,continuous (Dexcom G6 Occupational Work Experience Teacher) [facility] One cork cutter to be used with DexCom sensor/transmit ter unit 1 each 023 Active blood-glucose transmitter (Dexcom G6 Transmitter) device Patient uses continuous monitor for injection of insulin four times daily 1 each 023 Active finasteride (PROSCAR) 5 mg tablet Take 1 tablet (5 mg total) by mouth daily 90 tablet 4 023 Active tamsulosin (FLOMAX) 0.4 mg extended release [...] hyperglycemia, with long-term current use of insulin ([facility]) To check glucose three times daily prior [...] 2 (two) times a day 120 capsule 024 Active glucagon (Baqsimi) 3 mg/actuation spray,non-aerosol [...] pen needle, diabetic 31 gauge x 11/29 needleIndications :Uncontrolled type 2 diabetes mellitus with hyperglycemia (HCC) Use to inject insulin up to 6 times daily. 400 each 025 Active insulin glargine (TOUJEO) 300 unit/mL (1.5 mL) pen for injectionIndicati ons:Uncontrolled type 2 diabetes mellitus with hyperglycemia (HCC) Inject 30 units under the skin daily 27 mL 3 025 Active insulin lispro (HumaLOG, ADMELOG) 100 unit/mL pen for injectionIndicati ons:Uncontrolled type 2 diabetes mellitus with hyperglycemia (HCC) Inject 12 units plus 1:25 > 150 mg/dL under the skin 10-15 minutes before meals. MDD 60 units. 54 mL 3 Active urine glucose-ketones test stripIndications: Uncontrolled type 2 diabetes mellitus with hyperglycemia ([facility]) Test during periods of hyperglycemia with nausea and vomiting. 100 strip 11 Active gabapentin (NEURONTIN) 300 mg capsuleIndication s:Uncontrolled type 2 diabetes mellitus with hyperglycemia (HCC),Diabetic peripheral neuropathy (CMS/HCC) ([facility]) Take 1 capsule (300 mg total) by mouth 3 (three) times a day 90 capsule 11 025 2025 Active cyclobenzaprine (FLEXERIL) 10 mg tabletIndications [...] pen needle, diabetic 31 gauge x 3/16 needle Pt injecting qid 200 each 11 022 2024 Discontinued(R eorder) insulin glargine (TOUJEO) 300 unit/mL (1.5 mL) pen for injectionIndicati ons:Uncontrolled type 2 diabetes mellitus with hyperglycemia ([facility]) Inject 25 units under the skin daily [...] be different from the original. Labs at [facility]. LAB: [facility] ([facility]) PH: [phone], FAX: [phone] OR [phone] Problem Noted Date Diagnosed Date Recurrent major depressive episodes, moderate Chronic right shoulder pain 09/25/2024 Assessment & Plan (09/25/2024 1:24 PM CATALYTIC CONVERTER OPERATOR): Subacute on chronic following mechanical fall [...] encounter Assessment & Plan (09/25/2024 1:13 PM CATALYTIC CONVERTER OPERATOR): Gradual onset following mechanical fall (?jarring) Known cervical DDDx w/o evidence cspine involvement;NV intact affected limb- deferred cervical films Supportive mgmt-topical analgesics,heat,massage, trial muscle relaxer prn, formal PT Revisit warrant PMR eval, update cpine xray nxt OV 4wks Posterior pain of right hip 09/25/2024 Assessment & Plan (09/25/2024 1:31 PM CATALYTIC CONVERTER OPERATOR): Subacute following mechanical fall in sept Exam c/w msk fascial etiology (thoracolumbar strain) Baseline xray today r/o Fx +flexeril prn(SER),topical analgesics,heat/ice, stretching, activity modifications, PT interim xray PMR referral pending imaging though preferring nonsurg therapies Revisit in the month interim w/ results Intercostal muscle pain 06/23/2024 Assessment & Plan (09/25/2024 1:25 PM CATALYTIC CONVERTER OPERATOR): Progressed from prior OV following mechanical [...] has an optometry appt scheduled with the [place], [place] --Home health RN to help with meds. He reports all medications feel the same and he is unable to distinguish between them to fill a pill box Assessment & Plan (06/25/2021 7:03 AM CDT): -Reports progressive vision impairment involving both eyes over multiple months, suspect component of diabetic retinopathy -he has an optometry appt scheduled with the [place] Assessment & Plan (06/24/2021 12:03 PM CDT): -Reports progressive vision impairment involving both eyes over multiple months, suspect component of diabetic retinopathy -he has an optometry appt scheduled with the [place] Assessment & Plan (06/24/2021 4:12 AM CDT): -Reports progressive vision impairment involving both eyes over multiple months, suspect component of diabetic retinopathy -States he has an optometry appt scheduled Diabetic peripheral neuropathy ([facility]) 021 Assessment & Plan (04/13/2022 12:05 PM CDT): Increase in symptoms lately Suggested he consider increase gabapentin as needed. Assessment & Plan (08/15/2021 2:08 PM CATALYTIC CONVERTER OPERATOR): Adequate pain control. No obvious new [...] with Podiatry as OP, patient requested a [place] physician Assessment & Plan (06/25/2021 7:04 AM CDT): -mentions of numbness and burning sensation on feet -feels like stepping on bubbles when he steps on the ground and starts to feel burning sensation soon after -will start on gabapentin and uptitrate based on response -follow-up with Podiatry as OP, patient requested a [place] physician Assessment & Plan (06/24/2021 12:09 PM CDT): -mentions of numbness and burning sensation on feet -feels like stepping on bubbles when he steps on the ground and starts to feel burning sensation soon after -will start on gabapentin and uptitrate based on response -follow-up with Podiatry as OP, patient requested a [place] physician Foot pain, left 03/16/2021 Assessment & [...] home Assessment & Plan (09/23/2023 2:08 PM CATALYTIC CONVERTER OPERATOR): Ongoing MDD, anxiety suggestively complicating insomnia [...] antidperessants. Assessment & Plan (08/15/2021 2:17 PM CATALYTIC CONVERTER OPERATOR): No progressive complaints. Continue current meds. [...] complaints. Assessment & Plan (08/15/2021 2:17 PM CATALYTIC CONVERTER OPERATOR): No obvious new chest pain, palpitations [...] angina Continue with current agents, aspirin. F/U investment accounting clerk as scheduled Assessment & Plan (01/13/2021 1:13 PM CDT): No recurrent symptoms. Assessment & Plan (01/08/2021 1:40 PM CDT): -c/b VT/VF arrest s/p PCI to LAD in 2019 -Continue ASA, Plavix, metop and lisinopril -Follow [...] Uncontrolled type 2 diabetes mellitus with hyperglycemia ([facility]) 01/05/2021 Assessment & Plan (06/23/2024 3:17 PM [...] direction Reiterated importance of following up with web site specialist for this Cnt dexcom cgm, insulin regimen [...] insulin. Assessment & Plan (08/15/2021 2:17 PM CATALYTIC CONVERTER OPERATOR): He shows me dexcom with blood [...] TID today -Endocrine follow up as op -certified breastfeeding educator c/s, referral for HH upon discharge to [...] the 150-170s -Endocrine follow up as op -certified breastfeeding educator c/s, referral for HH upon discharge to [...] 8 tid -Endocrine follow up as op -certified breastfeeding educator c/s, referral for HH upon discharge to [...] eaten a sandwhich prior) -Endocrine follow up -certified breastfeeding educator c/s, referral for HH upon discharge to [...] care. Reminded to get yearly retinal exam. certified breastfeeding educator referral. Endocrinology clinic referral. Diabetes will be [...] weekend. -Encouraged patient to f/u with his web site specialist and he can be referred back to [...] see. -Encouraged patient to f/u with his web site specialist. Assessment & Plan (01/05/2021 9:56 PM CDT): [...] neuropathy Assessment & Plan (09/25/2024 1:20 PM CATALYTIC CONVERTER OPERATOR): Complex diffuse pain syndrome lumbar radiculopathy, [...] months Assessment & Plan (09/23/2023 1:57 PM CATALYTIC CONVERTER OPERATOR): Chronic, at baseline [place] refill UTD as of 08/13/22 Avoiding excess [...] therapy. Assessment & Plan (08/14/2022 11:10 AM CATALYTIC CONVERTER OPERATOR): Chronic, at baseline [place] refill UTD as of 08/13/22 Avoiding excess [...] therapy. Assessment & Plan (08/15/2021 2:20 PM CATALYTIC CONVERTER OPERATOR): Refilling pain meds now . Continue [...] bdzp Assessment & Plan (10/05/2020 12:49 PM CATALYTIC CONVERTER OPERATOR): Continue current regimen The patient has [...] weakness. Assessment & Plan (10/05/2020 12:50 PM CATALYTIC CONVERTER OPERATOR): Continue with current regimen . No [...] therapy. Assessment & Plan (11/04/2018 12:58 PM CATALYTIC CONVERTER OPERATOR): Longstanding pain since trauma years ago . Has been stable on current pain med program. Idiopathic peripheral neuropathy 08/05/2018 Assessment & Plan (02/19/2024 12:07 PM CDT): Symptoms are tolerable. Encouraged he change gabapentin 3 at night. No new concerns. Assessment & Plan (09/23/2023 2:17 PM CATALYTIC CONVERTER OPERATOR): Severe, manageable Cnt norco, gabapentin (discussed [...] Likely due to poorly controlled DM -Continue [place], Cymbalta Assessment & Plan (02/21/2019 4:54 PM CDT): Continue meds though encouraged restart of cymbalta. Assessment & Plan (01/30/2019 11:40 AM CDT): Continue with current regimen. . No obvious complications. Assessment & Plan (08/05/2018 4:14 PM CATALYTIC CONVERTER OPERATOR): Chronic pain in the bilateral feet [...] referred Assessment & Plan (09/23/2023 2:14 PM CATALYTIC CONVERTER OPERATOR): Ongoing No reported psychogenic causes but [...] refilling) Assessment & Plan (08/15/2021 2:19 PM CATALYTIC CONVERTER OPERATOR): He states completely unable to reduce his temazepam. Have encouraged he minimize this He is aware of the danger related to these meds mercedes with the opiates. Assessment & Plan (11/04/2018 12:58 PM CATALYTIC CONVERTER OPERATOR): Stable on restoril. No obvious complications. Assessment & Plan (08/05/2018 4:21 PM CATALYTIC CONVERTER OPERATOR): restoril prn, He is unable to [...] visits Assessment & Plan (08/15/2021 2:20 PM CATALYTIC CONVERTER OPERATOR): Following with transplant team Assessment & [...] (01/06/2021 3:13 PM CDT): -s/p OLT in 2004 for [...] . Assessment & Plan (10/05/2020 1:00 PM CATALYTIC CONVERTER OPERATOR): He needs to schedule with his [...] gabapentin. Assessment & Plan (08/14/2022 11:14 AM CATALYTIC CONVERTER OPERATOR): Chronic, ongoing w/o S/I Notably more [...] associat ed with type 2 diabetes mellitus ([facility]) 03/31/2021 08/15/2021 Assessment & Plan (03/31/2021 9:39 AM CDT): Continue with Cymbalta as prior prescribed. [place] refilled today in office as requested. DMII control to prevent progression discussed Podiatry consult placed Re-eval in 3 months Diabetic ketoacidosis withou t coma associated with type 2 diabetes mellitus ([facility]/HCC) 03/20/2021 03/31/2021 Abrasion 03/16/2021 08/15/2021 Assessment & Plan (03/16/2021 10:35 AM CDT): Will cover with abx since this was 2/2 trauma - SER Reviewed wound care instructions [...] of uncontrolled diabetes. -B12 normal -Continue home [place] PRN, Cymbalta. PCP can start gabapentin once benzos are weaned to prevent further sedation. Assessment & Plan (01/06/2021 2:52 PM CDT): -likely 2/2 diabetic neuropathy with recent worsening in setting of uncontrolled diabetes. -B12 normal -Continue home [place] PRN, Cymbalta. Would not start gabapentin at this time as could worsen sedation/fatigue. Assessment & Plan (01/05/2021 10:02 PM CDT): -likely 2/2 diabetic neuropathy with recent worsening in setting of uncontrolled diabetes -Will check B12 level given chart hx of B12 deficiency -Continue home [place] PRN, Cymbalta. Would not start gabapentin at [...] 01/25/2021 Assessment & Plan (10/07/2019 7:01 AM CATALYTIC CONVERTER OPERATOR): No discrete mass though asymmetry L>>R. [...] 01/13/2021 Assessment & Plan (07/29/2019 12:53 PM CATALYTIC CONVERTER OPERATOR): Continue with current regimen and check [...] and lower dose of the temazepam in 1/2 Assessment & Plan (10/05/2020 12:58 PM CATALYTIC CONVERTER OPERATOR): No progression in symptoms though some [...] regularly Assessment & Plan (10/07/2019 7:01 AM CATALYTIC CONVERTER OPERATOR): Increasing the po intake as possible. [...] palomino Assessment & Plan (10/05/2020 12:59 PM CATALYTIC CONVERTER OPERATOR): No complications though the chronic symptoms . Seeing his investment accounting clerk soon Assessment & Plan (07/05/2020 4:42 PM CDT): Discrepancy of current cardiac testing . He will clarify with his cardiologists and doing well enough on meds no adjustment. Assessment & Plan (04/05/2020 1:00 PM CDT): No recurrent sx. No further chest pain . Palpitations or other complaints. Assessment & Plan (10/06/2019 2:19 PM CATALYTIC CONVERTER OPERATOR): Atypical chest pain . NO new complications. Continue current regimen . Continue follow up with investment accounting clerk. Assessment & Plan (07/29/2019 12:53 PM CATALYTIC CONVERTER OPERATOR): No complications cardiac sx. Assessment & [...] (01/22/2019): Added automatically from request for surgery [id number] Assessment & Plan (01/30/2019 11:32 AM CDT): [...] Pt has anginal pain Insulin long-term use (CMS/HCC) 07/01/2018 01/13/2021 Fracture of left toe 07/01/2018 018 Diaphoresis 05/05/2018 01/13/2021 Assessment & Plan (05/05/2018 4:49 PM CDT): No obvious localizing signs of infection. Has had no documented fever. Could be related to meds Weight loss, non-intentional 05/05/2018 01/13/2021 Assessment & Plan (01/08/2021 11:17 AM CDT): Likely related to depression and uncontrolled diabetes. He previously had cancer w/u for this. PCP and Logging Superintendent feel likely r/t depression as well. Weight [...] had cancer w/u for this. PCP and Logging Superintendent feel likely r/t depression as well. Weight [...] pending Assessment & Plan (11/04/2018 1:02 PM CATALYTIC CONVERTER OPERATOR): He thinks maybe related to poor po intake. No overt symptoms to suggest serious etiology though marked wt loss. Assessment & Plan (08/05/2018 4:14 PM CATALYTIC CONVERTER OPERATOR): Has now resolved. Eating better recently [...] 01/14/20 Assessment & Plan (10/05/2020 12:59 PM CATALYTIC CONVERTER OPERATOR): Continue duloxetin. Assessment & Plan (07/05/2020 4:43 PM CDT): NO SI/HI though chronic low mood and the isolation of pandemic difficult Assessment & Plan (04/05/2020 12:55 PM CDT): Has been limited socially given pandemic. For now duloxetine Assessment & Plan (10/07/2019 7:01 AM CATALYTIC CONVERTER OPERATOR): Stable on current regimen Though still depressed. NO SI/HI . Assessment & Plan (07/29/2019 12:52 PM CATALYTIC CONVERTER OPERATOR): No progression. NO SI/HI. Continue meds [...] . Assessment & Plan (11/04/2018 1:06 PM CATALYTIC CONVERTER OPERATOR): He is having some marked increase in depression. Discussed this in great detail. Should work on cymbalta adherence. Assessment & Plan (08/05/2018 4:15 PM CATALYTIC CONVERTER OPERATOR): Stable on duloxetine. He would like [...] delivery of dexcom supplies Hasn't seen his web site specialist since he states he slept through the appointment and unable to schedule properly . Will check labs if severe may need to admit to get htisunder control Will attempt to connect with his dm METAL MACHINE SETTER. Assessment & Plan (10/05/2020 12:58 PM CATALYTIC CONVERTER OPERATOR): Checking hba1c. He states his blood sugars are better though still remains quite elevated. Offered social media content specialist though for now he prefers to work with his dexcom and adjust insulin better. Assessment & Plan (08/04/2020 8:54 AM CATALYTIC CONVERTER OPERATOR): Very poorly controlled. Working on getting [...] dexcom Assessment & Plan (10/06/2019 2:18 PM CATALYTIC CONVERTER OPERATOR): Continue with current regimen as per endocrine. No complications Assessment & Plan (07/29/2019 12:52 PM CATALYTIC CONVERTER OPERATOR): He will be seeing endocrine soon [...] diabetes meds from depression. Has appointment with web site specialist at the end of the month to [...] admission for DKA. -Follows with endocrinology Dr. Slameron -Home Regimen: Tresiba 20 units, Humalog 1 [...] difficult. Assessment & Plan (11/04/2018 1:00 PM CATALYTIC CONVERTER OPERATOR): Diabetes is working with web site specialist. Will d/w them adjustment of meds Assessment & Plan (08/05/2018 4:21 PM CATALYTIC CONVERTER OPERATOR): Diabetes is being monitored by endocrine. [...] marked elevation when he was down in [facility]. Hepatitis C virus infection 01/30/2014 01/20/2020 Overview (12/22/2016): Hepatitis C Alcoholic cirrhosis (CMS/HCC) 01/13/2011 01/20/2020 Assessment & Plan (11/04/2018 12:59 PM CATALYTIC CONVERTER OPERATOR): Continue with supportive . No use of etoh. Encounters Date Type Department Care Team Description 10/21/[address] [place] [address] Order Rqst (CT of R hip w/o contrast) 10/20/2024 10:30 AM CATALYTIC CONVERTER OPERATOR Ancillary Procedure [facility] Orthopaedic Surgery [address] [place] [address] 4 [address] [place] [address] Right shoulder pain, unspecified chronicity 10/20/2024 8:40 AM CATALYTIC CONVERTER OPERATOR Office Visit [facility] Orthopaedic Surgery [address] [place] [address] 4 [address] [place] [address] Jacinda Collado MD Right shoulder pain, unspecified chronicity (Primary Dx); Chronic right shoulder pain; Intercostal muscle pain; Trapezius strain, right, subsequent encounter; Posterior pain of right hip 10/20/2024 8:00 AM CATALYTIC CONVERTER OPERATOR - 10/20/2024 11:59 PM CATALYTIC CONVERTER OPERATOR Hospital Encounter [facility] [address] [place] [address] [address] [place] [address] Chronic right shoulder pain; Intercostal muscle pain; Trapezius strain, right, subsequent encounter; Posterior pain of right hip Discharge Disposition: Discharge to home or self care 10/19/[address] [address] Karley Garrido 10/16/[address] [phone] Theo Stringer MD Med Refill [place] 10/14/2024 11:30 AM CATALYTIC CONVERTER OPERATOR Office Visit [facility] Endocrinology Metabolism and Lipid [address] [facility] 13th [place] [address] [place] [address] Angelina Zavala PA Uncontrolled type 2 diabetes mellitus with hyperglycemia (CMS/HCC) (HCC) (Primary Dx); Diabetic peripheral neuropathy (CMS/HCC) (HCC); Primary hypertension; Mixed hyperlipidemia; Liver transplant recipient (CMS/HCC) (HCC); Long-term insulin use (CMS/HCC) (HCC) 10/09/[address] [phone] Theo Stringer MD Fall; Request Call Back 10/01/[address] [phone] Theo Stringer MD Request Call Back; Discuss Test Results (CT testing & X-Ray) 09/30/2024 Orders Only [address] [phone] Collette Myles NP Posterior pain of right hip (Primary Dx); Abnormal bone xray; Hip joint loose body, right 09/29/2024 Orders Only [address] [phone] Collette Myles NP Trapezius strain, right, subsequent encounter (Primary Dx); Posterior pain of right hip 09/28/2024 Telephone [facility] Transplant Liver [address] [facility] [address] [phone] [place] [address] Kaylee Gutierrez RN Appointment/Schedul es 09/28/2024 Orders Only [address] [phone] Collette Myles NP Trapezius strain, right, subsequent encounter (Primary Dx); Chronic right shoulder pain; Intercostal muscle pain; Posterior pain of right hip 09/25/2024 11:30 AM CATALYTIC CONVERTER OPERATOR Office Visit [address] [phone] Collette Myles NP Chronic right shoulder pain (Primary Dx); Intercostal muscle pain; Trapezius strain, right, subsequent encounter; Posterior pain of right hip; Vision impairment; Uncontrolled type 2 diabetes mellitus with hyperglycemia (HCC); Chronic pain syndrome 09/17/[address] [phone] Theo Stringer MD Appointment Request (R arm pain) 09/07/[address] [place] [phone] Theo Stringer MD 08/17/[address] [place] [address] Theo Stringer MD Med Refill [facility] from Last 3 Months Immunizations Name Administration Dates Next Due Influenza, Quadrivalent, Spl it, Preservative Free, Intramuscular 06/21/2023,06/23/2021,07/05/2020,07/06,08/01/2015 Influenza, Trivalent, IM (MDV) 06/16/2011 Influenza, Trivalent, Preser vative Free, Intramuscular 09/23/2013,06/02/2012,07/04/2006 Influenza, Trivalent, Recomb inant, Egg Free, Preservative Free, Antibiotic Free, IM (FLUBLOK) 06/23/2024 Influenza, Trivalent, Split, Preservative Free, Intradermal 05/22/2016,07/14/2014 Moderna SARS-CoV-2 Monovalen t Vaccination (12+ YRS) 11/18/2020 PPD TEST 06/25/2012 Tdap 10/06/2019 ZOSTER Recombinant 06/04/2022,04/16/2022 Surgical History Surgery Date Site/Laterality Comments OTHER SURGICAL HISTORY left ankle crush injury: open reduction internal fixation APPENDECTOMY Appendectomy LIVER TRANSPLANTATION transplant COLONOSCOPY UPPER GASTROINTESTINAL ENDOSCOPY Medical History Medical History Date Comments Hx Other Medical 2009 left ankle patricia h injury Personal history of other en docrine, nutritional and metabolic disease History of hyperglyc emia - (Added by TW Conv) Type 2 diabetes mellitus wit h hyperglycemia (CMS/HCC) (HCC) Type 2 diabetes mellitus with hyperglycemia - (Added by TW Conv) Type 2 diabetes mellitus wit hout complications (CMS/HCC) (HCC) Type 2 diabetes mellitus - (Added by TW Conv) Heart attack (HCC) HCV infection treated 4 years ago CHF (congestive heart failur e) (CMS/HCC) (HCC) Hypertension Hyperlipidemia Depression Anxiety Arthritis Cataract Glaucoma Family History Medical History Relation Name Comments bowel obstruction Brother 1 not certai n etiology though caused his Diabetes Brother 2 mesothelioma Brother 2 myocardial infarction Brother 3 f rom at 50 at Brother 4 Coronary artery disease Brother 5 Coronary artery disease Father Stephon nary artery disease; Diabetes type II Father Diabetes -T ype 2; Coronary artery disease Mother Stephon nary artery disease; Diabetes type II Mother Diabetes -T ype 2; No Known Problems Sister 1 Relation Name Status Comments Brother 1 Brother 2 Brother 3 Brother 4 Brother 5 Alive Father Mother Sister 1 Alive Sister 2 Alive Social History Tobacco Use Types Packs/Day Years [...] often do you attend chur ch or mandaen services? Never 03/23/2021 Do you belong to any clubs o r organizations such as catholic groups, unions, fraternal or athletic groups, or [...] place to sleep or slept in a nursing home (including now)? No 03/23/2021 Personal Safety Answer Date Recorded Have you ever been in or are you currently in a harmful physical or emotional relationship or is someone making you feel afraid or unsafe? Denies 06/11/2024 Sex and Gender Information Value Date Recorded Sex Assigned at Not on file Legal Sex Male 1:20 AM CATALYTIC CONVERTER OPERATOR Gender Identity Not on file Sexual Orientation Not on file Obstetrics History Last Filed Vital Signs Vital Sign Reading Time Taken Comments Blood Pressure 145/74 10/14/2024 11:35 AM CATALYTIC CONVERTER OPERATOR Pulse 69 10/14/2024 11:35 AM CATALYTIC CONVERTER OPERATOR Temperature 37 C (98.6 F) 10/14/2024 11:35 AM CATALYTIC CONVERTER OPERATOR Respiratory Rate 18 07/14/2024 2:18 PM CDT Oxygen Saturation 97% 09/25/2024 11:19 AM CATALYTIC CONVERTER OPERATOR Inhaled Oxygen Concentration - - Weight 76.7 kg (169 lb) 10/14/2024 11:35 AM CATALYTIC CONVERTER OPERATOR Height 177.8 cm (5' 10 ) 10/14/2024 11:35 AM CATALYTIC CONVERTER OPERATOR Body Mass Index 24.25 10/14/2024 11:35 AM CATALYTIC CONVERTER OPERATOR Plan of Treatment Health Maintenance Due Date Last Done Comments Pneumococcal vaccine <65 (1 of 2 - PCV) 1966 Hepatitis B Screening 1978 Albumin Creatinine Ratio, Urine 07/07/2019 8 Foot Exam 08/14/2023 08/14/2022, 03/17, 04/13/2022, Additional history exists Depression Screening 12/13/2023 12/12/2022, 12/12/2022, 06/12/2021, Additional history exists Dilated Eye Exam 12/27/2023 12/26/2022 Covid-19 Vaccine (2023-2 5 season) 2024 05/03/2021, 12/23/2020, 11/18/2020 Lipid Panel 01/12/2025 01/13/2024, 10/18, 12/12/2022, Additional history exists Regular Well Visit/Exam 18-64 01/12/2025, 12/12/2022, 01/05/2021 Hemoglobin A1C 04/13/2025 10/14/2024, 05/18, 04/15/2024, Additional history exists eGFR 06/13/2025 06/13/2024, 05/18, 06/12/2024, Additional history exists Prostate Cancer Screening-PSA 01/12/2026, 01/02/2023, 12/12/2022, Additional history exists Colon Cancer Screening-Colonoscopy 02/14/2027 02/14/2017 DTaP/Tdap/Td Vaccine (2 - Td or Tdap) 10/06/2029 10/06/2019 Colon Cancer Screening-CT Colonography Discontinued 02/14/2017 Colon Cancer Screening-DNA Stool Discontinued 02/15/20 17 Colon Cancer Screening-FIT Discontinued 02/14/2017 Colon Cancer Screening-Sigmoidoscopy Discontinued 02/14/2017 Hepatitis C Screening Completed 01/20/2020 , 02/25/2019, 11/12/2017, Additional history exists Zoster Vaccine Completed 06/04/2022, 04/16/2022 Influenza Vaccine Completed 06/23/2024, , 06/23/2021, Additional history exists Procedures Procedure Name Priority Date/Time Associated Diagnosis Comments POCUS LIMITED EXTREMITY Schedule Routine, Read Routine (OP Routine) 10/20/2024 10:28 AM CATALYTIC CONVERTER OPERATOR Right shoulder pain, unspecified chronicity XR SHOULDER RIGHT 2 OR MORE VIEWS Schedule Routine, Read Routine (OP Routine) 10/20/2024 10:15 AM CATALYTIC CONVERTER OPERATOR Chronic right shoulder pain Intercostal muscle pain Trapezius strain, right, subsequent encounter Posterior pain of right hip POCT HEMOGLOBIN A1C Routine 10/14/2024 11:41 AM CATALYTIC CONVERTER OPERATOR Uncontrolled type 2 diabetes mellitus with hyperglycemia (CMS/HCC) (HCC) POCT GLUCOSE [id number] Routine 10/14/2024 11 :41 AM CATALYTIC CONVERTER OPERATOR Uncontrolled type 2 diabetes mellitus with [...] complication, without long-term current use of insulin (CMS/FORMERLY [facility]) Other proteinuria COLONOSCOPY REPORT 02/14/2017 from Last 3 Months or Most Recently Relevant to Health Maintenance Results * POCUS LIMITED EXTREMITY (10/20/2024 10:28 AM CATALYTIC CONVERTER OPERATOR) Narrative [facility] - 10/20/2024 10:28 AM CATALYTIC CONVERTER OPERATOR This procedure was performed and interpreted by the provider. Please refer to the provider's procedure/OR operative note for results. Jacinda Collado MD POCUS ORDERABLES Final Result [facility] * X-ray shoulder right 2+ views (10/20/2024 10:15 AM CATALYTIC CONVERTER OPERATOR) Anatomical Region Laterality Modality Upper Extremities, Shoulder Right Comp uted Radiography 10/20/2024 11:1 3 AM CATALYTIC CONVERTER OPERATOR Impressions 10/20/2024 11:13 AM CATALYTIC CONVERTER OPERATOR Mild right shoulder osteoarthritis. Electronically signed by: Nadir Jenkins M.D. Narrative 10/20/2024 11:13 AM CATALYTIC CONVERTER OPERATOR EXAMINATION: XR SHOULDER RIGHT 2 OR [...] Result * POCT glucose (10/14/2024 11:41 AM CATALYTIC CONVERTER OPERATOR) Glucose Blood, POC 346 mg/dL Blood 10/14/2024 11:4 1 AM CATALYTIC CONVERTER OPERATOR Angelina ROQUE POINT OF CARE TEST ORDERA BLES Edited Result - Final * POCT hemoglobin A1c (10/14/2024 11:41 AM CATALYTIC CONVERTER OPERATOR) Hemoglobin A1C, POC 10.4 4.0 - 5.6 % Blood 10/14/2024 11:4 1 AM CATALYTIC CONVERTER OPERATOR Angelina ROQUE POINT OF CARE TEST ORDERA BLES Edited Result - Final * eGFR (06/13/2024 9:19 PM CDT) eGFR 83 >=60 mL/min/1. 73 m2 Comment: [...] PM CDT 06/13/2024 10:06 PM CDT Sivan ROQUE LAB BLOOD ORDERABLES Fin al Result [facility] Department [place] [address] * PSA screen (01/13/2024 12:09 PM CDT) [...] CDT 01/13/2024 1:52 PM CDT Collette Myles NP LAB BLOOD ORDERABLES Final R esult [facility] Department [place] [address] * Lipid panel (01/13/2024 12:09 PM CDT) [...] revised on 2018. Triglycerides 72 <=149 mg/dL [facility] Comment: Interpretive Data Ages < or = [...] revised on 2018. HDL 49 >=40 mg/dL [facility] Comment: Interpretive Data Ages < or = [...] on 2018. LDL, calculated 35 <=129 mg/dL [facility] Comment: Interpretive Data Ages < or = [...] revised on 2018. Non-HDL Cholesterol 49 mg/dL [facility] Comment: Interpretive Data Ages < or = [...] last revised on 2018. Chol/HDL ratio 2 [facility] Blood 01/13/2024 12:0 9 PM CDT 01/13/2024 1:52 PM CDT us Collette Myles NP LAB BLOOD ORDERABLES Final [facility] [address] * (ABNORMAL) Hepatitis C antibody (02/25/2019 6:08 AM CDT) [facility] Hep C Ab Reactive( A) Nonreactive [facility] Comment: Interpretive Data Positive results should be confirmed by a molecular method. If positive, a second separately collected sample should be submitted for Hepatitis C Virus (HCV) RNA Detection and Quantitation by Real-Time Reverse Biodiesel Plant Superintendent-PCR (RT-PCR). Current interpretive data was last revised on 2016. Blood specimen (specimen) 02/25/2019 6:08 AM CDT 02/25/2019 6:53 AM CDT Narrative [facility] - 02/25/2019 1:47 PM CDT Reggie Woodall MD LAB MICROBIOLOGY - GENERAL ORDERABLES Edited Result - Final Performing Organization Address City/[facility]/ZIP Co de Phone Number [facility] [place] [address] * (ABNORMAL) Microalbumin / creatinine ratio, urine, random (07/07/2018 10:54 AM CDT) [facility] Microalbumin, ur 2,835.2 mcg/mL [facility] Creatinine, ur 307.10 mg/dL [facility] Microalbumin/c reat ratio 923.2(H) 0.1 - 29.9 mcg/mg Cr [facility] Urine 07/07/2018 10:5 4 AM CDT 07/07/2018 11:16 AM CDT Narrative [facility] - 07/07/2018 12:29 PM CDT us Lucero Segura NP LAB URINE ORDERAB[place] [address] * COLONOSCOPY REPORT (02/14/2017) Anatomical Region Laterality Modality Other Narrative 02/14/2017 Ordered by an unspecified provider. us Historical Provider MD [facility]ENDR[facility] PROCEDURE ORDERABLES F inal Result from Last 3 Months or Most Recently Relevant to Health Maintenance Insurance MEDICARE SOLUTIONS [facility] MEDICARE SOLUTIONS MEDICARE [facility] Address: [address] [address] [place] [address] AET MEDICARE GOLD MEDICARE SOLUTIONS [employer] MED[employer]IONS [employer] Advance Directives For more information, please contact: [phone] * Full Code (Latest Code Status on [...] 9:48 AM 05/27/2019 5:31 PM Care Teams Beadworker Relationship Specialty Start Date End Date Theo Stringer MD PCP - General 01/15/11 Kaylee Gutierrez, RN [address] [facility] [address] [place] [address] Meteorological Observer 10/14/18 Kimberly Camarillo RN Registered Nurse Gastroenterology 01/27/19 Maco Palomino MD [address] [address] Cardiology 12/17/22 Angelina Zavala PA [address] [facility] END[address]CRINOLOG[address] [address] Physician Credit Control Assistant Physician Credit Control Assistant 04/24/24 Marshall Sherman MD PhD [address] [place] [address] [place] [address] Consulting Physician Endocrinology Diabetes & Metabolism 07/23/24
--- OUTSIDE RECORDS SUMMARY | 2024-10-22 12:37 | XMS_ITS | Encounter Summary ---
Author Organization [facility] Address [address] [place] [address] [address] [place] [address] Phone Care Team Providers Care Scientific Advisor Name Role Phone Theo Stringer MD Primary Care Provider [phone] Kaylee Gutierrez RN Unavailable [phone] Kimberly Camarillo RN Unavailable Unavailab Maco Higuera MD Unavailable Angelina Zavala Unavailable Marshall Sherman MD PhD Unavailable Reason for Visit * Reason Onset Date Comments CT Order Rqst 10/21/2024 CT of R hip w/o contrast Encounter Details Date Type Department Care Team (Late st Contact Info) Description 10/21/2024 Telephone [facility] [address] [facility] [address] [place] [address] [place] [address] [facility] [address] [place] [address] CT Order Rqst (CT of R hip w/o contrast) Social History Tobacco Use Types Packs/Day Years [...] often do you attend chur ch or worship services? Never 03/23/2021 Do you belong to any clubs o r organizations such as denominational groups, unions, fraternal or athletic groups, or [...] place to sleep or slept in a custodial (including now)? No 03/23/2021 Personal Safety Answer Date Recorded Have you ever been in or are you currently in a harmful physical or emotional relationship or is someone making you feel afraid or unsafe? Denies 06/11/2024 Sex and Gender Information Value Date Recorded Sex Assigned at Not on file Legal Sex Male 1:20 AM INTERNATIONAL TRADE TEACHER Gender Identity Not on file Sexual Orientation Not on file documented as of this encounter Miscellaneous Notes * Telephone Encounter - Violet Langford RMA - 10/21/2024 4:15 PM INTERNATIONAL TRADE TEACHER Spoke w/ [facility] at [facility] Order has been faxed. RNATIONAL TRADE TEACHER * Telephone Encounter - Destiney Correa - 10/21/2024 3:05 PM CST Rcvd cll from [facility] rqsting order for CT to be snt Rqsting order for CT of R hip w/o contrast cb # [phone] RNATIONAL TRADE TEACHER documented in this encounter Plan of Treatment Not on file documented as of this encounter Visit Diagnoses Not on filedocumented in this encounter Care Teams Scientific Advisor Relationship Specialty Start Date End Date Theo Stringer MD PCP - General 01/15/11 Kaylee Gutierrez RN [address] [address] Civil Transportation Engineer 10/14/18 Kimberly Camarillo, RN Registered Nurse Gastroenterology 01/27/19 Maco Palomino MD [address] [address] Cardiology 12/17/22 Angelina Zavala PA [address] [facility] DIV ENDOCRINOLOGY, [address] [address] Physician Certified Credit Counselor Physician Certified Credit Counselor 04/24/24 Marshall Sherman MD PhD [address] [facility] [address] [place] [address] Consulting Physician Endocrinology Diabetes & Metabolism 07/23/24 documented as of this encounter
--- OUTSIDE RECORDS SUMMARY | 2024-10-22 12:37 | XMS_ITS | Encounter Summary ---
Author Organization [facility] Address [address] [facility] [place] [address] Care Team Providers Care Quality Lab Technician Name Role Phone Theo Stringer MD Primary Care Provider [phone] Theo Stringer MD Unavailable Isaac Callahan MD Unavailable [phone] Encounter Details Date Type Department Care Team (Late st Contact Info) Description 05/27/2019 Telephone [facility] General Internal Medicine [address] [facility] [address] [place] [address] Theo Stringer MD [address] [facility] [address] [place] [address] Social History Tobacco Use Types Packs/Day Years [...] on file documented as of this encounter Functional Status Functional Status Response Date of [...] person have difficulty concentrating/remembering/making decisions? No 02/17/2019 documented as of this encounter Plan of Treatment Not on file documented as of this encounter Visit Diagnoses Not on filedocumented in this encounter Care Teams Quality Lab Technician Relationship Specialty Start Date End Date Theo Stringer MD [facility] [place] [address] [place] [phone] PCP - General Internal Medicine 02/14/19 Theo Stringer MD [facility] [address] [place] [phone] Internal Medicine 02/14/19 Isaac Callahan MD [facility] [facility], [address] [place] [phone] Endocrinology 03/25/13 documented as of this encounter
--- OUTSIDE RECORDS SUMMARY | 2024-10-22 12:37 | XMS_ITS | Patient Health Summary ---
Author Organization [facility] Address [address] [place] [address] Care Team Providers Care Cloud Consultant Name Role Phone Theo Stringer MD Primary Care Provider [phone] Theo Stringer MD Unavailable [phone] Isaac Callahan MD Unavailable [phone] Note [address] [facility],non-owned Affiliates and Associated Physician Practices is amultiple site organization consisting of ambulatory clinics and hospital sitesin [place], [place] and [place]. This disclosure is being madepursuant to the Care Everywhere program and may not contain all information available regarding this patient. Last updated 18.[facility] Allergies * Acetaminophen(rash) * Oxycodone(Rash) * Oxycodone-Acetaminophen(Itching) Medications * Be aware that medications may not be up to date on this document. Alwaysverify current medications with the patient. * sirolimus (RAPAMUNE) 1 MG tablet Take 1 Tab by mouth every 4 hours. After cyclosporine * mycophenolate (CELLCEPT) 250 MG capsule Take 3 Caps by mouth 2 times daily. * insulin aspart (NOVOLOG) vial(Started 04/26/2015) Max daily dose 266 units in insulin pump * insulin lispro (HUMALOG KWIKPEN) pen(Started 05/10/2015) Inject 8 Units subcutaneously 3 times daily before meals * HYDROcodone-acetaminophen (NORCO) 10-325 MG tablet Take 1 tablet by mouth every 6 hours as needed for Pain * insulin glargine (LANTUS SOLOSTAR) pen(Started 02/17/2019) Inject 10 Units subcutaneously at bedtime * lisinopril (PRINIVIL;ZESTRIL) 5 MG tablet(Started 02/18/2019) Take 1 tablet by mouth once daily 2 refills remaining * aspirin (ASPIRIN) 81 MG chew tablet(Started 02/18/2019) 1 tablet by Enteral Tube route once daily 2 refills remaining * rosuvastatin (CRESTOR) 20 MG tablet(Started 02/18/2019) Take 1 tablet by mouth once daily 2 refills remaining * ticagrelor (BRILINTA) 90 MG tablet(Started 02/17/2019) 1 tablet by Enteral Tube route 2 times daily 2 refills remaining * metoprolol succinate XL 24hr (TOPROL XL) 100 MG tablet(Started 02/18/2019) Take 1 tablet by mouth once daily 2 refills remaining Active Problems Problem Noted Date Diagnosed Date Cardiac arrest 02/14/2019 Diabetes mellitus type I 03/25/2013 Insulin pump status 03/25/2013 Status post liver transplant 03/25/2013 Social History Tobacco Use Types Packs/Day Years [...] Mass Index 23.09 02/14/2019 9:43 PM CDT Medical Devices Implanted Type Area Artificial Breeding [employer] Device Identifier Shelf Expiration Date Model / Serial / Lot Sys Cor Stent 32mm 3mm Sng Monrl Implanted:Qty: 1 on 02/14/2019 by Clotilde Chao MD at [facility] Left: Coronary [employer] 08/26/2020 [id number] / / Description:Mid LAD Sys Cor Stent 12mm 3mm Sng Monrl Implanted:Qty: 1 on 02/14/2019 by Clotilde Chao MD at [facility] Left: Coronary [employer] 07/15/2020 [id number] / / Procedures * CARDIAC EKG ORDER(Performed 07/27/2019) * CARDIAC EKG ORDER(Performed 07/10/2019) * CARDIAC EKG ORDER(Performed 07/09/2019) * CARDIAC PROCEDURE ORDER(Performed 05/01/2019) * CARDIAC EKG ORDER(Performed 03/02/2019) * CARDIAC EKG ORDER(Performed 02/19/2019) * EKG 12-LEAD(Performed 02/17/2019) Performed for Cardiac arrest (HCC) * GLUCOSE - POINT OF CARE(Performed 02/17/2019) * GLUCOSE - POINT OF CARE(Performed 02/17/2019) * PHOSPHORUS BLOOD(Performed 02/17/2019) * MAGNESIUM BLOOD(Performed 02/17/2019) * CBC W AUTO DIFFERENTIAL(Performed 02/17/2019) * BASIC METABOLIC PANEL (CALCIUM TOTAL)(Performed 02/17/2019) * GLUCOSE - POINT OF CARE(Performed 02/17/2019) * GLUCOSE - POINT OF CARE(Performed 02/16/2019) * GLUCOSE - POINT OF CARE(Performed 02/16/2019) * GLUCOSE - POINT OF CARE(Performed 02/16/2019) * XR CHEST 2VW(Performed 02/16/2019) Performed for Cardiac arrest (HCC) * ECHO COMPLETE(Performed 02/16/2019) Performed for Cardiac arrest (HCC) * GLUCOSE - POINT OF CARE(Performed 02/16/2019) * PHOSPHORUS BLOOD(Performed 02/16/2019) * MAGNESIUM BLOOD(Performed 02/16/2019) * CBC W AUTO DIFFERENTIAL(Performed 02/16/2019) * BASIC METABOLIC PANEL (CALCIUM TOTAL)(Performed 02/16/2019) * SIROLIMUS LEVEL(Performed 02/16/2019) * GLUCOSE - POINT OF CARE(Performed 02/15/2019) * EKG 12-LEAD(Performed 02/15/2019) Performed for Cardiac arrest (HCC) * EXTUBATION(Performed 02/15/2019) * EKG 12-LEAD(Performed 02/15/2019) Performed for Cardiac arrest (HCC) * GLUCOSE - POINT OF CARE(Performed 02/15/2019) * COMPREHENSIVE METABOLIC PANEL(Performed 02/15/2019) * BLOOD GASES ARTERIAL(Performed 02/15/2019) * URINALYSIS W/MICROSCOPIC NO CULTURE(Performed 02/15/2019) * URINE DRUG SCREEN IMMUNOASSAY(Performed 02/15/2019) * CT HEAD WO CONTRAST(Performed 02/15/2019) Performed for Cardiac arrest ([facility]) * HEMOGLOBIN A1C(Performed 02/15/2019) * EKG 12-LEAD(Performed 02/15/2019) Performed for Cardiac arrest ([facility]) * LIPID PROFILE(Performed 02/15/2019) * ALCOHOL ETHYL BLOOD(Performed 02/15/2019) * HYDROXYBUTYRATE BETA(Performed 02/15/2019) * TROPONIN I(Performed 02/15/2019) * BASIC METABOLIC PANEL (CALCIUM TOTAL)(Performed 02/15/2019) * PHOSPHORUS BLOOD(Performed 02/15/2019) * MAGNESIUM BLOOD(Performed 02/15/2019) * BLOOD GASES ARTERIAL(Performed 02/15/2019) * LACTIC ACID BLOOD(Performed 02/15/2019) Performed for Metabolic acidosis * CCL CARDIAC CATH LEFT(Performed 02/14/2019) Performed for Cardiac arrest (HCC) * PT-INR [facility](Performed 02/14/2019) * PTT [facility](Performed 02/14/2019) * XR ABDOMEN KUB(Performed 02/14/2019) Performed for Cardiac arrest ([facility]) * BLOOD GASES ARTERIAL(Performed 02/14/2019) * XR CHEST 1VW(Performed 02/14/2019) Performed for Cardiac arrest (HCC) * DIFFERENTIAL MANUAL(Performed 02/14/2019) * LACTIC ACID BLOOD(Performed 02/14/2019) * TROPONIN I(Performed 02/14/2019) * COMPREHENSIVE METABOLIC PANEL(Performed 02/14/2019) * CBC W AUTO DIFFERENTIAL(Performed 02/14/2019) * EKG 12-LEAD(Performed 02/14/2019) Performed for Cardiac arrest (HCC) * TYPE + SCREEN PANEL(Performed 02/14/2019) * EKG 12-LEAD(Performed 02/14/2019) Performed for Cardiac arrest (HCC) * ACT - POCT (IP) SL(Performed 02/14/2019) * GLUCOSE - POINT OF CARE(Performed 06/30/2014) Performed for Diabetes mellitus type I (HCC) * HEMOGLOBIN A1C - POINT OF CARE (AMB)(Performed 06/30/2014) Performed for Diabetes mellitus type I (HCC) * HEMOGLOBIN A1C - POINT OF CARE (AMB)(Performed 01/26/2014) Performed for Type II or unspecified type diabetes mellitus without mention of complication, uncontrolled * GLUCOSE - POINT OF CARE(Performed 01/26/2014) Performed for Type II or unspecified type diabetes mellitus without mention of complication, uncontrolled * LAB RESULTS ORDER(Performed 04/25/2012) * LAB RESULTS ORDER(Performed 01/02/2012) Results * CARDIAC EKG ORDER (07/27/2019 2:06 PM COUNCILPERSON) Only the most recent of5 resultswithin the time period is included. Narrative 07/27/2019 2:06 PM COUNCILPERSON Ordered by an unspecified provider. Scanned Document CARDIAC SERVICES ORD ERABLES * CARDIAC PROCEDURE ORDER (05/01/2019 8:36 AM CDT) Narrative 05/01/2019 8:36 AM CDT Ordered by an unspecified provider. Scanned Document CARDIAC SERVICES ORD ERABLES * EKG 12-LEAD (02/17/2019 2:26 PM CDT) Only the most recent of6 resultswithin the time period is included. Ventricular Rate 79 BPM [facility] Atrial Rate 79 BPM [facility] P-R Interval 150 ms [facility] QRS Duration ms 108 ms [facility] Q-T Interval ms 474 ms [facility]USE QTC Calculation (Bezet) 543 ms [facility] Calculated P [place] 51 degrees [facility]USE Calculated R [place] -25 degrees [facility] MUSE Calculated T [place] 165 degrees [facility] Interpretation EKG NORMAL SINUS RHYTHM ST & MARKED T WAVE ABNORMALITY, CONSIDER ANTEROLATERAL ISCHEMIA PROLONGED QT ABNORMAL ECG WHEN COMPARED WITH ECG OF 15-FEB-2019 11:48, PREMATURE VENTRICULAR COMPLEXES IS NO LONGER PRESENT Confirmed by Carlos Nye, Lizeth ([id number]), supervising editor news reel Elton Hurst ([id number]) on 04/09/2019 9:59:04 PM [facility] MUSE 02/17/2019 2:26 PM CDT 04/09/2019 9:59 PM CDT Deshawn Larson MD ECG ORDERABLES Performing Organization Address City/[facility]/ZIP Co de Phone Number [facility] MUSE * (ABNORMAL) GLUCOSE - POINT OF CARE (02/17/2019 11:59 AM CDT) Only the most recent of11 resultswithin the time period is included. Pathologist [facility] Glucose WB/POC 311(H) 70 - 115 mg/dL 02/17/2019 12:25 PM CDT [facility] Specimen Type Arterial/C apillary 02/17/2019 12:25 PM CDT [facility] Blood BLOOD SPECIMEN / Unknown 02/17/2019 11:59 AM CDT 02/17/2019 12:25 PM CDT Narrative [facility] - 02/17/2019 12:25 PM CDT LABOR MEDIATOR: CAITLIN GARCIA Clotilde Chao MD LAB - POINT OF CARE ORDERABLES Performing Organization Address [facility]/ZIP Co de Phone Number [address] [phone] * (ABNORMAL) CBC W AUTO DIFFERENTIAL (02/17/2019 5:55 AM CDT) Only the most recent of3 resultswithin the time period is included. WBC 6.5 3.5 - 10.5 10 3/uL 02/17/2019 6:32 AM CDT [facility] RBC 4.08(L) 4.30 - 5.70 10 6/uL 02/17/2019 6:32 AM CDT [facility] Hemoglobin 12.4(L) 13.5 - 17.5 g/dL 02/17/2019 6:32 AM CDT [facility] Hematocrit 38.1(L) 39.0 - 50.0 % 02/17/2019 6:32 AM [facility] MCV 93.4 81.0 - 97.0 fL 02/17/2019 6:32 AM [facility] MCH 30.4 28.0 - 34.0 pg 02/17/2019 6:32 AM [facility] MCHC 32.5 32.0 - 36.0 g/dL 02/17/2019 6:32 AM [facility] Platelet Count 184 150 - 400 10 3/uL 02/17/2019 6:32 AM [facility] RDW-SD 42.8 36.0 - 50.0 fL 02/17/2019 6:32 AM [facility] RDW-CV 12.5 11.2 - 14.8 % 02/17/2019 6:32 AM [facility] MPV 11.1 9.3 - 12.8 fL 02/17/2019 6:32 AM [facility] nRBC Absolute 0.00 0 10 3/uL 02/17/2019 6:32 AM [facility] nRBC Auto 0.0 0 /100 WBC 02/17/2019 6:32 AM [facility] Neutrophils % 68.5 35.0 - 70.0 % 02/17/2019 6:32 AM [facility] Lymphocytes % 17.5(L) 19.7 - 55.1 % 02/17/2019 6:32 AM [facility] Monocytes % 12.1 3.0 - 15.0 % 02/17/2019 6:32 AM [facility] Eosinophils % 1.1 0.0 - 6.0 % 02/17/2019 6:32 AM [facility] Basophil % 0.3 0.0 - 1.5 % 02/17/2019 6:32 AM [facility] Neutrophils Absolute 4.4 1.6 - 7.0 10 3/uL 02/17/2019 6:32 AM [facility] Lymphocyte Absolute 1.1 0.8 - 2.9 10 3/uL 02/17/2019 6:32 AM [facility] Monocytes Absolute 0.78(H) 0.14 - 0.66 10 3/uL 02/17/2019 6:32 AM T [facility] Eosinophils Absolute 0.07 0.00 - 0.45 10 3/uL 02/17/2019 6:32 AM [facility] Basophils Absolute 0.02 0.00 - 0.06 10 3/uL 02/17/2019 6:32 AM T [facility] Immature Granulocytes % 0.5 0.0 - 1.0 % 02/17/2019 6:32 AM [facility] Blood BLOOD SPECIMEN / Unknown Lab Venipuncture / Unknown 02/17/2019 5:55 AM CDT 02/17/2019 6:19 AM CDT Clotilde Chao MD LAB - HEMATOLOGY ORD ERABLES [facility] [address] [phone] * (ABNORMAL) BASIC METABOLIC PANEL (CALCIUM TOTAL) (02/17/2019 5:55 AM CDT) Only the most recent of3 resultswithin the time period is included. BUN 14 7 - 26 mg/dL 02/17/2019 6:53 AM [facility] Creatinine 0.8 0.6 - 1.2 mg/dL 02/17/2019 6:53 AM [facility] Sodium 134(L) 136 - 145 mmol/L 02/17/2019 6:53 AM [facility] Potassium 4.0 3.5 - 4.5 mmol/L 02/17/2019 6:53 AM [facility] Chloride 97(L) 98 - 107 mmol/L 02/17/2019 6:53 AM [facility] CO2 28 22 - 29 mmol/L 02/17/2019 6:53 AM [facility] Glucose 253(H) 70 - 115 mg/dL 02/17/2019 6:53 AM [facility] Calcium 8.7 8.4 - 10.2 mg/dL 02/17/2019 6:53 AM [facility] Anion Gap 13 8 - 18 02/17/2019 6:53 AM [facility] BUN/Creatinine Ratio 18 7 - 23 02/17/2019 6:53 AM CDT [facility] Osmolality Calculated 287 270 - 300 mOsm/kg 02/17/2019 6:53 AM CDT [facility] eGFR >60 >60 mL/min/1.7 3 m2 02/17/2019 6:53 AM CDT [facility] Blood BLOOD SPECIMEN / Unknown Lab Venipuncture / Unknown 02/17/2019 5:55 AM CDT 02/17/2019 6:19 AM CDT Clotilde Chao MD LAB - CHEMISTRY JAZZY CHUN Performing Organization Address City/[facility]/ZIP Co de Phone Number [address] [phone] * (ABNORMAL) PHOSPHORUS BLOOD (02/17/2019 5:55 AM CDT) Only the most recent of3 resultswithin the time period is included. Phosphorus 2.2(L) 2.3 - 4.7 mg/dL 02/17/2019 6:50 AM CDT [facility] Blood BLOOD SPECIMEN / Unknown Lab Venipuncture / Unknown 02/17/2019 5:55 AM CDT 02/17/2019 6:19 AM CDT Clotilde Chao MD LAB - CHEMISTRY JAZZY CHUN Performing Organization Address [facility] Co de Phone Number [address] [phone] * MAGNESIUM BLOOD (02/17/2019 5:55 AM CDT) Only the most recent of3 resultswithin the time period is included. Magnesium 1.9 1.6 - 2.6 mg/dL 02/17/2019 6:50 AM CDT [facility] Blood BLOOD SPECIMEN / Unknown Lab Venipuncture / Unknown 02/17/2019 5:55 AM CDT 02/17/2019 6:19 AM CDT Clotilde Chao MD LAB - CHEMISTRY JAZZY CHUN [facility] [address] [phone] * XR CHEST 2VW (02/16/2019 12:31 PM CDT) Anatomical Region Laterality Modality Chest Radiographic Yessenia ging 02/16/2019 1:31 PM CDT Impressions 02/16/2019 3:15 PM CDT IMPRESSION: Small left pleural effusion. Dictated by Enma De Santiago MD (resident care manager rn). Dr. LAUREN Mendosa have personally reviewed and interpreted this examination/study. This report was electronically signed by LAUREN RANDOLPH on 02/16/2019 3:15 PM . Narrative 02/16/2019 3:15 PM CDT EXAMINATION: XR CHEST 2VW HISTORY: crackles on lung exam COMPARISON: Chest radiograph dated 02/14/2019 FINDINGS: The endotracheal tube and right thoracostomy tube have been removed. There is a small left pleural effusion with associated underlying atelectasis and/or airspace disease. There is otherwise interval clearing of the left lung. The right lung is clear. There is no pneumothorax. The cardiomediastinal silhouette is normal. Procedure Note Lauren Randolph, - 02/16/2019 EXAMINATION: XR CHEST 2VW HISTORY: crackles on lung exam COMPARISON: Chest radiograph dated 02/14/2019 FINDINGS: The endotracheal tube and right thoracostomy tube have been removed. There is a small left pleural effusion with associated underlying atelectasis and/or airspace disease. There is otherwise intervalclearing of the left lung. The right lung is clear. There is no pneumothorax. The cardiomediastinal silhouette is normal. IMPRESSION: Small left pleural effusion. Dictated by Enma De Santiago MD (resident care manager rn). Dr. LAUREN Mendosa have personally reviewed and interpreted this examination/study. This report was electronically signed by LAUREN RANDOLPH on 02/16/2019 3:15 PM . Theo Olson MD DIAGNOSTIC IMAGING O RDERABLES * ECHO COMPLETE (02/16/2019 12:00 PM CDT) Anatomical Region Laterality Modality Color Flow Doppl er 02/16/2019 11:2 3 AM CDT Narrative Procedure Note Meredith Dickerson MD - 02/16/2019 Natali Ko DO ECHOCARDIOGRAPHY R ADIANT * SIROLIMUS LEVEL (02/16/2019 4:28 AM CDT) Sirolimus, trough 3.9 See Result Comment ng/mL 02/16/2019 8:45 AM CDT [facility] Comment: Therapeutic range for solid-organ post-transplant immunosuppression varies with organ type and use of combination immunosuppressive drups. A therapeutic range of 4-16 ng/mL has been proposed for renal transplant patients receiving combination therapy with Cyclosporine. A therapeutic range of 16-30 ng/mL has been proposed for liver transplant recipients. For immunosuppression in other settings, the therapeutic range should be determined by transplant center experience. A lower therapeutic range is recommended for patients on combination therapy with Cyclosporine or patients with renal dysfunction. Blood BLOOD SPECIMEN / Unknown Venipuncture / Unknown 02/16/2019 4:28 AM CDT 02/16/2019 4:44 AM CDT Clotilde Chao MD LAB - CHEMISTRY JAZZY CHUN [facility] Organization Address City/State/[facility] Co de Phone Number [address] [phone] * (ABNORMAL) COMPREHENSIVE METABOLIC PANEL (02/15/2019 5:05 AM CDT) Only the most recent of2 resultswithin the time period is included. BUN 24 7 - 26 mg/dL 02/15/2019 5:57 AM CDT [facility] Creatinine 0.8 0.6 - 1.2 mg/dL 02/15/2019 5:57 AM [facility] Sodium 138 136 - 145 mmol/L 02/15/2019 5:57 AM T [facility] Potassium 4.3 3.5 - 4.5 mmol/L 02/15/2019 5:57 AM [facility] Chloride 101 98 - 107 mmol/L 02/15/2019 5:57 AM [facility] CO2 25 22 - 29 mmol/L 02/15/2019 5:57 AM [facility] Glucose 271(H) 70 - 115 mg/dL 02/15/2019 5:57 AM [facility] Calcium 9.1 8.4 - 10.2 mg/dL 02/15/2019 5:57 AM [facility] Protein Total 6.5 6.0 - 8.3 g/dL 02/15/2019 5:57 AM [facility] Albumin 3.5 3.4 - 5.0 g/dL 02/15/2019 5:57 AM [facility] Bilirubin Total 0.5 0.2 - 1.2 mg/dL 02/15/2019 5:57 AM [facility] Alkaline Phosphatase 145 40 - 150 Units/L 02/15/2019 5:57 AM [facility] ALT 169(H) 0 - 55 Units/L 02/15/2019 5:57 AM [facility] AST 235(H) 5 - 34 Units/L 02/15/2019 5:57 AM [facility] Anion Gap 16 8 - 18 02/15/2019 5:57 AM [facility] BUN/Creatinine Ratio 30(H) 7 - 23 02/15/2019 5:57 AM [facility] Osmolality Calculated 300 270 - 300 mOsm/kg 02/15/2019 5:57 AM [facility] Albumin/Globulin Ratio 1.2 1.1 - 2.3 02/15/2019 5:57 AM [facility] eGFR >60 >60 mL/min/1.7 3 m2 02/15/2019 5:57 AM [facility] Blood BLOOD SPECIMEN / Unknown Venipuncture / Unknown 02/15/2019 5:05 AM CDT 02/15/2019 5:12 AM T Natali Ko DO LAB - CHEMISTRY OR DERABLES [facility] [address] [place] [address] * (ABNORMAL) BLOOD GASES ARTERIAL (02/15/2019 5:05 AM CDT) Only the most recent of3 resultswithin the time period is included. pH Arterial 7.54(H) 7.35 - 7.45 02/15/2019 5:14 AM [facility] pCO2 Arterial 27(L) 35 - 45 mmHg 02/15/2019 5:14 AM [facility] pO2 Arterial 182(H) 77 - 101 mmHg 02/15/2019 5:14 AM [facility] HCO3 Arterial 23.0 22.0 - 26.0 mmol/L 02/15/2019 5:14 AM [facility] TCO2 Arterial 23.8(L) 25.0 - 29.0 mmol/L 02/15/2019 5:14 AM [facility] Base Excess Arterial 1.5 -2.0 - 2.0 mmol/L 02/15/2019 5:14 AM [facility] Hemoglobin Arterial 12.7(L) 13.5 - 17.5 g/dL 02/15/2019 5:14 AM [facility] Oxyhemoglobin Arterial 98.0 95.0 - 100.0 % 02/15/2019 5:14 AM [facility] Carboxyhemoglobin 0.4 0.0 - 3.0 % 02/15/2019 5:14 AM [facility] Methemoglobin 0.2 0.0 - 2.0 % 02/15/2019 5:14 AM [facility] FI O2 Arterial 40.0 % 02/15/2019 5:14 AM [facility] Blood, arterial ARTERIAL BLOOD SPECIMEN / Unknown Arterial Puncture / Unknown 02/15/2019 5:05 AM CDT 02/15/2019 5:12 AM T Natali Ko DO LAB - BLOOD GASES ORDERABLES [address] [phone] * (ABNORMAL) URINALYSIS W/MICROSCOPIC NO CULTURE (02/15/2019 4:48 AM T) Color UA Yellow Straw, Yellow, Colorless 02/15/2019 5:38 AM [facility] Clarity UA t Cloudy Clear, t Cloudy 02/15/2019 5:38 AM [facility] Specific [place] UA 1.028 1.005 - 1.030 02/15/2019 5:38 AM [facility] pH UA 5.0 5.0 - 8.0 pH 02/15/2019 5:38 AM [facility] Protein UA 2+(A) Negative mg/dL 02/15/2019 5:38 AM [facility] Glucose UA 3+(A) Negative mg/dL 02/15/2019 5:38 AM [facility] Ketone UA Negative Negative mg/dL 02/15/2019 5:38 AM [facility] Bilirubin UA Negative Negative mg/dL 02/15/2019 5:38 AM [facility] Blood UA 1+(A) Negative 02/15/2019 5:38 AM [facility] Nitrite UA Negative Negative 02/15/2019 5:38 AM [facility] Leukocyte Esterase Negative Negative 02/15/2019 5:38 AM [facility] Urobilinogen UA Negative Negative mg/dL 02/15/2019 5:38 AM [facility] RBC UA 0-2 None Seen, 0-2, 3-5 /HPF 02/15/2019 5:38 AM [facility] WBC UA 0-5 None Seen, 0-5 /HPF 02/15/2019 5:38 AM [facility] Bacteria UA Trace None, Trace /HPF 02/15/2019 5:38 AM [facility] Squamous Epithelial Cells UA None Seen None Seen, 0-2 /HPF 02/15/2019 5:38 AM [facility] Urine URINE SPECIMEN OBTAINED BY CLEAN CATCH PROCEDURE / Unknown Collection / Unknown 02/15/2019 4:48 AM T 02/15/2019 5:29 AM [facility] Natali Ko DO LAB - URINALYSIS O RDERABLES [address] [phone] * (ABNORMAL) DRUG SCREEN TOX URINE PANEL (02/15/2019 4:48 AM [facility]) Amphetamines Screen Urine Negative Negative : < 1000 ng/mL 02/15/2019 5:49 AM [facility] Barbiturates Screen Urine Negative Negative : < 200 ng/mL 02/15/2019 5:49 AM [facility] Benzodiazepine Screen Urine Positive(A) Negative : < 200 ng/mL 02/15/2019 5:49 AM [facility] Comment: Positive urine benzodiazepine screening results should be confirmed by another generally accepted non-immunological method such as gas chromatography or mass spectrometry. Opiates Urine Negative Negative : < 300 ng/mL 02/15/2019 5:49 AM [facility] Cocaine Metabolites Urine Negative Negative : < 300 ng/mL 02/15/2019 5:49 AM [facility] Phencyclidine Screen Urine Negative Negative : < 25 ng/ml 02/15/2019 5:49 AM [facility] Cannabinoids Screen Urine Positive(A) Negative : <50 ng/mL 02/15/2019 5:49 AM [facility] Comment: Positive urine cannabinoids (THC) screening results should be confirmed by another generally accepted non-immunological method such as gas chromatography or mass spectrometry. Methadone Screen Urine Negative Negative : < 300 ng/mL 02/15/2019 5:49 AM [facility] Urine URINE / Unknown Collection / Unknown 02/15/2019 4:48 AM CDT 02/15/2019 5:29 AM [facility] - 02/15/2019 5:49 AM [facility] The Urine Toxicology Screening Panel does not screen for Propoxyphene, Meprobamate, Carisoprodol, Trazodone, [id number] medications and/or volatiles (Acetone, Isopropanol, Methanol or Ethylene Glycol). Ethanol, Salicylate, Acetaminophen, Tricyclic Antidepressants and several therapeutic drugs may be individually assayed in serum or plasma specimen. Toxicology testing by the [facility] is an aid to medical diagnosis and treatment of patients. No documented chain of custody was maintained. Results are intended to be used for clinical purposes only. Dinesh Herrera MD LAB - URINE CHEMISTR Y ORDERABLES [address] [phone] * CT HEAD WO CONTRAST (02/15/2019 1:46 AM CDT) Anatomical Region Laterality Modality Head Computed Tomogra phy 02/15/2019 9:38 AM CDT Impressions 02/15/2019 5:40 PM CDT IMPRESSION: 1. No acute intracranial process. I, Dr. DANELLE LISA have personally reviewed and interpreted this examination/study. This report was electronically signed by DANELLE LISA on 02/15/2019 5:40 PM . Narrative 02/15/2019 5:40 PM CDT EXAMINATION: Computed tomography (CT) of the head without contrast HISTORY: Right sided weakness reported. Does not follow commands TECHNIQUE: CT of the head was performed without contrast according to standard protocol. COMPARISON: No prior study is available for comparison at the time of this dictation. FINDINGS: No acute intra- or extra-axial hemorrhages or fluid collections are identified. The ventricles are of normal size, shape, and morphology. The basilar cisterns are patent. No mass effect or midline shift is seen. The cai-white matter differentiation is normal. Minimal mucosal layering fluid with air-fluid level is identified in the left maxillary sinus. The visualized portions of the paranasal sinuses, middle ear cavities and mastoid air cells are otherwise, clear. The orbital contents are normal and symmetric. No acute fracture is identified. Procedure Note Danelle Lisa MD - 02/15/2019 EXAMINATION: Computed tomography (CT) of the head without contrast HISTORY: Right sided weakness reported. Does not follow commands TECHNIQUE: CT of the head was performed without contrast according to standard protocol. COMPARISON: No prior study is available for comparison at the time ofthis dictation. FINDINGS: No acute intra- or extra-axial hemorrhages or fluid collections are identified. The ventricles are of normal size, shape, and morphology.The basilar cisterns are patent. No mass effect or midline shift is seen.The cai-white matter differentiation is normal. Minimal mucosal layering fluid with air-fluid level is identified in the left maxillary sinus.The visualized portions of the paranasal sinuses, middle ear cavities and mastoid air cells are otherwise, clear. The orbital contents are normal and symmetric. No acute fracture is identified. IMPRESSION: 1. No acute intracranial process. I, Dr. DANELLE LISA have personally reviewed and interpreted this examination/study. This report was electronically signed by DANELLE LISA on 02/15/2019 5:40PM . Natali Ko DO CT ORDERABLES * (ABNORMAL) HEMOGLOBIN A1C (02/15/2019 1:15 AM CDT) Hemoglobin A1c 13.0(H) 4.4 - 6.3 % 02/15/2019 11:47 AM CDT [facility] Estimated Average Glucose 326 mg/dL 02/15/2019 11:47 AM CDT [facility] Comment: HbA1c Interpretation: Treatment target values recommended by ADA and other clinical organizations should be used to evaluate metabolic control in patients. Treatment Target Values: Normal : < 5.7% Pre-diabetes: 5.7-6.4% Diabetes: Equal to or greater than 6.5% Reference: [place] Diabetes Association Standards of Care in Diabetes -2014 In patients 70 years and older consider HbA1c target range of 7.0-7.5% Reference: Diabetes Mellitus in Older People: Position Statement on behalf of the International Association of Gerontology and Geriatrics (IAGG), the Diabetes Working Alliance Party for Older People (EDWPOP), and the International Task Force of Experts in Diabetes. Jaya Branch, et al. J [place] [employer]. 2012 Test results diagnostic of diabetes should be repeated for confirmation. The Sebia Capillary 2 assay for the measurement of HbA1c is a National Glycohemoglobin Standardization Program (NGSP)certified method. Blood BLOOD SPECIMEN / Unknown Venipuncture / Unknown 02/15/2019 1:15 AM CDT 02/15/2019 1:25 AM CDT Natali Ko DO LAB - CHEMISTRY OR DERABLES [facility] [address] [place] [address] * (ABNORMAL) LIPID PROFILE (02/15/2019 1:12 AM CDT) Cholesterol Total 118 <200 mg/dL 02/15/2019 1:55 AM CDT [facility] HDL 36(L) >40 mg/dL 02/15/2019 1:55 AM CDT [facility] Comment: ATP III Classification of HDL Cholesterol: <40 mg/dL: Considered a major risk factor. >60 mg/dL: Considered a negative risk factor. LDL Calculated 68 <100 mg/dL 02/15/2019 1:55 AM T [facility] Comment: ATP III Classification of LDL Cholesterol: <100 mg/dL: Optimal 100 - 129 mg/dL: Near Optimal/Above Optimal 130 - 159 mg/dL: Borderline High 160 - 189 mg/dL: High >190 mg/dL: Very High Triglycerides 69 <150 mg/dL 02/15/2019 1:55 AM T [facility] Comment: ATP III Classification of Triglycerides: <150 mg/dL: Normal 150 - 199 mg/dL: Borderline High 200 - 400 mg/dL: High >500 mg/dL: Very High Blood BLOOD SPECIMEN / Unknown Venipuncture / Unknown 02/15/2019 1:12 AM CDT 02/15/2019 1:26 AM CDT Natali Ko DO LAB - CHEMISTRY OR DERABLES Performing Organization Address [facility]/State/[facility] Co de Phone Number [address] [phone] * (ABNORMAL) ALCOHOL ETHYL BLOOD (02/15/2019 1:04 AM CDT) Ethanol (mg/dL) 71(H) None Detected mg/dL 02/15/2019 1:31 AM T [facility] Comment: Ethanol in the patient's blood will contribute to the osmolar gap. Ethanol's contribution to the osmolar gap can be estimated by dividing the concentration of ethanol in mg/dL by 4.6. Blood BLOOD SPECIMEN / Unknown Venipuncture / Unknown 02/15/2019 1:04 AM CDT 02/15/2019 1:12 AM CDT Dinesh Herrera MD LAB - CHEMISTRY JAZZY CHUN Performing Organization Address City/[facility]/ZIP Co de Phone Number [address] [phone] * (ABNORMAL) TROPONIN I (02/15/2019 1:03 AM CDT) Only the most recent of2 resultswithin the time period is included. Troponin I 0.167(H) <0.032 ng/mL 02/15/2019 1:40 AM CDT [facility] Blood BLOOD SPECIMEN / Unknown Venipuncture / Unknown 02/15/2019 1:03 AM CDT 02/15/2019 1:12 AM CDT Natali Ko DO LAB - CHEMISTRY OR DERABLES Performing Organization Address [facility] Co de Phone Number [address] [phone] * (ABNORMAL) HYDROXYBUTYRATE BETA (02/15/2019 1:03 AM CDT) Beta-Hydroxybu tyrate 0.63(H) 0.02 - 0.27 mmol/L 02/15/2019 1:35 AM CDT [facility] Blood BLOOD SPECIMEN / Unknown Venipuncture / Unknown 02/15/2019 1:03 AM CDT 02/15/2019 1:12 AM CDT Natali Ko DO LAB - CHEMISTRY OR DERABLES Performing Organization Address [facility]/ZIP Co de Phone Number [address] [phone] * (ABNORMAL) LACTIC ACID BLOOD (02/15/2019 1:03 AM CDT) Only the most recent of2 resultswithin the time period is included. Lactic Acid-Stat 3.4(H) 0.5 - 2.2 mmol/L 02/15/2019 1:29 AM CDT [facility] Blood BLOOD SPECIMEN / Unknown Venipuncture / Unknown 02/15/2019 1:03 AM CDT 02/15/2019 1:12 AM CDT Natali Ko DO LAB - CHEMISTRY OR DERABLES [address] [phone] * CCL CARDIAC CATH LEFT (02/14/2019 11:43 PM CDT) Anatomical Region Laterality Modality Chest X-Ray Angiograph y Narrative 03/01/2019 3:20 AM CDT [facility] Cardiac Catheterization Procedure Note Patient: Emilio Loera Age: [age] year old Date of : 1960 Date of Admission: 02/15/2019 Procedure Date: 02/14/19 FELLOW / MARKETING AND OUTREACH COORDINATOR: Nishant Brand M.D. ATTENDING PHYSICIAN: Dr. Clotilde Chao M.D. PREVIOUS STRESS STUDIES WITHIN 6 MONTHS: None DIAGNOSTIC APPROPRIATENESS CRITERIA: 57 A HISTORY: 58-year-old gentleman, unclear PMHx. Per collateral hx, pt and family were walking to their vehicle after leaving a [facility] [employer] game evening of 02/14/19 when pt had a witnessed syncopal event. CPR was initiated by pt's son, and EMS was called- arrived within 3 to 5 min. EKG strips showed VFib- ROSC obtained after 1 shock. Pt intubated in field. ACCESS SITE(S): right radial artery PROCEDURAL OVERVIEW: After obtaining informed consent and positioning the patient on the catheterization table, a timeout was performed to confirm the patient s name, date of , and procedure. Sedation was initiated and the patient was prepped and draped using standard sterile technique. Lidocaine was used for local anesthesia over the access site, after which the vessel was accessed and a sheath was placed using the modified Seldinger technique. Access was uncomplicated. Coronary angiography was performed using 6 F TJacky catheter(s). Left heart catheterization was performed using 6F Crescencio catheter. Left ventriculography was performed using an angled pigtail catheter. At the conclusion of the procedure, hemostasis was achieved using a radial compression device after removal of all catheters, wires, and sheaths. SEDATION: Moderate sedation on this adult patient was ordered by Dr. Chao, administered intravenously in their presence, and monitored by the procedure nurse as an independent trained observer who was present throughout the procedure. The following parameters were monitored: oxygen saturation, heart rate, blood pressure, and response to care. Intra-service sedation start time was 23:04 and end time was 23:47 during which the attending was present. Total physician intra-service sedation time was 43 minutes. For details on pre-moderate sedation and post-moderate sedation patient evaluation, please review the evaluation forms in [facility]. For details on monitored clinical parameters during the intra-service sedation time, please review the procedure nurse documentation in [facility]. Total sedation administered as follows: 75 mcg IV fentanyl, 2 mg IV midazolam, and 50 mg IV benadryl. 2 ml of 1% lidocaine was administered subcutaneously at the access site. TOTAL CONTRAST USED (Isovue 370): 140 ml TOTAL BLOOD LOSS: 10 ml COMPLICATIONS: None HEMODYNAMIC FINDINGS: LVEDP: 20 mmHg. Ao: 100/60 mmHg. ANGIOGRAPHY: Left Main: Has mild luminal irregularities. Trifurcates into LAD, Ramus and Circumflex arteries. LAD: There is focal 90% mildly calcified stenotic segment extending from Proximal to mid LAD with WEI II flow distally. Rest of the LAD has mild luminal irregularities and wraps around the apex. D 1 has a high take off and has mild luminal irregularities. D 2 has 80% ostial stenosis with WEI III flow. Ramus Intermedius: Has mild luminal irregularities. Circumflex: Non-dominant vessel has mild luminal irregularities. OM 1 is a small caliber vessel, has mild luminal irregularities. OM 2 is a relatively larger bifurcating vessel. Circumflex runs in the AV groove as a small caliber vessel after giving off OM 1 and OM 2 branches. RCA: Dominant vessel. Proximal RCA has mild luminal irregularities. Mid RCA has mild 20% stenosis. Distal RCA has a 50% stenosis prior to giving off PDA and PL branches. PDA has 40% stenosis. PL branches have mild luminal irregularities. DOMINANCE: Right DIAGNOSTIC INTERPRETATIONS: 1. Severe 1 vessel coronary artery disease involving mid LAD. 2. LVEDP is 20 mmHg. RECOMMENDATIONS AFTER DIAGNOSTIC CATHETERIZATION: 1. Proceed with PCI to prox/mid LAD. Nishant Sundar Brand MD 02/14/2019 I was present for the entirety of the described procedure. [facility] Percutaneous Coronary Intervention Report Patient: Emilio Loera Age: [age] year old Date of : 1960 Date of Admission: 02/14/2019 Procedure date: 02/14/19 Fellow/Garment Worker: Nishant Brand HISTORY: APPROPRIATENESS CRITERIA FOR PCI: 6A PCI INDICATION: Ventricular fibrillation arrest Survivors of sudden cardiac with presumed ischemia-mediated Vfib Class IC PCI STATUS: Emergency PCI PROCEDURAL MODIFIERS: none LESION UNDERGOING INTERVENTION : PCI TO THE Proximal LAD. 1. LESION MODIFIERS: lesion complexity class C 2. RESTENOSIS?:no 3. ACCESS: The existing sheath was upsized to 6F for the PCI procedure. 4. GUIDE: XB 3.5 guide catheter was used for intervention. 5. ORAL ANTIPLATELET THERAPY: Aspirin and ticagrelor 6. INTRAVENOUS ANTICOAGULATION DURING PCI: Heparin 7. INTERVENTIONAL WIRE: A Runthrough wire was advanced beyond the lesion into the distal vessel. 8. PROCEDURE DETAILS:Balloon angioplasty was performed using a EMERGE 2.5 X 20 mm balloon at 10 mychal for 10 seconds. After angioplasty, a 3.0 X 32 mm SYNERGY stent was deployed across the lesion. Followed by a second 3.0 X 12 mm Synergy stent proximal to the stent. 9. After intervention, the 90% stenosis was reduced to 0% with WEI- II flow prior to PCI and WEI- III flow after PCI. COMPLICATIONS: none HEMOSTASIS: At the conclusion of the procedure, hemostasis was achieved using a radial compression device after removal of all catheters, wires, and sheaths. INTERVENTIONAL CONCLUSIONS: Successful PCI of severe 90% proximal/mid LAD stenosis with SYNERGY 3.0 X 32 mm and 3.0 X 12 mm Drug Eluting Stent placement. RECOMMENDATIONS AFTER INTERVENTIONAL PROCEDURE: Aspirin 81 mg QDAY indefinitely. Ticagrelor 90 mg BID for 12 months minimum given drug eluting stent placement. Aggressive modification of atherosclerotic risk factors. Nishant Brand MD 02/14/2019 Dr. Chao was present for the entirety of the described procedure. Deshawn Larson MD CARDIAC ROD MACHINE OPERATOR RAD IANT * PTT [facility] (02/14/2019 10:34 PM CDT) APTT 26.5 23.0 - 38.4 Seconds 02/14/2019 10:45 PM CDT [facility] Comment: * Please Note: New therapeutic range for heparin therapy. * Suggested therapeutic range for full dose I.V. heparin therapy for venous thromboembolism is 65 to 103 seconds. Blood BLOOD SPECIMEN / Unknown Venipuncture / Unknown 02/14/2019 10:34 PM CDT 02/14/2019 10:34 PM CDT Dinesh Herrera MD LAB - COAGULATION OR DERABLES Performing Organization Address [facility] Co de Phone Number [address] [phone] * PT-INR [facility] (02/14/2019 10:34 PM CDT) [facility] PT 12.2 12.1 - 14.8 Seconds 02/14/2019 10:44 PM CDT [facility] INR 1.0 See Comment 02/14/2019 10:44 PM T [facility] Comment: The suggested therapeutic range for standard coumadin (warfarin) therapy is an INR of 2.0-3.0. For high-risk patients (Mechanical Mitral Valve Prosthesis, etc.), the suggested prophylactic therapeutic range is an INR of 2.5-3.5. Blood BLOOD SPECIMEN / Unknown Venipuncture / Unknown 02/14/2019 10:34 PM CDT 02/14/2019 10:34 PM CDT Dinesh Herrera MD LAB - COAGULATION OR DERABLES Performing Organization Address [facility]/ZIP Co de Phone Number [address] [phone] * XR ABDOMEN KUB (02/14/2019 10:22 PM CDT) Anatomical Region Laterality Modality Abdomen Radiographic Yessenia ging 02/14/2019 10:3 0 PM CDT Impressions 02/16/2019 1:09 PM CDT IMPRESSION: The enteric tube ends in the stomach. The stomach is distended. Report dictated by Carolyn Alexis MD (resident). Dr. LAUREN Mendosa have personally reviewed and interpreted this examination/study. This report was electronically signed by LAUREN RANDOLPH on 02/16/2019 1:09 PM . Narrative 02/16/2019 1:09 PM CDT Exam: XR ABDOMEN KUB Exam Date: 02/14/2019 10:22 PM History: post ng placement Comparison: No prior Procedure Note Lauren Randolph DO - 02/16/2019 Exam: XR ABDOMEN KUB Exam Date: 02/14/2019 10:22 PM History: post ng placement Comparison: No prior IMPRESSION: The enteric tube ends in the stomach. The stomach is distended. Report dictated by Carolyn Alexis MD (resident). Dr. LAUREN Mendosa have personally reviewed and interpreted this examination/study. This report was electronically signed by LAUREN RANDOLPH on 02/16/2019 1:09 PM . Netta Lambert MD DIAGNOSTIC IMAGING O RDERABLES * XR CHEST 1VW (02/14/2019 9:56 PM CDT) Anatomical Region Laterality Modality Chest Radiographic Yessenia ging 02/14/2019 10:0 0 PM CDT Impressions 02/16/2019 1:08 PM CDT FINDINGS/IMPRESSION: Endotracheal tube tip terminates 5 cm above the ady. There is no focal consolidation, pleural effusion, or pneumothorax. The cardiomediastinal silhouette is normal. The visible bony thorax is intact. Dictated by Carolyn Alexis MD (resident care manager rn). Dr. LAUREN Mendosa have personally reviewed and interpreted this examination/study. This report was electronically signed by LAUREN RANDOLPH on 02/16/2019 1:08 PM . Narrative 02/16/2019 1:08 PM CDT EXAMINATION: XR CHEST 1VW HISTORY: Cardiac arrest COMPARISON: No prior study is available for comparison. Procedure Note Lauren Randolph DO - 02/16/2019 EXAMINATION: XR CHEST 1VW HISTORY: Cardiac arrest COMPARISON: No prior study is available for comparison. FINDINGS/IMPRESSION: Endotracheal tube tip terminates 5 cm above the ady. There is nofocal consolidation, pleural effusion, or pneumothorax. The cardiomediastinal silhouette is normal. The visible bony thorax is intact. Dictated by Carolyn Alexis MD (resident care manager rn). I, Dr. LAUREN RANDOLPH have personally reviewed and interpreted this examination/study. This report was electronically signed by LAUREN RANDOLPH on 02/16/2019 1:08 PM . Dinesh Herrera MD DIAGNOSTIC IMAGING O RDERABLES * (ABNORMAL) DIFFERENTIAL MANUAL (02/14/2019 9:55 PM CDT) WBC (corrected for NRBC) 13.6 10 3/uL 02/14/2019 11:14 PM [facility] Total Cell Count 100 02/14/2019 11:14 PM [facility] Neutrophils Absolute Manual 6.12 1.60 - 7.00 10 3/uL 02/14/2019 11:14 PM [facility] Comment:(BANDS+SEGS) x WBC = NEUT # (ANC) Lymphocyte Absolute Manual 6.39(H) 0.80 - 2.90 10 3/uL 02/14/2019 11:14 PM [facility] Monocytes Absolute Manual 0.82(H) 0.14 - 0.66 10 3/uL 02/14/2019 11:14 PM [facility] Eosinophils Absolute Manual 0.14 0.00 - 0.22 10 3/uL 02/14/2019 11:14 PM [facility] Basophil Absolute Manual 0.14(H) 0.00 - 0.06 10 3/uL 02/14/2019 11:14 PM [facility] Band % Manual 5 0 - 10 % 02/14/2019 11:14 PM [facility] Neutrophil % Manual 40 30 - 60 % 02/14/2019 11:14 PM [facility] Lymphocyte % Manual 47(H) 20 - 45 % 02/14/2019 11:14 PM CDT [facility] Monocytes % Manual 6 2 - 10 % 02/14/2019 11:14 PM CDT [facility] Eosinophils % Manual 1 1 - 6 % 02/14/2019 11:14 PM CDT [facility] Basophils % Manual 1 0 - 3 % 02/14/2019 11:14 PM CDT [facility] Platelet Estimate Adequate Adequate 02/14/2019 11:14 PM T [facility] RBC Morphology Normal 02/14/2019 11:14 PM CDT [facility] Large Platelet Count Rare(A) None 02/14/2019 11:14 PM CDT [facility] Blood BLOOD SPECIMEN / Unknown 02/14/2019 9:55 PM CDT 02/14/2019 10:02 PM CDT Dinesh Herrera MD LAB - HEMATOLOGY ORD ERABLES [address] [phone] * TYPE + SCREEN PANEL (02/14/2019 9:51 PM CDT) Antibody Screen NEG 10:49 PM CDT [facility] ABO Rh O POS 02/14/2019 10:49 PM CDT [facility] Blood Bank BLOOD SPECIMEN / Unknown 02/14/2019 9:51 PM CDT 02/14/2019 10:14 PM CDT Dinesh Herrera MD LAB - BLOOD BANK ORD ERABLES [facility] [address] [place] [address] * ACT - POCT (IP) [facility] (02/14/2019 11:20 AM CDT) Activated Clotting Time 222 sec [facility] PO[facility] TEST[facility] Blood BLOOD SPECIMEN / Unknown 02/14/2019 11:20 AM CDT Clotilde Chao MD LAB - POINT OF CARE ORDERABLES [facility] [address] [phone] * (ABNORMAL) HEMOGLOBIN A1C - POINT OF CARE (AMB) (06/30/2014 1:45 PM CDT) Only the most recent of2 resultswithin the time period is included. Hemoglobin A1c POCT 8.1(H) <6.0 % QC Verified Yes Blood specimen (specimen) BLOOD SPECIMEN / Unknown 06/30/2014 1:45 PM CDT Isaac Callahan MD LAB - POINT OF CARE ORDERABLES * LAB RESULTS ORDER (04/25/2012) Only the most recent of2 resultswithin the time period is included. Isaac Callahan MD LAB - THERAPEUTIC D RUG MONITORING ORDERABLES Care Teams Cloud Consultant Relationship Specialty Start Date End Date Theo Stringer MD [address] [place], [place] [address] [place] [address] PCP - General Internal Medicine 02/14/19 Theo Stringer MD [address] [place] [address] [address] [place] [address] Internal Medicine 02/14/19 Isaac Callahan MD [address] [facility], [address] [place] [address] Endocrinology 03/25/13
--- OUTSIDE RECORDS SUMMARY | 2024-10-22 12:37 | XMS_ITS | Encounter Summary ---
Author Organization [facility] Address [address] [place] [phone] Phone Care Team Providers Care Coal Hauler Name Role Phone Theo Stringer MD Primary Care Provider [phone] Kaylee Gutierrez RN Unavailable Kimberly Camarillo RN Unavailable Unavailab Maco Higuera MD Unavailable Angelina Zavala Unavailable Marshall Sherman MD PhD Unavailable Encounter Details Date Type Department Care Team (Late st Contact Info) Description 10/19/2024 Documentation [place] [id number] [phone] Karley Garrido Social History Tobacco Use Types Packs/Day Years [...] often do you attend chur ch or temple services? 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 Gender Identity Not on file Sexual Orientation Not on file documented as of this encounter Plan of Treatment Not on file documented as of this encounter Visit Diagnoses Not on filedocumented in this encounter Care Teams Coal Hauler Relationship Specialty Start Date End Date Theo Stringer MD PCP - General 01/15/11 Kaylee Gutierrez RN [address] [facility] [address] [place] [address] Head Bone Grinder 10/14/18 Kimberly Camarillo RN Registered Nurse Gastroenterology 01/27/19 Maco Palomino MD [address] [facility] [address] [place] [address] Cardiology 12/17/22 Angelina Zavala PA [address] [facility] DIV ENDOCRINOLOGY, [address] [address] Physician Oil House Attendant Physician Oil House Attendant 04/24/24 Marshall Sherman MD PhD [address] [facility] [address] [place] [address] Consulting Physician Endocrinology Diabetes & Metabolism 07/23/24 documented as of this encounter
--- OUTSIDE RECORDS SUMMARY | 2024-10-22 12:37 | XMS_ITS | Encounter Summary ---
Author Organization [facility] Address [address] [place] [address] Phone Care Team Providers Care Grout Machine Tender Name Role Phone Theo Stringer MD Primary Care Provider [phone] Kaylee Gutierrez RN Unavailable Kimberly Camarillo RN Unavailable Unavailab Maco Higuera MD Unavailable Angelina Zavala Unavailable Marshall Sherman MD PhD Unavailable [phone] Reason for Visit * Reason Onset Date Comments Med Refill SERG 10/19/2024 Encounter Details Date Type Department Care Team (Late st Contact Info) Description 10/16/2024 Telephone [facility] [address] [facility] [address] [place] [address] [place] [address] [facility] [address] [place] [address] Med Refill SERG Social History Tobacco Use Types Packs/Day Years [...] often do you attend chur ch or voodoo services? Never 03/23/2021 Do you belong to [...] place to sleep or slept in a penitentiary (including now)? No 03/23/2021 Personal Safety Answer Date Recorded Have you ever been in or are you currently in a harmful physical or emotional relationship or is someone making you feel afraid or unsafe? 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 Gender Identity Not on file Sexual Orientation Not on file documented as of this encounter Miscellaneous Notes * Telephone Encounter - Destiney Correa - 10/19/2024 1:44 PM CST Clld & spk w/ pt regarding med refill rqst Rqsting RX refill for temazepam Last appt 09/25/24 & Next appt w/ new PCP 05/10/25 Rx pended Pharmacy [facility] * Telephone Encounter - Destiney Correa - 10/16/2024 2:11 PM CST Pt lvm & rqst RX refill until next appt w/ New PCP Last appt 09/25/24 & Next appt w/ New PCP 05/10/2025 Rvwd chart & per PCP notes meds snt 10/15/24 Please Advise Pharmacy [facility] documented in this encounter Plan of Treatment Not on file documented as of this encounter Visit Diagnoses Diagnosis Insomnia, idiopathic Persistent disorder of initiating or maintaining sleep documented in this encounter Care Teams Grout Machine Tender Relationship Specialty Start Date End Date Theo Stringer MD PCP - General 01/15/11 Kaylee Gutierrez RN [address] [facility] [address] [place] [address] Antenna Engineer 10/14/18 Kimberly Camarillo RN Registered Nurse Gastroenterology 01/27/19 Maco Palomino MD [address] [facility] [address] [place] [address] Cardiology 12/17/22 Angelina Zavala PA [address] [facility] ENDOCR[facility], [facility] [address] [place] [address] Physician Wheel Borer Physician Wheel Borer 04/24/24 Marshall Sherman MD PhD [address] [facility] [place] [address] Consulting Physician Endocrinology Diabetes & Metabolism 07/23/24 documented as of this encounter
--- OUTSIDE RECORDS SUMMARY | 2024-10-22 12:37 | XMS_ITS | Clinical Summary ---
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 Gender Identity Not on file Sexual Orientation Not on file Plan of Treatment Health Maintenance Due Date Last Done Comments Colorectal Cancer Screening Colonoscopy (10 Years) 1960 Annual Physical 1963 Hepatitis C 1978 DTaP, Tdap and Td Vaccines ( 1 - Tdap) 1979 Zoster Vaccines (1 of 2) 2010 COVID-19 Vaccine (2023-2 5 season) 2024 Influenza Adult (#1) 2024 RSV Immunization or 60+ Years (1 - 1-dose 75+ series) 2035 Meningococcal B Vaccine Aged Out No l onger eligible based on patient's age to complete this topic Meningococcal Vaccine Aged Out No lisa caleb eligible based on patient's age to complete this topic Pneumococcal Vaccine: Pediat rics (0 to 5 Years) and At-Risk Patients (6 to 64 Years) Aged Out No longer eligible b ased on patient's age to complete this topic RSV Immunizations Under 20 Months Aged Out No longer eligible based on patient's age to complete this topic Additional Health Concerns Infection Onset Date Last Indicated MRSA 10/02/2018 10/02/2018
--- OUTSIDE RECORDS SUMMARY | 2024-10-22 12:37 | XMS_ITS | Encounter Summary ---
Author Organization [facility] Address [address] [facility] [place] [address] Care Team Providers Care Javascript Application Developer Name Role Phone Theo Stringer MD Primary Care Provider [phone] Theo Stringer MD Unavailable [phone] Isaac Callahan MD Unavailable [phone] Reason for Visit * Reason Onset Date Comments MEDICATION REFILL 05/27/2019 Encounter Details Date Type Department Care Team (Late st Contact Info) Description 05/27/2019 Refill [facility] General Internal Medicine [address] [place] [address] Theo Stringer MD [address] [facility] [address] [place] [address] MEDICATION REFILL Social History Tobacco Use Types Packs/Day Years [...] No 02/17/2019 documented as of this encounter Miscellaneous Notes * Telephone Encounter - Dorothy Rivera - 05/27/2019 12:42 PM CDT Pharmacy calling in refills forpt but upon chart review, pt not GIM pt. Carissa verbalized understanding and d/c line. documented in this encounter Plan of Treatment Not on file documented as of this encounter Visit Diagnoses Not on filedocumented in this encounter Care Teams Javascript Application Developer Relationship Specialty Start Date End Date Theo Stringer MD [address] [place], [place] [address]GEMINI KO [address] [place] [phone] PCP - General Internal Medicine 02/14/19 Theo Stringer MD [address] [place], [place] [address]GEMINI KO [address] [place] [phone] Internal Medicine 02/14/19 Isaac Callahan MD [address] [facility], [facility] [address] [place] [address] Endocrinology 03/25/13 documented as of this encounter
--- OUTSIDE RECORDS SUMMARY | 2024-10-22 12:37 | XMS_ITS | Data Portability ---
Author Organization [facility] Address [address] [place] [address] Care Team Providers Care Casting House Worker Name Role Phone OWEN DUFFY Primary Care Provider OWEN DUFFY Referring Provider Assessment No assessment recorded. Plan of Treatment Reminders Order Date Submit Date Provider Last Modified By Organization Details Last Modified Time Details Appointments None record ed. Lab None record ed. Referral None record ed. Procedures None record ed. Surgeries None record ed. Imaging None record ed. Medication Orders None record ed. Patient TargetsNo targets recorded. Patient Instructions Encounter Date Encounter Id Patient Instructions Last Modified By Organization Details Last Modified Time 05/31/2017 [id number] bursitis: care instructions [email or web address] Not available 06/03/2017 09:08:43 Reason for Referral None Reported. Problems No Known Problems Procedures Surgical History Date Name Laterality Status Provider Name and Address Organization Details Recorded Time 05/31/2017 94376 Sm Joint completed [facility] 05/31/2017 14:37:54 05/31/2017 76816 [facility] 14:37:40 Imaging Results None recorded. Procedure Notes None recorded. Medical Equipment None Reported. Allergies No known drug allergies Medications Name Sig Start Date Stop Date Status Note LastModified by Organization Details LastModified Time pen needles mis 02us3oh active Not Available Not Available Not Available hydrocodone 10 mg-acetaminoph en 325 mg tablet active Not Available Not Available Not Available temazepam 30 mg capsule active Not Available Not Available N ot Available diazepam 10 mg tablet active Not Available Not Available Not Available polyethylene glycol 3350 17 gram/dose oral powder active Not Available Not Available Not Available escitalopram 10 mg tablet active Not Available Not Available Not Available mirtazapine 7.5 mg tablet active Not Available Not Availabl e Not Available Lantus Solostar U-100 Insulin 100 unit/mL (3 mL) subcutaneous pen active Not Available Not Available Not Available Humalog KwikPen (U-100) Insulin 100 unit/mL subcutaneous active Not Available Not Available Not Available GaviLyte-N 420 gram oral solution active Not Available Not Available Not Available Vitals Date Recorded Body height Body mass index (BMI) Body weight Provider Name and Address Organization Details Last Updated DateTime 05/31/2017 185.42 cm 23.7 kg/m2 13932.63 g [facility] 05/31/2017 14:27:20 Social History Question Answer Notes LastModified by Organizat ion Details LastModified Time Tobacco Smoking Status Never Smoker [facility] 05/31/2017 14:31:13 What Was The Date Of Your Most Recent Tobacco Screening? 05/31/2017 Information n ot available 04/08/2019 Sex: Unknown Functional Status None recorded. Mental Status None recorded. Family History Relationship Description Onset Age of this Age Resolved Age Notes LastModified by Organization Details LastModified Time Brother Heart disease [email or web address] Not available 2016 14:31:08 Father Heart disease [email or web address] Not available 2016 14:31:08 Sister Heart disease [email or web address] Not available 2016 14:31:08 Mother Heart disease [email or web address] Not available 2016 14:31:08 Medical History Condition Response Tuberculosis or TB N Heart Problems N Ulcers on Legs or Feet N Coronary Artery Disease N HIV or AIDS N Seizure Disorder N Gout N High Blood Pressure N Clot in Lung or Pulmonary Embolism N Menopause N Lung Condition N Phlebitis or Venous Blood Clot N Migraines N Depression N Pacemaker N Anemia N Back Pain N Neurologic Disease N Sciatica N Heart Attack ([place]) N Diabetes Y Urinary Tract Infections N Anxiety Disorder N Bleeding Disorder N Arthritis Y Abuse of Alcohol or Drugs N Back injury N Ear Problems Y Cancer N Dementia N Eye Problems Y Stroke N Stomach Problems N Peripheral Vascular Disease N Sinus Conditions N Broken Bone Y Thyroid Disorder N High Cholesterol N Hepatitis N Liver Disease N Heart Disease N Rheumatoid Arthritis N Rash N Osteoporosis N Kidney Disease N Past Encounters Encounter ID Performer Location Encounter Start Date Encounter Closed Date Diagnosis/Indication Diagnosis SNOMED-CT Code Diagnosis ICD10 Code Diagnosis Note [id number] Shyla DORSEY [address] [place] [address] 05/31/2017 14:08:55 05/31/2017 14:54:42 Bursitis [id number] M71.9 RIght 5th Patient was seen and evaluated. Radiograph s were reviewed and discussed with the patient. Etiology of bursititis was discussed with the patient. Recommende d wider shoe gear and padding. Offered cortisone injection for acute pain. patient agreed and provided verbal consent. All questions answered. Patient to RTC in one month Pain in right foot 15192 99523 63570 M79.671 Health Concerns Section Related Observation LastModified by Organization Detai ls LastModified Time None Recorded Concern Status LastModified by Organization Details LastModified Time None Recorded Advance Directives Directive None Recorded Payers Encounter Date Sequence Insurance Name Policy Number Policy Cantrell Covered Member ID Cantrell Member ID Guarantor Name 05/31/2017 1 MEDICARE [place] [facility] Emilio Loera [id number] Emilio Loera Notes Date Note Type Note Provider Name and Address Organization Details Recorded Time 7 text/html Foot Pain--Reported bypatient.Location:right 5 ball of the foot at Metatarsophalangeal Joint Quality:aching; occurs: frequently; worsening Severity:moderate Duration:2 months Timing:daytime when active walking Context:cannot identify Alleviating Factors:rest; elevation Aggravating Factors:walking; weightbearing; pressure Associated Symptoms:denies weakness, limping, tingling, swelling, or color changes Previous Surgery:none Prior Imaging:x ray Previous Treatments:noneNotes:Vicky willard denies any trauma to the area [facility] 05/31/2017 14:40:02
--- OUTSIDE RECORDS SUMMARY | 2024-10-22 12:37 | XMS_ITS ---
Author Organization [facility] Address [address] [place] [address] Care Team Providers Care Belt Back Operator Name Role Phone Theo Stringer MD Primary Care Provider [phone] Kaylee Gutierrez RN Unavailable Kimberly Camarillo RN Unavailable Unavailab Maco Higuera MD Unavailable Angelina Zavala Unavailable Marshall Sherman MD PhD Unavailable [phone] Transplant Episode Liver Recipient [facility] ([place], [place]) [facility] Organ Received: Liver Transplanted on 12/27/2004 Marked as Active Follow-up on 12/27/2004 Liver CoordinatorKaylee Gutierrez RN Fax: N/A Email: N/A [place] Organ Diagnosis 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 Retransplant Diagnosis 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 Infection History Noted Survival Infection Treatment Organism Resolved 01/30/2014 9 years 1 month Hepatitis C virus infection 01/20/2020 Donor Information Organ ABO Source Meets Risk Criteria HLA Match Mismatches Cross Match Liver Transplanted O DBD No A: B: DR: Liver Donor Serology Results Anti-CMV CMV IgG: Positive EBV IgG No results on file Anti-HBcAb HBC Total: Negative HBsAg HBsAg: Negative HBV DNA No results on file Anti-HCV HCV: Negative Anti-HIV I/II No results on file Anti-HTLV I/II HTLV: Negative RPR/VDRL RPR: Negative EBV IgM No results on file HBsAb No results on file EBNA No results on file Toxoplasma No results on file SARS CoV-2 No results on file Care Team Name Role Phone Fax Email Kaylee Gutierrez RN Liver Coordinator [phone] N/A N/A Jodi Johns RN Secondary Coordinator N/A N/A N/A Kaylee Gutierrez RN Repairer Helper [phone] N/A N/A Elsa Duenas Network Design Architect [phone] N/A N/A Events Post-Transplant Pre-Transplant Admitted: 12/27/2004 Referred: 03/08/2003 Transplanted: 12/27/2004 Evaluation began: 3 Discharged: 01/02/2005 Center waitlisted: 3
--- OUTSIDE RECORDS SUMMARY | 2024-10-22 12:37 | XMS_ITS | Clinical Summary ---
Author Organization [facility] Address [address] [place] [address] Care Team Providers Care Patrol Sergeant Sheriff'S Office Name Role Phone Theo Stringer MD Primary Care Provider [phone] Theo Stringer MD Unavailable [phone] Isaac Callahan MD Unavailable [phone] Source Comments [facility],non-owned Affiliates and Associated Physician Practices is amultiple site organization consisting of ambulatory clinics and hospital sitesin [place], [place], [place] and [place]. This disclosure is being madepursuant to the Care Everywhere program and may not contain all information available regarding this patient. Last updated 18.[facility] Allergies Active Allergy Reactions Criticality Noted Date [...] C and ETOH. Followed by jesus Patino Family History Medical History Relation Name Comments Diabetes Father Heart Failure Father Stroke Father Diabetes Mother Heart Failure Mother Hypercholesterolemia Mother Relation Name Status Comments Brother 1 Alive Brother 2 Alive Brother 3 (Age 50) heart molly ck Brother 4 (Age 62) diabetic c omplications Brother 5 (Age 63) Father (Age 75) Mother (Age 75) Sister 1 Alive Sister 2 Alive Sister 3 Alive Sister 4 Alive Social History Tobacco Use Types Packs/Day [...] Mass Index 23.09 02/14/2019 9:43 PM CDT Plan of Treatment Health Maintenance Due Date Last Done Comments COLOGUARD (AGES 45-75) - COLON CA SCREENING 1960 COLON MONITORING 1960 COLONOSCOPY - COLON CA SCREENING 1960 CT COLONOGRAPHY - COLON CA SCREENING 1960 Colorectal Cancer Screening 1960 FIT - COLON CA SCREENING 1960 FLEX SIG - COLON CA SCREENING 1960 MEDICARE AWV 12 MONTHS 1960 COVID-19 VACCINE (#1) 1965 HIV SCREENING 1975 HEPATITIS C SCREENING 09/30/1978 DTAP/TDAP/TD VACCINES (1 - Tdap) 1979 PNEUMOCOCCAL VACCINE 50+ (1 of 2 - PCV) 1979 PNEUMOCOCCAL VACCINE (1 of 2 - PCV) 1979 ZOSTER VACCINE (1 of 2) 1979 DIABETES RETINOPATHY SCREENING 03/25/2013 DIABETES-FOOT EXAM WITH MONOFILAMENT 03/25/2013 DIABETES-HGB A1C 08/17/2019 02/15/2019, , 01/26/2014 DIABETES-SERUM CREATININE 02/18/20202018, 02/16/2019, 02/15/2019, Additional history exists Respiratory Syncytial Virus (RSV) Vaccine Pt: or over 60 yrs (1 - Risk 60-74 years 1-dose series) 2020 INFLUENZA VACCINE (#1) 2024 DEPRESSION SCREENING 09/16/2024 DIABETES - URINE PROTEIN SCREENING 09/16/2024 HEPATITIS B VACCINE Aged Out No longe r eligible based on patient's age to complete this topic HIB VACCINE Aged Out No longer eligi ble based on patient's age to complete this topic HPV VACCINE Aged Out No longer eligi ble based on patient's age to complete this topic MENINGOCOCCAL (Group B) VACCINE Aged Out No longer eligible based on patient's age to complete this topic MENINGOCOCCAL VACCINE Aged Out No lisa caleb eligible based on patient's age to complete this topic Medical Devices Implanted Type Area Electrical Engineering Teacher Device Identifier Shelf Expiration Date Model / Serial / Lot Sys Cor Stent 32mm 3mm Sng Monrl Implanted:Qty: 1 on 02/14/2019 by Clotilde Chao MD at [facility] Left: Coronary [employer] 08/26/2020 [id number] / / Description:Mid LAD Sys Cor Stent 12mm 3mm Sng Monrl Implanted:Qty: 1 on 02/14/2019 by Clotilde Chao MD at [facility] Left: Coronary [employer] 07/15/2020 [id number] / / Procedures Procedure Name Priority Date/Time Associated Diagnosis Comments BASIC METABOLIC PANEL (CALCIUM TOTAL) AM Draw 02/17/2019 5:55 AM CDT HEMOGLOBIN A1C Routine 02/15/2019 1:15 AM CDT from Last 3 Months or Most Recently Relevant to Health Maintenance Results * (ABNORMAL) BASIC METABOLIC PANEL (CALCIUM TOTAL) (02/17/2019 5:55 AM CDT) BUN 14 7 - 26 mg/dL 02/17/2019 6:53 AM CDT [facility] Creatinine 0.8 0.6 - 1.2 mg/dL 02/17/2019 6:53 AM [facility] Sodium 134(L) 136 - 145 mmol/L 02/17/2019 6:53 AM [facility] Potassium 4.0 3.5 - 4.5 mmol/L 02/17/2019 6:53 AM [facility] Chloride 97(L) 98 - 107 mmol/L 02/17/2019 6:53 AM [facility] CO2 28 22 - 29 mmol/L 02/17/2019 6:53 AM [facility] Glucose 253(H) 70 - 115 mg/dL 02/17/2019 6:53 AM [facility] Calcium 8.7 8.4 - 10.2 mg/dL 02/17/2019 6:53 AM [facility] Anion Gap 13 8 - 18 02/17/2019 6:53 AM [facility] BUN/Creatinine Ratio 18 7 - 23 02/17/2019 6:53 AM [facility] Osmolality Calculated 287 270 - 300 mOsm/kg 02/17/2019 6:53 AM [facility] eGFR >60 >60 mL/min/1.7 3 m2 02/17/2019 6:53 AM [facility] Blood BLOOD SPECIMEN / Unknown Lab Venipuncture / Unknown 02/17/2019 5:55 AM CDT 02/17/2019 6:19 AM [facility] [place] Clotilde Chao MD LAB - CHEMISTRY JAZZY CHUN [facility] Organization Address City/State/[facility] Co de Phone Number [address] [phone] * (ABNORMAL) HEMOGLOBIN A1C (02/15/2019 1:15 AM [facility] [place] Hemoglobin A1c 13.0(H) 4.4 - 6.3 % 02/15/2019 11:47 AM [facility] Estimated Average Glucose 326 mg/dL 02/15/2019 11:47 AM [facility] Comment: HbA1c Interpretation: Treatment target values recommended by ADA and other clinical organizations should be used to evaluate metabolic control in patients. Treatment Target Values: Normal : < 5.7% Pre-diabetes: 5.7-6.4% Diabetes: Equal to or greater than 6.5% Reference: [place] [employer] Standards of Care in Diabetes -2014 In patients 70 years and older consider HbA1c target range of 7.0-7.5% Reference: Diabetes Mellitus in Older People: Position Statement on behalf of the International Association of Gerontology and Geriatrics (IAGG), the Diabetes Working Libertarian for Older People (EDWPOP), and the International Task Force of Experts in Diabetes. Jaya Branch et al. J [place] Medical Directors Association. 2012 Test results diagnostic of diabetes should be repeated for confirmation. The Sebia Capillary 2 assay for the measurement of HbA1c is a National Glycohemoglobin Standardization Program (NGSP)certified method. Blood BLOOD SPECIMEN / Unknown Venipuncture / Unknown 02/15/2019 1:15 AM CDT 02/15/2019 1:25 AM CDT Natali Ko DO LAB - CHEMISTRY OR DERABLES Performing Organization Address City/State/[facility] Co de Phone Number [address] [phone] from Last 3 Months or Most Recently Relevant to Health Maintenance Advance Directives * Full Code (Latest Code Status on File) Date Activated Date Inactivated Comments 02/14/2019 11:43 PM 02/17/2019 5:53 PM Care Teams Patrol Sergeant Sheriff'S Office Relationship Specialty Start Date End Date Theo Stringer MD [address] [place], [place] [address]GEMINI KO [address] [place] [address] PCP - General Internal Medicine 02/14/19 Theo Stringer MD [address] [place], [place] [address]GEMINI KO [address] [place] [phone] Internal Medicine 02/14/19 Isaac Callahan MD [address] [facility] [place] [address] Endocrinology 03/25/13
--- OUTSIDE RECORDS SUMMARY | 2024-10-22 12:37 | XMS_ITS | Encounter Summary ---
Author Organization [facility] Healthcare Address [address] [place] [address] Care Team Providers Care Communications Attendant Name Role Phone Theo Stringer MD Primary Care Provider [phone] Kaylee Gutierrez RN Unavailable Kimberly Camarillo RN Unavailable Unavailab Maco Higuera MD Unavailable Angelina Zavala Unavailable [phone] Marshall Sherman MD PhD Unavailable [phone] Encounter Details Date Type Department Care Team (Late st Contact Info) Description 10/24/2023 Diagnostic [facility] [address] [facility] [phone] [place], [place] [id number] Kaylee Gutierrez RN [address] [facility] [address] [place], [place] [id number] Social History Tobacco Use Types Packs/Day Years [...] often do you attend chur ch or sikh services? Never 03/23/2021 Do you belong to any clubs o r organizations such as uatsdin groups, unions, fraternal or athletic groups, or school groups? No 03/23/2021 How often do you attend meet ings of the clubs or organizations you belong to? Never 03/23/2021 Are you , , di vorced, , never , or living with a partner? Patient declined 03/23/2021 AUDIT-C Answer Date Recorded Q1: How often do you have a drink containing alc ohol? Never 01/05/2021 Average Number of Drinks Not on file 021 Frequency of Binge Drinking Not on file 12/16 Overall Financial Resource Strain (CARDIA) Answe r [...] place to sleep or slept in a m[facility]p (including now)? 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 07/01/2024 07/01/2024 09/29/2024 3:[address] documented as of this encounter Care Teams Communications Attendant Relationship Specialty Start Date End Date Theo Stringer MD PCP - General 01/15/11 Kaylee Gutierrez, RN [address] [place] [address] Video Specialist 10/14/18 Kimberly Camarillo, RN Registered Nurse Gastroenterology 01/27/19 Maco Palomino MD [address] [place] [address] Cardiology 12/17/22 Angelina Zavala PA [address] DIV IM ENDOCRINOLOGY, [address] [place] [address] Physician [employer] Physician [employer] 04/24/24 Marshall Sherman MD PhD [address] [facility] [address] [place] [address] Consulting Physician Endocrinology Diabetes & Metabolism 07/23/24 documented as of this encounter
== END 2024-10-22 12:33 | disposition home or self-care (01) ==
LOC: CHSIMG 12:35
PROVIDERS: PCP Family Medicine
DX: M25.551 Pain in right hip (principal); R93.7 Abnormal findings on diagnostic imaging of other parts of musculoskeletal system; M24.051 Loose body in right hip
CPT/HCPCS: 73700

== ENCOUNTER 2025-02-01 13:48 | Outpatient (RCR) | payer MEDICARE, MEDICAID, SELFPAY ==
[2025-02-01 14:07] LABS: Hematocrit 36.2 % (40.0-54.0); Hemoglobin 11.7 g/dL (14.0-18.0); Mean Corpuscular HGB Conc 32.3 g/dL (32-36); Mean Corpuscular Hemoglobin 29.0 pg (27.0-31.0); Mean Corpuscular Volume 89.6 fL (78.0-102.0); Platelet Count Result 138 K/mm3 (150-420); Red Blood Count 4.04 M/mm3 (4.70-6.10); White Blood Count 3.6 K/mm3 (4.8-10.8)
[2025-02-01 14:46] LABS: Band Neutrophils Percent 0 % (0-6); Basophils Absolute Manual 0.03 K/mm3 (0-0.1); Basophils Percent Manual 1 % (0-1); Eosinophils Absolute Manual 0.14 K/mm3 (0.02-0.50); Eosinophils Percent Manual 4 % (1-6); Lymphocytes Absolute Manual 1.11 K/mm3 (1.1-4.5); Lymphocytes Percent Manual 31 % (18-44); Monocytes Absolute Manual 0.39 K/mm3 (0.1-0.90); Monocytes Percent Manual 11 % (3-9); Neutrophils Absolute Manual 1.90 K/mm3 (1.3-6.7); Neutrophils Percent Manual 53 % (46-73); Total Cells Counted 100
[2025-02-01 14:47] LABS: Anisocytosis 2+; Poikilocytosis 1+; Schistocytes None Seen
[2025-02-01 15:04] LABS: Alanine Aminotransferase 15 U/L (6-50); Albumin Level 3.5 g/dL (3.5-5.1); Alkaline Phosphatase 127 U/L (38-126); Anion Gap 2 mmol/L (4-12); Aspartate Amino Transferase 27 U/L (17-59); Bilirubin,Total 0.3 mg/dL (0.2-1.3); Blood Urea Nitrogen 21 mg/dL (9-20); Calcium 8.4 mg/dL (8.4-10.2); Carbon Dioxide 36 mmol/L (22-30); Chloride 100 mmol/L (98-107); Estimated Glomerular Filt Rate > 60; Glucose 263 mg/dL (65-110); Osmolality Calculated 298 mOsm/kg (285-295); Potassium 4.6 mmol/L (3.4-5.0); Sodium 138 mmol/L (137-145); Total Protein 6.1 g/dL (6.3-8.2)
[2025-02-01 16:55] LABS: GGT 12.2 U/L (15-85)
[2025-02-03 16:04] LABS: Tacrolimus Prograf. <1.0 mcg/L
== END 2025-05-02 23:59 | disposition home or self-care (01) ==
LOC: CHSLAB 13:48
PROVIDERS: PCP Family Medicine; Visit Provider Internal Medicine Gastroenterology
DX: Z94.4 Liver transplant status (principal); Z79.899 Other long term (current) drug therapy
CPT/HCPCS: 36415; 80053; 80197; 82977; 85025

== ENCOUNTER 2025-06-27 14:30 | Emergency (ER) | payer MEDICARE, MEDICAID, SELFPAY ==
--- OUTSIDE RECORDS SUMMARY | 2024-05-28 08:30 | XMS_ITS ---
Author Organization [facility] [employer] Address [address] [facility] [address] [place] [address] Care Team Providers Care Policy Manager Name Role Phone Theo Stringer MD Primary Care Provider Robby Owens Unavailable [phone] REASON FOR VISIT PT is injured Medications [...] Solution Pen-injector Subcutaneous Active Ergocalciferol 1.25 MG (40921 UT) Capsule Oral Active Rosuvastatin Calcium 20 MG Tablet Oral Active Social History Sex Assigned At : Social History Observation Description Sex Assigned At Male Encounters Encounter Location Date Provider Diagnosis [facility] [employer] [address] [place] [address] 05/28/2024 Robby Zapien Plan Of Treatment No Information Progress Notes * ALEJO RINGDOB:1960 ([age] yo M)Acc No.[id number]:05/28/2024 Patient: ALEJO DUPREE Provider: JUAN MIGUEL GARCIA :1960 A ge:63 Y S ex:Male Date:05/28/2024 Address:[address] [place], [place] [id number] Pcp:Theo Stringer MD Subjective: * Chief Complaints: * P T is injured * Medications: T akingQUEtiapine Fumarate 50 MG Tablet 1 tablet at bedtime Orally Once a day DULoxetine HCl 60 MG Capsule Delayed Release Particles Oral , Notes to Pharmacist: bidRosuvastatin Calcium 20 MG Tablet Oral HumaLOG KwikPen 100 UNIT/ML Solution Pen-injector Subcutaneous Ergocalciferol 1.25 MG (60879 UT) Capsule Oral Lisinopril 5 MG Tablet [...] Solution Pen-injector Subcutaneous Taking Ergocalciferol 1.25 MG (10508 UT) Capsule Oral Taking Lisinopril 5 MG [...] Electronic signature of JUAN MIGUEL Gallegos on 06/27/2025 at 02:42 PM CDT Sign off status: Pending * Provider: JUAN MIGUEL GARCIA Date: 0 05/28/2024 Generated for Cresencio contreras/Vilma/Thiago on: 1 02:42 PM CDT
[2025-06-27] VITALS (70 sets, daily range): BP systolic 77–184; BP diastolic 42–159; PULSE 86–115; RESP 11–34; TEMP 37.6–38.2; O2SAT 82–100
--- NOTE | ~2025-06-27 | CT_ITS ---
EXAMINATION: CT brain wo sushma, 06/27/2025 16:32 CDT HISTORY: AMS/ headache/ dizziness COMPARISON: No comparisons available. Technique: Axial images obtained of the brain without contrast. One or more of the following dose reduction techniques were used: automated exposure control, adjustment of the mA and/or kV according to patient size, use of iterative reconstruction technique. Findings: No acute infarct or parenchymal hemorrhage. No abnormal mass or mass effect. No midline shift. No extra-axial fluid collections. No hydrocephalus. Mastoid air cells unremarkable. Sinuses and orbits unremarkable. No acute fracture. No significant facial or scalp soft tissue swelling evident. No radiopaque foreign body is seen. Impression: 1.No acute intracranial abnormality. Reviewed, dictated and finalized at location P. Impression: 1.No acute intracranial abnormality.
--- NOTE | ~2025-06-27 | XR_ITS ---
EXAMINATION: XR chest 1V portable COMPARISON: No comparisons available. HISTORY: ams/ chest pain FINDINGS: The lungs are clear, no effusion. No pneumothorax. Heart is normal size. Mediastinal and hilar contours are within normal limits. Bony thorax no acute abnormality. Miscellaneous: None Impression: No acute cardiopulmonary abnormality. Reviewed, dictated and finalized at location P. Impression: No acute cardiopulmonary abnormality.
--- NOTE | ~2025-06-27 | CT_ITS ---
CT abdomen pelvis w con Clinical History: transaminitis, elevated alk phos. R/O BILIARY OBSTRUCTION. . Comparison: CT abdomen pelvis 12/25/2021 Technique: Axial images lung bases to symphysis pubis 100 mL Omnipaque 350 Coronal, sagittal reformats CT images acquired with automatic exposure control for dose reduction DLP: 721 mGy-cm Findings: Lung bases: Small right effusion. Visualized heart and pericardium: Cardiomegaly. Liver: Transplant. Pneumobilia and mild biliary ductal dilatation. Central biliary mucosal enhancement. Central CBD possible soft tissue focus. Gallbladder: Removed. Hepaticojejunostomy Spleen: Unremarkable. Pancreas: Atrophic. Adrenal glands: Unremarkable. Kidneys: Right kidney- No hydronephrosis. No renal stones. Left kidney- No hydronephrosis. No renal stones. Distal esophagus/stomach: Unremarkable. Small bowel loops: Dilated loops, fluid contents. Colon: Normal caliber and wall thickness. Appendix not seen. Large rectal stool and diffuse rectal stool volume. Nodes: No enlarged nodes. Peritoneum: No ascites. No free air. Urinary bladder: Unremarkable. Prostate: Unremarkable. Bones: No acute bony abnormality. Soft tissues: Unremarkable. Aorta: No aneurysm or dissection. IVC: Filter. Main portal vein/SMV/splenic vein: Patent. IMPRESSION: 1. Recommend MRCP or ERCP given possible lesion along central common bile duct. 2. Chronic pneumobilia and intrahepatic biliary ductal dilatation. Cholangitis cannot be excluded. 3. Enteritis. Reviewed, dictated and finalized at location R. IMPRESSION: 1. Recommend MRCP or ERCP given possible lesion along central common bile duct . 2. Chronic pneumobilia and intrahepatic biliary ductal dilatation. Cholangitis cannot be excluded. 3. Enteritis.
--- OUTSIDE RECORDS SUMMARY | 2025-06-27 14:43 | XMS_ITS | Encounter Summary ---
Author Organization [facility] Address [address] [facility] [place] [address] Care Team Providers Care Stretching Machine Operator Name Role Phone Theo Stringer MD Primary Care Provider [phone] Theo Stringer MD Unavailable [phone] Isaac Callahan MD Unavailable [phone] Reason for Visit * Reason Onset Date Comments MEDICATION REFILL 05/27/2019 Encounter Details Date Type Department Care Team (Late st Contact Info) Description 05/27/2019 Refill [facility] General Internal Medicine [address] [place] [address] Theo Stringer MD [address] [address] [place] [address] MEDICATION REFILL Social History Tobacco Use Types Packs/Day Years Used Date Smoking Tobacco: Never Smokeless Tobacco: Never Alcohol Use Standard Drinks/Week Comments Yes 0 (1 standard drink = 0.6 oz pure alcohol) family unsure, never has withdrawn from alcohol Sex and Gender Information Value Date Recorded Sex Assigned at Not on file Legal Sex Male 9:37 PM CDT Gender Identity Not on file Sexual Orientation Not on file documented as of this encounter Functional Status * Is person deaf or have serious hearing difficulty? Answer Date of Assessment Author No 02/17/2019 4:10 PM CDT Archana Solis RN * Is person blind or have serious difficulty seeing? Answer Date of Assessment Author No 02/17/2019 4:10 PM CDT Archana Solis RN * Does person have serious difficulty walking/climbing stairs? Answer Date of Assessment Author No 02/17/2019 4:10 PM CDT Archana Solis RN * Does person have difficulty dressing/bathing? Answer Date of Assessment Author No 02/17/2019 4:10 PM CDT Archana Solis RN * Does person have difficulty doing errands alone? Answer Date of Assessment Author No 02/17/2019 4:10 PM CDT Archana Solis RN documented as of this encounter Mental Status * Does person have difficulty concentrating/remembering/making decisions? Answer Entry Date Author No 02/17/2019 4:10 PM CDT Archana Solis RN documented in this encounter Miscellaneous Notes * Telephone Encounter - Dorothy Rivera - 05/27/2019 12:42 PM CDT Pharmacy calling in refills forpt but upon chart review, pt not GIM pt. Carissa verbalized understanding and d/c line. documented in this encounter Plan of Treatment Not on file documented as of this encounter Visit Diagnoses Not on filedocumented in this encounter Care Teams Stretching Machine Operator Relationship Specialty Start Date End Date Theo Stringer MD [address] [place] [address] [address] [place] [address] PCP - General Internal Medicine 02/14/19 Theo Stringer MD [address] [place] [address] [address] [place] [address] Internal Medicine 02/14/19 Isaac Callahan MD [address] [facility], [address] [address] Endocrinology 03/25/13 documented as of this encounter
--- OUTSIDE RECORDS SUMMARY | 2025-06-27 14:43 | XMS_ITS | Data Portability ---
Author Organization [facility] [place] - D[facility] Address [address] [place] [address] Care Team Providers Care Garment Presser Name Role Phone OWEN DUFFY Primary Care Provider [phone] OWEN DUFFY Referring Provider [phone] Assessment No assessment recorded. Plan of Treatment [...] By Organization Details Last Modified Time 05/31/2017 [id number] bursitis: care instructions [email or web address] Not available 06/03/2017 09:08:43 Reason for Referral None Reported. Problems No Known Problems Procedures Surgical History Date Name Laterality Status Provider Name and Address Organization Details Recorded Time 05/31/2017 [id number] Sm Joint completed [facility] 05/31/2017 14:37:54 05/31/2017 19043 X-rays 3v Feet Normal completed [facility] 05/31/2017 14:37:40 Imaging Results None recorded. Procedure Notes None recorded. Medical Equipment None Reported. Allergies No known drug allergies Medications Name Sig Start Date Stop Date Status Note LastModified by Organization Details LastModified Time pen needles mis [id number] active Not Available Not Available Not Available [...] Updated DateTime 05/31/2017 185.42 cm 23.7 kg/m2 87653.63 g [facility] 05/31/2017 14:27:20 Social History Question Answer Notes LastModified by Organizat ion Details LastModified Time Tobacco Smoking Status Never Smoker [facility] 05/31/2017 14:31:13 What Was The Date Of [...] N Ulcers on Legs or Feet N HIV or AIDS N Coronary Artery Disease N Gout N Seizure Disorder N High Blood Pressure N Clot in Lung or Pulmonary Embolism N Menopause N Lung Condition N Phlebitis or Venous Blood Clot N Migraines N Depression N Pacemaker N Anemia N Back Pain N Neurologic Disease N Sciatica N Heart Attack (SD) N Urinary Tract Infections N Anxiety Disorder N Diabetes Y Bleeding Disorder N Arthritis Y Abuse of Alcohol or Drugs N Back injury N Ear Problems Y Cancer N Eye Problems Y Stroke N Dementia N Stomach Problems N Peripheral Vascular Disease N Sinus Conditions N High Cholesterol N Thyroid Disorder N Broken Bone Y Hepatitis N Liver Disease N Heart Disease N Rheumatoid Arthritis N Rash N Osteoporosis N Kidney Disease N Past Encounters Encounter ID Performer Location Encounter Start Date Encounter Closed Date Diagnosis/Indication Diagnosis SNOMED-CT Code Diagnosis ICD10 Code Diagnosis IMO Codes Diagnosis Note [id number] Shyla Vanessa DPM [address] [place] [address] 05/31/2017 14:08:55 05/31/2017 14:54:42 Bursitis 34898739 M71.9 RIght 5th Patient was seen and evaluated. Radiograph s were reviewed and discussed with the patient. Etiology of bursititis was discussed with the patient. Recommende d wider shoe gear and padding. Offered cortisone injection for acute pain. patient agreed and provided verbal consent. All questions answered. Patient to RTC in one month Pain in right foot 36301 07401 40660 M79.671 Health Concerns Section Related Observation LastModified by Organization Detai ls LastModified Time None Recorded Concern Status LastModified by Organization Details LastModified Time None Recorded Advance Directives Directive None Recorded Payers Insurance Date Sequence Insurance Name Policy Number Policy Cantrell Covered Member ID Cantrell Member ID Guarantor Name 05/31/2017 1 MEDICARE [place]: [facility] Emilio Bruno Loera [id number] Emilio Loera Notes Date Note Type Note Provider Name and Address Organization Details Recorded Time 7 text/html Foot Pain--Reported by PatientHPIFor location, patient reportsright 5 ball of the foot at metatarsophalangeal joint. For quality, patient reportsaching,occurs: frequently, andworsening. For severity, patient reportsmoderate. For duration, patient reports2 months. For timing, patient reportsdaytime when active walking. For context, patient reportscannot identify. For alleviating factors, patient reportsrestandelevation. For aggravating factors, patient reportswalking,weightbea ring, andpressure. For associated symptoms, patient reportsdenies weakness, limping, tingling, swelling, or color changes. For previous surgery, patient reportsnone. For prior imaging, patient reportsx ray. For previous treatments, patient reportsnone.Patient denies any trauma to the area JAYME [facility] 05/31/2017 14:40:02
--- OUTSIDE RECORDS SUMMARY | 2025-06-27 14:43 | XMS_ITS | Patient Health Record ---
Author Organization [facility] [employer] Address [facility] [facility] [address] [place] [address] Care Team Providers Care Ear Pull Machine Operator Name Role Phone Theo Stringer MD Primary Care Provider Robby Owens Unavailable [phone] Allergies No Known Allergies Reason For Referral No Information Medications Medication SIG (Take, Route, Frequency, Duration) Notes Start Date End Date Status Lisinopril 5 MG Tablet Oral Active Ergocalciferol 1.25 MG (58185 UT) Capsule Oral Active Gabapentin 100 MG Capsule Oral Active HumaLOG KwikPen 100 UNIT/ML Solution Pen-injector Subcutaneous Active Temazepam 30 MG Capsule Oral Active Tamsulosin HCl 0.4 MG Capsule Oral Active Sirolimus 2 mg Tablet Oral Active Toujeo SoloStar 300 UNIT/ML Solution Pen-injector Subcutaneous Active Ursodiol 300 MG Capsule Oral; Duration: 30 Days Not-Taking Eliquis 5 MG Tablet Oral Active DULoxetine HCl 60 MG Capsule Delayed Release Particles Oral; Duration: 30 Days Not- Taking OneAdTotum 2 w/Device Kit Active Gabapentin 100 MG Capsule Oral; Duration: 60 Days Not-Taking Sertraline HCl 50 MG Tablet 1 tablet Orally Once a day; Duration: 30 days Active Rosuvastatin Calcium 20 MG Tablet Oral Active QUEtiapine Fumarate 100 MG Tablet 1 tablet at bedtime Oral Once a day; Duration: 30 days schedule follow up appointment Active Metoprolol Succinate ER 50 MG Tablet Extended Release 24 Hour Oral Active Mycophenolate Mofetil 250 MG Capsule Oral Active HYDROcodone-Acetaminophen 10-325 MG Tablet Oral Active Social History Sex Assigned At : Social History Observation Description Sex Assigned At Male Problems Problem Type SNOMED Code ICD Code Onset Dates Problem Status W/U Status Risk Notes Problem Generalized anxiety disorder (23896640) Generalized anxiety disorder (F41.1) Active confirmed Problem Insomnia disorder related to another mental disorder (47394869) Insomnia due to other mental disorder (F51.05) Active confirmed Problem Recurrent major depressive episodes, moderate (032620066) Recurrent major depressive episodes, moderate (F33.1) Active confirmed Vital Signs Heart Rate 91 /min 10/02/2024 Blood pressure diastolic 72 mm Hg 10/02/2024 Weight-kg 76.2 kg 10/02/2024 Blood pressure systolic 123 mm Hg 10/02/2024 Weight 168 lbs 10/02/2024 Encounters Encounter Location Date Provider Diagnosis [facility] [address] [place] [address] 07/01/2024 Robby Zapien Generalized anxiety disorder F41.1 ; Insomnia due to other mental disorder F51.05 and Recurrent major depressive episodes, moderate F33.1 [facility] [address] [place] [address] 10/02/2024 Robby Zapien Generalized anxiety disorder F41.1 ; Insomnia due to other mental disorder F51.05 and Recurrent major depressive episodes, moderate F33.1 Assessments Encounter Date Diagnosis (ICD Code) Assessment Notes Treatment Notes Treatment Clinical Notes Section Notes 10/02/2024 Generalized anxiety disorder (ICD-10 - F41.1) 07/01/2024 Generalized anxiety disorder (ICD-10 - F41.1) cont duloxetine 1. Depression and Anhedonia: - Patient reports feeling uninterested in activities and staying at home most of the time. - Currently on duloxetine 60 mg once a day and 30 mg once a day. Plan: - Decrease duloxetine to 30 mg twice a day. - Monitor patient's mood and interest in activities during follow-up visits. 2. Insomnia: - Patient reports improved sleep with the combination of quetiapine and temazepam. - Sleep duration is close to normal. Plan: - Continue quetiapine at bedtime. - Continue temazepam at bedtime. - Reassess sleep quality during follow-up visits. 3. Anxiety: - Patient did not report significant anxiety symptoms during the visit. Plan: - Continue monitoring anxiety levels during follow-up visits. 4. Change in primary care physician: - Patient's primary care physician is retiring, and they will need to find a new one. Plan: - Assist the patient in finding a new primary care physician if needed or provide recommendation s. Follow-up: - Schedule a follow-up visit in 4-6 weeks to monitor the patient's progress and response to the medication adjustments. 07/01/2024 Insomnia due to other mental disorder (ICD-10 - F51.05) persistent insomnia, he is on temazepam 30mg hs he has sleep apnea, does not use cpap discussed to not double temazepam, increased risk of side effects with benzodiazepine use and sleep apnea 1. Depression and Anhedonia: - Patient reports feeling uninterested in activities and staying at home most of the time. - Currently on duloxetine 60 mg once a day and 30 mg once a day. Plan: - Decrease duloxetine to 30 mg twice a day. - Monitor patient's mood and interest in activities during follow-up visits. 2. Insomnia: - Patient reports improved sleep with the combination of quetiapine and temazepam. - Sleep duration is close to normal. Plan: - Continue quetiapine at bedtime. - Continue temazepam at bedtime. - Reassess sleep quality during follow-up visits. 3. Anxiety: - Patient did not report significant anxiety symptoms during the visit. Plan: - Continue monitoring anxiety levels during follow-up visits. 4. Change in primary care physician: - Patient's primary care physician is retiring, and they will need to find a new one. Plan: - Assist the patient in finding a new primary care physician if needed or provide recommendation s. Follow-up: - Schedule a follow-up visit in 4-6 weeks to monitor the patient's progress and response to the medication adjustments. 10/02/2024 Insomnia due to other mental disorder (ICD-10 - F51.05) persistent insomnia, he is on temazepam 30mg hs he has sleep apnea, does not use cpap discussed to not double temazepam, increased risk of side effects with benzodiazepine use and sleep apnea 10/02/2024 Recurrent major depressive episodes, moderate (ICD-10 - F33.1) 07/01/2024 Recurrent major depressive episodes, moderate (ICD-10 - F33.1) he is on Duloxetine 60mg bid by pcp start quetiapine 50mg at bedtime 1. Depression and Anhedonia: - Patient reports feeling uninterested in activities and staying at home most of the time. - Currently on duloxetine 60 mg once a day and 30 mg once a day. Plan: - Decrease duloxetine to 30 mg twice a day. - Monitor patient's mood and interest in activities during follow-up visits. 2. Insomnia: - Patient reports improved sleep with the combination of quetiapine and temazepam. - Sleep duration is close to normal. Plan: - Continue quetiapine at bedtime. - Continue temazepam at bedtime. - Reassess sleep quality during follow-up visits. 3. Anxiety: - Patient did not report significant anxiety symptoms during the visit. Plan: - Continue monitoring anxiety levels during follow-up visits. 4. Change in primary care physician: - Patient's primary care physician is retiring, and they will need to find a new one. Plan: - Assist the patient in finding a new primary care physician if needed or provide recommendation s. Follow-up: - Schedule a follow-up visit in 4-6 weeks to monitor the patient's progress and response to the medication adjustments. 10/02/2024 Other 1. Depression: - Patient reports feeling blah, not happy, and sad about their health. Plan: - Increase quetiapine to 100 mg at bedtime. - Initiate sertraline (Zoloft) at 25 mg once a day for a week, then increase to 50 mg once a day. - Follow up in one month. 2. Insomnia: - Patient reports difficulty sleeping and quetiapine not helping with sleep anymore. Plan: - Increase quetiapine to 100 mg at bedtime, which may also help with sleep. - Continue temazepam as prescribed. - Reevaluate sleep quality at the next visit. 3. Anxiety and Paranoia: - Patient reports feeling paranoid about going out and being around crowds. Plan: - Monitor response to increased quetiapine and initiation of sertraline for potential improvement in anxiety symptoms. - Reassess at the next visit. 4. History of Duloxetine Withdrawal: - Patient has successfully tapered off duloxetine and reports no longer experiencing withdrawal symptoms. Plan: - No further action needed for duloxetine withdrawal. - Monitor patient's mood and overall well-being with the new medication regimen. 5. Fractured Hip: - Patient reports a recent fall resulting in a fractured hip. Plan: - Ensure appropriate follow-up with regulatory affairs specialist and/or primary care provider for further evaluation and management of the fractured hip. - Encourage patient to avoid activities that may exacerbate the injury. 6. General Health and Well-being: - Patient expresses a desire to find a happy place and improve overall quality of life. Plan: - Monitor response to medication adjustments and continue to address mental health concerns. - Encourage patient to engage in activities they enjoy and consider discussing options for therapy or support groups to help improve overall well-being. - Reevaluate at the next visit. Plan Of Treatment No Information Insurance Providers Payer Name Payer Address Payer Phone Subscriber Number Group Number Insured Name Patient Relationship to Insured Coverage Start Date Coverage End Date [employer] Medicare Replacement/ Advantage - Ppo [address] [address] [place] [id number] ALEJO RING Self - patient is the insured [place] [address] [address] [place] [address] [id number] ALEJO RING Self - patient is the insured Medical (General) History Medical History History ICD Code live transplant, sees liver specialist [facility]
--- OUTSIDE RECORDS SUMMARY | 2025-06-27 14:43 | XMS_ITS | Clinical Summary ---
Author Organization [facility] Address [address] [place] [address] Care Team Providers Care Feeder/Folder Name Role Phone Kaylee Gutierrez RN Unavailable [phone] Kimberly Camarillo RN Unavailable Unavailab Maco Higuera MD Unavailable [phone] Angelina Richardson Unavailable [phone] Marshall Sherman MD PhD Unavailable No, Physician Primary Care Provider [phone] Allergies Active Allergy Reactions Criticality Noted Date Comments Oxycodone Rash Medium Reaction: rash, Oxycodone-Acetaminophen Hives,Itching Low 9 Reaction: HIVES, Medications multivit outqmstk-fixy-TK-c alcium (THERA-M) 9 mg iron-400 mcg tablet Take 1 tablet by mouth daily Over the counter med 01/10/20 21 Active blood-glucose meter misc 1 Device once for 1 dose 1 each 1 06/26/20 21 Active naloxone (NARCAN) 4 mg/actuation spray,non-aerosol Administer 1 spray into affected nostril(s) as needed for opioid reversal or respiratory depression Call 911. Administer a single spray in one nostril. Repeat every 3 minutes as needed if no or minimal response. 1 each 12/13/19 22 Active blood glucose diagnostic strip For testing blood sugar twice daily 200 strip 11 12/13/19 22 Active OneTouch Delica Plus Lancet 33 gauge [facility] as directed 12/13/19 22 Active diclofenac sodium (VOLTAREN) 1 % gelIndications:Acu te left lumbar radiculopathy,Cerv icalgia Apply 4 g topically 4 (four) times a day as needed (along R lateral neck & lower back near pain) 100 g 12/28/19 22 Active clopidogreL (PLAVIX) 75 mg tablet Take 1 tablet (75 mg total) by mouth daily CALL OFFICE FOR APPT for further refills 30 tablet 3 02/15/20 22 Active Alcohol Pads pads, medicated Use to administer insulin 4 times daily 200 each 11 03/21/20 22 Active potassium chloride ER 20 mEq CR tablet Take 1 tablet (20 mEq total) by mouth daily 03/22/20 22 Active FreeStyle Test stripIndications:i nsulin dependent diabetes Check blood sugar four times a day or as directed 100 each 11 12/21/19 23 Active blood-glucose sensor device G7 1 each 1 01/29/20 23 Active blood-glucose meter,continuous (Dexcom G6 Cloth Mercerizing Supervisor) [facility] One box loader to be used with DexCom sensor/transmitte r unit 1 each 01/29/20 23 Active blood-glucose transmitter (Dexcom G6 Transmitter) device Patient uses continuous monitor for injection of insulin four times daily 1 each 01/29/20 23 Active finasteride (PROSCAR) 5 mg tablet Take 1 tablet (5 mg total) by mouth daily 90 tablet 4 06/21/20 23 Active tamsulosin (FLOMAX) 0.4 mg extended release capsuleIndications :Benign prostatic hyperplasia with incomplete bladder emptying TAKE 1 CAPSULE(0.4 MG) BY MOUTH DAILY 30 capsule 1 09/26/[address] (CYMBALTA) 60 mg capsuleIndications :Anxiety and depression TAKE 1 CAPSULE(60 MG) BY MOUTH TWICE DAILY 60 capsule 5 11/04/19 24 Active blood-glucose meter kitIndications:Unc ontrolled type 2 diabetes mellitus with hyperglycemia (HCC),Uncontrolled diabetes mellitus with hyperglycemia, with long-term current use of insulin (HCC) To check glucose three times daily prior to meals or twice daily as needed for symptoms of hypo- or hyperglycemia 1 kit 11 12/03/19 24 Active ergocalciferol (VITAMIN D) 50,000 unit capsuleIndications :Vitamin D deficiency Take 1 capsule (50,000 Units total) by mouth once a week 12 capsule 3 01/13/20 24 Active glucagon (Baqsimi) 3 mg/actuation spray,non-aerosolI ndications:Uncontr olled type 2 diabetes mellitus with hyperglycemia (HCC) Administer 1 spray (3 mg total) into one nostril as needed (for use in case of emergency for hypoglycemia) 1 each 2 04/15/20 24 Active QUEtiapine (SEROquel) 100 mg tablet Take 1 tablet (100 mg total) by mouth nightly Active sirolimus (RAPAMUNE) 2 mg tablet TAKE 1 TABLET BY MOUTH DAILY 90 tablet 3 06/25/20 24 Active temazepam (RESTORIL) 30 mg capsuleIndications :Insomnia, idiopathic TAKE 1 CAPSULE(30 MG) BY MOUTH EVERY NIGHT NEEDED FOR SLEEP 30 capsule 1 09/17/19 25 Active rosuvastatin (CRESTOR) 20 mg tabletIndications: Mixed hyperlipidemia TAKE 1 TABLET BY MOUTH EVERY DAY 90 tablet 1 10/07/19 25 Active pen needle, diabetic 31 gauge x 3/16 needleIndications: Uncontrolled type 2 diabetes mellitus with hyperglycemia (HCC) Use to inject insulin up to 6 times daily. 400 each 10/14/19 25 Active urine glucose-ketones test stripIndications:U ncontrolled type 2 diabetes mellitus with hyperglycemia (HCC) Test during periods of hyperglycemia with nausea and vomiting. 100 strip 10/14/19 25 Active gabapentin (NEURONTIN) 300 mg capsuleIndications :Uncontrolled type 2 diabetes mellitus with hyperglycemia (HCC),Diabetic peripheral neuropathy Take 1 capsule (300 mg total) by mouth 3 (three) times a day 90 capsule 10/14/19 25 026 Active cyclobenzaprine (FLEXERIL) 10 mg tabletIndications: Chronic right shoulder pain,Intercostal muscle pain,Trapezius strain, right, subsequent encounter,Posterio r pain of right hip Take 1 tablet (10 mg total) by mouth nightly as needed for muscle spasms 20 tablet 10/15/19 25 Active HYDROcodone-acetam inophen (NORCO) 10-325 mg per tabletIndications: Pain Take 1 tablet by mouth every 6 (six) hours as needed for pain 120 tablet 10/15/19 25 Active sertraline (ZOLOFT) 100 mg tablet Take 1 tablet (100 mg total) by mouth daily 10/02/19 25 Active metoprolol XL (TOPROL-XL) 50 mg extended release tablet TAKE 1 TABLET(50 MG) BY MOUTH DAILY 90 tablet 2 10/28/19 25 Active Trulicity 0.75 mg/0.5 mL pen injector ADMINISTER 0.75 MG UNDER THE SKIN WEEKLY 11/06/19 25 Active lisinopriL (PRINIVIL,ZESTRIL) 5 mg tablet Take 1 tablet (5 mg total) by mouth daily 30 tablet 11 12/10/19 25 Active mycophenolate mofetil (CELLCEPT) 250 mg capsule TAKE ONE CAPSULE BY MOUTH TWICE DAILY 60 capsule 1 12/14/19 25 Active erythromycin (ILOTYCIN) ophthalmic ointment Apply to right eye 4 (four) times a day 3.5 g 1 01/02/20 25 Active ursodioL (ACTIGALL) 300 mg capsule TAKE 2 CAPSULES(600 MG) BY MOUTH TWICE DAILY 120 capsule 02/10/20 25 Active insulin glargine (TOUJEO) 300 unit/mL (1.5 mL) pen for injectionIndicatio ns:Uncontrolled type 2 diabetes mellitus with hyperglycemia (HCC) Inject 40 Units under the skin daily 27 mL 3 02/18/20 25 026 Active insulin lispro (HumaLOG, ADMELOG) 100 unit/mL pen for injectionIndicatio ns:Uncontrolled type 2 diabetes mellitus with hyperglycemia (HCC) Inject 16 units plus 1:25 > 150 mg/dL under the skin 10-15 minutes before meals. MDD 75 units. 54 mL 3 02/18/20 25 Active apixaban (Eliquis) 5 mg tablet Oral Active Active Problems Patient Care Coordination No te Formatting of this note migh t be different from the original. Lab Name:[facility] ([facility]) [place] [phone] Timeframe orders are good for: 1 Year Last orders sent to lab on: February 04, 2025 (Standing Orders: CBC, CMP, GGT, Sirolimus, Bi-weekly) Labs at [facility]. 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 Follow up for HODA Pseudophakia of both eyes 11/16/2024 Assessment & Plan (11/16/2024 3:43 PM ROUNDING MACHINE OPERATOR): Central, well positioned. Trace PCO left eye (OS) but NVS. Monitor Moderate nonproliferative di abetic retinopathy of both eyes without macular edema associated with type 2 diabetes mellitus 11/16/2024 Assessment & Plan (01/01/2025 1:43 PM CDT): Walk-in today with new pain OD immediately following injection. He has a central K abrasion today. No AC or vitreous cell or signs of endophthalmitis. Will have him start emycin amira QID and return as scheduled. He will call if pain or symptoms worsening. Return precautions discussed for endophthalmitis. Assessment & Plan (12/30/2024 3:35 PM CDT): Subhyaloid heme and neovascularization elsewhere (NVE) . Discussed R/B/A of anti-VEGF and patient wishes to proceed. Plan for future panretinal photocoagulation (PRP) discussed. HODA today Warning Sx endophthalmitis discussed Assessment & Plan (11/16/2024 3:44 PM ROUNDING MACHINE OPERATOR): Moderate non-proliferative diabetic retinopathy (NPDR) without CSME right eye (OD) > left eye (OS). Educated on findings, symptoms and need for evaluation with retina to consider fluorescein angiography (FA). Stressed close blood sugar control and monitoring. Schedule w retina for eval Recurrent major depressive episodes, moderate Chronic right shoulder pain 09/25/2024 Assessment & Plan (09/25/2024 1:24 PM ROUNDING MACHINE OPERATOR): Subacute on chronic following mechanical [...] encounter Assessment & Plan (09/25/2024 1:13 PM ROUNDING MACHINE OPERATOR): Gradual onset following mechanical fall (?jarring) Known cervical DDDx w/o evidence cspine involvement;NV intact affected limb- deferred cervical films Supportive mgmt-topical analgesics,heat,massage, trial muscle relaxer prn, formal PT Revisit warrant PMR eval, update cpine xray nxt OV 4wks Posterior pain of right hip 09/25/2024 Assessment & Plan (09/25/2024 1:31 PM ROUNDING MACHINE OPERATOR): Subacute following mechanical fall in sept Exam c/w msk fascial etiology (thoracolumbar strain) Baseline xray today r/o Fx +flexeril prn(SER),topical analgesics,heat/ice, stretching, activity modifications, PT interim xray PMR referral pending imaging though preferring nonsurg therapies Revisit in the month interim w/ results Intercostal muscle pain 06/23/2024 Assessment & Plan (09/25/2024 1:25 PM ROUNDING MACHINE OPERATOR): Progressed from prior OV following [...] has an optometry appt scheduled with the [place] --Home health RN to help with meds. He reports all medications feel the same and he is unable to distinguish between them to fill a pill box Assessment & Plan (06/25/2021 7:03 AM CDT): -Reports progressive vision impairment involving both eyes over multiple months, suspect component of diabetic retinopathy -he has an optometry appt scheduled with the [place] Assessment & Plan (06/24/2021 12:03 PM CDT): -Reports progressive vision impairment involving both eyes over multiple months, suspect component of diabetic retinopathy -he has an optometry appt scheduled with the [place] Assessment & Plan (06/24/2021 4:12 AM CDT): -Reports progressive vision impairment involving both eyes over multiple months, suspect component of diabetic retinopathy -States he has an optometry appt scheduled Diabetic peripheral neuropathy 06/24/2021 Assessment & Plan (04/13/2022 12:05 PM CDT): Increase in symptoms lately Suggested he consider increase gabapentin as needed. Assessment & Plan (08/15/2021 2:08 PM ROUNDING MACHINE OPERATOR): Adequate pain control. No obvious [...] requested a Anil physician Assessment & Plan (06/25/2021 7:04 AM CDT): -mentions of numbness and burning sensation on feet -feels like stepping on bubbles when he steps on the ground and starts to feel burning sensation soon after -will start on gabapentin and uptitrate based on response -follow-up with Podiatry as OP, patient requested a [place] physician Assessment & Plan (06/24/2021 12:09 PM [...] agreeable with this plan Severe protein-calorie malnutrition 01/06/2021 Assessment & Plan (01/13/2021 12:36 PM CDT): [...] home Assessment & Plan (09/23/2023 2:08 PM ROUNDING MACHINE OPERATOR): Ongoing MDD, anxiety suggestively complicating [...] antidperessants. Assessment & Plan (08/15/2021 2:17 PM ROUNDING MACHINE OPERATOR): No progressive complaints. Continue current [...] complaints. Assessment & Plan (08/15/2021 2:17 PM ROUNDING MACHINE OPERATOR): No obvious new chest pain, [...] angina Continue with current agents, aspirin. F/U laborer carpentry dock as scheduled Assessment & Plan (01/13/2021 1:13 PM CDT): No recurrent symptoms. Assessment & Plan (01/08/2021 1:40 PM CDT): -c/b VT/VF arrest s/p PCI to LAD in 2018 -Continue ASA, Plavix, metop and lisinopril -Follow up with Dr. Palomino as scheduled. Assessment & Plan (01/06/2021 3:21 PM CDT): -c/b VT/VF arrest s/p PCI to LAD in 2018 -Continue ASA, Plavix, -hold lisinopril d/t mild SERGE. Continue metoprolol XL 50. May need to dose reduce. -Follows with Dr. Palomino Assessment & Plan (01/05/2021 9:58 PM CDT): -c/b VT/VF arrest s/p PCI to LAD in 2019 -Continue ASA, Plavix, lisinopril 5, metop 50 XL -Follows with Dr. Palomino Uncontrolled type 2 diabetes mellitus with hyperglycemia ([facility]) 01/05/2021 Assessment & Plan (06/23/2024 3:17 PM [...] direction Reiterated importance of following up with welding machine operator gas for this Cnt dexcom cgm, insulin regimen [...] insulin. Assessment & Plan (08/15/2021 2:17 PM ROUNDING MACHINE OPERATOR): He shows me dexcom with [...] TID today -Endocrine follow up as op -environmental educator c/s, referral for HH upon discharge [...] the 150-170s -Endocrine follow up as op -environmental educator c/s, referral for HH upon discharge [...] 8 tid -Endocrine follow up as op -environmental educator c/s, referral for HH upon discharge [...] eaten a sandwhich prior) -Endocrine follow up -environmental educator c/s, referral for HH upon discharge [...] care. Reminded to get yearly retinal exam. environmental educator referral. Endocrinology clinic referral. Diabetes will [...] weekend. -Encouraged patient to f/u with his welding machine operator gas and he can be referred back to [...] see. -Encouraged patient to f/u with his welding machine operator gas. Assessment & Plan (01/05/2021 9:56 PM CDT): [...] neuropathy Assessment & Plan (09/25/2024 1:20 PM ROUNDING MACHINE OPERATOR): Complex diffuse pain syndrome lumbar [...] months Assessment & Plan (09/23/2023 1:57 PM ROUNDING MACHINE OPERATOR): Chronic, at baseline Banning refill UTD as of 08/13/22 Avoiding excess [...] therapy. Assessment & Plan (08/14/2022 11:10 AM ROUNDING MACHINE OPERATOR): Chronic, at baseline Banning refill UTD as of 08/13/22 Avoiding excess [...] therapy. Assessment & Plan (08/15/2021 2:20 PM ROUNDING MACHINE OPERATOR): Refilling pain meds now . [...] bdzp Assessment & Plan (10/05/2020 12:49 PM ROUNDING MACHINE OPERATOR): Continue current regimen The patient [...] weakness. Assessment & Plan (10/05/2020 12:50 PM ROUNDING MACHINE OPERATOR): Continue with current regimen . [...] therapy. Assessment & Plan (11/04/2018 12:58 PM ROUNDING MACHINE OPERATOR): Longstanding pain since trauma years ago . Has been stable on current pain med program. Idiopathic peripheral neuropathy 08/05/2018 Assessment & Plan (02/19/2024 12:07 PM CDT): Symptoms are tolerable. Encouraged he change gabapentin 3 at night. No new concerns. Assessment & Plan (09/23/2023 2:17 PM ROUNDING MACHINE OPERATOR): Severe, manageable Cnt norco, gabapentin [...] Likely due to poorly controlled DM -Continue Banning, Cymbalta Assessment & Plan (02/21/2019 4:54 PM CDT): Continue meds though encouraged restart of cymbalta. Assessment & Plan (01/30/2019 11:40 AM CDT): Continue with current regimen. . No obvious complications. Assessment & Plan (08/05/2018 4:14 PM ROUNDING MACHINE OPERATOR): Chronic pain in the bilateral [...] referred Assessment & Plan (09/23/2023 2:14 PM ROUNDING MACHINE OPERATOR): Ongoing No reported psychogenic causes [...] refilling) Assessment & Plan (08/15/2021 2:19 PM ROUNDING MACHINE OPERATOR): He states completely unable to reduce his temazepam. Have encouraged he minimize this He is aware of the danger related to these meds mercedes with the opiates. Assessment & Plan (11/04/2018 12:58 PM ROUNDING MACHINE OPERATOR): Stable on restoril. No obvious complications. Assessment & Plan (08/05/2018 4:21 PM ROUNDING MACHINE OPERATOR): restoril prn, He is unable to reduce this further . NO new complications. Assessment & Plan (05/05/2018 4:49 PM CDT): Continue meds . Has been stable for some time on this Assessment & Plan (04/01/2018 4:39 PM CDT): Stable on temazepam. No sign of abuse or overuse . Liver transplant recipient 01/30/2014 Overview (12/22/2016): Liver transplant Assessment & Plan (01/20/2025 10:20 AM CDT): S/p liver transplant- Mr. 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 His post transplant course complicated by T cell mediated rejection at (2 weeks, 3 months, 4 months post transplant). Current immunosuppression consists of Sirolimus 2 mg po daily. Cellcept 250 mg twice daily. Patient's last lab work from May 2024 shows normal allograft.Given history of mTOR use I will update Lipids, Protein/Creatinine Urine ratio. Fatigue- I will obtain updated CBC, TSH today. Encouraged follow up with PCP. Follow up in 1 year. Encouraged at least quarterly lab work. I will update lab work today. Assessment & Plan (02/19/2024 12:10 PM CDT): [...] visits Assessment & Plan (08/15/2021 2:20 PM ROUNDING MACHINE OPERATOR): Following with transplant team Assessment [...] . Assessment & Plan (10/05/2020 1:00 PM ROUNDING MACHINE OPERATOR): He needs to schedule with [...] gabapentin. Assessment & Plan (08/14/2022 11:14 AM ROUNDING MACHINE OPERATOR): Chronic, ongoing w/o S/I Notably [...] associat ed with type 2 diabetes mellitus 03/31/2021 08/15/2021 Assessment & Plan (03/31/2021 9:39 AM CDT): Continue with Cymbalta as prior prescribed. Banning refilled today in office as requested. DMII control to prevent progression discussed Podiatry consult placed Re-eval in 3 months Diabetic ketoacidosis withou t coma associated with type 2 diabetes mellitus 03/20/2021 03/31/2021 Abrasion 03/16/2021 08/15/2021 Assessment & [...] of uncontrolled diabetes. -B12 normal -Continue home Banning PRN, Cymbalta. PCP can start gabapentin once benzos are weaned to prevent further sedation. Assessment & Plan (01/06/2021 2:52 PM CDT): -likely 2/2 diabetic neuropathy with recent worsening in setting of uncontrolled diabetes. -B12 normal -Continue home Banning PRN, Cymbalta. Would not start gabapentin at this time as could worsen sedation/fatigue. Assessment & Plan (01/05/2021 10:02 PM CDT): -likely 2/2 diabetic neuropathy with recent worsening in setting of uncontrolled diabetes -Will check B12 level given chart hx of B12 deficiency -Continue home Banning PRN, Cymbalta. Would not start gabapentin at [...] 01/25/2021 Assessment & Plan (10/07/2019 7:01 AM ROUNDING MACHINE OPERATOR): No discrete mass though asymmetry [...] 01/13/2021 Assessment & Plan (07/29/2019 12:53 PM ROUNDING MACHINE OPERATOR): Continue with current regimen and [...] 1/2 Assessment & Plan (10/05/2020 12:58 PM ROUNDING MACHINE OPERATOR): No progression in symptoms though [...] 3:33 AM CDT): -continue Xanax Severe malnutrition 02/25/2019 01/22/20 24 Assessment & Plan (06/21/2023 2:13 PM CDT): Still no weight gain. He thinks he is eating more regularly Assessment & Plan (10/07/2019 7:01 AM ROUNDING MACHINE OPERATOR): Increasing the po intake as [...] palomino Assessment & Plan (10/05/2020 12:59 PM ROUNDING MACHINE OPERATOR): No complications though the chronic symptoms . Seeing his laborer carpentry dock soon Assessment & Plan (07/05/2020 4:42 PM CDT): Discrepancy of current cardiac testing . He will clarify with his cardiologists and doing well enough on meds no adjustment. Assessment & Plan (04/05/2020 1:00 PM CDT): No recurrent sx. No further chest pain . Palpitations or other complaints. Assessment & Plan (10/06/2019 2:19 PM ROUNDING MACHINE OPERATOR): Atypical chest pain . NO new complications. Continue current regimen . Continue follow up with laborer carpentry dock. Assessment & Plan (07/29/2019 12:53 PM ROUNDING MACHINE OPERATOR): No complications cardiac sx. Assessment [...] (01/22/2019): Added automatically from request for surgery [id number] Assessment & Plan (01/30/2019 11:32 AM CDT): [...] Pt has anginal pain Insulin long-term use 07/01/20182020 Fracture of left toe 07/01/2018 018 Diaphoresis 05/05/2018 01/13/2021 Assessment & Plan (05/05/2018 4:49 PM CDT): No obvious localizing signs of infection. Has had no documented fever. Could be related to meds Weight loss, non-intentional 05/05/2018 01/13/2021 Assessment & Plan (01/08/2021 11:17 AM CDT): Likely related to depression and uncontrolled diabetes. He previously had cancer w/u for this. PCP and [place] feel likely r/t depression as well. Weight [...] had cancer w/u for this. PCP and [place] feel likely r/t depression as well. Weight [...] pending Assessment & Plan (11/04/2018 1:02 PM ROUNDING MACHINE OPERATOR): He thinks maybe related to poor po intake. No overt symptoms to suggest serious etiology though marked wt loss. Assessment & Plan (08/05/2018 4:14 PM ROUNDING MACHINE OPERATOR): Has now resolved. Eating better [...] apnea eval . Reactive depression 12/18/2016 01/14/20 21 Assessment & Plan (10/05/2020 12:59 PM ROUNDING MACHINE OPERATOR): Continue duloxetin. Assessment & Plan (07/05/2020 4:43 PM CDT): NO SI/HI though chronic low mood and the isolation of pandemic difficult Assessment & Plan (04/05/2020 12:55 PM CDT): Has been limited socially given pandemic. For now duloxetine Assessment & Plan (10/07/2019 7:01 AM ROUNDING MACHINE OPERATOR): Stable on current regimen Though still depressed. NO SI/HI . Assessment & Plan (07/29/2019 12:52 PM ROUNDING MACHINE OPERATOR): No progression. NO SI/HI. Continue [...] . Assessment & Plan (11/04/2018 1:06 PM ROUNDING MACHINE OPERATOR): He is having some marked increase in depression. Discussed this in great detail. Should work on cymbalta adherence. Assessment & Plan (08/05/2018 4:15 PM ROUNDING MACHINE OPERATOR): Stable on duloxetine. He would [...] delivery of dexcom supplies Hasn't seen his welding machine operator gas since he states he slept through the appointment and unable to schedule properly . Will check labs if severe may need to admit to get htisunder control Will attempt to connect with his dm PARALEGAL SUPERVISOR. Assessment & Plan (10/05/2020 12:58 PM ROUNDING MACHINE OPERATOR): Checking hba1c. He states his blood sugars are better though still remains quite elevated. Offered criminal research specialist though for now he prefers to work with his dexcom and adjust insulin better. Assessment & Plan (08/04/2020 8:54 AM ROUNDING MACHINE OPERATOR): Very poorly controlled. Working on [...] dexcom Assessment & Plan (10/06/2019 2:18 PM ROUNDING MACHINE OPERATOR): Continue with current regimen as per endocrine. No complications Assessment & Plan (07/29/2019 12:52 PM ROUNDING MACHINE OPERATOR): He will be seeing endocrine [...] diabetes meds from depression. Has appointment with welding machine operator gas at the end of the month to [...] difficult. Assessment & Plan (11/04/2018 1:00 PM ROUNDING MACHINE OPERATOR): Diabetes is working with welding machine operator gas. Will d/w them adjustment of meds Assessment & Plan (08/05/2018 4:21 PM ROUNDING MACHINE OPERATOR): Diabetes is being monitored by [...] marked elevation when he was down in [facility]. Hepatitis C virus infection 01/30/2014 01/20/2020 Overview (12/22/2016): Hepatitis C Alcoholic cirrhosis 01/13/2011 01/20/20 20 Assessment & Plan (11/04/2018 12:59 PM ROUNDING MACHINE OPERATOR): Continue with supportive . No use of etoh. Encounters Date Type Department Care Team Description 06/02/2025 2:00 PM CDT Office Visit [facility] Medicine Surgery [facility] Medical Office Building [address] [place] [address] Ernesto Garcia, DPTiffanie Leg length discrepancy (Primary Dx); Type 2 diabetes mellitus with diabetic neuropathy, with long-term current use of insulin (HCC); Tinea unguium; Enlarged and hypertrophic nails; Balance problem; Dry skin 05/28/2025 Documentation [facility] [address] [address] Mailstop [phone] [place] [address] Kaylee Gutierrez RN Appointment/Schedules 05/26/2025 3:40 PM CDT Office Visit [facility] Endocrinology Metabolism and Lipid [address] [facility] Medicine [address] [place] [address] [place] [address] Marshall Sherman MD PhD Uncontrolled type 2 diabetes mellitus with hyperglycemia (HCC) (Primary Dx) 05/26/2025 Telephone [facility] Medicine Ophthalmology [address] [place] [address] Iza Benjamin MD PhD Post injection symptoms 05/25/2025 1:00 PM CDT [facility] [address] 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 associated with type 2 diabetes mellitus (HCC) 04/29/2025 Telephone [facility] Medicine Ophthalmology [address] [place] [address] Iza Benjamin MD PhD No Show; 1st est NOS letter sent 04/20/2025 Telephone [facility] Endocrinology Metabolism and Lipid [address] [facility] 13th [place] [address] [place] [address] Marshall Sherman MD PhD appt cx from Last 3 Months Immunizations Immunization Administration Dates Next Due Influenza, Quadrivalent, Spl [...] Type 2 diabetes mellitus wit h hyperglycemia (HCC) Type 2 diabetes mellitus wit h hyperglycemia - (Added by TW Conv) Type 2 diabetes mellitus wit hout complications Type 2 diabetes mellitus - ( Added by TW Conv) Heart attack (HCC) HCV infection treated 4 years ago CHF (congestive heart failure) (HCC) Hypertension Hyperlipidemia Depression Anxiety Arthritis Cataract [...] oz pur e alcohol) Social Connection and Isolation Panel Answer Date Recorded In a typical week, how many times do you talk on the phone with family, friends, or neighbors? More than three times a week 03/23/2021 How often do you get togethe r with friends or relatives? More than three times a week 03/23/2021 How often do you attend chur ch or mosque services? Never 03/23/2021 Do you belong to any clubs o r organizations such as caodaism groups, unions, fraternal or athletic groups, or school groups? No 03/23/2021 How often do you attend meet ings of the clubs or organizations you belong to? Never 03/23/2021 Are you , , di vorced, , never , or living with a partner? Patient declined 03/23/2021 Overall Financial Resource Strain (CARDIA) Answe r [...] place to sleep or slept in a residential (including now)? No 03/23/2021 AUDIT-C Answer Date Recorded Frequency of Alcohol Consumption Not on file 06/02/2025 Q2: How many drinks containi ng alcohol do you have on a typical day when you are drinking? Patient does not drink Frequency of Binge Drinking Not on file 05/17 Personal Safety Answer Date Recorded Have you ever been in or are you currently in a harmful physical or emotional relationship or is someone making you feel afraid or unsafe? 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 Gender Identity Not on file Sexual Orientation Not on file Obstetrics History Last Filed Vital Signs Vital Sign Reading Time Taken Comments Blood Pressure 142/81 05/26/2025 2:59 PM CDT Pulse 74 05/26/2025 2:59 PM CDT Temperature 36.8 C (98.3 F) 05/26/2025 2:59 PM CDT Respiratory Rate 18 07/14/2024 2:18 PM CDT Oxygen Saturation 100% 12/09/2024 1:09 PM CDT Inhaled Oxygen Concentration - - Weight 68.8 kg (151 lb 9.6 oz) 05/26/2025 2:59 P M CDT Height 185.4 cm (6' 1) 05/26/2025 2:59 PM CDT Body Mass Index 20 05/26/2025 2:59 PM CDT Plan of Treatment Health Maintenance Due Date Last Done Comments Pneumococcal vaccine <65 (1 of 2 - PCV) 1979 Albumin Creatinine Ratio, Urine 07/07/2019 8 Foot Exam 08/14/2023 08/14/2022, 03/17, 04/13/2022, Additional history exists Depression Screening 12/13/2023 12/12/2022, 12/12/2022, 06/12/2021, Additional history exists Lipid Panel 01/12/2025 01/13/2024, 10/18, 12/12/2022, Additional history exists Regular Well Visit/Exam 18-64 01/12/2025, 12/12/2022, 01/05/2021 Covid-19 Vaccine ( - 2024-2 6 season) 2025 05/03/2021, 12/23/2020, 11/18/2020 Influenza Vaccine (#1) 2025 , 06/21/2023, 06/23/2021, Additional history exists Hemoglobin A1C 11/23/2025 05/26/2025, 06/0 12/2024, 10/14/2024, Additional history exists Prostate Cancer Screening-PSA 01/12/2026, 01/02/2023, 12/12/2022, Additional history exists eGFR 01/20/2026 01/20/2025, 05/18, 06/12/2024, Additional history exists Dilated Eye Exam 05/18/2026 05/18/2025, , 12/30/2024, Additional history exists Colon Cancer Screening-Colonoscopy 02/14/2027 02/14/2017 DTaP/Tdap/Td Vaccine (2 - Td or Tdap) 10/06/2029 10/06/2019 Colon Cancer Screening-CT Colonography Discontinued 02/14/2017 Colon Cancer Screening-DNA Stool Discontinued 02/15/20 Colon Cancer Screening-FIT Discontinued 02/14/2017 Colon Cancer Screening-Sigmoidoscopy Discontinued 02/14/2017 Hepatitis B Screening Completed 02/25/2019 Hepatitis C Screening Completed 01/20/2020 , 02/25/2019, 11/12/2017, Additional history exists Zoster Vaccine Completed 06/04/2022, 04/16/2022 Procedures Procedure Name Priority Date/Time Associated Diagnosis Comments POCT HEMOGLOBIN A1C Routine 05/26/2025 3 :10 PM CDT Uncontrolled type 2 diabetes mellitus with hyperglycemia (HCC) POCT GLUCOSE Routine 05/26/2025 3:08 PM CDT Uncontrolled type 2 diabetes mellitus with hyperglycemia (HCC) INTRAVITREAL INJECTION, PHARMACOLOGIC AGENT - OS - LEFT EYE Routine 05/25/2025 1:41 PM CDT 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 associated with type 2 diabetes mellitus (HCC) INTRAVITREAL INJECTION, PHARMACOLOGIC AGENT - OD - RIGHT EYE Routine 05/18/2025 11:28 AM CDT 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 associated with diabetes mellitus of other type OCT, RETINA - OU - BOTH EYES Routine 05/18/2025 9:55 AM CDT 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 associated with type 2 diabetes mellitus (HCC) 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 associated with diabetes mellitus of other type EGFR Routine 01/20/2025 9:10 AM CDT Uncontrolled type 2 diabetes mellitus with hyperglycemia (HCC) LIPID PANEL Routine 01/13/2024 12:09 PM CDT [...] complication, without long-term current use of insulin (HCC) Other proteinuria COLONOSCOPY REPORT 02/14/2017 from Last 3 Months or Most Recently Relevant to Health Maintenance Results * (ABNORMAL) POCT hemoglobin A1c (05/26/2025 3:10 PM CDT) Hemoglobin A1C, POC 10.6(A) 4.0 - 5.6 % Blood 05/26/2025 3:10 PM CDT Marshall Sherman MD PhD POINT OF CARE TEST ORDER LAURIE Final Result * POCT glucose (05/26/2025 3:08 PM CDT) Glucose Blood, POC 444 Normal Fasting 70 - 100, Random <200 mg/dL Comment:unreadable Blood 05/26/2025 3:08 PM CDT Marshall Sherman MD PhD POINT OF CARE TEST ORDER LAURIE Final Result * Intravitreal Injection, Pharmacologic Agent - OS - Left Eye (05/25/2025 1:41 PM CDT) Anatomical Region Laterality Modality Head Other Narrative 05/25/2025 1:41 PM CDT Time Out Informed consent was obtained after all risks, benefits and alternatives were explained to the patient. The patient understood, agreed and wished to proceed. Timeout was completed verifying the patient, procedure, laterality and allergies. Anesthesia Subconjunctival anesthesia was used, Topical anesthesia was used. Anesthetic medications included Lidocaine 2%, Proparacaine 0.5%. The anesthesia lot number is [id number]. The expiration date is 07/16/26. The manufacture of the medication is [email or web address]. Intravitreal Injection, Pharmacologic Agent Preparation included 5% betadine to ocular surface, 10% betadine to eyelids. A 30 gauge needle was used. Pharmaceutical Medication: 1.25 mg bevacizumab syringe 2.25 mg/0.09 mL Route: intravitreal, Site: Left Eye [facility]: 04927-597-98, Lot: [id number], Expiration date: 09/18/2025 Medication Billing The medication administered today will be billed to the patient or insurance. The medication administered today was not a sample. The patient will not be utlizing the patient assistance program. Post-op Post injection exam found visual acuity is at least hand motion. the patient tolerated the procedure. there were no complications during today's treatment. The patient received written and verbal post procedure care education. The attending physician was present for the entire procedure. Notes Pt signed consent HODA OS 05/25/25 Iza Benjamin MD PhD OPHTH CLINIC PROCEDU RES Final Result * Intravitreal Injection, Pharmacologic Agent - OD - Right Eye (05/18/2025 11:28 AM CDT) Anatomical Region Laterality Modality Head Other Narrative 05/18/2025 11:28 AM CDT Time Out Informed consent was obtained after all risks, benefits and alternatives were explained to the patient. The patient understood, agreed and wished to proceed. Timeout was completed verifying the patient, procedure, laterality and allergies. Anesthesia Subconjunctival anesthesia was used, Topical anesthesia was used. Anesthetic medications included Lidocaine 2%, Proparacaine 0.5%. The anesthesia lot number is [id number]. The expiration date is 07/16/26. The manufacture of the medication is [employer]. Intravitreal Injection, Pharmacologic Agent Preparation included 5% betadine to ocular surface, 10% betadine to eyelids. A 30 gauge needle was used. Pharmaceutical Medication: 1.25 mg bevacizumab syringe 2.25 mg/0.09 mL Route: intravitreal, Site: Right Eye [facility]: 06275-604-24, Lot: [id number], Expiration date: 08/08/2025 Medication Billing The medication administered today will be billed to the patient or insurance. The medication administered today was not a sample. The patient will not be utlizing the patient assistance program. Post-op Post injection exam found visual acuity is at least hand motion. the patient tolerated the procedure. there were no complications during today's treatment. The patient received written and verbal post procedure care education. The attending physician was present for the entire procedure. Notes Pt signed consent HODA OD 05/18/25 Iza Benjamin MD PhD OPHTH CLINIC PROCEDU RES Final Result * OCT, Retina - OU - Both Eyes (05/18/2025 9:55 AM CDT) Anatomical Region Laterality Modality Head Optical Coherenc e Tomography Narrative 05/18/2025 9:55 AM CDT Right eye (OD): mild central cyst since prior , improved mild temporal cystoid macular edema (CME) Left eye (OS): rare non central cysts Iza Benjamin MD PhD OPHTH TOMOGRAPHY Fin al Result * eGFR (01/20/2025 9:10 AM CDT) eGFR 77 >=60 mL/min/1. 73 m2 Comment: Interpretive Data [...] interpretive data was last reviewed 2021. Blood 01/20/2025 9:10 AM CDT 01/20/2025 9:45 AM CDT Marshall Sherman MD PhD LAB BLOOD ORDERABLES Fin al Result Performing Organization Address [facility] Co de Phone Number [facility] Department [place] [employer] [place] [address] * PSA screen (01/13/2024 12:09 PM CDT) [...] CDT 01/13/2024 1:52 PM CDT Collette Myles PARALEGAL SUPERVISOR LAB BLOOD ORDERABLES Final R esult Performing Organization Address [facility] Co de Phone Number [facility] [place] [employer] [place] [address] * Lipid panel (01/13/2024 12:09 PM CDT) [facility] Signature Cholesterol 98 30 - 199 mg/dL Comment: [...] revised on 2018. Triglycerides 72 <=149 mg/dL [facility] Comment: Interpretive Data Ages < or = [...] revised on 2018. HDL 49 >=40 mg/dL [facility] Comment: Interpretive Data Ages < or = [...] on 2018. LDL, calculated 35 <=129 mg/dL [facility] Comment: Interpretive Data Ages < or = [...] revised on 2018. Non-HDL Cholesterol 49 mg/dL [facility] Comment: Interpretive Data Ages < or [...] last revised on 2018. Chol/HDL ratio 2 [facility] Blood 01/13/2024 12:0 9 PM CDT 01/13/2024 1:52 PM CDT Collette Myles NP LAB BLOOD ORDERABLES Final R esult [facility] Department [place] [address] * (ABNORMAL) Hepatitis C antibody (02/25/2019 6:08 AM CDT) Hep C Ab Reactive( A) Nonreactive [facility] Comment: Interpretive Data Positive results should be confirmed by a molecular method. If positive, a second separately collected sample should be submitted for Hepatitis C Virus (HCV) RNA Detection and Quantitation by Real-Time Reverse Public Health Specialist-PCR (RT-PCR). Current interpretive data was last revised on 2016. Blood specimen (specimen) 02/25/2019 6:08 AM CDT 02/25/2019 6:53 AM CDT Narrative [facility] - 02/25/2019 1:47 PM CDT Reggie Woodall MD LAB MICROBIOLOGY - GENERAL ORDERABLES Edited Result - Final Performing Organization Address [facility] Co de Phone Number [facility] Department [place] [address] * (ABNORMAL) Microalbumin / creatinine ratio, urine, random (07/07/2018 10:54 AM CDT) Microalbumin, ur 2,835.2 mcg/mL [facility] Creatinine, ur 307.10 mg/dL [facility] Microalbumin/c reat ratio 923.2(H) 0.1 - 29.9 mcg/mg Cr [facility] Urine 07/07/2018 10:5 4 AM CDT 07/07/2018 11:16 AM CDT Narrative [facility] - 07/07/2018 12:29 PM CDT Lucero Segura NP LAB URINE ORDERABLES Final Resul t Performing Organization Address [facility] Co de Phone Number [facility] [place] [address] * COLONOSCOPY REPORT (02/14/2017) Anatomical Region Laterality Modality Other Narrative 02/14/2017 Ordered by an unspecified provider. Historical Provider GI PROCEDURE ORDERABLES F inal Result from Last 3 Months or Most Recently Relevant to Health Maintenance Insurance [facility] MEDICARE ADVANTAGE IDPA IDPA [facility] MEDICARE ADVANTAGE MEDICARE AET[employer] MEDICARE GOLD [facility] MEDICARE ADVANTAGE IDPA [facility] MEDICARE ADVANTAGE IDPA Advance Directives For more information, please contact: [phone] * Full Code (Latest Code Status on [...] 9:48 AM 05/27/2019 5:31 PM Care Teams Feeder/Folder Relationship Specialty Start Date End Date No, Physician PCP - General 05/24/25 Kaylee Gutierrez RN [address] [address] Roll Grinder Operator 10/14/18 Kimberly Camarillo, RN Registered Nurse Gastroenterology 01/27/19 Maco Palomino MD [address] [address] Cardiology 12/17/22 Angelina Richardson PA [address] [facility] ENDOCRINOLOGY, [address] [address] Physician Ldr Rn Physician Ldr Rn 04/24/24 Marshall Sherman MD PhD [address] ENDOCRINOLOGY [place], [place] [id number] Consulting Physician Endocrinology Diabetes & Metabolism 07/23/24
--- OUTSIDE RECORDS SUMMARY | 2025-06-27 14:43 | XMS_ITS | Encounter Summary ---
Author Organization [facility] Healthcare Address [address] [place] [address] Care Team Providers Care Cabinetmaker Maintenance Name Role Phone Theo Stringer MD Primary Care Provider [phone] Kaylee Gutierrez RN Unavailable [phone] Kimberly Camarillo RN Unavailable Unavailab Maco Higuera MD Unavailable Angelina Richardson Unavailable [phone] Marshall Sherman MD PhD Unavailable [phone] Serge Zuniga DO Primary Care Provider Alma Soliz MD Primary Care Provider + No, Physician Primary Care Provider [phone] Encounter Details Date Type Department Care Team (Late st Contact Info) Description 10/24/2023 Diagnostic [facility] Transplant Liver [address] [facility] [address] [place] [address] Kaylee Gutierrez RN [address] [facility] [address] [place] [address] Social History Tobacco Use Types Packs/Day Years [...] often do you attend chur ch or roman catholic services? 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 Gender Identity Not on file Sexual Orientation [...] documented as of this encounter Care Teams Cabinetmaker Maintenance Relationship Specialty Start Date End Date Theo Stringer MD PCP - General 01/15/11 11/13/24 Serge Zuniga DO [address] [place] [address] PCP - General Family Medicine 12/09/24 05/09/25 Alma Soliz MD [facility] [facility] [address] [place] [facility] [address] [place] [address] PCP - General Internal Medicine 05/18/25 05/23/25 No, Physician PCP - General 05/24/25 Kaylee Gutierrez RN [address] [facility] [address] [place] [address] Roustabout Crew Pusher 10/14/18 Kimberly Camarillo, RN Registered Nurse Gastroenterology 01/27/19 Maco Palomino MD [address] [address] Cardiology 12/17/22 Angelina Richardson PA [address] [facility] ENDOCRINOLOGY, [address] [address] Physician Food Mobile Driver Physician Food Mobile Driver 04/24/24 Marshall Sherman MD PhD [address] [facility] [address] [place] [address] Consulting Physician Endocrinology Diabetes & Metabolism 07/23/24 documented as of this encounter
--- OUTSIDE RECORDS SUMMARY | 2025-06-27 14:43 | XMS_ITS | Encounter Summary ---
Author Organization [facility] Address [address] [place] [address] Care Team Providers Care Tray Filler Name Role Phone Theo Stringer MD Primary Care Provider [phone] Theo Stringer MD Unavailable [phone] Isaac Callahan MD Unavailable [phone] Encounter Details Date Type Department Care Team (Late st Contact Info) Description 05/27/2019 Telephone [facility] General Internal Medicine [address] [facility] [address] [place] [address] Theo Stringer MD [address] [facility] [address] [place] [address] Social History Tobacco Use Types [...] Entry Date Author No 02/17/2019 4:10 PM Archana Eden RN documented in this encounter Plan of Treatment Not on file documented as of this encounter Visit Diagnoses Not on filedocumented in this encounter Care Teams Tray Filler Relationship Specialty Start Date End Date Theo Stringer MD [address] [place], [place] [address]GEMINI KO [address] [place] [phone] PCP - General Internal Medicine 02/14/19 Theo Stringer MD [address] [place] [address] [address]U KO [address] [place] [phone] Internal Medicine 02/14/19 Isaac Callahan MD [address] [place] [address] [address] [place] [id number] Endocrinology 03/25/13 documented as of this encounter
--- OUTSIDE RECORDS SUMMARY | 2025-06-27 14:43 | XMS_ITS | Clinical Summary ---
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
--- OUTSIDE RECORDS SUMMARY | 2025-06-27 14:43 | XMS_ITS ---
Author Organization [facility] Address [address] [place] [address] Care Team Providers Care Casting Cleaner Name Role Phone Kaylee Gutierrez RN Unavailable [phone] Kimberly Camarillo RN Unavailable Unavailab Maco Higuera MD Unavailable [phone] Angelina Richardson Unavailable [phone] Marshall Sherman MD PhD Unavailable No, Physician Primary Care Provider [phone] Transplant Episode Liver Recipient [facility] ([place], [place]) - [facility] Organ Received: Liver Transplanted on 12/27/2004 Marked as Active Follow-up on 12/27/2004 Liver CoordinatorKaylee Gutierrez RN Fax: N/A Email: N/A [place] Organ Diagnosis Organ Primary Contributory Liver Cirrhosis: [...] Fax Email Kaylee Gutierrez RN Liver Coordinator [phone] N/A N/A Jodi Johns RN Secondary Coordinator N/A N/A N/A Kaylee Gutierrez RN Administrative Services Specialist [phone] N/A N/A Elsa Duenas Edging Machine Operator [phone] N/A N/A Events Post-Transplant Pre-Transplant Admitted: 12/27/2004 Referred: 03/08/2003 Transplanted: 12/27/2004 Evaluation began: 3 Discharged: 01/02/2005 Center waitlisted: 3
--- OUTSIDE RECORDS SUMMARY | 2025-06-27 14:43 | XMS_ITS | Clinical Summary ---
Author Organization [facility] [employer] Address [address] [place] [address] Care Team Providers Care Chief Of Party Name Role Phone Theo Stringer MD Primary Care Provider [phone] Theo Stringer MD Unavailable [phone] Isaac Callahan MD Unavailable [phone] Source Comments [facility],non-owned Affiliates and Associated Physician Practices is amultiple site organization consisting of ambulatory clinics and hospital sitesin [place], [place], [place]. This disclosure is being madepursuant to the Care Everywhere program and may not contain all information available regarding this patient. Last updated 18.[facility] [employer] Allergies Active Allergy Reactions Criticality Noted Date Comments Acetaminophen 03/25/2013 rash Oxycodone 03/25/2013 Rash Oxycodone-Acetaminophen Itching 02/16/2019 Medications * Be aware that medications may not be up to date on this document. Alwaysverify current medications with the patient. sirolimus (RAPAMUNE) 1 MG tablet Take 1 Tab by mouth every 4 hours. After cyclosporine Active mycophenolate (CELLCEPT) 250 MG capsule Take 3 Caps by mouth 2 times daily. Active insulin aspart (NOVOLOG) vial Max daily dose 266 units in insulin pump 8 Vial 0 5 Active insulin lispro (HUMALOG KWIKPEN) pen Inject 8 Units subcutaneously 3 times daily before meals 1 Box 0 5 Active HYDROcodone-ac etaminophen (NORCO) 10-325 MG tablet Take 1 tablet by mouth every 6 hours as needed for Pain Active insulin glargine (LANTUS SOLOSTAR) pen Inject 10 Units subcutaneously at bedtime 1 Box 9 Active lisinopril (PRINIVIL;ZEST RIL) 5 MG tablet Take 1 tablet by mouth once daily 30 tablet 2 9 Active aspirin (ASPIRIN) 81 MG chew tablet 1 tablet by Enteral Tube route once daily 30 tablet 2 9 Active rosuvastatin (CRESTOR) 20 MG tablet Take 1 tablet by mouth once daily 30 tablet 2 9 Active ticagrelor (BRILINTA) 90 MG tablet 1 tablet by Enteral Tube route 2 times daily 30 tablet 2 9 Active metoprolol succinate XL 24hr (TOPROL XL) 100 MG tablet Take 1 tablet by mouth once daily 30 tablet 2 9 Active Active Problems Problem Noted Date Diagnosed [...] 9:43 PM CDT Height 185.4 cm (6' 1) 02/14/2019 9:43 PM CDT Body Mass Index [...] 50+ (1 of 2 - PCV) 1979 ZOSTER VACCINE (1 of 2) 1979 DIABETES RETINOPATHY SCREENING 03/25/2013 DIABETES-FOOT EXAM WITH MONOFILAMENT 03/25/2013 DIABETES-HGB A1C 08/17/2019 02/15/2019, , 01/26/2014 DIABETES-SERUM CREATININE 02/18/20202018, 02/16/2019, 02/15/2019, Additional history exists Respiratory Syncytial Virus (RSV) Vaccine Pt: or over 60 yrs (1 - Risk 60-74 years 1-dose series) 2020 DEPRESSION SCREENING 09/16/2024 DIABETES - URINE PROTEIN SCREENING 09/16/2024 INFLUENZA VACCINE (#1) 2025 HEPATITIS B VACCINE Aged Out No longe r eligible based on patient's age to complete this topic HIB VACCINE Aged Out No longer eligi ble based on patient's age to complete this topic HPV VACCINE Aged Out No longer eligi ble based on patient's age to complete this topic MENINGOCOCCAL (Group B) VACCINE SHARED DECISION-MAKING Aged Out No longer eligible based on patient's age to complete this topic MENINGOCOCCAL GROUPS A/C/Y/W VACCINE Aged Out No longer eligible based on patient's age to complete this topic Medical Devices Implanted Type Area Envelope Folding Machine Operator Device Identifier Shelf Expiration Date Model / Serial / Lot Sys Cor Stent 32mm 3mm Sng Monrl Implanted:Qty: 1 on 02/14/2019 by Clotilde Chao MD at [facility] Left: [employer] [place] [employer] 08/26/2020 [id number] / / Description:Mid LAD Sys Cor Stent 12mm 3mm Sng Monrl Implanted:Qty: 1 on 02/14/2019 by Clotilde Chao MD at [facility] Left: [employer] [place] [employer] 07/15/2020 [id number] / / Procedures Procedure Name Priority Date/Time Associated Diagnosis Comments BASIC METABOLIC PANEL (CALCIUM TOTAL) AM Draw 02/17/2019 5:55 AM CDT HEMOGLOBIN A1C Routine 02/15/2019 1:15 AM CDT from Last 3 Months or Most Recently Relevant to Health Maintenance Results * (ABNORMAL) BASIC METABOLIC PANEL (CALCIUM TOTAL) (02/17/2019 5:55 AM CDT) BUN 14 7 - 26 mg/dL 02/17/2019 6:53 AM [facility] Creatinine 0.8 0.6 - 1.2 mg/dL [...] 02/17/2019 5:55 AM CDT 02/17/2019 6:19 AM [facility] Clotilde Chao MD LAB - CHEMISTRY ORDERABLES Final Result [address] [phone] * (ABNORMAL) HEMOGLOBIN A1C (02/15/2019 1:15 AM [facility]) Hemoglobin A1c 13.0(H) 4.4 - 6.3 % 02/15/2019 11:47 AM [facility] Estimated Average Glucose 326 mg/dL 02/15/2019 11:47 AM [facility] Comment: HbA1c Interpretation: Treatment target values recommended by ADA and other clinical organizations should be used to evaluate metabolic control in patients. Treatment Target Values: Normal : < 5.7% Pre-diabetes: 5.7-6.4% Diabetes: Equal to or greater than 6.5% Reference: [place] [employer] Standards of Care in Diabetes -2014 In patients 70 years and older consider HbA1c target range of 7.0-7.5% Reference: Diabetes Mellitus in Older People: Position Statement on behalf of the International Association of Gerontology and Geriatrics (IAGG), the Diabetes Working Alliance Party for Older People (EDWPOP), and the International Task Force of Experts in Diabetes. Jaya Branch et al. J [place] [employer]. 2012 Test results diagnostic of diabetes should be repeated for confirmation. The Sebia Capillary 2 assay for the measurement of HbA1c is a National Glycohemoglobin Standardization Program (NGSP)certified method. Blood BLOOD SPECIMEN / Unknown Venipuncture / Unknown 02/15/2019 1:15 AM CDT 02/15/2019 1:25 AM CDT Natali Ko DO LAB - CHEMISTRY ORDERABLES Final Result [address] [phone] from Last 3 Months or Most Recently Relevant to Health Maintenance Insurance MEDICARE MEDICARE MEDICARE MEDICAID - OUT OF STATE Advance Directives * Full Code (Latest Code Status on File) Date Activated Date Inactivated Comments 02/14/2019 11:43 PM 02/17/2019 5:53 PM Care Teams Chief Of Party Relationship Specialty Start Date End Date [facility] [address] [place] [phone] PCP - General Internal Medicine 02/14/[address] [address] [place] [phone] Internal Medicine 02/14/19 Isaac Callahan MD [address], [address] [place] [id number] Endocrinology 03/25/13
--- NOTE | 2025-06-27 14:48 | ED.GENADULT ---
HPI - General Adult General Chief complaint: Unspecified <Flavio Tanner MD - Last Filed: 06/28/25 19:43> Stated complaint: elevated blood sugar +500 <Flavio Tanner MD - Last Filed: 06/28/25 19:43> Time Seen by Provider: 06/27/25 18:51 <Flavio Tanner MD - Last Filed: 06/28/25 19:43> Source: EMS <Flavio Tanner MD - Last Filed: 06/28/25 19:43> Mode of arrival: EMS <Flavio Tanner MD - Last Filed: 06/28/25 19:43> Limitations: altered mental status <Flavio Tanner MD - Last Filed: 06/28/25 19:43> History of Present Illness HPI narrative: Patient is a 64-year-old male with nausea and not feeling well this afternoon and called EMS for ER evaluation. He has known diabetes 1. Very nonspecific vague complaints that brought him to the emergency room. No chest pain or shortness of breath. EMS found his blood sugar to be over 500. <Flavio Tanner MD - Last Filed: 06/28/25 19:43> Onset (ago): hour(s) (Two) <Flavio Tanner MD - Last Filed: 06/28/25 19:43> Location: head (Altered mental status) <Flavio Tanner MD - Last Filed: 06/28/25 19:43> Radiation: non-radiation <Flavio Tanner MD - Last Filed: 06/28/25 19:43> Severity: moderate <Flavio Tanner MD - Last Filed: 06/28/25 19:43> Severity scale (1-10): 3 <Flavio Tanner MD - Last Filed: 06/28/25 19:43> Quality: other (No particular pain) <Flavio Tanner MD - Last Filed: 06/28/25 19:43> Pain Consistency: other (None) <Flavio Tanner MD - Last Filed: 06/28/25 19:43> Relieving factors: none <Flavio Tanner MD - Last Filed: 06/28/25 19:43> Exacerbating factors: none <Flavio Tanner MD - Last Filed: 06/28/25 19:43> Associated symptoms: confusion, malaise, nausea/vomiting and weakness (Generalized) <Flavio Tanner MD - Last Filed: 06/28/25 19:43> Treatments prior to arrival: none <Flavio Tanner MD - Last Filed: 06/28/25 19:43> Related Data Home medications: Home Medications ?Medication ?Instructions ?Recorded ?Confirmed ?Last Taken ?Type aspirin 81 mg chewable tablet 81 mg PO DAILY 03/18/20 06/18/25 Unknown History clopidogrel 75 mg tablet 75 mg PO DAILY 03/18/20 06/18/25 Unknown History insulin glargine 100 unit/mL (3 20 unit subcut HS 03/18/20 06/18/25 Unknown History mL) subcutaneous pen (Lantus Solostar U-100 Insulin) insulin glargine U-300 conc 300 1 unit subcut DIRECTED 03/18/20 06/18/25 Unknown History unit/mL (3 mL) subcutaneous pen (Toujeo Max U-300 SoloStar) insulin lispro 100 unit/mL 1 unit subcut DIRECTED 03/18/20 06/18/25 Unknown History subcutaneous pen lisinopril 5 mg tablet 5 mg PO DAILY 03/18/20 06/18/25 Unknown History mycophenolate mofetil 250 mg 250 mg PO BID 03/18/20 06/18/25 Unknown History capsule sirolimus 2 mg tablet 2 mg PO DAILY 12/04/22 06/18/25 Unknown History <Flavio Tanner MD - Last Filed: 06/28/25 19:43> Allergies/adverse reactions: Allergies Allergy/AdvReac Type Severity Reaction Status Date / Time oxycodone Allergy Mild Rash Verified 06/18/25 12:57 <Flavio Tanner MD - Last Filed: 06/28/25 19:43> Review of Systems Review of Systems: All systems reviewed & are unremarkable except as noted in HPI and below <Flavio Tanner MD - Last Filed: 06/28/25 19:43> Constitutional: Constitutional: Reports no additional constitutional complaints <Flavio Tanner MD - Last Filed: 06/28/25 19:43> Eyes: Eyes: Reports no additional eye complaints <Flavio Tanner MD - Last Filed: 06/28/25 19:43> ENT: Reports system reviewed and no additional complaints, except as documented <Flavio Tanner MD - Last Filed: 06/28/25 19:43> Cardiovascular: Cardiovascular: Reports no additional cardiovascular complaints <Flavio Tanner MD - Last Filed: 06/28/25 19:43> Respiratory: Respiratory: Reports no additional respiratory complaints <Flavio Tanner MD - Last Filed: 06/28/25 19:43> Gastrointestinal: Gastrointestinal: Reports no additional gastrointestinal complaints <Flavio Tanner MD - Last Filed: 06/28/25 19:43> Genitourinary: Genitourinary: Reports no additional male genitourinary complaints <Flavio Tanner MD - Last Filed: 06/28/25 19:43> Musculoskeletal: Musculoskeletal: Reports no additional musculoskeletal complaints <Flavio Tanner MD - Last Filed: 06/28/25 19:43> Integumentary/Breasts: Skin/Breast: Reports system reviewed and no additional complaints, except as docu <Flavio Tanner MD - Last Filed: 06/28/25 19:43> Neurologic: Reports system reviewed and no additional complaints, except as documented <Flavio Tanner MD - Last Filed: 06/28/25 19:43> Psychiatric: Psychiatric: Reports no additional psychiatric complaints <Flavio Tanner MD - Last Filed: 06/28/25 19:43> Endocrine: Endocrine: Reports no additional endocrine complaints <Flavio Tanner MD - Last Filed: 06/28/25 19:43> Hematologic/Lymphatic: Hematologic/Lymphatic: Reports no additional hematologic/lymphatic complaints <Flavio Tanner MD - Last Filed: 06/28/25 19:43> Allergic/Immunologic: Allergic/Immunologic: Reports no additional allergic/immunologic complaints <Flvaio Tanner MD - Last Filed: 06/28/25 19:43> PMFSH Past Medical History Medical History: Medical History Hyperlipidemia Renal colic on left side Drug abuse Alcoholism Diabetes Myocardial infarct Appendicitis <Flavio Tanner MD - Last Filed: 06/28/25 19:43> Surgical History Surgical History: Surgical History H/O heart artery stent Liver transplant recipient <Flavio Tanner MD - Last Filed: 06/28/25 19:43> Family History Family History: Family History Mother Diabetes mellitus Father Diabetes mellitus Sibling Diabetes mellitus <Flavio Tanner MD - Last Filed: 06/28/25 19:43> Social History Social History: Social History Smoking status: Never smoker Second hand tobacco smoke exposure: No Alcohol intake: former Substance use: unknown Substance use type: marijuana Lack of Transportation: No Lack of Food: Never True Current Housing: I Have Housing Concerned About Future Housing: No Difficulty Paying Gas/Electric Bills: No Difficulty Paying for Meds: No Currently Unemployed: No Education: High School Diploma/GED Difficulty w/ Childcare or Family Care: No Occupation/Education: unemployed Gender identity (if verbalized by the patient): Male Sexual Orientation (if Verbalized by the Patient): Straight or Heterosexual Spiritual care concerns: No <Flavio Tanner MD - Last Filed: 06/28/25 19:43> Exam Const: General: cooperative, healthy appearing, comfortable and confusion <Flavio Tanner MD - Last Filed: 06/28/25 19:43> HENMT: Head: normal to inspection, No palpable skull fracture present and normocephalic <Flavio Tanner MD - Last Filed: 06/28/25 19:43> Face and sinus: normal facial exam, sinuses nontender and face symmetric <Flavio Tanner MD - Last Filed: 06/28/25 19:43> Eyes: General: appearance normal, both eyes and all related structures <Flavio Tanner MD - Last Filed: 06/28/25 19:43> Visual Chawla: normal visual chawla by confrontation <Flavio Tanner MD - Last Filed: 06/28/25 19:43> Alignment and Position: alignment normal <Flavio Tanner MD - Last Filed: 06/28/25 19:43> Neck: Neck: normal visual inspection, full ROM and no lymphadenopathy <Flavio Tanner MD - Last Filed: 06/28/25 19:43> Chest: Chest palpation & inspection: normal inspection of the chest, normal palpation of entire chest wall and no localized rib tenderness <Flavio Tanner MD - Last Filed: 06/28/25 19:43> Resp: Effort & Inspection: normal respiratory effort, able to speak in complete sentences and not labored <Flavio Tanner MD - Last Filed: 06/28/25 19:43> Auscultation: clear to auscultation bilaterally <Flavio Tanner MD - Last Filed: 06/28/25 19:43> Cardio: Jugular venous distension: no JVD <Flavio Tanner MD - Last Filed: 06/28/25 19:43> Palpation: normal PMI <Flavio Tanner MD - Last Filed: 06/28/25 19:43> Rate: tachycardic <Flavio Tanner MD - Last Filed: 06/28/25 19:43> Rhythm: regular rhythm <Flavio Tanner MD - Last Filed: 06/28/25 19:43> Heart sounds: S1 normal heart sound present and S2 normal heart sound present <Flavio Tanner MD - Last Filed: 06/28/25 19:43> GI: Inspection: normal to inspection, no abdominal wall ecchymosis and no edema <Flavio Tanner MD - Last Filed: 06/28/25 19:43> Back/Spine/Pelvis: Back: no CVA tenderness, No CVA tenderness and No mass <Flavio Tanner MD - Last Filed: 06/28/25 19:43> Skin: General skin exam: normal color, no rashes or lesions noted and elasticity normal <Flavio Tanner MD - Last Filed: 06/28/25 19:43> Neuro: General: oriented to person, oriented to place, oriented to time, patient oriented x3, gait normal, tone normal and moves all extremities <Flavio Tanner MD - Last Filed: 06/28/25 19:43> Other: Fast exam negative, NIH score 0, GCS is 12 <Flavio Tanner MD - Last Filed: 06/28/25 19:43> Extrem: General: normal to inspection, full ROM and capillary refill normal <Flavio Tanner MD - Last Filed: 06/28/25 19:43> Psych: Appearance: grossly abnormal, poorly kempt and disheveled <Flavio Tanner MD - Last Filed: 06/28/25 19:43> Course Course Emergency Course: Assumed care from Dr. Silva at 1930. Emilio is a 64M with a PMH of DMII, cirrhosis s/p liver transplant, CAD, He reports that his sugars started in creasing yesterday while he was riding motorcycles from his son yesterday. It continued to rise until today when he was weak, confused, had aches and was nauseated. He came in with very elevated glucose. An insulin drip was started and his glucose came down to 160. When I spoke to him he was more clear headed but still had aches and was very fatigued. Tylenol was given for fever. as there was no site of infection at this time. I spoke with Dr. Ruben Collier about the case. He recommended CT abd to look for biliary obstruction and trend the liver enzymes and to notify them if there are significant changes at 2207. CT abd/pelvis: -Cholecystectomy and hepatojejunostomy. -Associated intrahepatic biliary ductal dilation, pneumobilia and biliary mucosal enhancement concerning for infection -dilated small bowel loops in the abdomen with areas of small bowel mural thickening and collapsed small bowel loops may reflect enteritis/ileus. Partial or developing bowl obstruction not excluded. -Rectal fecal impaction. Large stool burden throughout the colon. -No hydroneephrosis or renal calculus. Urinary bladder wall thickening, nonspecific. Correlate with urinalysis. -Cardiomegaly: Small right pleural effusion. Bibasilar atelectasis and/or infiltrates. 2310: Started on Zofran. Given and additional bag of fluids as he continues to have dry mucous membranes and no peripheral edema. Dr. Ruben Collier accepted but stated it will be a long wait time so [facility] was contacted. I spoke with Dr. Stone that accepted to the [facility] at [place] at 0020. Next I spoke with Dr. Hahn the MICU fellow that accepted the patient to the MICU for Dr. Whitten, but no beds are availible. 0110: Emilio was evaluated after the 5th liter of fluid. He still has has not made urine. No lower extremity edema. Mucous membranes still dry. Lungs continue to be clear to auscultation. Ordered anther liter and a CMP. 0130: Patient had large BM and passed urine. Repeat labs showed transaminitis improving. Bilirubin decreased as well. After BM and passing urine pulse dropped to the 80s. 0208: On reevaluation Emilio is doing well. He states his abdomen feels better. He is mentating at baseline. He has strong peripheral pulses and good capillary refill. mucous membranes are still dry. Breathing is still non-labored and no crackles. While pulse remained borderline the pulse lowered into the mid 80's. 0248: Map of 67, with good pulses, pulse down to 80 and good oxygenation. NS at 200. Pressures remained stable throught the night and he received a second dose of zosyn. His strenght and mentation improved. He also urinated and passed a large amount of stool through the night. <Serge Zuniga, DO - Last Filed: 06/29/25 09:36> Vital Signs Vital signs: Vital Signs Temperature 100.0 F H 06/27/25 14:30 Pulse Rate 112 H 06/27/25 14:30 Respiratory Rate 20 06/27/25 14:30 Blood Pressure 134/99 H 06/27/25 14:30 Pulse Oximetry 99 06/27/25 14:30 Oxygen Delivery Room Air 06/27/25 14:30 Temperature 98.1 F 06/28/25 08:00 Pulse Rate 104 H 06/28/25 19:40 Respiratory Rate 18 06/28/25 19:40 Blood Pressure 131/72 06/28/25 19:40 Pulse Oximetry 96 06/28/25 19:40 Oxygen Delivery Room Air 06/28/25 19:40 <Flavio Tanner MD - Last Filed: 06/28/25 19:43> Vital Signs Temperature 100.0 F H 06/27/25 14:30 Pulse Rate 112 H 06/27/25 14:30 Respiratory Rate 20 06/27/25 14:30 Blood Pressure 134/99 H 06/27/25 14:30 Pulse Oximetry 99 06/27/25 14:30 Oxygen Delivery Room Air 06/27/25 14:30 Temperature 98.1 F 06/28/25 08:00 Pulse Rate 104 H 06/28/25 19:40 Respiratory Rate 18 06/28/25 19:40 Blood Pressure 131/72 06/28/25 19:40 Pulse Oximetry 96 06/28/25 19:40 Oxygen Delivery Room Air 06/28/25 19:40 <Serge Zuniga DO - Last Filed: 06/29/25 09:36> Medical Decision Making MDM Narrative Medical decision making narrative: Patient is a 64-year-old male with altered mental status and nausea with malaise brought by EMS. We will have a complete workup at this time. Insulin. Patient will be transferred to higher level medical care and monitoring of diabetes. We attempted to transfer this patient to multiple outside hospitals that can care for his liver transplant and abnormal liver enzymes and cholangitis. So far multiple hospitals have declined (see nurse's notes) due to his hepatic needs which are only at [facility] locally. Finally, after a whole days Work trying to find hospital that would take a gentleman with liver transplant we found [facility] accepted the patient with hospitalist and Interventional Radiology if needed. Patient was given the information that we found hospital for him and he adamantly refused due to social issues with going that far from this town. Also his brother of that facility. I explained to the patient that there are no other facilities to take him and he is a one-week waiting. To get in to [facility]. Also, he cannot stay in the emergency room here for 1 week as he will need to be transferred to higher level medical care for monitoring and treatment. We cannot admit to this facility due to his complexities. Patient is AAO x4 and has decision-making capacity to go AMA at this time. Patient wishes to leave AMA. Risks and benefits were explained to the patient. Patient understood and verbalized understanding of morbidity and mortality. He understands that he has an infection that needs continued IV antibiotics. He understands that he needs to see a engineering test specialist and liver specialist. Both the nurse and myself spent roughly 25-30 minutes talking with the patient about staying and going to [facility]. Patient understands that he is a very complex case and no facilities will take him but [facility] as excepted at this time. Patient has denied and said he wants to go AMA and not go to [facility]. We tried to work on his fears with the hospital but it did not work out and he would like to leave AMA. We have discussed with family as well. He signed the AMA form. We are very sad to see the patient leave and we have told him that he should remain in the system and get medical care as planned over at [facility] this evening. <Flavio Tanner MD - Last Filed: 06/28/25 19:43> Vital Signs Vital Signs: Vital Signs Temperature 100.0 F H 06/27/25 14:30 Pulse Rate 112 H 06/27/25 14:30 Respiratory Rate 20 06/27/25 14:30 Blood Pressure 134/99 H 06/27/25 14:30 Pulse Oximetry 99 06/27/25 14:30 Oxygen Delivery Room Air 06/27/25 14:30 Temperature 98.1 F 06/28/25 08:00 Pulse Rate 104 H 06/28/25 19:40 Respiratory Rate 18 06/28/25 19:40 Blood Pressure 131/72 06/28/25 19:40 Pulse Oximetry 96 06/28/25 19:40 Oxygen Delivery Room Air 06/28/25 19:40 <Flavio Tanner MD - Last Filed: 06/28/25 19:43> Vital Signs Temperature 100.0 F H 06/27/25 14:30 Pulse Rate 112 H 06/27/25 14:30 Respiratory Rate 20 06/27/25 14:30 Blood Pressure 134/99 H 06/27/25 14:30 Pulse Oximetry 99 06/27/25 14:30 Oxygen Delivery Room Air 06/27/25 14:30 Temperature 98.1 F 06/28/25 08:00 Pulse Rate 104 H 06/28/25 19:40 Respiratory Rate 18 06/28/25 19:40 Blood Pressure 131/72 06/28/25 19:40 Pulse Oximetry 96 06/28/25 19:40 Oxygen Delivery Room Air 06/28/25 19:40 <Serge Zuniga DO - Last Filed: 06/29/25 09:36> Lab Data Lab results reviewed: Yes I reviewed the patient's lab results. <Flavio Tanner MD - Last Filed: 06/28/25 19:43> Result diagrams: 06/28/25 17:28 06/28/25 17:28 <Flavio Tanner MD - Last Filed: 06/28/25 19:43> Labs: Lab Results 06/27/25 06/27/25 06/27/25 Range/Units 14:46 15:26 15:28 WBC 5.3 (4.8-10.8) K/mm3 RBC 4.18 L (4.70-6.10) M/mm3 Hgb 12.3 L (14.0-18.0) g/dL Hct 37.9 L (40.0-54.0) % MCV 90.7 (78.0-102.0) fL MCH 29.4 (27.0-31.0) pg MCHC 32.5 (32-36) g/dL RDW 12.7 (11.6-14.4) % Plt Count 121 L (150-420) K/mm3 MPV 11.5 H (8.7-11.0) fl Immature Gran % (Auto) 0.6 H (0.0-0.0) % Neut % (Auto) 92.9 H (50.0-70.0) % Lymph % (Auto) 5.5 L (18.0-42.0) % Kimble % (Auto) 0.4 L (2.0-11.0) % Eos % (Auto) 0.2 L (1.0-6.0) % Baso % (Auto) 0.4 (0.0-1.0) % Lymph # (Auto) 0.29 L (1.10-4.50) K/mm3 Kimble # (Auto) 0.02 L (0.10-0.90) K/mm3 Eos # (Auto) 0.01 L (0.02-0.50) K/mm3 Baso # (Auto) 0.02 (0.00-0.10) K/mm3 Abs Immat Gran (auto) 0.03 H (0.00-0.00) K/mm3 Absolute Neuts (auto) 4.92 (1.70-7.20) K/mm3 Absolute Nucleated RBC 0.00 (0.00-0.00) K/mm3 Nucleated RBC % 0.0 (0-0.0) % % Immature Plt Fraction 4.2 (1.0-7.0) % Sodium (137-145) mmol/L Potassium (3.4-5.0) mmol/L Chloride (98-107) mmol/L Carbon Dioxide (22-30) mmol/L Anion Gap (4-12) mmol/L BUN (9-20) mg/dL Creatinine (0.7-1.3) mg/dL Estim Creat Clear Calc ml/min Estimated GFR (59 - ) Glucose (65-110) mg/dL POC Capillary Glucose > 450 H > 450 H (65-105) mg/dl Hemoglobin A1c 10.0 H (<5.7) % Calculated Osmolality (285-295) mOsm/kg Lactic Acid 3.3 H (0.4-2.0) mmol/L Calcium (8.4-10.2) mg/dL Total Bilirubin (0.2-1.3) mg/dL AST (17-59) U/L ALT (6-50) U/L Alkaline Phosphatase (38-126) U/L Ammonia (9-30) umol/L Troponin I (0.000-0.034) ng/mL Total Protein (6.3-8.2) g/dL Albumin (3.5-5.1) g/dL Urine Color (Yellow) Urine Appearance (Clear) Urine pH (5.0-8.0) Ur Specific [place] (1.010-1.020) Urine Protein (Negative) Urine Glucose (UA) (Negative) Urine Ketones (Negative) Ur Blood (Man) (Negative) Urine Nitrate (Negative) Urine Bilirubin (Negative) Urine Urobilinogen (0.2-1.0) mg/dL Leukocyte Esterase Rfl (Negative) NATALIE/UL Urine RBC (0-2) /hpf Urine WBC (0-3) /hpf Urine Bacteria (None) /hpf Urine Opiates Screen (Negative) Urine Methadone Screen (Negative) Ur Barbiturates Screen (Negative) Ur Phencyclidine Scrn (Negative) Ur Amphetamine Screen (Negative) U Benzodiazepines Scrn (Negative) Urine Cocaine Screen (Negative) U Cannabinoids Screen (Negative) Ethyl Alcohol < 10 (<10) mg/dL Acetone Level Negative (Negative) Influenza A (RT-PCR) Negative (Negative) Influenza B (RT-PCR) Negative (Negative) RSV (RT-PCR) Negative (Negative) SARS-CoV-2 RNA (RT-PCR) Negative (Negative) 06/27/25 06/27/25 06/27/25 Range/Units 15:29 15:32 16:05 WBC (4.8-10.8) K/mm3 RBC (4.70-6.10) M/mm3 Hgb (14.0-18.0) g/dL Hct (40.0-54.0) % MCV (78.0-102.0) fL MCH (27.0-31.0) pg MCHC (32-36) g/dL RDW (11.6-14.4) % Plt Count (150-420) K/mm3 MPV (8.7-11.0) fl Immature Gran % (Auto) (0.0-0.0) % Neut % (Auto) (50.0-70.0) % Lymph % (Auto) (18.0-42.0) % Kimble % (Auto) (2.0-11.0) % Eos % (Auto) (1.0-6.0) % Baso % (Auto) (0.0-1.0) % Lymph # (Auto) (1.10-4.50) K/mm3 Kimble # (Auto) (0.10-0.90) K/mm3 Eos # (Auto) (0.02-0.50) K/mm3 Baso # (Auto) (0.00-0.10) K/mm3 Abs Immat Gran (auto) (0.00-0.00) K/mm3 Absolute Neuts (auto) (1.70-7.20) K/mm3 Absolute Nucleated RBC (0.00-0.00) K/mm3 Nucleated RBC % (0-0.0) % % Immature Plt Fraction (1.0-7.0) % Sodium 135 L (137-145) mmol/L Potassium 4.5 (3.4-5.0) mmol/L Chloride 96 L (98-107) mmol/L Carbon Dioxide 28 (22-30) mmol/L Anion Gap 11 (4-12) mmol/L BUN 30 H (9-20) mg/dL Creatinine 1.23 (0.7-1.3) mg/dL Estim Creat Clear Calc 50 ml/min Estimated GFR 59 (59 - ) Glucose 511 H* (65-110) mg/dL POC Capillary Glucose 384 H (65-105) mg/dl Hemoglobin A1c (<5.7) % Calculated Osmolality 309 H (285-295) mOsm/kg Lactic Acid (0.4-2.0) mmol/L Calcium 8.5 (8.4-10.2) mg/dL Total Bilirubin 1.5 H (0.2-1.3) mg/dL AST 533 H (17-59) U/L ALT 178 H (6-50) U/L Alkaline Phosphatase 457 H (38-126) U/L Ammonia (9-30) umol/L Troponin I < 0.012 (0.000-0.034) ng/mL Total Protein 6.5 (6.3-8.2) g/dL Albumin 3.6 (3.5-5.1) g/dL Urine Color Yellow (Yellow) Urine Appearance Clear (Clear) Urine pH 6.0 (5.0-8.0) Ur Specific [place] 1.010 (1.010-1.020) Urine Protein 1+ H (Negative) Urine Glucose (UA) 3+ H (Negative) Urine Ketones Negative (Negative) Ur Blood (Man) Trace-lysed H (Negative) Urine Nitrate Negative (Negative) Urine Bilirubin Negative (Negative) Urine Urobilinogen 2.0 H (0.2-1.0) mg/dL Leukocyte Esterase Rfl Negative (Negative) NATALIE/UL Urine RBC None seen (0-2) /hpf Urine WBC None seen (0-3) /hpf Urine Bacteria Rare (None) /hpf Urine Opiates Screen Negative (Negative) Urine Methadone Screen Negative (Negative) Ur Barbiturates Screen Negative (Negative) Ur Phencyclidine Scrn Negative (Negative) Ur Amphetamine Screen Negative (Negative) U Benzodiazepines Scrn Positive A (Negative) Urine Cocaine Screen Negative (Negative) U Cannabinoids Screen Positive A (Negative) Ethyl Alcohol (<10) mg/dL Acetone Level (Negative) Influenza A (RT-PCR) (Negative) Influenza B (RT-PCR) (Negative) RSV (RT-PCR) (Negative) SARS-CoV-2 RNA (RT-PCR) (Negative) 06/27/25 06/27/25 06/27/25 Range/Units 16:44 17:16 17:31 WBC (4.8-10.8) K/mm3 RBC (4.70-6.10) M/mm3 Hgb (14.0-18.0) g/dL Hct (40.0-54.0) % MCV (78.0-102.0) fL MCH (27.0-31.0) pg MCHC (32-36) g/dL RDW (11.6-14.4) % Plt Count (150-420) K/mm3 MPV (8.7-11.0) fl Immature Gran % (Auto) (0.0-0.0) % Neut % (Auto) (50.0-70.0) % Lymph % (Auto) (18.0-42.0) % Kimble % (Auto) (2.0-11.0) % Eos % (Auto) (1.0-6.0) % Baso % (Auto) (0.0-1.0) % Lymph # (Auto) (1.10-4.50) K/mm3 Kimble # (Auto) (0.10-0.90) K/mm3 Eos # (Auto) (0.02-0.50) K/mm3 Baso # (Auto) (0.00-0.10) K/mm3 Abs Immat Gran (auto) (0.00-0.00) K/mm3 Absolute Neuts (auto) (1.70-7.20) K/mm3 Absolute Nucleated RBC (0.00-0.00) K/mm3 Nucleated RBC % (0-0.0) % % Immature Plt Fraction (1.0-7.0) % Sodium (137-145) mmol/L Potassium (3.4-5.0) mmol/L Chloride (98-107) mmol/L Carbon Dioxide (22-30) mmol/L Anion Gap (4-12) mmol/L BUN (9-20) mg/dL Creatinine (0.7-1.3) mg/dL Estim Creat Clear Calc ml/min Estimated GFR (59 - ) Glucose (65-110) mg/dL POC Capillary Glucose 279 H 293 H 241 H (65-105) mg/dl Hemoglobin A1c (<5.7) % Calculated Osmolality (285-295) mOsm/kg Lactic Acid (0.4-2.0) mmol/L Calcium (8.4-10.2) mg/dL Total Bilirubin (0.2-1.3) mg/dL AST (17-59) U/L ALT (6-50) U/L Alkaline Phosphatase (38-126) U/L Ammonia (9-30) umol/L Troponin I (0.000-0.034) ng/mL Total Protein (6.3-8.2) g/dL Albumin (3.5-5.1) g/dL Urine Color (Yellow) Urine Appearance (Clear) Urine pH (5.0-8.0) Ur Specific [place] (1.010-1.020) Urine Protein (Negative) Urine Glucose (UA) (Negative) Urine Ketones (Negative) Ur Blood (Man) (Negative) Urine Nitrate (Negative) Urine Bilirubin (Negative) Urine Urobilinogen (0.2-1.0) mg/dL Leukocyte Esterase Rfl (Negative) NATALIE/UL Urine RBC (0-2) /hpf Urine WBC (0-3) /hpf Urine Bacteria (None) /hpf Urine Opiates Screen (Negative) Urine Methadone Screen (Negative) Ur Barbiturates Screen (Negative) Ur Phencyclidine Scrn (Negative) Ur Amphetamine Screen (Negative) U Benzodiazepines Scrn (Negative) Urine Cocaine Screen (Negative) U Cannabinoids Screen (Negative) Ethyl Alcohol (<10) mg/dL Acetone Level (Negative) Influenza A (RT-PCR) (Negative) Influenza B (RT-PCR) (Negative) RSV (RT-PCR) (Negative) SARS-CoV-2 RNA (RT-PCR) (Negative) 06/27/25 06/27/2506/27/25 Range/Units 18:01 18:03 18:38 WBC (4.8-10.8) K/mm3 RBC (4.70-6.10) M/mm3 Hgb (14.0-18.0) g/dL Hct (40.0-54.0) % MCV (78.0-102.0) fL MCH (27.0-31.0) pg MCHC (32-36) g/dL RDW (11.6-14.4) % Plt Count (150-420) K/mm3 MPV (8.7-11.0) fl Immature Gran % (Auto) (0.0-0.0) % Neut % (Auto) (50.0-70.0) % Lymph % (Auto) (18.0-42.0) % Kimble % (Auto) (2.0-11.0) % Eos % (Auto) (1.0-6.0) % Baso % (Auto) (0.0-1.0) % Lymph # (Auto) (1.10-4.50) K/mm3 Kimble # (Auto) (0.10-0.90) K/mm3 Eos # (Auto) (0.02-0.50) K/mm3 Baso # (Auto) (0.00-0.10) K/mm3 Abs Immat Gran (auto) (0.00-0.00) K/mm3 Absolute Neuts (auto) (1.70-7.20) K/mm3 Absolute Nucleated RBC (0.00-0.00) K/mm3 Nucleated RBC % (0-0.0) % % Immature Plt Fraction (1.0-7.0) % Sodium (137-145) mmol/L Potassium (3.4-5.0) mmol/L Chloride (98-107) mmol/L Carbon Dioxide (22-30) mmol/L Anion Gap (4-12) mmol/L BUN (9-20) mg/dL Creatinine (0.7-1.3) mg/dL Estim Creat Clear Calc ml/min Estimated GFR (59 - ) Glucose (65-110) mg/dL POC Capillary Glucose 215 H 168 H (65-105) mg/dl Hemoglobin A1c (<5.7) % Calculated Osmolality (285-295) mOsm/kg Lactic Acid 3.0 H (0.4-2.0) mmol/L Calcium (8.4-10.2) mg/dL Total Bilirubin (0.2-1.3) mg/dL AST (17-59) U/L ALT (6-50) U/L Alkaline Phosphatase (38-126) U/L Ammonia (9-30) umol/L Troponin I (0.000-0.034) ng/mL Total Protein (6.3-8.2) g/dL Albumin (3.5-5.1) g/dL Urine Color (Yellow) Urine Appearance (Clear) Urine pH (5.0-8.0) Ur Specific [place] (1.010-1.020) Urine Protein (Negative) Urine Glucose (UA) (Negative) Urine Ketones (Negative) Ur Blood (Man) (Negative) Urine Nitrate (Negative) Urine Bilirubin (Negative) Urine Urobilinogen (0.2-1.0) mg/dL Leukocyte Esterase Rfl (Negative) NATALIE/UL Urine RBC (0-2) /hpf Urine WBC (0-3) /hpf Urine Bacteria (None) /hpf Urine Opiates Screen (Negative) Urine Methadone Screen (Negative) Ur Barbiturates Screen (Negative) Ur Phencyclidine Scrn (Negative) Ur Amphetamine Screen (Negative) U Benzodiazepines Scrn (Negative) Urine Cocaine Screen (Negative) U Cannabinoids Screen (Negative) Ethyl Alcohol (<10) mg/dL Acetone Level (Negative) Influenza A (RT-PCR) (Negative) Influenza B (RT-PCR) (Negative) RSV (RT-PCR) (Negative) SARS-CoV-2 RNA (RT-PCR) (Negative) 06/27/25 06/27/25 06/27/25 Range/Units 19:13 19:34 20:10 WBC (4.8-10.8) K/mm3 RBC (4.70-6.10) M/mm3 Hgb (14.0-18.0) g/dL Hct (40.0-54.0) % MCV (78.0-102.0) fL MCH (27.0-31.0) pg MCHC (32-36) g/dL RDW (11.6-14.4) % Plt Count (150-420) K/mm3 MPV (8.7-11.0) fl Immature Gran % (Auto) (0.0-0.0) % Neut % (Auto) (50.0-70.0) % Lymph % (Auto) (18.0-42.0) % Kimble % (Auto) (2.0-11.0) % Eos % (Auto) (1.0-6.0) % Baso % (Auto) (0.0-1.0) % Lymph # (Auto) (1.10-4.50) K/mm3 Kimble # (Auto) (0.10-0.90) K/mm3 Eos # (Auto) (0.02-0.50) K/mm3 Baso # (Auto) (0.00-0.10) K/mm3 Abs Immat Gran (auto) (0.00-0.00) K/mm3 Absolute Neuts (auto) (1.70-7.20) K/mm3 Absolute Nucleated RBC (0.00-0.00) K/mm3 Nucleated RBC % (0-0.0) % % Immature Plt Fraction (1.0-7.0) % Sodium 140 (137-145) mmol/L Potassium 3.7 (3.4-5.0) mmol/L Chloride 101 (98-107) mmol/L Carbon Dioxide 29 (22-30) mmol/L Anion Gap 10 (4-12) mmol/L BUN 35 H (9-20) mg/dL Creatinine 1.42 H (0.7-1.3) mg/dL Estim Creat Clear Calc 43 ml/min Estimated GFR 50 L (59 - ) Glucose 178 H (65-110) mg/dL POC Capillary Glucose 192 H 191 H (65-105) mg/dl Hemoglobin A1c (<5.7) % Calculated Osmolality 302 H (285-295) mOsm/kg Lactic Acid (0.4-2.0) mmol/L Calcium 8.4 (8.4-10.2) mg/dL Total Bilirubin 1.4 H (0.2-1.3) mg/dL AST 468 H (17-59) U/L ALT 202 H (6-50) U/L Alkaline Phosphatase 392 H (38-126) U/L Ammonia (9-30) umol/L Troponin I (0.000-0.034) ng/mL Total Protein 5.9 L (6.3-8.2) g/dL Albumin 3.3 L (3.5-5.1) g/dL Urine Color (Yellow) Urine Appearance (Clear) Urine pH (5.0-8.0) Ur Specific [place] (1.010-1.020) Urine Protein (Negative) Urine Glucose (UA) (Negative) Urine Ketones (Negative) Ur Blood (Man) (Negative) Urine Nitrate (Negative) Urine Bilirubin (Negative) Urine Urobilinogen (0.2-1.0) mg/dL Leukocyte Esterase Rfl (Negative) NATALIE/UL Urine RBC (0-2) /hpf Urine WBC (0-3) /hpf Urine Bacteria (None) /hpf Urine Opiates Screen (Negative) Urine Methadone Screen (Negative) Ur Barbiturates Screen (Negative) Ur Phencyclidine Scrn (Negative) Ur Amphetamine Screen (Negative) U Benzodiazepines Scrn (Negative) Urine Cocaine Screen (Negative) U Cannabinoids Screen (Negative) Ethyl Alcohol (<10) mg/dL Acetone Level (Negative) Influenza A (RT-PCR) (Negative) Influenza B (RT-PCR) (Negative) RSV (RT-PCR) (Negative) SARS-CoV-2 RNA (RT-PCR) (Negative) 06/27/25 06/27/25 06/28/25 Range/Units 21:22 22:45 00:02 WBC (4.8-10.8) K/mm3 RBC (4.70-6.10) M/mm3 Hgb (14.0-18.0) g/dL Hct (40.0-54.0) % MCV (78.0-102.0) fL MCH (27.0-31.0) pg MCHC (32-36) g/dL RDW (11.6-14.4) % Plt Count (150-420) K/mm3 MPV (8.7-11.0) fl Immature Gran % (Auto) (0.0-0.0) % Neut % (Auto) (50.0-70.0) % Lymph % (Auto) (18.0-42.0) % Kimble % (Auto) (2.0-11.0) % Eos % (Auto) (1.0-6.0) % Baso % (Auto) (0.0-1.0) % Lymph # (Auto) (1.10-4.50) K/mm3 Kimble # (Auto) (0.10-0.90) K/mm3 Eos # (Auto) (0.02-0.50) K/mm3 Baso # (Auto) (0.00-0.10) K/mm3 Abs Immat Gran (auto) (0.00-0.00) K/mm3 Absolute Neuts (auto) (1.70-7.20) K/mm3 Absolute Nucleated RBC (0.00-0.00) K/mm3 Nucleated RBC % (0-0.0) % % Immature Plt Fraction (1.0-7.0) % Sodium (137-145) mmol/L Potassium (3.4-5.0) mmol/L Chloride (98-107) mmol/L Carbon Dioxide (22-30) mmol/L Anion Gap (4-12) mmol/L BUN (9-20) mg/dL Creatinine (0.7-1.3) mg/dL Estim Creat Clear Calc ml/min Estimated GFR (59 - ) Glucose (65-110) mg/dL POC Capillary Glucose 209 H 236 H 230 H (65-105) mg/dl Hemoglobin A1c (<5.7) % Calculated Osmolality (285-295) mOsm/kg Lactic Acid (0.4-2.0) mmol/L Calcium (8.4-10.2) mg/dL Total Bilirubin (0.2-1.3) mg/dL AST (17-59) U/L ALT (6-50) U/L Alkaline Phosphatase (38-126) U/L Ammonia (9-30) umol/L Troponin I (0.000-0.034) ng/mL Total Protein (6.3-8.2) g/dL Albumin (3.5-5.1) g/dL Urine Color (Yellow) Urine Appearance (Clear) Urine pH (5.0-8.0) Ur Specific [place] (1.010-1.020) Urine Protein (Negative) Urine Glucose (UA) (Negative) Urine Ketones (Negative) Ur Blood (Man) (Negative) Urine Nitrate (Negative) Urine Bilirubin (Negative) Urine Urobilinogen (0.2-1.0) mg/dL Leukocyte Esterase Rfl (Negative) NATALIE/UL Urine RBC (0-2) /hpf Urine WBC (0-3) /hpf Urine Bacteria (None) /hpf Urine Opiates Screen (Negative) Urine Methadone Screen (Negative) Ur Barbiturates Screen (Negative) Ur Phencyclidine Scrn (Negative) Ur Amphetamine Screen (Negative) U Benzodiazepines Scrn (Negative) Urine Cocaine Screen (Negative) U Cannabinoids Screen (Negative) Ethyl Alcohol (<10) mg/dL Acetone Level (Negative) Influenza A (RT-PCR) (Negative) Influenza B (RT-PCR) (Negative) RSV (RT-PCR) (Negative) SARS-CoV-2 RNA (RT-PCR) (Negative) 06/28/25 06/28/25 06/28/25 Range/Units 00:47 00:51 02:26 WBC (4.8-10.8) K/mm3 RBC (4.70-6.10) M/mm3 Hgb (14.0-18.0) g/dL Hct (40.0-54.0) % MCV (78.0-102.0) fL MCH (27.0-31.0) pg MCHC (32-36) g/dL RDW (11.6-14.4) % Plt Count (150-420) K/mm3 MPV (8.7-11.0) fl Immature Gran % (Auto) (0.0-0.0) % Neut % (Auto) (50.0-70.0) % Lymph % (Auto) (18.0-42.0) % Kimble % (Auto) (2.0-11.0) % Eos % (Auto) (1.0-6.0) % Baso % (Auto) (0.0-1.0) % Lymph # (Auto) (1.10-4.50) K/mm3 Kimble # (Auto) (0.10-0.90) K/mm3 Eos # (Auto) (0.02-0.50) K/mm3 Baso # (Auto) (0.00-0.10) K/mm3 Abs Immat Gran (auto) (0.00-0.00) K/mm3 Absolute Neuts (auto) (1.70-7.20) K/mm3 Absolute Nucleated RBC (0.00-0.00) K/mm3 Nucleated RBC % (0-0.0) % % Immature Plt Fraction (1.0-7.0) % Sodium 134 L (137-145) mmol/L Potassium 3.6 (3.4-5.0) mmol/L Chloride 106 (98-107) mmol/L Carbon Dioxide 19 L (22-30) mmol/L Anion Gap 9 (4-12) mmol/L BUN 36 H (9-20) mg/dL Creatinine 1.38 H (0.7-1.3) mg/dL Estim Creat Clear Calc 45 ml/min Estimated GFR 52 L (59 - ) Glucose 201 H (65-110) mg/dL POC Capillary Glucose 221 H (65-105) mg/dl Hemoglobin A1c (<5.7) % Calculated Osmolality 292 (285-295) mOsm/kg Lactic Acid (0.4-2.0) mmol/L Calcium 7.0 L (8.4-10.2) mg/dL Total Bilirubin 1.1 (0.2-1.3) mg/dL AST 318 H (17-59) U/L ALT 149 H (6-50) U/L Alkaline Phosphatase 255 H (38-126) U/L Ammonia < 9 L (9-30) umol/L Troponin I (0.000-0.034) ng/mL Total Protein 4.7 L (6.3-8.2) g/dL Albumin 2.6 L (3.5-5.1) g/dL Urine Color (Yellow) Urine Appearance (Clear) Urine pH (5.0-8.0) Ur Specific [place] (1.010-1.020) Urine Protein (Negative) Urine Glucose (UA) (Negative) Urine Ketones (Negative) Ur Blood (Man) (Negative) Urine Nitrate (Negative) Urine Bilirubin (Negative) Urine Urobilinogen (0.2-1.0) mg/dL Leukocyte Esterase Rfl (Negative) NATALIE/UL Urine RBC (0-2) /hpf Urine WBC (0-3) /hpf Urine Bacteria (None) /hpf Urine Opiates Screen (Negative) Urine Methadone Screen (Negative) Ur Barbiturates Screen (Negative) Ur Phencyclidine Scrn (Negative) Ur Amphetamine Screen (Negative) U Benzodiazepines Scrn (Negative) Urine Cocaine Screen (Negative) U Cannabinoids Screen (Negative) Ethyl Alcohol (<10) mg/dL Acetone Level (Negative) Influenza A (RT-PCR) (Negative) Influenza B (RT-PCR) (Negative) RSV (RT-PCR) (Negative) SARS-CoV-2 RNA (RT-PCR) (Negative) 06/28/25 06/28/25 06/28/25 Range/Units 06:48 15:11 17:28 WBC 12.8 H (4.8-10.8) K/mm3 RBC 3.74 L (4.70-6.10) M/mm3 Hgb 11.1 L (14.0-18.0) g/dL Hct 33.6 L (40.0-54.0) % MCV 89.8 (78.0-102.0) fL MCH 29.7 (27.0-31.0) pg MCHC 33.0 (32-36) g/dL RDW 13.0 (11.6-14.4) % Plt Count 102 L (150-420) K/mm3 MPV 11.5 H (8.7-11.0) fl Immature Gran % (Auto) 0.8 H (0.0-0.0) % Neut % (Auto) 92.9 H (50.0-70.0) % Lymph % (Auto) 2.4 L (18.0-42.0) % Kimble % (Auto) 3.8 (2.0-11.0) % Eos % (Auto) 0.0 L (1.0-6.0) % Baso % (Auto) 0.1 (0.0-1.0) % Lymph # (Auto) 0.31 L (1.10-4.50) K/mm3 Kimble # (Auto) 0.49 (0.10-0.90) K/mm3 Eos # (Auto) 0.00 L (0.02-0.50) K/mm3 Baso # (Auto) 0.01 (0.00-0.10) K/mm3 Abs Immat Gran (auto) 0.10 H (0.00-0.00) K/mm3 Absolute Neuts (auto) 11.91 H (1.70-7.20) K/mm3 Absolute Nucleated RBC 0.00 (0.00-0.00) K/mm3 Nucleated RBC % 0.0 (0-0.0) % % Immature Plt Fraction 4.3 (1.0-7.0) % Sodium 134 L (137-145) mmol/L Potassium 4.3 (3.4-5.0) mmol/L Chloride 105 (98-107) mmol/L Carbon Dioxide 20 L (22-30) mmol/L Anion Gap 9 (4-12) mmol/L BUN 33 H (9-20) mg/dL Creatinine 1.34 H (0.7-1.3) mg/dL Estim Creat Clear Calc 46 ml/min Estimated GFR 54 L (59 - ) Glucose 325 H (65-110) mg/dL POC Capillary Glucose 247 H 346 H (65-105) mg/dl Hemoglobin A1c (<5.7) % Calculated Osmolality 298 H (285-295) mOsm/kg Lactic Acid (0.4-2.0) mmol/L Calcium 7.1 L (8.4-10.2) mg/dL Total Bilirubin 0.8 (0.2-1.3) mg/dL AST 145 H (17-59) U/L ALT 119 H (6-50) U/L Alkaline Phosphatase 218 H (38-126) U/L Ammonia (9-30) umol/L Troponin I (0.000-0.034) ng/mL Total Protein 5.5 L (6.3-8.2) g/dL Albumin 2.9 L (3.5-5.1) g/dL Urine Color (Yellow) Urine Appearance (Clear) Urine pH (5.0-8.0) Ur Specific [place] (1.010-1.020) Urine Protein (Negative) Urine Glucose (UA) (Negative) Urine Ketones (Negative) Ur Blood (Man) (Negative) Urine Nitrate (Negative) Urine Bilirubin (Negative) Urine Urobilinogen (0.2-1.0) mg/dL Leukocyte Esterase Rfl (Negative) NATALIE/UL Urine RBC (0-2) /hpf Urine WBC (0-3) /hpf Urine Bacteria (None) /hpf Urine Opiates Screen (Negative) Urine Methadone Screen (Negative) Ur Barbiturates Screen (Negative) Ur Phencyclidine Scrn (Negative) Ur Amphetamine Screen (Negative) U Benzodiazepines Scrn (Negative) Urine Cocaine Screen (Negative) U Cannabinoids Screen (Negative) Ethyl Alcohol (<10) mg/dL Acetone Level (Negative) Influenza A (RT-PCR) (Negative) Influenza B (RT-PCR) (Negative) RSV (RT-PCR) (Negative) SARS-CoV-2 RNA (RT-PCR) (Negative) <Flavio Tanner MD - Last Filed: 06/28/25 19:43> Lab Results 06/27/25 06/27/25 06/27/25 Range/Units 14:46 15:26 15:28 WBC 5.3 (4.8-10.8) K/mm3 RBC 4.18 L (4.70-6.10) M/mm3 Hgb 12.3 L (14.0-18.0) g/dL Hct 37.9 L (40.0-54.0) % MCV 90.7 (78.0-102.0) fL MCH 29.4 (27.0-31.0) pg MCHC 32.5 (32-36) g/dL RDW 12.7 (11.6-14.4) % Plt Count 121 L (150-420) K/mm3 MPV 11.5 H (8.7-11.0) fl Immature Gran % (Auto) 0.6 H (0.0-0.0) % Neut % (Auto) 92.9 H (50.0-70.0) % Lymph % (Auto) 5.5 L (18.0-42.0) % Kimble % (Auto) 0.4 L (2.0-11.0) % Eos % (Auto) 0.2 L (1.0-6.0) % Baso % (Auto) 0.4 (0.0-1.0) % Lymph # (Auto) 0.29 L (1.10-4.50) K/mm3 Kimble # (Auto) 0.02 L (0.10-0.90) K/mm3 Eos # (Auto) 0.01 L (0.02-0.50) K/mm3 Baso # (Auto) 0.02 (0.00-0.10) K/mm3 Abs Immat Gran (auto) 0.03 H (0.00-0.00) K/mm3 Absolute Neuts (auto) 4.92 (1.70-7.20) K/mm3 Absolute Nucleated RBC 0.00 (0.00-0.00) K/mm3 Nucleated RBC % 0.0 (0-0.0) % % Immature Plt Fraction 4.2 (1.0-7.0) % Sodium (137-145) mmol/L Potassium (3.4-5.0) mmol/L Chloride (98-107) mmol/L Carbon Dioxide (22-30) mmol/L Anion Gap (4-12) mmol/L BUN (9-20) mg/dL Creatinine (0.7-1.3) mg/dL Estim Creat Clear Calc ml/min Estimated GFR (59 - ) Glucose (65-110) mg/dL POC Capillary Glucose > 450 H > 450 H (65-105) mg/dl Hemoglobin A1c 10.0 H (<5.7) % Calculated Osmolality (285-295) mOsm/kg Lactic Acid 3.3 H (0.4-2.0) mmol/L Calcium (8.4-10.2) mg/dL Total Bilirubin (0.2-1.3) mg/dL AST (17-59) U/L ALT (6-50) U/L Alkaline Phosphatase (38-126) U/L Ammonia (9-30) umol/L Troponin I (0.000-0.034) ng/mL Total Protein (6.3-8.2) g/dL Albumin (3.5-5.1) g/dL Urine Color (Yellow) Urine Appearance (Clear) Urine pH (5.0-8.0) Ur Specific [place] (1.010-1.020) Urine Protein (Negative) Urine Glucose (UA) (Negative) Urine Ketones (Negative) Ur Blood (Man) (Negative) Urine Nitrate (Negative) Urine Bilirubin (Negative) Urine Urobilinogen (0.2-1.0) mg/dL Leukocyte Esterase Rfl (Negative) NATALIE/UL Urine RBC (0-2) /hpf Urine WBC (0-3) /hpf Urine Bacteria (None) /hpf Urine Opiates Screen (Negative) Urine Methadone Screen (Negative) Ur Barbiturates Screen (Negative) Ur Phencyclidine Scrn (Negative) Ur Amphetamine Screen (Negative) U Benzodiazepines Scrn (Negative) Urine Cocaine Screen (Negative) U Cannabinoids Screen (Negative) Ethyl Alcohol < 10 (<10) mg/dL Acetone Level Negative (Negative) Influenza A (RT-PCR) Negative (Negative) Influenza B (RT-PCR) Negative (Negative) RSV (RT-PCR) Negative (Negative) SARS-CoV-2 RNA (RT-PCR) Negative (Negative) 06/27/25 06/27/25 06/27/25 Range/Units 15:29 15:32 16:05 WBC (4.8-10.8) K/mm3 RBC (4.70-6.10) M/mm3 Hgb (14.0-18.0) g/dL Hct (40.0-54.0) % MCV (78.0-102.0) fL MCH (27.0-31.0) pg MCHC (32-36) g/dL RDW (11.6-14.4) % Plt Count (150-420) K/mm3 MPV (8.7-11.0) fl Immature Gran % (Auto) (0.0-0.0) % Neut % (Auto) (50.0-70.0) % Lymph % (Auto) (18.0-42.0) % Kimble % (Auto) (2.0-11.0) % Eos % (Auto) (1.0-6.0) % Baso % (Auto) (0.0-1.0) % Lymph # (Auto) (1.10-4.50) K/mm3 Kimble # (Auto) (0.10-0.90) K/mm3 Eos # (Auto) (0.02-0.50) K/mm3 Baso # (Auto) (0.00-0.10) K/mm3 Abs Immat Gran (auto) (0.00-0.00) K/mm3 Absolute Neuts (auto) (1.70-7.20) K/mm3 Absolute Nucleated RBC (0.00-0.00) K/mm3 Nucleated RBC % (0-0.0) % % Immature Plt Fraction (1.0-7.0) % Sodium 135 L (137-145) mmol/L Potassium 4.5 (3.4-5.0) mmol/L Chloride 96 L (98-107) mmol/L Carbon Dioxide 28 (22-30) mmol/L Anion Gap 11 (4-12) mmol/L BUN 30 H (9-20) mg/dL Creatinine 1.23 (0.7-1.3) mg/dL Estim Creat Clear Calc 50 ml/min Estimated GFR 59 (59 - ) Glucose 511 H* (65-110) mg/dL POC Capillary Glucose 384 H (65-105) mg/dl Hemoglobin A1c (<5.7) % Calculated Osmolality 309 H (285-295) mOsm/kg Lactic Acid (0.4-2.0) mmol/L Calcium 8.5 (8.4-10.2) mg/dL Total Bilirubin 1.5 H (0.2-1.3) mg/dL AST 533 H (17-59) U/L ALT 178 H (6-50) U/L Alkaline Phosphatase 457 H (38-126) U/L Ammonia (9-30) umol/L Troponin I < 0.012 (0.000-0.034) ng/mL Total Protein 6.5 (6.3-8.2) g/dL Albumin 3.6 (3.5-5.1) g/dL Urine Color Yellow (Yellow) Urine Appearance Clear (Clear) Urine pH 6.0 (5.0-8.0) Ur Specific [place] 1.010 (1.010-1.020) Urine Protein 1+ H (Negative) Urine Glucose (UA) 3+ H (Negative) Urine Ketones Negative (Negative) Ur Blood (Man) Trace-lysed H (Negative) Urine Nitrate Negative (Negative) Urine Bilirubin Negative (Negative) Urine Urobilinogen 2.0 H (0.2-1.0) mg/dL Leukocyte Esterase Rfl Negative (Negative) NATALIE/UL Urine RBC None seen (0-2) /hpf Urine WBC None seen (0-3) /hpf Urine Bacteria Rare (None) /hpf Urine Opiates Screen Negative (Negative) Urine Methadone Screen Negative (Negative) Ur Barbiturates Screen Negative (Negative) Ur Phencyclidine Scrn Negative (Negative) Ur Amphetamine Screen Negative (Negative) U Benzodiazepines Scrn Positive A (Negative) Urine Cocaine Screen Negative (Negative) U Cannabinoids Screen Positive A (Negative) Ethyl Alcohol (<10) mg/dL Acetone Level (Negative) Influenza A (RT-PCR) (Negative) Influenza B (RT-PCR) (Negative) RSV (RT-PCR) (Negative) SARS-CoV-2 RNA (RT-PCR) (Negative) 06/27/25 06/27/25 06/27/25 Range/Units 16:44 17:16 17:31 WBC (4.8-10.8) K/mm3 RBC (4.70-6.10) M/mm3 Hgb (14.0-18.0) g/dL Hct (40.0-54.0) % MCV (78.0-102.0) fL MCH (27.0-31.0) pg MCHC (32-36) g/dL RDW (11.6-14.4) % Plt Count (150-420) K/mm3 MPV (8.7-11.0) fl Immature Gran % (Auto) (0.0-0.0) % Neut % (Auto) (50.0-70.0) % Lymph % (Auto) (18.0-42.0) % Kimble % (Auto) (2.0-11.0) % Eos % (Auto) (1.0-6.0) % Baso % (Auto) (0.0-1.0) % Lymph # (Auto) (1.10-4.50) K/mm3 Kimble # (Auto) (0.10-0.90) K/mm3 Eos # (Auto) (0.02-0.50) K/mm3 Baso # (Auto) (0.00-0.10) K/mm3 Abs Immat Gran (auto) (0.00-0.00) K/mm3 Absolute Neuts (auto) (1.70-7.20) K/mm3 Absolute Nucleated RBC (0.00-0.00) K/mm3 Nucleated RBC % (0-0.0) % % Immature Plt Fraction (1.0-7.0) % Sodium (137-145) mmol/L Potassium (3.4-5.0) mmol/L Chloride (98-107) mmol/L Carbon Dioxide (22-30) mmol/L Anion Gap (4-12) mmol/L BUN (9-20) mg/dL Creatinine (0.7-1.3) mg/dL Estim Creat Clear Calc ml/min Estimated GFR (59 - ) Glucose (65-110) mg/dL POC Capillary Glucose 279 H 293 H 241 H (65-105) mg/dl Hemoglobin A1c (<5.7) % Calculated Osmolality (285-295) mOsm/kg Lactic Acid (0.4-2.0) mmol/L Calcium (8.4-10.2) mg/dL Total Bilirubin (0.2-1.3) mg/dL AST (17-59) U/L ALT (6-50) U/L Alkaline Phosphatase (38-126) U/L Ammonia (9-30) umol/L Troponin I (0.000-0.034) ng/mL Total Protein (6.3-8.2) g/dL Albumin (3.5-5.1) g/dL Urine Color (Yellow) Urine Appearance (Clear) Urine pH (5.0-8.0) Ur Specific [place] (1.010-1.020) Urine Protein (Negative) Urine Glucose (UA) (Negative) Urine Ketones (Negative) Ur Blood (Man) (Negative) Urine Nitrate (Negative) Urine Bilirubin (Negative) Urine Urobilinogen (0.2-1.0) mg/dL Leukocyte Esterase Rfl (Negative) NATALIE/UL Urine RBC (0-2) /hpf Urine WBC (0-3) /hpf Urine Bacteria (None) /hpf Urine Opiates Screen (Negative) Urine Methadone Screen (Negative) Ur Barbiturates Screen (Negative) Ur Phencyclidine Scrn (Negative) Ur Amphetamine Screen (Negative) U Benzodiazepines Scrn (Negative) Urine Cocaine Screen (Negative) U Cannabinoids Screen (Negative) Ethyl Alcohol (<10) mg/dL Acetone Level (Negative) Influenza A (RT-PCR) (Negative) Influenza B (RT-PCR) (Negative) RSV (RT-PCR) (Negative) SARS-CoV-2 RNA (RT-PCR) (Negative) 06/27/25 06/27/25 06/27/25 Range/Units 18:01 18:03 18:38 WBC (4.8-10.8) K/mm3 RBC (4.70-6.10) M/mm3 Hgb (14.0-18.0) g/dL Hct (40.0-54.0) % MCV (78.0-102.0) fL MCH (27.0-31.0) pg MCHC (32-36) g/dL RDW (11.6-14.4) % Plt Count (150-420) K/mm3 MPV (8.7-11.0) fl Immature Gran % (Auto) (0.0-0.0) % Neut % (Auto) (50.0-70.0) % Lymph % (Auto) (18.0-42.0) % Kimble % (Auto) (2.0-11.0) % Eos % (Auto) (1.0-6.0) % Baso % (Auto) (0.0-1.0) % Lymph # (Auto) (1.10-4.50) K/mm3 Kimble # (Auto) (0.10-0.90) K/mm3 Eos # (Auto) (0.02-0.50) K/mm3 Baso # (Auto) (0.00-0.10) K/mm3 Abs Immat Gran (auto) (0.00-0.00) K/mm3 Absolute Neuts (auto) (1.70-7.20) K/mm3 Absolute Nucleated RBC (0.00-0.00) K/mm3 Nucleated RBC % (0-0.0) % % Immature Plt Fraction (1.0-7.0) % Sodium (137-145) mmol/L Potassium (3.4-5.0) mmol/L Chloride (98-107) mmol/L Carbon Dioxide (22-30) mmol/L Anion Gap (4-12) mmol/L BUN (9-20) mg/dL Creatinine (0.7-1.3) mg/dL Estim Creat Clear Calc ml/min Estimated GFR (59 - ) Glucose (65-110) mg/dL POC Capillary Glucose 215 H 168 H (65-105) mg/dl Hemoglobin A1c (<5.7) % Calculated Osmolality (285-295) mOsm/kg Lactic Acid 3.0 H (0.4-2.0) mmol/L Calcium (8.4-10.2) mg/dL Total Bilirubin (0.2-1.3) mg/dL AST (17-59) U/L ALT (6-50) U/L Alkaline Phosphatase (38-126) U/L Ammonia (9-30) umol/L Troponin I (0.000-0.034) ng/mL Total Protein (6.3-8.2) g/dL Albumin (3.5-5.1) g/dL Urine Color (Yellow) Urine Appearance (Clear) Urine pH (5.0-8.0) Ur Specific [place] (1.010-1.020) Urine Protein (Negative) Urine Glucose (UA) (Negative) Urine Ketones (Negative) Ur Blood (Man) (Negative) Urine Nitrate (Negative) Urine Bilirubin (Negative) Urine Urobilinogen (0.2-1.0) mg/dL Leukocyte Esterase Rfl (Negative) NATALIE/UL Urine RBC (0-2) /hpf Urine WBC (0-3) /hpf Urine Bacteria (None) /hpf Urine Opiates Screen (Negative) Urine Methadone Screen (Negative) Ur Barbiturates Screen (Negative) Ur Phencyclidine Scrn (Negative) Ur Amphetamine Screen (Negative) U Benzodiazepines Scrn (Negative) Urine Cocaine Screen (Negative) U Cannabinoids Screen (Negative) Ethyl Alcohol (<10) mg/dL Acetone Level (Negative) Influenza A (RT-PCR) (Negative) Influenza B (RT-PCR) (Negative) RSV (RT-PCR) (Negative) SARS-CoV-2 RNA (RT-PCR) (Negative) 06/27/25 06/27/25 06/27/25 Range/Units 19:13 19:34 20:10 WBC (4.8-10.8) K/mm3 RBC (4.70-6.10) M/mm3 Hgb (14.0-18.0) g/dL Hct (40.0-54.0) % MCV (78.0-102.0) fL MCH (27.0-31.0) pg MCHC (32-36) g/dL RDW (11.6-14.4) % Plt Count (150-420) K/mm3 MPV (8.7-11.0) fl Immature Gran % (Auto) (0.0-0.0) % Neut % (Auto) (50.0-70.0) % Lymph % (Auto) (18.0-42.0) % Kimble % (Auto) (2.0-11.0) % Eos % (Auto) (1.0-6.0) % Baso % (Auto) (0.0-1.0) % Lymph # (Auto) (1.10-4.50) K/mm3 [place]ble # (Auto) (0.10-0.90) K/mm3 Eos # (Auto) (0.02-0.50) K/mm3 Baso # (Auto) (0.00-0.10) K/mm3 Abs Immat Gran (auto) (0.00-0.00) K/mm3 Absolute Neuts (auto) (1.70-7.20) K/mm3 Absolute Nucleated RBC (0.00-0.00) K/mm3 Nucleated RBC % (0-0.0) % % Immature Plt Fraction (1.0-7.0) % Sodium 140 (137-145) mmol/L Potassium 3.7 (3.4-5.0) mmol/L Chloride 101 (98-107) mmol/L Carbon Dioxide 29 (22-30) mmol/L Anion Gap 10 (4-12) mmol/L BUN 35 H (9-20) mg/dL Creatinine 1.42 H (0.7-1.3) mg/dL Estim Creat Clear Calc 43 ml/min Estimated GFR 50 L (59 - ) Glucose 178 H (65-110) mg/dL POC Capillary Glucose 192 H 191 H (65-105) mg/dl Hemoglobin A1c (<5.7) % Calculated Osmolality 302 H (285-295) mOsm/kg Lactic Acid (0.4-2.0) mmol/L Calcium 8.4 (8.4-10.2) mg/dL Total Bilirubin 1.4 H (0.2-1.3) mg/dL AST 468 H (17-59) U/L ALT 202 H (6-50) U/L Alkaline Phosphatase 392 H (38-126) U/L Ammonia (9-30) umol/L Troponin I (0.000-0.034) ng/mL Total Protein 5.9 L (6.3-8.2) g/dL Albumin 3.3 L (3.5-5.1) g/dL Urine Color (Yellow) Urine Appearance (Clear) Urine pH (5.0-8.0) Ur Specific [place] (1.010-1.020) Urine Protein (Negative) Urine Glucose (UA) (Negative) Urine Ketones (Negative) Ur Blood (Man) (Negative) Urine Nitrate (Negative) Urine Bilirubin (Negative) Urine Urobilinogen (0.2-1.0) mg/dL Leukocyte Esterase Rfl (Negative) NATALIE/UL Urine RBC (0-2) /hpf Urine WBC (0-3) /hpf Urine Bacteria (None) /hpf Urine Opiates Screen (Negative) Urine Methadone Screen (Negative) Ur Barbiturates Screen (Negative) Ur Phencyclidine Scrn (Negative) Ur Amphetamine Screen (Negative) U Benzodiazepines Scrn (Negative) Urine Cocaine Screen (Negative) U Cannabinoids Screen (Negative) Ethyl Alcohol (<10) mg/dL Acetone Level (Negative) Influenza A (RT-PCR) (Negative) Influenza B (RT-PCR) (Negative) RSV (RT-PCR) (Negative) SARS-CoV-2 RNA (RT-PCR) (Negative) 06/27/25 06/27/25 06/28/25 Range/Units 21:22 22:45 00:02 WBC (4.8-10.8) K/mm3 RBC (4.70-6.10) M/mm3 Hgb (14.0-18.0) g/dL Hct (40.0-54.0) % MCV (78.0-102.0) fL MCH (27.0-31.0) pg MCHC (32-36) g/dL RDW (11.6-14.4) % Plt Count (150-420) K/mm3 MPV (8.7-11.0) fl Immature Gran % (Auto) (0.0-0.0) % Neut % (Auto) (50.0-70.0) % Lymph % (Auto) (18.0-42.0) % Kimble % (Auto) (2.0-11.0) % Eos % (Auto) (1.0-6.0) % Baso % (Auto) (0.0-1.0) % Lymph # (Auto) (1.10-4.50) K/mm3 [place] # (Auto) (0.10-0.90) K/mm3 Eos # (Auto) (0.02-0.50) K/mm3 Baso # (Auto) (0.00-0.10) K/mm3 Abs Immat Gran (auto) (0.00-0.00) K/mm3 Absolute Neuts (auto) (1.70-7.20) K/mm3 Absolute Nucleated RBC (0.00-0.00) K/mm3 Nucleated RBC % (0-0.0) % % Immature Plt Fraction (1.0-7.0) % Sodium (137-145) mmol/L Potassium (3.4-5.0) mmol/L Chloride (98-107) mmol/L Carbon Dioxide (22-30) mmol/L Anion Gap (4-12) mmol/L BUN (9-20) mg/dL Creatinine (0.7-1.3) mg/dL Estim Creat Clear Calc ml/min Estimated GFR (59 - ) Glucose (65-110) mg/dL POC Capillary Glucose 209 H 236 H 230 H (65-105) mg/dl Hemoglobin A1c (<5.7) % Calculated Osmolality (285-295) mOsm/kg Lactic Acid (0.4-2.0) mmol/L Calcium (8.4-10.2) mg/dL Total Bilirubin (0.2-1.3) mg/dL AST (17-59) U/L ALT (6-50) U/L Alkaline Phosphatase (38-126) U/L Ammonia (9-30) umol/L Troponin I (0.000-0.034) ng/mL Total Protein (6.3-8.2) g/dL Albumin (3.5-5.1) g/dL Urine Color (Yellow) Urine Appearance (Clear) Urine pH (5.0-8.0) Ur Specific [place] (1.010-1.020) Urine Protein (Negative) Urine Glucose (UA) (Negative) Urine Ketones (Negative) Ur Blood (Man) (Negative) Urine Nitrate (Negative) Urine Bilirubin (Negative) Urine Urobilinogen (0.2-1.0) mg/dL Leukocyte Esterase Rfl (Negative) NATALIE/UL Urine RBC (0-2) /hpf Urine WBC (0-3) /hpf Urine Bacteria (None) /hpf Urine Opiates Screen (Negative) Urine Methadone Screen (Negative) Ur Barbiturates Screen (Negative) Ur Phencyclidine Scrn (Negative) Ur Amphetamine Screen (Negative) U Benzodiazepines Scrn (Negative) Urine Cocaine Screen (Negative) U Cannabinoids Screen (Negative) Ethyl Alcohol (<10) mg/dL Acetone Level (Negative) Influenza A (RT-PCR) (Negative) Influenza B (RT-PCR) (Negative) RSV (RT-PCR) (Negative) SARS-CoV-2 RNA (RT-PCR) (Negative) 06/28/25 06/28/25 06/28/25 Range/Units 00:47 00:51 02:26 WBC (4.8-10.8) K/mm3 RBC (4.70-6.10) M/mm3 Hgb (14.0-18.0) g/dL Hct (40.0-54.0) % MCV (78.0-102.0) fL MCH (27.0-31.0) pg MCHC (32-36) g/dL RDW (11.6-14.4) % Plt Count (150-420) K/mm3 MPV (8.7-11.0) fl Immature Gran % (Auto) (0.0-0.0) % Neut % (Auto) (50.0-70.0) % Lymph % (Auto) (18.0-42.0) % Kimble % (Auto) (2.0-11.0) % Eos % (Auto) (1.0-6.0) % Baso % (Auto) (0.0-1.0) % Lymph # (Auto) (1.10-4.50) K/mm3 Kimble # (Auto) (0.10-0.90) K/mm3 Eos # (Auto) (0.02-0.50) K/mm3 Baso # (Auto) (0.00-0.10) K/mm3 Abs Immat Gran (auto) (0.00-0.00) K/mm3 Absolute Neuts (auto) (1.70-7.20) K/mm3 Absolute Nucleated RBC (0.00-0.00) K/mm3 Nucleated RBC % (0-0.0) % % Immature Plt Fraction (1.0-7.0) % Sodium 134 L (137-145) mmol/L Potassium 3.6 (3.4-5.0) mmol/L Chloride 106 (98-107) mmol/L Carbon Dioxide 19 L (22-30) mmol/L Anion Gap 9 (4-12) mmol/L BUN 36 H (9-20) mg/dL Creatinine 1.38 H (0.7-1.3) mg/dL Estim Creat Clear Calc 45 ml/min Estimated GFR 52 L (59 - ) Glucose 201 H (65-110) mg/dL POC Capillary Glucose 221 H (65-105) mg/dl Hemoglobin A1c (<5.7) % Calculated Osmolality 292 (285-295) mOsm/kg Lactic Acid (0.4-2.0) mmol/L Calcium 7.0 L (8.4-10.2) mg/dL Total Bilirubin 1.1 (0.2-1.3) mg/dL AST 318 H (17-59) U/L ALT 149 H (6-50) U/L Alkaline Phosphatase 255 H (38-126) U/L Ammonia < 9 L (9-30) umol/L Troponin I (0.000-0.034) ng/mL Total Protein 4.7 L (6.3-8.2) g/dL Albumin 2.6 L (3.5-5.1) g/dL Urine Color (Yellow) Urine Appearance (Clear) Urine pH (5.0-8.0) Ur Specific [place] (1.010-1.020) Urine Protein (Negative) Urine Glucose (UA) (Negative) Urine Ketones (Negative) Ur Blood (Man) (Negative) Urine Nitrate (Negative) Urine Bilirubin (Negative) Urine Urobilinogen (0.2-1.0) mg/dL Leukocyte Esterase Rfl (Negative) NATALIE/UL Urine RBC (0-2) /hpf Urine WBC (0-3) /hpf Urine Bacteria (None) /hpf Urine Opiates Screen (Negative) Urine Methadone Screen (Negative) Ur Barbiturates Screen (Negative) Ur Phencyclidine Scrn (Negative) Ur Amphetamine Screen (Negative) U Benzodiazepines Scrn (Negative) Urine Cocaine Screen (Negative) U Cannabinoids Screen (Negative) Ethyl Alcohol (<10) mg/dL Acetone Level (Negative) Influenza A (RT-PCR) (Negative) Influenza B (RT-PCR) (Negative) RSV (RT-PCR) (Negative) SARS-CoV-2 RNA (RT-PCR) (Negative) 06/28/25 06/28/25 06/28/25 Range/Units 06:48 15:11 17:28 WBC 12.8 H (4.8-10.8) K/mm3 RBC 3.74 L (4.70-6.10) M/mm3 Hgb 11.1 L (14.0-18.0) g/dL Hct 33.6 L (40.0-54.0) % MCV 89.8 (78.0-102.0) fL MCH 29.7 (27.0-31.0) pg MCHC 33.0 (32-36) g/dL RDW 13.0 (11.6-14.4) % Plt Count 102 L (150-420) K/mm3 MPV 11.5 H (8.7-11.0) fl Immature Gran % (Auto) 0.8 H (0.0-0.0) % Neut % (Auto) 92.9 H (50.0-70.0) % Lymph % (Auto) 2.4 L (18.0-42.0) % Kimble % (Auto) 3.8 (2.0-11.0) % Eos % (Auto) 0.0 L (1.0-6.0) % Baso % (Auto) 0.1 (0.0-1.0) % Lymph # (Auto) 0.31 L (1.10-4.50) K/mm3 Kimble # (Auto) 0.49 (0.10-0.90) K/mm3 Eos # (Auto) 0.00 L (0.02-0.50) K/mm3 Baso # (Auto) 0.01 (0.00-0.10) K/mm3 Abs Immat Gran (auto) 0.10 H (0.00-0.00) K/mm3 Absolute Neuts (auto) 11.91 H (1.70-7.20) K/mm3 Absolute Nucleated RBC 0.00 (0.00-0.00) K/mm3 Nucleated RBC % 0.0 (0-0.0) % % Immature Plt Fraction 4.3 (1.0-7.0) % Sodium 134 L (137-145) mmol/L Potassium 4.3 (3.4-5.0) mmol/L Chloride 105 (98-107) mmol/L Carbon Dioxide 20 L (22-30) mmol/L Anion Gap 9 (4-12) mmol/L BUN 33 H (9-20) mg/dL Creatinine 1.34 H (0.7-1.3) mg/dL Estim Creat Clear Calc 46 ml/min Estimated GFR 54 L (59 - ) Glucose 325 H (65-110) mg/dL POC Capillary Glucose 247 H 346 H (65-105) mg/dl Hemoglobin A1c (<5.7) % Calculated Osmolality 298 H (285-295) mOsm/kg Lactic Acid (0.4-2.0) mmol/L Calcium 7.1 L (8.4-10.2) mg/dL Total Bilirubin 0.8 (0.2-1.3) mg/dL AST 145 H (17-59) U/L ALT 119 H (6-50) U/L Alkaline Phosphatase 218 H (38-126) U/L Ammonia (9-30) umol/L Troponin I (0.000-0.034) ng/mL Total Protein 5.5 L (6.3-8.2) g/dL Albumin 2.9 L (3.5-5.1) g/dL Urine Color (Yellow) Urine Appearance (Clear) Urine pH (5.0-8.0) Ur Specific [place] (1.010-1.020) Urine Protein (Negative) Urine Glucose (UA) (Negative) Urine Ketones (Negative) Ur Blood (Man) (Negative) Urine Nitrate (Negative) Urine Bilirubin (Negative) Urine Urobilinogen (0.2-1.0) mg/dL Leukocyte Esterase Rfl (Negative) NATALIE/UL Urine RBC (0-2) /hpf Urine WBC (0-3) /hpf Urine Bacteria (None) /hpf Urine Opiates Screen (Negative) Urine Methadone Screen (Negative) Ur Barbiturates Screen (Negative) Ur Phencyclidine Scrn (Negative) Ur Amphetamine Screen (Negative) U Benzodiazepines Scrn (Negative) Urine Cocaine Screen (Negative) U Cannabinoids Screen (Negative) Ethyl Alcohol (<10) mg/dL Acetone Level (Negative) Influenza A (RT-PCR) (Negative) Influenza B (RT-PCR) (Negative) RSV (RT-PCR) (Negative) SARS-CoV-2 RNA (RT-PCR) (Negative) <Serge Zuniga, DO - Last Filed: 06/29/25 09:36> ABG Data ABG results: 06/27/25 06/27/25 15:32 19:34 Puncture Site Left brachial ABG pH 7.53 H ABG pCO2 26.2 L ABG pO2 111.5 H ABG HCO3 21.3 L ABG O2 Saturation 97.8 H ABG Base Excess -0.2 L VBG pH 7.39 VBG pCO2 43.4 VBG pO2 30.6 L VBG HCO3 25.7 Oxyhemoglobin 96.5 O2 Delivery Device Room air Room air O2 Liters/Min 0.0 0.0 <Flavio Tanner MD - Last Filed: 06/28/25 19:43> 06/27/25 06/27/25 15:32 19:34 Puncture Site Left brachial ABG pH 7.53 H ABG pCO2 26.2 L ABG pO2 111.5 H ABG HCO3 21.3 L ABG O2 Saturation 97.8 H ABG Base Excess -0.2 L VBG pH 7.39 VBG pCO2 43.4 VBG pO2 30.6 L VBG HCO3 25.7 Oxyhemoglobin 96.5 O2 Delivery Device Room air Room air O2 Liters/Min 0.0 0.0 <Serge Zuniga DO - Last Filed: 06/29/25 09:36> Imaging Data Attestation: I personally reviewed and interpreted this imaging study as follows: <Flavio Tanner MD - Last Filed: 06/28/25 19:43> Radiologist's impression: Chest x-ray is negative for acute process <Flavio Tanner MD - Last Filed: 06/28/25 19:43> ECG Data EKG #1: Attestation: I personally reviewed and interpreted this ECG as follows: <Flavio Tanner MD - Last Filed: 06/28/25 19:43> ECG completion date: 06/27/25 <Flavio Tanner MD - Last Filed: 06/28/25 19:43> ECG completion time: 16:29 <Flavio Tanner MD - Last Filed: 06/28/25 19:43> EKG Interpretation: tachycardia, sinus rhythm, no ectopy, non-specific ST changes, normal QRS, normal QT and left axis <Flavio Tanner MD - Last Filed: 06/28/25 19:43> Critical Care Time Critical Care Time Critical Care Time: Yes <Flavio Tanner MD - Last Filed: 06/28/25 19:43> Total Critical Care Time: 40 <Flavio Tanner MD - Last Filed: 06/28/25 19:43> Discharge Plan Discharge Clinical Impression: Diabetic hyperosmolar non-ketotic state, Sepsis, Common bile duct mass, Acute cholangitis, Transaminitis, Liver transplant recipient, SERGE (acute kidney injury), Fecal impaction <Flavio Tanner MD - Last Filed: 06/28/25 19:43> Patient Disposition: Left Against Medical Advice <Flavio Tanner MD - Last Filed: 06/28/25 19:43> Condition: Guarded Prognosis <Flavio Tanner MD - Last Filed: 06/28/25 19:43> Patient Language: Turkish <Flavio Tanner MD - Last Filed: 06/28/25 19:43> Prescriptions: No Action mycophenolate mofetil 250 mg capsule 250 mg PO BID clopidogrel 75 mg tablet 75 mg PO DAILY aspirin 81 mg Tablet,Chewable 81 mg PO DAILY lisinopril 5 mg tablet 5 mg PO DAILY insulin lispro 100 unit/mL insulin pen 1 unit SUBCUT DIRECTED insulin glargine [Lantus Solostar U-100 Insulin] 100 unit/mL (3 mL) insulin pen 20 unit SUBCUT HS insulin glargine U-300 conc [Toujeo Max U-300 SoloStar] 300 unit/mL (3 mL) Insulin Pen 1 unit SUBCUT DIRECTED sirolimus 2 mg tablet 2 mg PO DAILY dextrose [Glutose-15] 40 % gel 15 g PO Q15M PRN (Reason: hypoglycemia) Qty: 112.5 2RF Rx Instructions: until symptoms of low blood sugar are controlled trazodone 100 mg tablet 100 mg PO HS PRN (Reason: insomnia) Qty: 90 1RF temazepam 30 mg capsule 30 mg PO HS Qty: 30 2RF cyclobenzaprine 10 mg tablet 10 mg PO TID Qty: 270 0RF glucagon 3 mg/actuation spray,non-aerosol 3 mg intranasal ONCE PRN (Reason: hypoglycemia) Qty: 2 0RF Rx Instructions: as a single dose ergocalciferol (vitamin D2) 1,250 mcg (50,000 unit) capsule 25,000 unit PO WEEKLY Qty: 12 3RF rosuvastatin 20 mg tablet 20 mg PO DAILY Qty: 90 3RF metoprolol succinate 50 mg tablet extended release 24 hr 50 mg PO DAILY Qty: 90 3RF sertraline [Zoloft] 100 mg tablet 100 mg PO DAILY Qty: 90 2RF gabapentin 300 mg capsule 300 mg PO TID Qty: 270 3RF hydrocodone-acetaminophen 10-325 mg tablet 1 tablet PO Q6H PRN (Reason: Pain) Qty: 120 0RF <Flavio Tanner MD - Last Filed: 06/28/25 19:43> Follow-up/Referrals: Serge Zuniga DO [Primary Care Provider, [facility]] <Flavio Tanner MD - Last Filed: 06/28/25 19:43> Time of Disposition: 09:10 <Flavio Tanner MD - Last Filed: 06/28/25 19:43> 09:10 <Serge Zuniga DO - Last Filed: 06/29/25 09:36>
--- NOTE | 2025-06-27 14:49 | ECG_ITS ---
Test Date: 2025-06-27 15:41:08 Measurements Intervals [place] Rate: 115 P: 44 WV: 146 QRS: -46 QRSD: 91 T: 80 QT: 304 QTc: 421 Interpretive Statements SINUS TACHYCARDIA LEFT ANTERIOR FASCICULAR BLOCK BASELINE ARTIFACT- I, III, AVR, AVL, AVF, V1-V4 ABNORMAL ECG No previous ECG available for comparison Electronically Signed On 06-27-2025 16:55:46 CDT by Magen Buitrago D.O.
[2025-06-27] MEDS: INSULIN HUMAN REGULAR (*BKC) 1,000 UNITS/10 ML VIAL 10 UNITS IV PUSH (15:05)
[2025-06-27] MEDS: SODIUM CHLORIDE 0.9% IV 1,000 ML 999 ML IV CONT ×3 (15:05→23:58)
[2025-06-27] MEDS: INSULIN REG 100 UNITS/100 ML 100 UNITS/100 ML BAG 6 UNITS IV CONT (15:07)
--- NOTE | 2025-06-27 15:33 | PC.NURSE ---
blood sugar greater than 500 at bedside.
[2025-06-27 15:40] LABS: Hematocrit 37.9 % (40.0-54.0); Hemoglobin 12.3 g/dL (14.0-18.0); Immature Granulocyte Percent A 0.6 % (0.0-0.0); Immature Platelet Fraction Pct 4.2 % (1.0-7.0); Lymphocytes Absolute Auto 0.29 K/mm3 (1.10-4.50); Mean Corpuscular HGB Conc 32.5 g/dL (32-36); Mean Corpuscular Hemoglobin 29.4 pg (27.0-31.0); Mean Corpuscular Volume 90.7 fL (78.0-102.0); Nucleated Red Blood Cells Absolute Auto 0.00 K/mm3 (0.00-0.00); Nucleated Red Blood Cells Perc 0.0 % (0-0.0); Platelet Count Result 121 K/mm3 (150-420); Red Blood Count 4.18 M/mm3 (4.70-6.10); White Blood Count 5.3 K/mm3 (4.8-10.8)
[2025-06-27 15:40] LABS: Appearance Urine Clear (Clear); Glucose Urine UA 3+ (Negative); Leukocyte Esterase Ur Negative LEU/UL (Negative); Nitrate Urine Negative (Negative); Specific Grav Ur 1.010 (1.010-1.020)
[2025-06-27 15:47] LABS: Add Urine Microscopic? YES
[2025-06-27 15:48] LABS: Hemoglobin A1C 10.0 % (<5.7)
[2025-06-27 15:48] LABS: HCO3 ABG 21.3 mmol/L (23-29); Oxygen Saturation ABG 97.8 % (95-97); PCO2 ABG 26.2 mmHg (35-45); PO2 ABG 111.5 mmHg (80-90)
[2025-06-27 15:49] LABS: Liters per Minute 0.0 LPM; Site Drawn LEFT BRACHIAL
[2025-06-27 15:50] LABS: Alanine Aminotransferase 178 U/L (6-50); Albumin Level 3.6 g/dL (3.5-5.1); Alkaline Phosphatase 457 U/L (38-126); Anion Gap 11 mmol/L (4-12); Aspartate Amino Transferase 533 U/L (17-59); Bilirubin,Total 1.5 mg/dL (0.2-1.3); Blood Urea Nitrogen 30 mg/dL (9-20); Calcium 8.5 mg/dL (8.4-10.2); Carbon Dioxide 28 mmol/L (22-30); Chloride 96 mmol/L (98-107); Estimated CRCL calculation 50 ml/min; Estimated Glomerular Filt Rate 59; Osmolality Calculated 309 mOsm/kg (285-295); Potassium 4.5 mmol/L (3.4-5.0); Sodium 135 mmol/L (137-145); Total Protein 6.5 g/dL (6.3-8.2)
[2025-06-27 15:54] LABS: Glucose 511 mg/dL (65-110)
[2025-06-27 16:01] LABS: Cannabinoid Screen Urine Positive (Negative)
[2025-06-27 16:02] LABS: Troponin I < 0.012 ng/mL (0.000-0.034)
[2025-06-27 16:16] LABS: Influenza A QL RT-PCR Negative (Negative); Influenza B QL RT-PCR Negative (Negative); RSV RNA, RT-PCR Negative (Negative); SARS-CoV-2 RNA PCR Negative (Negative)
--- NOTE | 2025-06-27 16:36 | PC.NURSE ---
1630 pt in xray for head ct at 1630. delay for blood sugar check at this time.
--- NOTE | 2025-06-27 17:47 | PC.NURSE ---
pt ate 1/4 turkey sandwich, drank 240 ml water. tolerated well
--- NOTE | 2025-06-27 19:13 | PC.NURSE ---
report to guadalupe amyes
[2025-06-27 19:45] LABS: HCO3 VBG 25.7 mEq/l (24.0-30.0); PCO2 VBG 43.4 mmHg (42.0-48.0); PO2 VBG 30.6 mmHg (35.0-45.0); pH VBG 7.39 (7.33-7.43)
[2025-06-27 19:51] LABS: Liters per Minute 0.0 LPM
[2025-06-27 19:57] LABS: Alanine Aminotransferase 202 U/L (6-50); Albumin Level 3.3 g/dL (3.5-5.1); Alkaline Phosphatase 392 U/L (38-126); Anion Gap 10 mmol/L (4-12); Aspartate Amino Transferase 468 U/L (17-59); Bilirubin,Total 1.4 mg/dL (0.2-1.3); Blood Urea Nitrogen 35 mg/dL (9-20); Calcium 8.4 mg/dL (8.4-10.2); Carbon Dioxide 29 mmol/L (22-30); Chloride 101 mmol/L (98-107); Estimated CRCL calculation 43 ml/min; Estimated Glomerular Filt Rate 50; Glucose 178 mg/dL (65-110); Osmolality Calculated 302 mOsm/kg (285-295); Potassium 3.7 mmol/L (3.4-5.0); Sodium 140 mmol/L (137-145); Total Protein 5.9 g/dL (6.3-8.2)
--- NOTE | 2025-06-27 20:00 | PC.NURSE ---
Report recieved, pt repositioned multiple times, continuing to monitor Blood sugars, insulin gtt on hold per report. Pt is lethargic but alert. Asking for multiple sips of water and states he is dry.
--- NOTE | 2025-06-27 21:27 | PC.NURSE ---
Pt is alert and able to comprehend some questions, BS repeat at 209, POC to transfer to [facility] discussed w/ pt. He states all his Drs are at [facility].
--- NOTE | 2025-06-27 21:48 | PC.NURSE ---
Discussed POC w/ pt about transfer to [facility], pt wanting more water to drink. Order obtained for po Tylenol d/t pt increased temp. noted. VSS, continuing to monitor. Will await callback from [facility].
[2025-06-27] MEDS: SODIUM CHLORIDE 0.9% IV 1,000 ML 150 ML IV CONT (21:53)
[2025-06-27] MEDS: ACETAMINOPHEN 500 MG TABLET 1000 MG PO (21:53)
--- NOTE | 2025-06-27 23:03 | PC.NURSE ---
CT report back, POC to call [facility] back w/ results to try to get pt transferred to his specialists. Continuing to monitor, NSR noted. Callback made to [facility].
[2025-06-27] MEDS: PIPERACILLIN/TAZOBACTAM SOD 3.375 GM in SODIUM CHLORIDE 0.9% IV 50 ML 100 ML IVPB (23:09)
--- NOTE | 2025-06-27 23:50 | PC.NURSE ---
Pt has noted hypotension, ERP Dr Zuniga informed on pts BP, orders received to rapid infuse NS.
[2025-06-28] VITALS (55 sets, daily range): BP systolic 73–131; BP diastolic 38–89; PULSE 73–104; RESP 11–31; TEMP 36.7; O2SAT 93–100
[2025-06-28] MEDS: SODIUM CHLORIDE 0.9% IV 1,000 ML 999 ML IV CONT ×2 (00:23→01:19)
--- NOTE | 2025-06-28 00:43 | PC.NURSE ---
Accepted fro transfer to [facility], they will work on getting pt a bed, pt sitting upright in bed, VSS, IVF infusing w/ pressure bag in place. continuing to monitor until bed is available at [facility].
[2025-06-28 01:06] LABS: Ammonia < 9 umol/L (9-30)
[2025-06-28 01:33] LABS: Alanine Aminotransferase 149 U/L (6-50); Albumin Level 2.6 g/dL (3.5-5.1); Alkaline Phosphatase 255 U/L (38-126); Anion Gap 9 mmol/L (4-12); Aspartate Amino Transferase 318 U/L (17-59); Bilirubin,Total 1.1 mg/dL (0.2-1.3); Blood Urea Nitrogen 36 mg/dL (9-20); Calcium 7.0 mg/dL (8.4-10.2); Carbon Dioxide 19 mmol/L (22-30); Chloride 106 mmol/L (98-107); Estimated CRCL calculation 45 ml/min; Estimated Glomerular Filt Rate 52; Glucose 201 mg/dL (65-110); Osmolality Calculated 292 mOsm/kg (285-295); Potassium 3.6 mmol/L (3.4-5.0); Sodium 134 mmol/L (137-145); Total Protein 4.7 g/dL (6.3-8.2)
--- NOTE | 2025-06-28 01:59 | PC.NURSE ---
Pt had very large explosive BM formed and runny. Bed changed and pt cleaned, diaper applied. Pt resting and states he is feeling much better and abd is less sore. Continuing to monitor until bed is assigned at [facility].
[2025-06-28] MEDS: SODIUM CHLORIDE 0.9% IV 1,000 ML 200 ML IV CONT (02:21)
--- NOTE | 2025-06-28 04:00 | PC.NURSE ---
Pt sleeping, VSS, IVF infusing continuing to monitor.
--- NOTE | 2025-06-28 05:14 | PC.NURSE ---
Pt changed of large runny diarrhea. Noted urine output in diaper as well. Pt bed changed and gown changed, continuing to monitor. VSS.
--- NOTE | 2025-06-28 06:54 | PC.NURSE ---
Pts Blood sugar reading at 247. Lights dimmed, call bello at side. Continuing to monitor, VSS. Report given to JORGE LUIS Weston
--- NOTE | 2025-06-28 07:12 | PC.NURSE ---
Report from JORGE LUIS Galarza. Pt is currently resting on hospital bed. Pt is aware of plan of care and continues to await room assignment at [facility]. IVF infusing as ordered without difficulty. Pt denies any needs or complaints at this time. Will continue to monitor.
[2025-06-28] MEDS: PIPERACILLIN/TAZOBACTAM SOD 3.375 GM in SODIUM CHLORIDE 0.9% IV 50 ML 100 ML IVPB ×2 (07:47→14:10)
--- NOTE | 2025-06-28 08:00 | PC.NURSE ---
Angley with [facility] has called for update. No beds available at this time. Pt is currently sleeping on hospital bed with iv medication infusing as ordered without difficulty. NAD noted. will continue to monitor.
[2025-06-28] MEDS: SODIUM CHLORIDE 0.9% IV 1,000 ML 100 ML IV CONT (09:22)
--- NOTE | 2025-06-28 09:26 | PC.NURSE ---
PT UP TO BEDSIDE COMMODE WITH MINIMAL ASSISTANCE. LIQUID SEMI-FORMED BROWN STOOL NOTED. PT REPORTS HE IS FEELING MUCH BETTER, HIS COGNITIVE STATUS HAS IMPROVED PER PREVIOUS STAFF. PT IS A&OX4. DELFIN. VSS. IVF INFUSING ORDERED WITHOUT DIFFICULTY. PT DENIES ANY NEEDS OR COMPLAINTS. WILL CONTINUE TO MONITOR.
--- NOTE | 2025-06-28 10:51 | PC.NURSE ---
pt is resting comfortably on hospital bed. no change in status, he continues to await room assignment at [facility]. He had reported to this RN that in 2004 he had a liver transplant completed at [facility]. Will continue to monitor.
--- NOTE | 2025-06-28 12:19 | PC.NURSE ---
spoke with [facility] intake, they are down grading pt status from ICU at this time due to VSS. They are to return call with updated information.
--- NOTE | 2025-06-28 12:47 | PC.NURSE ---
PT IS ATTEMPTING TO HAVE REJECTION MEDICATIONS BROUGHT UP TO THE HOSPITAL. PT REPORTS HE TAKES THEM BID. SPOKE WITH OWEN, PHARMACIST AT [facility] HE ADVICES ERP TO ORDER THE MEDICATIONS AND HE WILL GET THE MEDICATIONS TO THE PT.
--- NOTE | 2025-06-28 13:05 | PC.NURSE ---
darren cardenas provided. report to JORGE LUIS Harper
--- NOTE | 2025-06-28 14:53 | PC.NURSE ---
1448hrs: Gave pt home meds. Sirolimus 2mg, Quetiapine 100mg, Ursoldiol 600mg
[2025-06-28 17:35] LABS: Hematocrit 33.6 % (40.0-54.0); Hemoglobin 11.1 g/dL (14.0-18.0); Immature Granulocyte Percent A 0.8 % (0.0-0.0); Immature Platelet Fraction Pct 4.3 % (1.0-7.0); Lymphocytes Absolute Auto 0.31 K/mm3 (1.10-4.50); Mean Corpuscular HGB Conc 33.0 g/dL (32-36); Mean Corpuscular Hemoglobin 29.7 pg (27.0-31.0); Mean Corpuscular Volume 89.8 fL (78.0-102.0); Nucleated Red Blood Cells Absolute Auto 0.00 K/mm3 (0.00-0.00); Nucleated Red Blood Cells Perc 0.0 % (0-0.0); Platelet Count Result 102 K/mm3 (150-420); Red Blood Count 3.74 M/mm3 (4.70-6.10); White Blood Count 12.8 K/mm3 (4.8-10.8)
[2025-06-28 17:46] LABS: Alanine Aminotransferase 119 U/L (6-50); Albumin Level 2.9 g/dL (3.5-5.1); Alkaline Phosphatase 218 U/L (38-126); Anion Gap 9 mmol/L (4-12); Aspartate Amino Transferase 145 U/L (17-59); Bilirubin,Total 0.8 mg/dL (0.2-1.3); Blood Urea Nitrogen 33 mg/dL (9-20); Carbon Dioxide 20 mmol/L (22-30); Chloride 105 mmol/L (98-107); Estimated CRCL calculation 46 ml/min; Estimated Glomerular Filt Rate 54; Potassium 4.3 mmol/L (3.4-5.0); Sodium 134 mmol/L (137-145); Total Protein 5.5 g/dL (6.3-8.2)
[2025-06-28 17:47] LABS: Calcium 7.1 mg/dL (8.4-10.2); Glucose 325 mg/dL (65-110); Osmolality Calculated 298 mOsm/kg (285-295)
--- NOTE | 2025-06-28 19:40 | PC.NURSE ---
Spoke with pt and explained the concerns and possible detrimental outcomes of pt leaving AMA. Pt states that he understands and will follow up with his own doctors.
--- NOTE | 2025-06-28 19:40 | PC.NURSE ---
Told pt that he has been accepted to [facility]. Pt states that he refuses to go to that hospital. Pt stated,They killed my brother. I will just go home. I explained to pt that we have tried all day to get [facility] to accept him as a pt and they cannot find a physician to accept him. We contacted 4 different hospitals for admission. [facility] is the only one who would accept him.
--- NOTE | 2025-06-28 19:42 | PC.NURSE ---
Spoke to pt's neighbor. She will come and pick him up.
--- NOTE | 2025-06-30 14:23 | PC.NURSE ---
attempted to reach pt. pt signed out ama. no answer . call to dr claire office to notify of abnormal blood cultures. awaiting call back
--- NOTE | 2025-06-30 14:35 | PC.NURSE ---
spoke with dr dillon, pt called back. explained abnormal lab to pt. pt stated would go to [facility].
== END 2025-06-28 20:02 | disposition left against medical advice (07) ==
PROVIDERS: Emergency Provider Emergency Medicine; PCP Family Medicine
DX: A41.9 Sepsis, unspecified organism (principal); E10.69 Type 1 diabetes mellitus with other specified complication; E87.0 Hyperosmolality and hypernatremia; K83.09 Other cholangitis; R74.01 Elevation of levels of liver transaminase levels; K83.8 Other specified diseases of biliary tract; N17.9 Acute kidney failure, unspecified; K56.41 Fecal impaction; E78.5 Hyperlipidemia, unspecified; I25.2 Old myocardial infarction; Z79.4 Long term (current) use of insulin; Z20.822 Contact with and (suspected) exposure to COVID-19
CPT/HCPCS: 36415; 36600; 70450; 71045; 74177; 80053; 80307; 81001; 82010; 82077; 82140; 82803; 82805; 82948; 83036; 83605; 84484; 85025; 85055; 87040; 87077; 87186; 87637; 93005; 96361; 96365; 96366; 96367; 99285; A9270; J1815; J2543; J7030; J7517; Q9967

== ENCOUNTER 2025-07-14 13:12 | Outpatient (CLI) | payer MEDICARE, SELFPAY ==
--- OUTSIDE RECORDS SUMMARY | 2025-07-12 09:30 | XMS_ITS | Encounter Summary ---
Author Organization [facility] Address [address] [place] [address] Phone Care Team Providers Care Mixing Roll Operator Name Role Phone Serge Zuniga MD Primary Care Provider [phone] Reason for Visit * Auth/Cert (Routine) Specialty Diagnoses / Procedures Referred By Contac t Referred To Contact Referral ID Status Reason Start Date Expiration Date Visits Re quested Visits Authorized [id number] 1 1 Encounter Details Date Type Department Care Team ([facility] Contact Info) Description 07/12/2025 9:30 AM CDT Home Care Visit [facility] [address] [place] [address] Christina Galvez, PT PT - [place] START OF CARE Social History Tobacco Use Types Packs/Day Years Used Date Smoking Tobacco: Never Assessed Sex and Gender Information Value Date Recorded Sex Assigned at Not on file Legal Sex Male 3:07 PM CDT Gender Identity Not on file Sexual Orientation Not on file documented as of this encounter Last Filed Vital Signs Vital Sign [facility] Time Taken Comments Blood Pressure 138/70 07/12/2025 9:53 AM CDT Pulse 72 07/12/2025 9:53 AM CDT Temperature 36.1 C (97 F) 07/12/2025 9:53 AM CDT Respiratory Rate 16 07/12/2025 9:53 AM CDT Oxygen Saturation 97% 07/12/2025 9:53 AM CDT Inhaled Oxygen Concentration - - Weight - - Height 177.8 cm (5' 10) 07/12/2025 9:53 AM CDT Body Mass Index - - documented in this encounter Plan of Treatment Upcoming Encounters Date Type Department Care Team ([facility] Contact Info) Description 07/15/2025 1:00 AM CDT Appointment [facility] [address] [place] [id number] Basia Avilez MSW [place] 07/16/2025 12:30 PM CDT Appointment [facility] [address] [place] [address] Violet Koo, BICYCLE REPAIRER [place] 07/16/2025 3:00 PM CDT Appointment [facility] [address] [place] [phone] Fior Clayton K, SENIOR CLINICAL PROJECT MANAGER [place] 07/20/2025 1:00 AM PANTRY GOODS MAKER Appointment [facility] [address] [place] [phone] Fior Clayton K, SENIOR CLINICAL PROJECT MANAGER [place] 07/20/2025 2:00 AM PANTRY GOODS MAKER Appointment [facility] [address] [place] [phone] Violet Koo, DESTINI [place] 07/22/2025 1:00 AM PANTRY GOODS MAKER Appointment [facility] [address] [place] [phone] Fior Clayton K, SENIOR CLINICAL PROJECT MANAGER [place] 07/22/2025 2:00 AM PANTRY GOODS MAKER Appointment [facility] [address] [place] [phone] Violet Koo, DESTINI [place] 07/27/2025 1:00 AM PANTRY GOODS MAKER Appointment [facility] [address] [place] [phone] Fior Clayton, SENIOR CLINICAL PROJECT MANAGER [place] 07/28/2025 1:00 AM PANTRY GOODS MAKER Appointment [facility] [address] [place] [phone] Violet Koo, BICYCLE REPAIRER [place] 07/30/2025 1:00 AM PANTRY GOODS MAKER Appointment [facility] [address] [place] [phone] Fior Clayton K, SENIOR CLINICAL PROJECT MANAGER [place] 07/30/2025 2:00 AM PANTRY GOODS MAKER Appointment [facility] [address] [place] [phone] Violet Koo, BICYCLE REPAIRER [place] 08/02/2025 1:00 AM PANTRY GOODS MAKER Appointment [facility] [address] [place] [address] Christina Galvez, PT 08/04/2025 1:00 AM PANTRY GOODS MAKER Appointment [facility] [address] [place] [address] Fior Clayton, [facility] documented as of this encounter Visit Diagnoses Not on filedocumented in this encounter Care Teams Mixing Roll Operator Relationship Specialty Start Date End Date Serge Zuniga MD [address] [place] [phone] PCP - General Family Medicine 07/08/25 documented as of this encounter
--- OUTSIDE RECORDS SUMMARY | 2025-07-13 13:15 | XMS_ITS | Encounter Summary ---
Author Organization [facility] Address [address] [place] [address] Phone Care Team Providers Care Automation Qtp Tester Name Role Phone Serge Zuniga MD Primary Care Provider [phone] Reason for Visit * Auth/Cert (Routine) Specialty Diagnoses / Procedures Referred By Conttylor t Referred To Contact Referral ID Status Reason Start Date Expiration Date Visits Re quested Visits Authorized [id number] 1 1 Encounter Details Date Type Department Care Team (Late Contact Info) Description 07/13/2025 1:15 PM CDT Home Care Visit [facility] [address] [place] [address] Nisha Williamson OT OT - INITIAL EVALUATION Social History Tobacco Use Types Packs/Day Years Used Date Smoking Tobacco: Never Assessed Sex and Gender Information Value Date Recorded Sex Assigned at Not on file Legal Sex Male 3:07 PM CDT Gender Identity Not on file Sexual Orientation Not on file documented as of this encounter Last Filed Vital Signs Vital Sign Reading Time Taken Comments Blood Pressure 158/74 07/13/2025 1:30 PM CDT Pulse 69 07/13/2025 1:30 PM CDT Temperature 36.5 C (97.7 F) 07/13/2025 1:30 PM CDT Respiratory Rate 18 07/13/2025 1:30 PM CDT Oxygen Saturation 97% 07/13/2025 1:30 PM CDT Inhaled Oxygen Concentration - - Weight - - Height - - Body Mass Index - - documented in this encounter Plan of Treatment Upcoming Encounters Date Type Department Care Team ([facility] Contact Info) Description 07/15/2025 1:00 AM CDT [facility]ment [facility] [address] [place] [address] Basia Avilez MSW ID 07/16/2025 12:30 PM CDT Appointment [facility] [address] [place] [address] Violet Koo, PHYSICAL CHEMISTRY TEACHER [place] 07/16/2025 3:00 PM CDT Appointment [facility] [address] [place] [address] Fior Clayton, BUFFING AND POLISHING WHEEL REPAIRER [place] 07/20/2025 1:00 AM INSPECTOR RAG SORTING Appointment [facility] [address] [place] [address] Fior Clayton, BUFFING AND POLISHING WHEEL REPAIRER [place] 07/20/2025 2:00 AM INSPECTOR RAG SORTING Appointment [facility] [address] [place] [address] Violet Koo, PHYSICAL CHEMISTRY TEACHER [place] 07/22/2025 1:00 AM INSPECTOR RAG SORTING Appointment [facility] [address] [place] [address] Fior Clayton, BUFFING AND POLISHING WHEEL REPAIRER [place] 07/22/2025 2:00 AM INSPECTOR RAG SORTING Appointment [facility] [address] [place] [address] Violet Koo, DESTINI [place] 07/27/2025 1:00 AM INSPECTOR RAG SORTING Appointment [facility] [address] [place] [address] Fior Clayton K, BUFFING AND POLISHING WHEEL REPAIRER [place] 07/28/2025 1:00 AM INSPECTOR RAG SORTING Appointment [facility] [address] [place] [address] Violet Koo, DESTINI [place] 07/30/2025 1:00 AM INSPECTOR RAG SORTING Appointment [facility] [address] [place] [address] Fior Clayton, BUFFING AND POLISHING WHEEL REPAIRER [place] 07/30/2025 2:00 AM INSPECTOR RAG SORTING Appointment [facility] [address] [place] [address] Violet Koo, PHYSICAL CHEMISTRY TEACHER [place] 08/02/2025 1:00 AM INSPECTOR RAG SORTING Appointment [facility] [address] [place] [address] Christina Galvez, PT 08/04/2025 1:00 AM INSPECTOR RAG SORTING Appointment [facility] [address] [place] [address] Fior Clayton, BUFFING AND POLISHING WHEEL REPAIRER [place] documented as of this encounter Visit Diagnoses Not on filedocumented in this encounter Home Health Visit - Care Plan Visit Details Visit Type -OT - INITIAL PAO LUATION Discipline -Occupational Therapy Problems Problem Description Start Date Status Goals Interve ntions OT COMPREHENSIVE Disciplines: Occupational Therapy 07/13/2025 Active 2 goals linked to scheduled/documente d interventions 2 goal interventions scheduled/documente d in this visit Goals Goal Associated Problem Outcome Goal Met? Visit Notes OT Vision Description: Short Term Goal: Patient will demonstrate knowledge and use of compensatory techniques of text reading claire as needed to identify his medication/read medication bottles to be met by 07/31/25 OT COMPREHENSIVE No OT Transfers Description: Short Term Goal: Patient will complete toilet transfer with adaptive equipment of walker as needed with independence and good in order to safely perform ADLs. To be met by 07/31/25. Jail Goal: Patient will complete tub transfer with adaptive e quipment of transfer tub bench and walker as needed with independence and good in order to safely perform ADLs. To be met by 07/31/25. OT COMPREHENSIVE No Interventions Intervention Associated Problem/Goal Status Variance Visit Notes OT Vision Description: Instruct on low vision techniques and safety. Equipment as needed. Problem:OT COMPREHENSIVE Goal:OT Vision Performed The use of a text reading claire was discussed with pt. He is agreeable to try it Follow up is required. OT Transfers Description: Instruct on transfer techniques and safety. Equipment as needed. Problem:OT COMPREHENSIVE Goal:OT Transfers Performed The use of a transfer tub bench to get in the tub as well as a handheld shower hose was discussed with pt. He is agreeable to try it and is seeing the MD tomorrow to see if he will order one. Follow up is required. documented in this encounter Care Teams Automation Qtp Tester Relationship Specialty Start Date End Date Serge Zuniga MD [address] [place] [address] PCP - General Family Medicine 07/08/25 documented as of this encounter
[2025-07-14 13:34] LABS: Hematocrit 36.1 % (40.0-54.0); Hemoglobin 11.3 g/dL (14.0-18.0); Immature Granulocyte Percent A 0.3 % (0.0-0.0); Lymphocytes Absolute Auto 2.94 K/mm3 (1.10-4.50); Mean Corpuscular HGB Conc 31.3 g/dL (32-36); Mean Corpuscular Hemoglobin 30.1 pg (27.0-31.0); Mean Corpuscular Volume 96.0 fL (78.0-102.0); Nucleated Red Blood Cells Absolute Auto 0.00 K/mm3 (0.00-0.00); Nucleated Red Blood Cells Perc 0.0 % (0-0.0); Platelet Count Result 334 K/mm3 (150-420); Red Blood Count 3.76 M/mm3 (4.70-6.10); White Blood Count 9.7 K/mm3 (4.8-10.8)
[2025-07-14 14:08] LABS: Alanine Aminotransferase 16 U/L (6-50); Albumin Level 4.1 g/dL (3.5-5.1); Alkaline Phosphatase 103 U/L (38-126); Anion Gap 9 mmol/L (4-12); Aspartate Amino Transferase 28 U/L (17-59); Bilirubin,Total 0.5 mg/dL (0.2-1.3); Blood Urea Nitrogen 20 mg/dL (9-20); Calcium 9.5 mg/dL (8.4-10.2); Carbon Dioxide 32 mmol/L (22-30); Chloride 102 mmol/L (98-107); Estimated Glomerular Filt Rate > 60; Lipase 48 U/L (23-300); Osmolality Calculated 295 mOsm/kg (285-295); Potassium 4.3 mmol/L (3.4-5.0); Sodium 143 mmol/L (137-145); Total Protein 6.8 g/dL (6.3-8.2)
[2025-07-14 14:16] LABS: Glucose 48 mg/dL (65-110)
--- OUTSIDE RECORDS SUMMARY | 2025-07-14 14:34 | XMS_ITS | Encounter Summary ---
Author Organization [facility] Address [address] [facility] [place] [address] Care Team Providers Care Scooter Mechanic Name Role Phone Theo Stringer MD Primary Care Provider [phone] Theo Stringer MD Unavailable [phone] Isaac Callahan MD Unavailable [phone] Reason for Visit * Reason Onset Date Comments MEDICATION REFILL 05/27/2019 Encounter Details Date Type Department Care Team (Late st Contact Info) Description 05/27/2019 Refill [facility] General Internal Medicine [address] [place] [address] Theo Stringer MD [address] [facility] [facility] [facility] [address] [place] [address] MEDICATION REFILL Social History Tobacco [...] on filedocumented in this encounter Care Teams Scooter Mechanic Relationship Specialty Start Date End Date Theo Stringer MD [address] [place] [address] [address] [place] [address] PCP - General Internal Medicine 02/14/19 Theo Stringer MD [address] [place] [address] [address] [place] [address] Internal Medicine 02/14/19 Isaac Callahan MD [address] [facility], [address] [address] Endocrinology 03/25/13 documented as of this encounter
--- OUTSIDE RECORDS SUMMARY | 2025-07-14 14:34 | XMS_ITS | Encounter Summary ---
Author Organization [facility] Address [address] [place] [address] Phone Care Team Providers Care Enterprise Systems Engineer Name Role Phone Serge Zuniga MD Primary Care Provider [phone] Reason for Visit * Reason Onset Date Comments Medication Management 07/12/2025 Encounter Details Date Type Department Care Team ([facility] st Contact Info) Description 07/12/2025 [facility] [address] [place] [address] Christian Galvez, PT Medication Management Social History Tobacco Use Types Packs/Day Years Used Date Smoking Tobacco: Never Assessed Sex and Gender Information Value Date Recorded Sex Assigned at Not on file Legal Sex Male 3:07 PM CDT Gender Identity Not on file Sexual Orientation Not on file documented as of this encounter Miscellaneous Notes * Telephone Encounter - Christina Galvez, PT - 07/12/2025 11:38 AM CDT Clinical Support - please fax the following to Dr. Serge Zuniga. Please respond to each line item below: [facility] services. Current Medications[1] Medication review completed with patient on 07-12-25. Pt follows up with PCP on 07/14/25. Patient reports: Pt is missing the following medications in the home, they're on his DC med list but he does not have them in the home : plavix, finasteride, eliquis - he believes he was told to stop all blood thinners. Pt has the following meds in the home that he is taking but they're not on his DC med list : crestor, stimulant laxative, actigall Please review the above med discrepancies and respond by calling [facility] orders at [facility] [phone] Option 4, or by fax at [facility] - [phone]. [1] No current outpatient medications on file. documented in this encounter Plan of Treatment Upcoming Encounters Date Type Department Care Team (Late st Contact Info) Description 07/15/2025 1:00 AM CDT Appointment [address] [address] Basia Avilez MSW [place] 07/16/2025 12:30 PM CDT Appointment [address] [address] Violet Koo, ENVIRONMENTAL HEALTH INSPECTOR [place] 07/16/2025 3:00 PM CDT Appointment [address] [address] Fior Clyaton, USED CAR RENOVATOR [place] 07/20/2025 1:00 AM MARKETING PROPOSAL SPECIALIST Appointment [address] [address] Fior Clayton, USED CAR RENOVATOR [place] 07/20/2025 2:00 AM MARKETING PROPOSAL SPECIALIST Appointment [address] [address] Violet Koo, ENVIRONMENTAL HEALTH INSPECTOR [place] 07/22/2025 1:00 AM MARKETING PROPOSAL SPECIALIST Appointment [address] [address] Fior Clayton, USED CAR RENOVATOR [place] 07/22/2025 2:00 AM MARKETING PROPOSAL SPECIALIST Appointment [address] [address] Violet Koo, DESTINI [place] 07/27/2025 1:00 AM MARKETING PROPOSAL SPECIALIST Appointment [address] [address] Fior Clayton, USED CAR RENOVATOR [place] 07/28/2025 1:00 AM MARKETING PROPOSAL SPECIALIST Appointment [address] [address] Violet Koo ENVIRONMENTAL HEALTH INSPECTOR [place] 07/30/2025 1:00 AM MARKETING PROPOSAL SPECIALIST Appointment [facility] [address] [place] [address] Fior Clayton, CHRISTY [place] 07/30/2025 2:00 AM MARKETING PROPOSAL SPECIALIST [facility] [address] [place] [address] Violet Koo, ENVIRONMENTAL HEALTH INSPECTOR [place] 08/02/2025 1:00 AM MARKETING PROPOSAL SPECIALIST Appointment [facility] [address] [place] [address] Christina Galvez, PT 08/04/2025 1:00 AM MARKETING PROPOSAL SPECIALIST Appointment [address] [address] Fior Clayton, USED CAR RENOVATOR [place] documented as of this encounter Visit Diagnoses Not on filedocumented in this encounter Care Teams Enterprise Systems Engineer Relationship Specialty Start Date End Date Serge Zuniga MD [address] [place] [address] PCP - General Family Medicine 07/08/25 documented as of this encounter
--- OUTSIDE RECORDS SUMMARY | 2025-07-14 14:34 | XMS_ITS ---
Author Organization [facility] Address [address] [place] [address] Care Team Providers Care Photo Engraver Name Role Phone Kaylee Gutierrez RN Unavailable [phone] Kimberly Camarillo RN Unavailable Unavailab Maco Higuera MD Unavailable [phone] Angelina Richardson Unavailable [phone] Marshall Sherman MD PhD Unavailable [phone] Serge Zuniga DO Primary Care Provider Transplant Episode Liver Recipient [facility] ([place], [place]) [facility] Organ Received: Liver Transplanted on 12/27/2004 Marked as Active Follow-up on 12/27/2004 Liver CoordinatorKaylee Gutierrez RN Fax: N/A Email: N/A [place] Organ Diagnosis Organ Primary Contributory Liver Cirrhosis: [...] Fax Email Kaylee Gutierrez RN Liver Coordinator [phone] N/A N/A Jodi Johns RN Secondary Coordinator N/A N/A N/A Kaylee Gutierrez RN Farm Equipment Maintenance Supervisor [phone] N/A N/A Elsa Duenas Director Of Quality Improvement [phone] N/A N/A Events Post-Transplant Pre-Transplant Admitted: 12/27/2004 Referred: 03/08/2003 Transplanted: 12/27/2004 Evaluation began: 3 Discharged: 01/02/2005 Center waitlisted: 3
--- OUTSIDE RECORDS SUMMARY | 2025-07-14 14:34 | XMS_ITS | Encounter Summary ---
Author Organization [facility] Address [address] [place] [address] Care Team Providers Care Senior Data Mining Analyst Name Role Phone Theo Stringer MD Primary Care Provider [phone] Kaylee Gutierrez RN Unavailable [phone] Kimberly Camarillo RN Unavailable Unavailab Maco Higuera MD Unavailable [phone] Angelina Richardson Unavailable [phone] Marshall Sherman MD PhD Unavailable Serge Zuniga DO Primary Care Provider Alma Soliz MD Primary Care Provider + No, Physician Primary Care Provider Serge Zuniga DO Primary Care Provider Basia Cota RN Unavailable [phone] Encounter Details Date Type Department Care Team (Late st Contact Info) Description 10/24/2023 Diagnostic [facility] Transplant Liver [address] [facility] [phone] [place] [address] Kaylee Gutierrez RN [address] [facility] [address] [place] [address] Social History Tobacco Use Types Packs/Day Years [...] often do you attend chur ch or confucianism services? Never 03/23/2021 Do you belong to any clubs o r organizations such as judaism groups, unions, fraternal or athletic groups, or [...] on file Legal Sex Male 1:20 AM TECHNICAL SERVICES MANAGER Gender Identity Not on file Sexual Orientation [...] 07/01/2024 07/01/2024 09/29/2024 3:[address] COVID: Suspected 07/01/2025 07/01/2025 07/01/2025 5:45 PM CDT documented as of this encounter Care Teams Senior Data Mining Analyst Relationship Specialty Start Date End Date Theo Stringer MD PCP - General 01/15/11 11/13/24 Serge Zuniga DO [address] [place] [address] PCP - General Family Medicine 12/09/24 05/09/25 Alma Soliz MD [facility] [facility] [address] [place] [address] PCP - General Internal Medicine 05/18/25 05/23/25 No, Physician PCP - General 05/24/25 07/01/25 Serge Zuniga DO [address] [place] [address] PCP - General Family Medicine 07/02/25 Kaylee Gutierrez RN [address] [facility] [address] [place] [address] Account Manager Trainee 10/14/18 Kimberly Camarillo RN Registered Nurse Gastroenterology 01/27/19 Maco Palomino MD [address] [facility] [address] [place] [address] Cardiology 12/17/22 Angelina Richardson PA [address] [facility] DIV IM ENDOCRINOLOGY, [address] [place] [address] Physician Malt House Supervisor Physician Malt House Supervisor 04/24/24 Marshall Sherman MD PhD [address] [facility] [address] [place] [address] Consulting Physician Endocrinology Diabetes & Metabolism 07/23/24 Basia Cota RN [address] [facility] [address] [place] [address] SHOP Outpatient Real Estate Officer 07/05/25 07/05/25 documented as of this encounter
--- OUTSIDE RECORDS SUMMARY | 2025-07-14 14:34 | XMS_ITS | Clinical Summary ---
Author Organization [facility] [employer] Address [address] [facility] [place] [address] Care Team Providers Care Photographic Platemaker Name Role Phone Theo Stringer MD Primary Care Provider [phone] Theo Stringer MD Unavailable [phone] Isaac Callahan MD Unavailable [phone] Source Comments [facility],non-owned Affiliates and Associated Physician Practices is amultiple site organization consisting of ambulatory clinics and hospital sitesin [place], [place], [place] and [place]. This disclosure is being madepursuant to the Care Everywhere program and may not contain all information available regarding this patient. Last updated 18.[facility] [employer] Allergies Active Allergy Reactions Criticality Noted Date [...] this topic Medical Devices Implanted Type Area Project Planner Device Identifier Shelf Expiration Date Model / Serial / Lot Sys Cor Stent 32mm 3mm Sng Monrl Implanted:Qty: 1 on 02/14/2019 by Clotilde Chao MD at [facility] Left: Coronary [employer] Scimed 08/26/2020 [id number] / / Description:Mid LAD Sys Cor Stent 12mm 3mm Sng Monrl Implanted:Qty: 1 on 02/14/2019 by Clotilde Chao MD at [facility] Left: Coronary [employer] Scimed 07/15/2020 [id number] / / Procedures Procedure Name Priority Date/Time Associated Diagnosis Comments BASIC METABOLIC PANEL (CALCIUM TOTAL) AM Draw 02/17/2019 5:55 AM CDT HEMOGLOBIN A1C Routine 02/15/2019 1:15 AM CDT from Last 3 Months or Most Recently Relevant to Health Maintenance Results * (ABNORMAL) BASIC METABOLIC PANEL (CALCIUM TOTAL) (02/17/2019 5:55 AM CDT) BUN 14 7 - 26 mg/dL 02/17/2019 6:53 AM [facility] Creatinine 0.8 0.6 - 1.2 mg/dL 02/17/2019 6:53 AM [facility] Sodium 134(L) 136 - 145 mmol/L 02/17/2019 6:53 AM [facility] Potassium 4.0 3.5 - 4.5 mmol/L 02/17/2019 6:53 AM [facility] Chloride 97(L) 98 - 107 mmol/L 02/17/2019 6:53 AM [facility] CO2 28 22 - 29 mmol/L 02/17/2019 6:53 AM [facility] Glucose 253(H) 70 - 115 mg/dL 02/17/2019 6:53 AM [facility] Calcium 8.7 8.4 - 10.2 mg/dL 02/17/2019 6:53 AM [facility] Anion Gap 13 8 - 18 02/17/2019 6:53 AM [facility] BUN/Creatinine Ratio 18 7 - 23 02/17/2019 6:53 AM [facility] Osmolality Calculated 287 270 - 300 mOsm/kg 02/17/2019 6:53 AM [facility] eGFR >60 >60 mL/min/1.7 3 m2 02/17/2019 6:53 AM [facility] Blood BLOOD SPECIMEN / Unknown Lab Venipuncture / Unknown 02/17/2019 5:55 AM CDT 02/17/2019 6:19 AM [facility] Clotilde Chao MD LAB - CHEMISTRY ORDERABLES Final Result [address] [phone] * (ABNORMAL) HEMOGLOBIN A1C (02/15/2019 1:15 AM [facility]) Hemoglobin A1c 13.0(H) 4.4 - 6.3 % 02/15/2019 11:47 AM [facility] Estimated Average Glucose 326 mg/dL 02/15/2019 11:47 AM [facility] Comment: HbA1c Interpretation: Treatment target values recommended by ADA and other clinical organizations should be used to evaluate metabolic control in patients. Treatment Target Values: Normal : < 5.7% Pre-diabetes: 5.7-6.4% Diabetes: Equal to or greater than 6.5% Reference: [place] Diabetes Association Standards of Care in Diabetes -2014 In patients 70 years and older consider HbA1c target range of 7.0-7.5% Reference: Diabetes Mellitus in Older People: Position Statement on behalf of the International Association of Gerontology and Geriatrics (IAGG), the Diabetes Working Constitution Party for Older People (EDWPOP), and the International Task Force of Experts in Diabetes. Jaya Branch et al. J [place] Medical Directors Association. 2012 Test results diagnostic of diabetes should be repeated for confirmation. The Sebia Capillary 2 assay for the measurement of HbA1c is a National Glycohemoglobin Standardization Program (NGSP)certified method. Blood BLOOD SPECIMEN / Unknown Venipuncture / Unknown 02/15/2019 1:15 AM CDT 02/15/2019 1:25 AM CDT Natali Ko DO LAB - CHEMISTRY ORDERABLES Final Result [address] [phone] from Last 3 Months or Most Recently Relevant to Health Maintenance Insurance MEDICARE MEDICARE MEDICARE MEDICAID - OUT OF STATE Advance Directives * Full Code (Latest Code Status on File) Date Activated Date Inactivated Comments 02/14/2019 11:43 PM 02/17/2019 5:53 PM Care Teams Photographic Platemaker Relationship Specialty Start Date End Date Theo Stringer MD [facility] [address] [place] [address] PCP - General Internal Medicine 02/14/19 Theo Stringer MD [facility] [address] [place] [address] Internal Medicine 02/14/19 Isaac Callahan MD [address] [place] [phone] Endocrinology 03/25/13
--- OUTSIDE RECORDS SUMMARY | 2025-07-14 14:34 | XMS_ITS | Encounter Summary ---
Author Organization [facility] Address [address] [place] [address] Phone Care Team Providers Care Child And Family Services Specialist Name Role Phone Serge Zuniga MD Primary Care Provider [phone] Reason for Visit * Auth/Cert (Routine) Specialty Diagnoses / Procedures Referred By Conttylor t Referred To Contact Referral ID Status Reason Start Date Expiration Date Visits Re quested Visits Authorized [id number] 1 1 Encounter Details Date Type Department Care Team ([facility] Contact Info) Description 07/13/2025 Home Care Visit [address] [address] Christina Galvez, PT CARE CONFERENCE Social History Tobacco Use Types Packs/Day Years Used Date Smoking Tobacco: Never Assessed Sex and Gender Information Value Date Recorded Sex Assigned at Not on file Legal Sex Male 3:07 PM CDT Gender Identity Not on file Sexual Orientation Not on file documented as of this encounter Plan of Treatment Upcoming Encounters Date Type Department Care Team ([facility] Contact Info) Description 07/15/2025 1:00 AM CDT Appointment [address] [address] Basia Avilez MSW [place] 07/16/2025 12:30 PM CDT Appointment [address] [address] Violet Koo OTA [place] 07/16/2025 3:00 PM CDT Appointment [address] [address] Fior Clayton PTA [place] 07/20/2025 1:00 AM EQUIPMENT WORKER Appointment [facility] [address] [place] [address] Fior Clayton, LEAD LOADER [place] 07/20/2025 2:00 AM EQUIPMENT WORKER Appointment [facility] [address] [place] [address] Violet Koo, DESTINI [place] 07/22/2025 1:00 AM EQUIPMENT WORKER Appointment [facility] [address] [place] [address] Fior Clayton, LEAD LOADER [place] 07/22/2025 2:00 AM EQUIPMENT WORKER Appointment [facility] [address] [place] [address] Violet Koo, HOME STEREO EQUIPMENT INSTALLER [place] 07/27/2025 1:00 AM EQUIPMENT WORKER Appointment [facility] [address] [place] [address] Fior Clayton, LEAD LOADER [place] 07/28/2025 1:00 AM EQUIPMENT WORKER Appointment [facility] [address] [place] [address] Violet Koo, HOME STEREO EQUIPMENT INSTALLER [place] 07/30/2025 1:00 AM EQUIPMENT WORKER Appointment [facility] [address] [place] [address] Fior Clayton, LEAD LOADER [place] 07/30/2025 2:00 AM EQUIPMENT WORKER Appointment [facility] [address] [place] [address] Violet Koo, HOME STEREO EQUIPMENT INSTALLER [place] 08/02/2025 1:00 AM EQUIPMENT WORKER Appointment [facility] [address] [place] [address] Christina Galvez, PT 08/04/2025 1:00 AM EQUIPMENT WORKER Appointment [facility] [address] [place] [address] Fior Clayton, LEAD LOADER [place] documented as of this encounter Visit Diagnoses Not on filedocumented in this encounter Care Teams Child And Family Services Specialist Relationship Specialty Start Date End Date Serge Zuniga MD [address] [place] [address] PCP - General Family Medicine 07/08/25 documented as of this encounter
--- OUTSIDE RECORDS SUMMARY | 2025-07-14 14:34 | XMS_ITS | Clinical Summary ---
Author Organization [facility] Address [address] [place] [address] Phone Care Team Providers Care Financial Legal Assistant Name Role Phone Serge Zuniga MD Primary Care Provider [phone] Allergies No known active allergies Medications rosuvastatin (CRESTOR) 20 MG Tablet Take 20 mg by mouth daily. Active gabapentin (NEURONTIN) 300 MG Capsule Take 300 mg by mouth 3 times daily. Active metoprolol Succinate (TOPROL-XL) 50 MG TABLET SR 24 HR Take 50 mg by mouth daily. Active lisinopril (PRINIVIL, ZESTRIL) 5 MG Tablet Take 5 mg by mouth daily. Active senna-docusate (Stimulant Laxative) 8.6-50 MG Tablet Take 1 Tablet by mouth daily. Active sirolimus (RAPAMUNE) 2 MG Tablet Take 2 mg by mouth daily. Active amoxicillin-cl avulanate (AUGMENTIN) 875-125 MG Tablet Take 1 Tablet by mouth 2 times daily. 5 025 Active ursodiol (ACTIGALL) 300 MG Capsule Take 600 mg by mouth every 12 hours. Active mycophenolate mofetil (CELLCEPT) 250 MG Capsule Take 250 mg by mouth 2 times daily. Active ergocalciferol (VITAMIN D2) 50 MCG (1999 UT) Tablet Take 2,000 Units by mouth once a week. Active aspirin EC 81 MG Tablet Delayed Response Take 81 mg by mouth daily. Active multivitamin-m inerals (ONE A DAY MEN 50 PLUS) Tablet Take 1 Tablet by mouth daily. Active lactulose (CHRONULAC) 10 GM/15ML Solution Take 15 mL by mouth Daily as needed for Constipation - 1st line. Active insulin glargine solostar (Toujeo SoloStar) 300 UNIT/ML Solution Pen-injector 15 Units by Subcutaneous route nightly. Active HYDROcodone-ac etaminophen (NORCO) 10-325 MG Tablet Take 1 Tablet by mouth every 6 hours as needed for Moderate or more severe pain. Active insulin lispro (HumaLOG) 100 UNIT/ML Solution inject 1-5 units under the skin 3 times daily with meals; 150-199 : 1 unit 200-249 : 2 units 250-299 : 3 units 300-349 : 4 units 350 or more : 5 units. Notify PCP for blood glucose greater than 299. Active lidocaine (LIDODERM) 5 % Patch 1 Patch by Transdermal route every 12 hours. remove and discard patch within 12 hours or as directed by MD Active Dulaglutide (Trulicity) 0.75 MG/0.5ML Solution Auto-injector 0.75 mg by Subcutaneous route once a week. Active ibuprofen (MOTRIN) 400 MG Tablet Take 400 mg by mouth every 8 hours as needed for Mild or more severe pain. 025 Discontin ued(Thera py completed ) Encounters Date Type Department Care Team Description 07/13/2025 1:15 PM CDT Home Care Visit [address] [address] Nisha Williamson, OT OT - INITIAL EVALUATION 07/13/2025 Home Care Visit [address] [address] Christina Galvez, PT CARE CONFERENCE 07/12/2025 9:30 AM CDT Home Care Visit [address] [address] Christina Galvez, PT PT - OASIS START OF CARE 07/12/[address] [address] Christina Galvez, PT Medication Management 07/12/2025 Plan of Care Documentation [address] [address] 07/09/2025 Home Care Visit [address] [address] Christina Galvez, PT TELEPHONE ENCOUNTER from Last 3 Months Social History Tobacco Use Types Packs/Day Years [...] AM CDT Body Mass Index - - Plan of Treatment Upcoming Encounters Date Type Department Care Team (Late st Contact Info) Description 07/15/2025 1:00 AM CDT Appointment [address] [address] Basia Avilez MSW [place] 07/16/2025 12:30 PM CDT Appointment [address] [address] Violet Koo, [place]INI [place] 07/16/2025 3:00 PM CDT Appointment [address] [address] Fior Clayton, COMMUNICATIONS PROFESSOR [place] 07/20/2025 1:00 AM AUTOCAD DESIGNER Appointment [address] [address] Fior Clayton, COMMUNICATIONS PROFESSOR [place] 07/20/2025 2:00 AM AUTOCAD DESIGNER Appointment [address] [address] Violet Koo, [place] 07/22/2025 1:00 AM AUTOCAD DESIGNER Appointment [address] [address] Fior Clayton, COMMUNICATIONS PROFESSOR [place] 07/22/2025 2:00 AM AUTOCAD DESIGNER Appointment [facility] [address] [address] Violet Koo, [place] 07/27/2025 1:00 AM AUTOCAD DESIGNER Appointment [facility] [address] [facility] [place] [address] Fior Clayton, COMMUNICATIONS PROFESSOR [place] 07/28/2025 1:00 AM AUTOCAD DESIGNER Appointment [facility] [address] [place] [address] Violet Koo, [place] 07/30/2025 1:00 AM AUTOCAD DESIGNER Appointment [facility] [address] [address] Fior Clayton, COMMUNICATIONS PROFESSOR [place] 07/30/2025 2:00 AM AUTOCAD DESIGNER Appointment [facility] [address] [address] Violet Koo, [place] 08/02/2025 1:00 AM AUTOCAD DESIGNER Appointment [facility] [address] [address] Christina Galvez, PT 08/04/2025 1:00 AM AUTOCAD DESIGNER Appointment [facility] [address] [address] Fior Clayton, COMMUNICATIONS PROFESSOR [place] Health Maintenance Due Date Last Done Comments Hepatitis C Virus (HCV) Screening 1960 Cologuard 2005 Colonoscopy 2005 Colorectal Cancer Screening 2005 Immunochemical Fecal Occult Blood 2005 Pneumococcal Immunization (50+ years) (1 of 1 - PCV) 2010 Respiratory Syncytial Virus (RSV) Immunization (Adult) (1 - Risk 50-74 years 1-dose series) 2010 PSA Discussion 2015 Welcome to Medicare (IPPE) G0402 11/14/2024 SARS-COV-2 Immunization ( season) 2025 05/03/2021, 12/23/2020, 11/18/2020 TdaP Immunization Completed 10/06/2019 Zoster Immunization Completed 06/04/2022, 2 Influenza Immunization Completed 5, 06/23/2024, 06/21/2023, Additional history exists Hepatitis B Immunization Aged Out No longer eligible based on patient's age to complete this topic Human Papillomavirus (HPV) Immunization Aged Out No longer eligible based on patient's age to complete this topic Meningococcal Immunization (ACWY) Aged Out No longer eligible based on patient's age to complete this topic Rotavirus Immunization Aged Out No lo nger eligible based on patient's age to complete this topic Insurance MEDICARE C [employer] [place] Advance Directives * Full Code (Latest Code Status on File) Date Activated Date Inactivated Comments 07/12/2025 10:17 PM Care Teams Financial Legal Assistant Relationship Specialty Start Date End Date Serge Zuniga MD [address] [place] [id number] PCP - General Family Medicine 07/08/25
--- OUTSIDE RECORDS SUMMARY | 2025-07-14 14:34 | XMS_ITS | Encounter Summary ---
Author Organization [facility] Address [address] [place] [address] Care Team Providers Care Varnish Blender Name Role Phone Theo Stringer MD Primary Care Provider [phone] Theo Stringer MD Unavailable Isaac Callahan MD Unavailable Encounter Details Date Type Department Care Team (Late st Contact Info) Description 05/27/2019 Telephone [facility] General Internal Medicine [address] [facility] [address] [place] [address] Theo Stringer MD [address] [place] [address] Social History Tobacco Use Types [...] on filedocumented in this encounter Care Teams Varnish Blender Relationship Specialty Start Date End Date Theo Stringer MD [address] [place], [place] [address]GEMINI KO [address] [place] [phone] PCP - General Internal Medicine 02/14/19 Theo Stringer MD [address] [place] [address] JUJU KO [address] [place] [phone] Internal Medicine 02/14/19 Isaac Callahan MD [address] [place] [address] [address] [place] [phone] Endocrinology 03/25/13 documented as of this encounter
--- OUTSIDE RECORDS SUMMARY | 2025-07-14 14:35 | XMS_ITS | Clinical Summary ---
Author Organization [facility] Address [address] [place] [address] Care Team Providers Care Supervisor Contact Lens Name Role Phone Kaylee Gutierrez RN Unavailable [phone] Kimberly Camarillo RN Unavailable Unavailab Maco Higuera MD Unavailable [phone] Angelina Richardson Unavailable [phone] Marshall Sherman MD PhD Unavailable [phone] Serge Zuniga DO Primary Care Provider Allergies Active Allergy Reactions Criticality Noted Date Comments Oxycodone Rash Medium Reaction: rash, Oxycodone-Acetaminophen Hives,Itching Low 9 Reaction: HIVES, Medications multivit hpbtetgq-foyr-PW- calcium (THERA-M) 9 mg iron-400 mcg tablet [...] Active OneTouch Delica Plus Lancet 33 gauge misc as directed Active clopidogreL (PLAVIX) 75 mg tablet Take 1 tablet (75 mg total) by mouth daily CALL OFFICE FOR APPT for further refills 30 tablet 3 Active Alcohol Pads pads, medicated Use to administer insulin 4 times daily 200 each Active FreeStyle Test strip Check blood sugar four times a day or as directed 100 each Active blood-glucose sensor device G7 1 each 1 Active blood-glucose meter,continuous (Dexcom G6 Laboratory Engineer) [facility] [place] One morning babysitter to be used with DexCom sensor/transmit ter unit 1 each Active blood-glucose transmitter (Dexcom G6 Transmitter) device Patient uses continuous monitor for injection of insulin four times daily 1 each Active finasteride (PROSCAR) 5 mg tablet Take 1 tablet (5 mg total) by mouth daily 90 tablet 4 Active tamsulosin (FLOMAX) 0.4 mg extended release capsuleIndication s:Benign prostatic hyperplasia with incomplete bladder emptying TAKE 1 CAPSULE(0.4 MG) BY MOUTH DAILY 30 capsule 1 Active blood-glucose meter kitIndications:Un controlled type 2 diabetes mellitus with hyperglycemia (HCC),Uncontrolle d diabetes mellitus with hyperglycemia, with long-term current use of insulin (HCC) To check glucose three times daily prior to meals or twice daily as needed for symptoms of hypo- or hyperglycemia 1 kit Active ergocalciferol (VITAMIN D) 50,000 unit capsuleIndication s:Vitamin D deficiency Take 1 capsule (50,000 Units total) by mouth once a week 12 capsule 3 Active glucagon (Baqsimi) 3 mg/actuation spray,non-aerosol Indications:Uncon trolled type 2 diabetes mellitus with hyperglycemia (HCC) Administer 1 spray (3 mg total) into one nostril as needed (for use in case of emergency for hypoglycemia) 1 each 2 Active sirolimus (RAPAMUNE) 2 mg tablet TAKE 1 TABLET BY MOUTH DAILY 90 tablet 3 024 Active temazepam (RESTORIL) 30 mg capsuleIndication [...] 6 times daily. 400 each 025 Active urine glucose-ketones test stripIndications: Uncontrolled type 2 diabetes mellitus with hyperglycemia (HCC) Test during periods of hyperglycemia with nausea and vomiting. 100 strip 025 Active gabapentin (NEURONTIN) 300 mg capsuleIndication s:Uncontrolled type 2 diabetes mellitus with hyperglycemia (HCC),Diabetic peripheral neuropathy Take 1 capsule (300 mg total) by mouth 3 (three) times a day 90 capsule 025 2025 Active cyclobenzaprine (FLEXERIL) 10 mg tabletIndications :Chronic right shoulder pain,Intercostal muscle pain,Trapezius strain, right, subsequent encounter,Posteri or pain of right hip Take 1 tablet (10 mg total) by mouth nightly as needed for muscle spasms 20 tablet 025 Active HYDROcodone-aceta minophen (NORCO) 10-325 mg per tabletIndications :Chronic pain syndrome Take 1 tablet by mouth every 6 (six) hours as needed for pain 120 tablet 025 Active sertraline (ZOLOFT) 100 mg tablet Take 1 tablet (100 mg total) by mouth daily 025 Active metoprolol XL (TOPROL-XL) 50 mg extended release tablet TAKE 1 TABLET(50 MG) BY MOUTH DAILY 90 tablet 2 025 Active Trulicity 0.75 mg/0.5 mL pen injector ADMINISTER 0.75 MG UNDER THE SKIN WEEKLY 025 Active lisinopriL (PRINIVIL,ZESTRIL ) 5 mg tablet Take 1 tablet (5 mg total) by mouth daily 30 tablet 11 025 Active mycophenolate mofetil (CELLCEPT) 250 mg capsule TAKE ONE CAPSULE BY MOUTH TWICE DAILY 60 capsule 1 025 Active erythromycin (ILOTYCIN) ophthalmic ointment Apply to right eye 4 (four) times a day 3.5 g 1 Active ursodioL (ACTIGALL) 300 mg capsule TAKE 2 CAPSULES(600 MG) BY MOUTH TWICE DAILY 120 capsule 11 Active apixaban (Eliquis) 5 mg tablet Oral Active amoxicillin-clavu lanate (AUGMENTIN) 875-125 mg per tabletIndications :Abdominal/Pelvic Infection Take 1 tablet (875 mg of amoxicillin total) by mouth 2 (two) times a day for 10 days 20 tablet 025 2024 Active lidocaine (LIDODERM) 5 % Place 1 patch on the skin daily for 12 hours Remove & discard patch(es) within 12 hours or as directed by MD Chi patch 1 025 2024 Active senna-docusate (PERICOLACE) 8.6-50 mg Take 1 tablet by mouth daily 30 tablet 2 Active lactulose solution 10 gram/15mL Take 15 mL (10 g total) by mouth daily as needed (constipation) 946 mL 2 Active insulin glargine (TOUJEO) 300 unit/mL (1.5 mL) pen for injectionIndicati ons:Uncontrolled type 2 diabetes mellitus with hyperglycemia (HCC) Inject 15 Units under the skin daily 27 mL 3 025 2025 Active insulin lispro (HumaLOG, ADMELOG) 100 unit/mL pen for injectionIndicati ons:Uncontrolled type 2 diabetes mellitus with hyperglycemia (HCC) Inject 1-5 units under the skin 3 (three) times a day with meals. Blood glucose mg/dL 150-199: 1 unit, 200-249: 2 units, 250-299: 3 units, 300-349: 4 units, 350 or greater: 5 units. Notify provider for blood glucose greater than 299 mg/dL. Refer to After Visit Summary for Sliding Scale Insulin Instructions. 15 mL 025 Active diclofenac sodium (VOLTAREN) 1 % gelIndications:Ac mryanda left lumbar radiculopathy,Cer vicalgia Apply 4 g topically 4 (four) times a day as needed (along R lateral neck & lower back near pain) 100 g 022 2024 Discontinued(P atient Reported) potassium chloride ER 20 mEq CR tablet Take 1 tablet (20 mEq total) by mouth daily 022 2024 Discontinued(S top Taking at Discharge) DULoxetine DR (CYMBALTA) 60 mg capsuleIndication s:Anxiety and depression TAKE 1 CAPSULE(60 MG) BY MOUTH TWICE DAILY 60 capsule 5 024 2024 Discontinued(P atient Reported) QUEtiapine (SEROquel) 100 mg tablet Take 1 tablet (100 mg total) by mouth nightly 2024 Discontinued(S top Taking at Discharge) insulin glargine (TOUJEO) 300 unit/mL (1.5 mL) pen for injectionIndicati ons:Uncontrolled type 2 diabetes mellitus with hyperglycemia (HCC) Inject 40 Units under the skin daily 27 mL 3 025 2024 Discontinued insulin lispro (HumaLOG, ADMELOG) 100 unit/mL pen for injectionIndicati ons:Uncontrolled type 2 diabetes mellitus with hyperglycemia (HCC) Inject 16 units plus 1:25 > 150 mg/dL under the skin 10-15 minutes before meals. MDD 75 units. 54 mL 3 025 2024 Discontinued Active Problems Patient Care Coordination No te Formatting of this note migh t be different from the original. Lab Name:[facility] ([facility]) [place] [phone] Timeframe orders are good for: 1 Year Last orders sent to lab on: February 04, 2025 (Standing Orders: CBC, CMP, GGT, Sirolimus, Bi-weekly) Labs at [facility]. Problem Noted Date Diagnosed Date Rib pain on right side 07/03/2025 Assessment & Plan (07/04/2025 8:16 AM CDT): Pt states he fell onto the back side of his couch which has a wooden beam across about 2-3 weeks ago. He landed on his right ribs. - lidocaine patch, tylenol - pulmonary hygiene - IS, cough/deep breathe - out of bed to chair TID Assessment & Plan (07/03/2025 3:45 PM CDT): Pt states he fell onto the back side of his couch which has a wooden beam across about 2-3 weeks ago. He landed on his right ribs. - lidocaine patch, tylenol - pulmonary hygiene - IS, cough/deep breathe - out of bed to chair TID Chronic heart failure with p reserved ejection fraction (HFpEF) 07/01/2025 Assessment & Plan (07/04/2025 8:16 AM CDT): S/p PCI in 2019. On plavix, metop succ 50mg, lisinopril 5mg - hold Clopidogrel, lisinopril - continue home metop succ 50mg, rosuvastatin 20mg daily Assessment & Plan (07/03/2025 7:21 AM CDT): S/p PCI in 2019. On plavix, metop succ 50mg, lisinopril 5mg - hold Clopidogrel, lisinopril until clear plan re: drain vs non-procedural management - continue home metop succ 50mg, rosuvastatin 20mg daily Assessment & Plan (07/02/2025 3:13 PM CDT): S/p PCI in 2019. On plavix, metop succ 50mg, lisinopril 5mg - hold Clopidogrel, lisinopril until clear plan re: drain vs non-procedural management - continue home metop succ 50mg, rosuvastatin 20mg daily Assessment & Plan (07/01/2025 3:27 PM CDT): S/p PCI in 2019. On plavix, metop succ 50mg, lisinopril 5mg - given NPO, start 1/2 maintenance IVF - hold Clopidogrel, lisinopril until clear plan re: ERCP vs non-procedural management - continue home metop succ 50mg, rosuvastatin 20mg daily Assessment & Plan (07/01/2025 6:44 AM CDT): - given NPO, start 1/2 maintenance IVF - hold Clopidogrel, lisinopril until clear plan re: ERCP vs non-procedural management - continue home statin History of DVT (deep vein thrombosis) 07/01/2025 Assessment & Plan (07/04/2025 8:16 AM CDT): Hx of DVT in LLE in 2022. - holding eliquis while resolving the above. Unclear if patient is supposed to be on this medication. - f/u with PCP Assessment & Plan (07/03/2025 3:45 PM CDT): Hx of DVT in LLE in 2022. - holding eliquis while resolving the above. Unclear if patient is supposed to be on this medication. Assessment & Plan (07/02/2025 3:13 PM CDT): Hx of DVT in LLE in 2022. - holding home eliquis while resolving the above. Unclear if patient is supposed to be on this medication. Assessment & Plan (07/01/2025 3:27 PM CDT): Hx of DVT in LLE in 2022. - holding home eliquis while resolving the above. Unclear if patient is supposed to be on this medication. Assessment & Plan (07/01/2025 6:44 AM CDT): - holding home eliquis while resolving the above E coli bacteremia 07/01/2025 Assessment & Plan (07/04/2025 8:16 AM CDT): Pt reports he was told his blood cultures at the OSH were positive and he was told to return to the hospital. OSH records show E coli. Low concern for sepsis here. VSS. Afebrile. HR 70-80s. SBP 120-140s. SpO2 95-100% on RA. No leukocytosis - WBC 8.48. CXR from OSH reviewed and does not show concern for infection. RVP neg. Repeat CXR with mild scattered infiltrates. CT from OSH on 06/27 showing large amount of stool in colon and stool ball in rectum concerning for stercoral colitis. Started on vanc, cefe, flagyl (06/30-07-04) - Transplant ID consult, appreciate recs - feel bacteremia is due to stercoral colitis and recommend completing 14 day course with augmentin 875 BID (EOT 07/14) - OSH 1/2 bottles positive for E coli (see media tab for OSH records) - follow blood cultures (07/01) - positive for staph capitis, likely contamination - follow blood cultures (07/02) - NGTD - working on getting complete OSH records - [place] Assessment & Plan (07/03/2025 7:21 AM CDT): Pt reports he was told his blood cultures at the OSH were positive and he was told to return to the hospital. OSH records show E coli. Low concern for sepsis here. VSS. Afebrile. HR 70-80s. SBP 120-140s. SpO2 95-100% on RA. No leukocytosis - WBC 8.48. CXR from OSH reviewed and does not show concern for infection. RVP neg. Repeat CXR with mild scattered infiltrates. - on vanc, cefe, flagyl - OK to stop vanc - Transplant ID consult, appreciate recs - OSH 1/2 bottles positive for E coli - follow blood cultures (07/01) - positive for staph capitis, likely contamination - follow blood cultures (07/02) - NGTD - working on getting complete OSH records - [place] Assessment & Plan (07/02/2025 3:13 PM CDT): Pt reports he was told his blood cultures at the OSH were positive and he was told to return to the hospital. OSH records show E coli. Low concern for sepsis here. VSS. Afebrile. HR 70-80s. SBP 120-140s. SpO2 95-100% on RA. No leukocytosis - WBC 8.48. CXR from OSH reviewed and does not show concern for infection. RVP neg. Repeat CXR with mild scattered infiltrates. - continue vanc, cefe, flagyl for now - OSH 1/2 bottles positive for E coli - follow blood cultures (07/01) - positive for staph - follow blood cultures (07/02) - working on getting complete OSH records - [place] Assessment & Plan (07/01/2025 5:39 PM CDT): Pt reports he was told his blood cultures at the OSH were positive and he was told to return to the hospital. Low concern for sepsis. VSS. Afebrile. HR 70-80s. SBP 120-140s. SpO2 95-100% on RA. No leukocytosis - WBC 8.48. CXR from OSH reviewed and does not show concern for infection. 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 Follow up for HODA Pseudophakia of both eyes 11/16/2024 Assessment & Plan (11/16/2024 3:43 PM VALUE ANALYST): Central, well positioned. Trace PCO left eye [...] discussed Assessment & Plan (11/16/2024 3:44 PM VALUE ANALYST): Moderate non-proliferative diabetic retinopathy (NPDR) without CSME right eye (OD) > left eye (OS). Educated on findings, symptoms and need for evaluation with retina to consider fluorescein angiography (FA). Stressed close blood sugar control and monitoring. Schedule w retina for eval Recurrent major depressive episodes, moderate Assessment & Plan (07/04/2025 8:16 AM CDT): - continue sertraline 100mg daily, duloxetine 60mg BID Assessment & Plan (07/03/2025 7:21 AM CDT): - continue sertraline 100mg daily, duloxetine 60mg BID Assessment & Plan (07/02/2025 10:26 AM CDT): - continue sertraline 100mg daily, duloxetine 60mg BID Assessment & Plan (07/01/2025 3:27 PM CDT): - continue sertraline 100mg daily, seroquel 100mg nightly, duloxetine 60mg BID Assessment & Plan (07/01/2025 6:41 AM CDT): - continue sertraline, seroquel, duloxetine Chronic right shoulder pain 09/25/2024 Assessment & Plan (09/25/2024 1:24 PM VALUE ANALYST): Subacute on chronic following mechanical fall 4 [...] encounter Assessment & Plan (09/25/2024 1:13 PM VALUE ANALYST): Gradual onset following mechanical fall (?jarring) Known cervical DDDx w/o evidence cspine involvement;NV intact affected limb- deferred cervical films Supportive mgmt-topical analgesics,heat,massage, trial muscle relaxer prn, formal PT Revisit warrant PMR eval, update cpine xray nxt OV 4wks Posterior pain of right hip 09/25/2024 Assessment & Plan (09/25/2024 1:31 PM VALUE ANALYST): Subacute following mechanical fall in sept Exam c/w msk fascial etiology (thoracolumbar strain) Baseline xray today r/o Fx +flexeril prn(SER),topical analgesics,heat/ice, stretching, activity modifications, PT interim xray PMR referral pending imaging though preferring nonsurg therapies Revisit in the month interim w/ results Intercostal muscle pain 06/23/2024 Assessment & Plan (09/25/2024 1:25 PM VALUE ANALYST): Progressed from prior OV following mechanical fall [...] incomplete bladder emptying 06/21/2023 Assessment & Plan (07/04/2025 8:16 AM CDT): - continue home flomax 0.4mg and proscar 5mg - follow PSA - pt states he was told from the OSH that there is something concerning with his prostate. - f/u with PCP Assessment & Plan (07/03/2025 3:45 PM CDT): - continue home flomax 0.4mg and proscar 5mg - follow PSA Assessment & Plan (07/02/2025 7:43 AM CDT): - continue home flomax 0.4mg and proscar 5mg Assessment & Plan (07/01/2025 9:56 AM CDT): - continue home flomax 0.4mg and proscar 5mg Assessment & Plan (01/13/2024 11:41 AM CDT): [...] after liver transplant 01/16/2023 Assessment & Plan (07/04/2025 8:16 AM CDT): Follows with [facility]. Last clinic visit on 01/20/25. 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 On MMF 250mg BID, sirolimus 2mg daily. Started on ursodiol 600mg BID for biliary dilation. - Hepatology consult for management of immunosuppression medications - hold MMF - continue sirolimus 2mg daily - follow sirolimus level - continue home ursodiol 600mg BID Assessment & Plan (07/03/2025 4:01 PM CDT): Patient w/ hx of OLT 2004 presenting to OSH 06/27 w/ n/v and found to have pneumobilia (stable), new periportal edema, intra/extrahepatic biliary duct dilation, and possible stercoral colitis on CT, E coli and Strep (viridans/gallolyticus) bacteremia. Patient left and presented here 06/30 for further care. Clinical picture not entirely c/w cholangitis due to the relatively unremarkable LFTs (even if there was a transient obstructive process that resolved before arrival to [facility], would expect to have seen some residual LFT derangement); absence of obvious blockage on imaging and relative stability of abdominal imaging compared to prior; relative hemodynamic and symptom stability on arrival having only received one or two dose of abx at OSH. Instead, the patient's reports of lower right abdominal pain that improved w/ having BMs, in setting of CT abd/pel findings (large amount of stool in rectum, rectal wall thickening and presacral fat stranding) all suggest stercoral colitis as likely source of presenting sx and the blood stream infection via translocation. Recommendations: - Can transition to augmentin 875 mg PO BID to complete 14 days total of abx - Continue to optimize bowel regimen ID to sign off. Please do not hesitate to reach out if additional questions or concerns arise. Assessment & Plan (07/03/2025 7:21 AM CDT): Follows with [facility]. Last clinic visit on 01/20/25. 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 On MMF 250mg BID, sirolimus 2mg daily. Started on ursodiol 600mg BID for biliary dilation. - Hepatology consult for management of immunosuppression medications - hold MMF - continue sirolimus 2mg daily - follow sirolimus level - continue home ursodiol 600mg BID Assessment & Plan (07/02/2025 10:26 AM CDT): Follows with [facility]. Last clinic visit on 01/20/25. 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 On MMF 250mg BID, sirolimus 2mg daily. Started on ursodiol 600mg BID for biliary dilation. - Hepatology consult for management of immunosuppression medications - hold MMF - continue sirolimus 2mg daily - follow sirolimus level - continue home ursodiol 600mg BID Assessment & Plan (07/01/2025 3:27 PM CDT): Follows with [facility]. Last clinic visit on 01/20/25. 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 On MMF 250mg BID, sirolimus 2mg daily. Started on ursodiol 600mg daily for biliary dilation. - Hepatology consult for management of immunosuppression medications - hold MMF - continue sirolimus 2mg daily - follow sirolimus level Assessment & Plan (07/01/2025 6:43 AM CDT): - consult hepatology in AM to determine how to manage MMF and sirolimus in the setting of a liver infection (next dose at 9AM). - sirolimus level Assessment & Plan (01/13/2024 11:41 AM CDT): Followed by transplant team Assessment & Plan (01/16/2023 11:27 AM CDT): Safety labs will be obtained every 3-4 months. Labs 01/02/2023 notable for elevated Alk Phos and AST. Will repeat CMP and Sirolimus today at local hospital. Primary hypertension 12/20/2022 Assessment & Plan (07/04/2025 8:16 AM CDT): S/p PCI in 2019. On plavix, metop succ 50mg, lisinopril 5mg - hold Clopidogrel, lisinopril - continue home metop succ 50mg, rosuvastatin 20mg daily Assessment & Plan (07/03/2025 7:21 AM CDT): S/p PCI in 2019. On plavix, metop succ 50mg, lisinopril 5mg - hold Clopidogrel, lisinopril until clear plan re: drain vs non-procedural management - continue home metop succ 50mg, rosuvastatin 20mg daily Assessment & Plan (07/02/2025 3:13 PM CDT): S/p PCI in 2019. On plavix, metop succ 50mg, lisinopril 5mg - hold Clopidogrel, lisinopril until clear plan re: drain vs non-procedural management - continue home metop succ 50mg, rosuvastatin 20mg daily Assessment & Plan (07/01/2025 3:27 PM CDT): S/p PCI in 2019. On plavix, metop succ 50mg, lisinopril 5mg - given NPO, start 1/2 maintenance IVF - hold Clopidogrel, lisinopril until clear plan re: ERCP vs non-procedural management - continue home metop succ 50mg, rosuvastatin 20mg daily Assessment & Plan (07/01/2025 6:44 AM CDT): - given NPO, start 1/2 maintenance IVF - hold Clopidogrel, lisinopril until clear plan re: ERCP vs non-procedural management - continue home statin Assessment & Plan (06/23/2024 2:56 PM CDT): [...] has an optometry appt scheduled with the [place], [place] --Home health RN to help with meds. He reports all medications feel the same and he is unable to distinguish between them to fill a pill box Assessment & Plan (06/25/2021 7:03 AM CDT): -Reports progressive vision impairment involving both eyes over multiple months, suspect component of diabetic retinopathy -he has an optometry appt scheduled with the [place] Assessment & Plan (06/24/2021 12:03 PM CDT): -Reports progressive vision impairment involving both eyes over multiple months, suspect component of diabetic retinopathy -he has an optometry appt scheduled with the [place] Assessment & Plan (06/24/2021 4:12 AM CDT): -Reports progressive vision impairment involving both eyes over multiple months, suspect component of diabetic retinopathy -States he has an optometry appt scheduled Diabetic peripheral neuropathy 06/24/2021 Assessment & Plan (07/04/2025 8:16 AM CDT): Post transplant DM. A1c 10.6 (05/2025). Presented to OSH with glucose of 800. On trulicity 0.75 weekly, and reports taking glargine 20u, plus 1:25 SSI, gabapentin 300mg TID. - blood sugars elevated to 300s initially, but decreased to normal range after administration of 20u lantus, and 4+1u lispro - tresiba 15u daily - continue low dose SSI - diabetic diet - hypoglycemia protocol Assessment & Plan (07/03/2025 3:45 PM CDT): Post transplant DM. A1c 10.6 (05/2025). Presented to OSH with glucose of 800. On trulicity 0.75 weekly, and reports taking glargine 20u, plus 1:25 SSI, gabapentin 300mg TID. - blood sugars elevated to 300s initially, but decreased to normal range after administration of 20u lantus, and 4+1u lispro - tresiba 15u daily - continue low dose SSI - diabetic diet - hypoglycemia protocol Assessment & Plan (07/02/2025 3:13 PM CDT): Post transplant DM. A1c 10.6 (05/2025). Presented to OSH with glucose of 800. On trulicity 0.75 weekly, and reports taking glargine 20u, plus 1:25 SSI, gabapentin 300mg TID. - blood sugars elevated to 300s initially, but decreased to normal range after administration of 20u lantus, and 4+1u lispro - reduce long-acting to 10u - continue low dose SSI - diabetic diet - hypoglycemia protocol Assessment & Plan (07/01/2025 3:27 PM CDT): Post transplant DM. A1c 10.6 (05/2025). Presented to OSH with glucose of 800. On trulicity 0.75 weekly, with glargine 20u, plus 1:25 SSI, gabapentin 300mg TID - degludec 15u + 1:50>150 ISS Q4hr while NPO - diabetic diet - hypoglycemia protocol Assessment & Plan (07/01/2025 6:41 AM CDT): - digludac 15u + 1:50>150 ISS Q4hr Assessment & Plan (04/13/2022 12:05 PM CDT): Increase in symptoms lately Suggested he consider increase gabapentin as needed. Assessment & Plan (08/15/2021 2:08 PM VALUE ANALYST): Adequate pain control. No obvious new complications [...] with Podiatry as OP, patient requested a [place] physician Assessment & Plan (06/25/2021 7:04 AM CDT): -mentions of numbness and burning sensation on feet -feels like stepping on bubbles when he steps on the ground and starts to feel burning sensation soon after -will start on gabapentin and uptitrate based on response -follow-up with Podiatry as OP, patient requested a [place] physician Assessment & Plan (06/24/2021 12:09 PM CDT): -mentions of numbness and burning sensation on feet -feels like stepping on bubbles when he steps on the ground and starts to feel burning sensation soon after -will start on gabapentin and uptitrate based on response -follow-up with Podiatry as OP, patient requested a [place] physician Foot pain, left 03/16/2021 Assessment & [...] understanding and is agreeable with this plan Moderate protein-calorie malnutrition 01/06/2021 Assessment & Plan (07/04/2025 8:16 AM CDT): RD following - continue Ensure TID Assessment & Plan (07/03/2025 7:21 AM CDT): RD following - continue Ensure TID Assessment & Plan (01/13/2021 12:36 PM CDT): [...] home Assessment & Plan (09/23/2023 2:08 PM VALUE ANALYST): Ongoing MDD, anxiety suggestively complicating insomnia No [...] antidperessants. Assessment & Plan (08/15/2021 2:17 PM VALUE ANALYST): No progressive complaints. Continue current meds. Assessment [...] (coronary artery disease) 01/05/2021 Assessment & Plan (07/04/2025 8:16 AM CDT): S/p PCI in 2019. On plavix, metop succ 50mg, lisinopril 5mg - hold Clopidogrel, lisinopril - continue home metop succ 50mg, rosuvastatin 20mg daily Assessment & Plan (07/03/2025 7:21 AM CDT): S/p PCI in 2019. On plavix, metop succ 50mg, lisinopril 5mg - hold Clopidogrel, lisinopril until clear plan re: drain vs non-procedural management - continue home metop succ 50mg, rosuvastatin 20mg daily Assessment & Plan (07/02/2025 3:13 PM CDT): S/p PCI in 2019. On plavix, metop succ 50mg, lisinopril 5mg - hold Clopidogrel, lisinopril until clear plan re: drain vs non-procedural management - continue home metop succ 50mg, rosuvastatin 20mg daily Assessment & Plan (07/01/2025 3:27 PM CDT): S/p PCI in 2019. On plavix, metop succ 50mg, lisinopril 5mg - given NPO, start 1/2 maintenance IVF - hold Clopidogrel, lisinopril until clear plan re: ERCP vs non-procedural management - continue home metop succ 50mg, rosuvastatin 20mg daily Assessment & Plan (07/01/2025 6:44 AM CDT): - given NPO, start 1/2 maintenance IVF - hold Clopidogrel, lisinopril until clear plan re: ERCP vs non-procedural management - continue home statin Assessment & Plan (06/21/2023 2:14 PM CDT): [...] complaints. Assessment & Plan (08/15/2021 2:17 PM VALUE ANALYST): No obvious new chest pain, palpitations , [...] AM CDT): -s/p PCI to LAD in 2018 -Continue ASA, Plavix, Crestor 20 -Follow up w/Dr. Palomino -monitor vitals Assessment & Plan (06/24/2021 4:16 AM CDT): -s/p PCI to LAD in 2019 -Continue ASA, Plavix, Crestor 20 -Follow up w/Dr. Palomino Assessment & Plan (03/31/2021 9:39 AM CDT): Stress testing reviewed and unremarkable for acute ischemia. Optimized on current therapy. Asymptomatic w/o angina Continue with current agents, aspirin. 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 Palomino Uncontrolled type 2 diabetes mellitus with hyperglycemia ([facility]) 01/05/2021 Assessment & Plan (07/04/2025 8:16 AM CDT): Post transplant DM. A1c 10.6 (05/2025). Presented to OSH with glucose of 800. On trulicity 0.75 weekly, and reports taking glargine 20u, plus 1:25 SSI, gabapentin 300mg TID. - blood sugars elevated to 300s initially, but decreased to normal range after administration of 20u lantus, and 4+1u lispro - tresiba 15u daily - continue low dose SSI - diabetic diet - hypoglycemia protocol Assessment & Plan (07/03/2025 3:45 PM CDT): Post transplant DM. A1c 10.6 (05/2025). Presented to OSH with glucose of 800. On trulicity 0.75 weekly, and reports taking glargine 20u, plus 1:25 SSI, gabapentin 300mg TID. - blood sugars elevated to 300s initially, but decreased to normal range after administration of 20u lantus, and 4+1u lispro - tresiba 15u daily - continue low dose SSI - diabetic diet - hypoglycemia protocol Assessment & Plan (07/02/2025 3:13 PM CDT): Post transplant DM. A1c 10.6 (05/2025). Presented to OSH with glucose of 800. On trulicity 0.75 weekly, and reports taking glargine 20u, plus 1:25 SSI, gabapentin 300mg TID. - blood sugars elevated to 300s initially, but decreased to normal range after administration of 20u lantus, and 4+1u lispro - reduce long-acting to 10u - continue low dose SSI - diabetic diet - hypoglycemia protocol Assessment & Plan (07/01/2025 3:27 PM CDT): Post transplant DM. A1c 10.6 (05/2025). Presented to OSH with glucose of 800. On trulicity 0.75 weekly, with glargine 20u, plus 1:25 SSI, gabapentin 300mg TID - degludec 15u + 1:50>150 ISS Q4hr while NPO - diabetic diet - hypoglycemia protocol Assessment & Plan (07/01/2025 6:41 AM CDT): - digludac 15u + 1:50>150 ISS Q4hr Assessment & Plan (06/23/2024 3:17 PM CDT): [...] direction Reiterated importance of following up with level vial inspector and tester for this Cnt dexcom cgm, insulin regimen [...] insulin. Assessment & Plan (08/15/2021 2:17 PM VALUE ANALYST): He shows me dexcom with blood sugars [...] TID today -Endocrine follow up as op -staff development educator c/s, referral for HH upon discharge [...] the 150-170s -Endocrine follow up as op -staff development educator c/s, referral for HH upon discharge [...] 8 tid -Endocrine follow up as op -staff development educator c/s, referral for HH upon discharge [...] eaten a sandwhich prior) -Endocrine follow up -staff development educator c/s, referral for HH upon discharge [...] care. Reminded to get yearly retinal exam. staff development educator referral. Endocrinology clinic referral. Diabetes will [...] weekend. -Encouraged patient to f/u with his level vial inspector and tester and he can be referred back to [...] see. -Encouraged patient to f/u with his level vial inspector and tester. Assessment & Plan (01/05/2021 9:56 PM CDT): [...] neuropathy Assessment & Plan (09/25/2024 1:20 PM VALUE ANALYST): Complex diffuse pain syndrome lumbar radiculopathy, longstanding [...] months Assessment & Plan (09/23/2023 1:57 PM VALUE ANALYST): Chronic, at baseline Brunson refill UTD as of 08/13/22 Avoiding excess [...] therapy. Assessment & Plan (08/14/2022 11:10 AM VALUE ANALYST): Chronic, at baseline Brunson refill UTD as of 08/13/22 Avoiding excess [...] therapy. Assessment & Plan (08/15/2021 2:20 PM VALUE ANALYST): Refilling pain meds now . Continue current [...] bdzp Assessment & Plan (10/05/2020 12:49 PM VALUE ANALYST): Continue current regimen The patient has been [...] weakness. Assessment & Plan (10/05/2020 12:50 PM VALUE ANALYST): Continue with current regimen . No complications. [...] therapy. Assessment & Plan (11/04/2018 12:58 PM VALUE ANALYST): Longstanding pain since trauma years ago . Has been stable on current pain med program. Idiopathic peripheral neuropathy 08/05/2018 Assessment & Plan (02/19/2024 12:07 PM CDT): Symptoms are tolerable. Encouraged he change gabapentin 3 at night. No new concerns. Assessment & Plan (09/23/2023 2:17 PM VALUE ANALYST): Severe, manageable Cnt norco, gabapentin (discussed increase [...] Likely due to poorly controlled DM -Continue Brunson, Cymbalta Assessment & Plan (02/21/2019 4:54 PM CDT): Continue meds though encouraged restart of cymbalta. Assessment & Plan (01/30/2019 11:40 AM CDT): Continue with current regimen. . No obvious complications. Assessment & Plan (08/05/2018 4:14 PM VALUE ANALYST): Chronic pain in the bilateral feet . [...] with bmp and repeat micro/cr next visit Insomnia 08/02/2015 Assessment & Plan (07/04/2025 8:16 AM CDT): Continue home temazepam 30mg nightly Assessment & Plan (07/03/2025 7:21 AM CDT): Continue home temazepam 30mg nightly Assessment & Plan (07/02/2025 10:26 AM CDT): Continue home temazepam 30mg nightly Assessment & Plan (07/01/2025 8:49 AM CDT): On temazepam 30mg nightly at home - ramelteon nightly Assessment & Plan (02/19/2024 12:03 PM CDT): [...] referred Assessment & Plan (09/23/2023 2:14 PM VALUE ANALYST): Ongoing No reported psychogenic causes but poor [...] refilling) Assessment & Plan (08/15/2021 2:19 PM VALUE ANALYST): He states completely unable to reduce his temazepam. Have encouraged he minimize this He is aware of the danger related to these meds mercedes with the opiates. Assessment & Plan (11/04/2018 12:58 PM VALUE ANALYST): Stable on restoril. No obvious complications. Assessment & Plan (08/05/2018 4:21 PM VALUE ANALYST): restoril prn, He is unable to reduce this further . NO new complications. Assessment & Plan (05/05/2018 4:49 PM CDT): Continue meds . Has been stable for some time on this Assessment & Plan (04/01/2018 4:39 PM CDT): Stable on temazepam. No sign of abuse or overuse . Liver transplant recipient 01/30/2014 Overview (12/22/2016): Liver transplant Assessment & Plan (07/04/2025 8:16 AM CDT): Follows with [facility] Hepatology. Last clinic visit on 01/20/25. 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 On MMF 250mg BID, sirolimus 2mg daily. Started on ursodiol 600mg BID for biliary dilation. - Hepatology consult for management of immunosuppression medications - hold MMF - continue sirolimus 2mg daily - follow sirolimus level - continue home ursodiol 600mg BID Assessment & Plan (07/03/2025 4:01 PM CDT): Patient w/ hx of OLT 2004 presenting to OSH 06/27 w/ n/v and found to have pneumobilia (stable), new periportal edema, intra/extrahepatic biliary duct dilation, and possible stercoral colitis on CT, E coli and Strep (viridans/gallolyticus) bacteremia. Patient left and presented here 06/30 for further care. Clinical picture not entirely c/w cholangitis due to the relatively unremarkable LFTs (even if there was a transient obstructive process that resolved before arrival to [facility], would expect to have seen some residual LFT derangement); absence of obvious blockage on imaging and relative stability of abdominal imaging compared to prior; relative hemodynamic and symptom stability on arrival having only received one or two dose of abx at OSH. Instead, the patient's reports of lower right abdominal pain that improved w/ having BMs, in setting of CT abd/pel findings (large amount of stool in rectum, rectal wall thickening and presacral fat stranding) all suggest stercoral colitis as likely source of presenting sx and the blood stream infection via translocation. Recommendations: - Can transition to augmentin 875 mg PO BID to complete 14 days total of abx - Continue to optimize bowel regimen ID to sign off. Please do not hesitate to reach out if additional questions or concerns arise. Assessment & Plan (07/03/2025 7:21 AM CDT): Follows with [facility] Hep[facility]ology. Last clinic visit on 01/20/25. 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 On MMF 250mg BID, sirolimus 2mg daily. Started on ursodiol 600mg BID for biliary dilation. - Hepatology consult for management of immunosuppression medications - hold MMF - continue sirolimus 2mg daily - follow sirolimus level - continue home ursodiol 600mg BID Assessment & Plan (07/02/2025 10:26 AM CDT): Follows with [facility] Hep[facility]ology. Last clinic visit on 01/20/25. 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 On MMF 250mg BID, sirolimus 2mg daily. Started on ursodiol 600mg BID for biliary dilation. - Hepatology consult for management of immunosuppression medications - hold MMF - continue sirolimus 2mg daily - follow sirolimus level - continue home ursodiol 600mg BID Assessment & Plan (07/01/2025 3:27 PM CDT): Follows with [facility]ology. Last clinic visit on 01/20/25. 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 On MMF 250mg BID, sirolimus 2mg daily. Started on ursodiol 600mg daily for biliary dilation. - Hepatology consult for management of immunosuppression medications - hold MMF - continue sirolimus 2mg daily - follow sirolimus level Assessment & Plan (07/01/2025 6:43 AM CDT): - consult hepatology in AM to determine how to manage MMF and sirolimus in the setting of a liver infection (next dose at 9AM). - sirolimus level Assessment & Plan (01/20/2025 10:20 AM CDT): [...] visits Assessment & Plan (08/15/2021 2:20 PM VALUE ANALYST): Following with transplant team Assessment & Plan [...] . Assessment & Plan (10/05/2020 1:00 PM VALUE ANALYST): He needs to schedule with his hepatology [...] Problem Noted Date Diagnosed Date Resolved Date Bacteremia 07/03/2025 07/04/2025 Assessment & Plan (07/03/2025 4:01 PM CDT): Patient w/ hx of OLT 2004 presenting to OSH 06/27 w/ n/v and found to have pneumobilia (stable), new periportal edema, intra/extrahepatic biliary duct dilation, and possible stercoral colitis on CT, E coli and Strep (viridans/gallolyticus) bacteremia. Patient left and presented here 06/30 for further care. Clinical picture not entirely c/w cholangitis due to the relatively unremarkable LFTs (even if there was a transient obstructive process that resolved before arrival to [facility], would expect to have seen some residual LFT derangement); absence of obvious blockage on imaging and relative stability of abdominal imaging compared to prior; relative hemodynamic and symptom stability on arrival having only received one or two dose of abx at OSH. Instead, the patient's reports of lower right abdominal pain that improved w/ having BMs, in setting of CT abd/pel findings (large amount of stool in rectum, rectal wall thickening and presacral fat stranding) all suggest stercoral colitis as likely source of presenting sx and the blood stream infection via translocation. Recommendations: - Can transition to augmentin 875 mg PO BID to complete 14 days total of abx - Continue to optimize bowel regimen ID to sign off. Please do not hesitate to reach out if additional questions or concerns arise. Cholangitis 07/01/2025 07/04/2025 Assessment & Plan (07/04/2025 12:31 PM CDT): Pt presented to OSH with RUQ abdominal pain, nausea and vomiting. He was found to have blood sugars in the 800s. Liver enzymes were elevated (AST 468, ALT 202, Tbili 1.4). There was concern for cholangitis and he was started on abx. They recommended ERCP and tried to transfer him to a hospital with the capabilities, but in the mean time pt felt better and left AMA. Since leaving his abdominal pain worsened, and he developed chills. The OSH called him to report positive blood cultures and to report back to the ED. He presented here. ED work up - Na 136, K 4.1, Cr 1.25 (b/l ~1.0), ALP 201, AST 42, ALT 55. Tbili 0.3. Glucose 300. Lipase 21. WBC 8.48. Hgb 11.0 (b/l). Plt 120. UA 1+ protein, 4+ glucose, 2+ ketones, noninfectious. Overread of OSH CT abdomen showed fluid filled nondilated loops of small bowel and terminal ileum which could represent enteritis. Stable pneumobilia, new periportal edema. Large amount of stool in color and stool ball in rectum concerning for stercoral colitis. Overread of OSH CT head wo contrast show no infarct or hemorrhage. - Biliary consult, appreciate recs - recommend MRI/MRCP and consult to IR if intervention warranted given patient's anatomy not being conducive to ERCP - MRI/MRCP shows interval increase in intrahepatic and extrahepatic biliary duct dilation (mild to moderate), mild periductal soft tissue thickening which is likely reactive or manifestation of cholangitis - IR consulted for consideration of drain placement - they feel there is no indication for intervention - working on getting OSH records - [place] Assessment & Plan (07/03/2025 7:21 AM CDT): Pt presented to OSH with RUQ abdominal pain, nausea and vomiting. He was found to have blood sugars in the 800s. Liver enzymes were elevated (AST 468, ALT 202, Tbili 1.4). There was concern for cholangitis and he was started on abx. They recommended ERCP and tried to transfer him to a hospital with the capabilities, but in the mean time pt felt better and left AMA. Since leaving his abdominal pain worsened, and he developed chills. The OSH called him to report positive blood cultures and to report back to the ED. He presented here. ED work up - Na 136, K 4.1, Cr 1.25 (b/l ~1.0), ALP 201, AST 42, ALT 55. Tbili 0.3. Glucose 300. Lipase 21. WBC 8.48. Hgb 11.0 (b/l). Plt 120. UA 1+ protein, 4+ glucose, 2+ ketones, noninfectious. Overread of OSH CT abdomen showed fluid filled nondilated loops of small bowel and terminal ileum which could represent enteritis. Stable pneumobilia, new periportal edema. Large amount of stool in color and stool ball in rectum concerning for stercoral colitis. Overread of OSH CT head wo contrast show no infarct or hemorrhage. - Biliary consult, appreciate recs - recommend MRI/MRCP and consult to IR for intervention given patient's anatomy not being conducive to ERCP - MRI/MRCP shows interval increase in intrahepatic and extrahepatic biliary duct dilation (mild to moderate), mild periductal soft tissue thickening which is likely reactive or manifestation of cholangitis - IR consulted for consideration of drain placement - they feel there is no indication for intervention - working on getting OSH records - [place] Assessment & Plan (07/02/2025 3:37 PM CDT): Pt presented to OSH with RUQ abdominal pain, nausea and vomiting. He was found to have blood sugars in the 800s. Liver enzymes were elevated (AST 468, ALT 202, Tbili 1.4). There was concern for cholangitis and he was started on abx. They recommended ERCP and tried to transfer him to a hospital with the capabilities, but in the mean time pt felt better and left AMA. Since leaving his abdominal pain worsened, and he developed chills. The OSH called him to report positive blood cultures and to report back to the ED. He presented here. ED work up - Na 136, K 4.1, Cr 1.25 (b/l ~1.0), ALP 201, AST 42, ALT 55. Tbili 0.3. Glucose 300. Lipase 21. WBC 8.48. Hgb 11.0 (b/l). Plt 120. UA 1+ protein, 4+ glucose, 2+ ketones, noninfectious. Overread of OSH CT abdomen showed fluid filled nondilated loops of small bowel and terminal ileum which could represent enteritis. Stable pneumobilia, new periportal edema. Large amount of stool in color and stool ball in rectum concerning for stercoral colitis. Overread of OSH CT head wo contrast show no infarct or hemorrhage. - Biliary consult, appreciate recs - recommend MRI/MRCP and consult to IR for intervention given patient's anatomy not being conducive to ERCP - MRI/MRCP shows interval increase in intrahepatic and extrahepatic biliary duct dilation (mild to moderate), mild periductal soft tissue thickening which is likely reactive or manifestation of cholangitis - IR consult for consideration of drain placement - working on getting OSH records - [place] Assessment & Plan (07/01/2025 3:27 PM CDT): Pt presented to OSH with RUQ abdominal pain, nausea and vomiting. He was found to have blood sugars in the 800s. Liver enzymes were elevated (AST 468, ALT 202, Tbili 1.4). There was concern for cholangitis and he was started on abx. They recommended ERCP and tried to transfer him to a hospital with the capabilities, but in the mean time pt felt better and left AMA. Since leaving his abdominal pain worsened, and he developed chills. The OSH called him to report positive blood cultures and to report back to the ED. He presented here. ED work up - Na 136, K 4.1, Cr 1.25 (b/l ~1.0), ALP 201, AST 42, ALT 55. Tbili 0.3. Glucose 300. Lipase 21. WBC 8.48. Hgb 11.0 (b/l). Plt 120. UA 1+ protein, 4+ glucose, 2+ ketones, noninfectious. Overread of OSH CT abdomen showed fluid filled nondilated loops of small bowel and terminal ileum which could represent enteritis. Stable pneumobilia, new periportal edema. Large amount of stool in color and stool ball in rectum concerning for stercoral colitis. Overread of OSH CT head wo contrast show no infarct or hemorrhage. - Biliary consult, appreciate recs - MRI/MRCP - working on getting OSH records - [place] Assessment & Plan (07/01/2025 6:43 AM CDT): Emilio Loera is a 64 year old man with a past medical history of liver transplant who is admitted for what appears to be some sort of cholangitis. His labs are fairly unremarkable, but his transplant complicates the infection's treatment. We will need to consult both infectious disease and hepatology. - vancomycin 15mg/kg Q12hr: 06/30 - present - metronidazole IV Q8hr: 06/30 - present - cefipime 2g Q8hr: 06/30 - present - consult pancreaticobiliary service and infectious disease for workup vs ercp RUQ abdominal pain 07/01/2025 Assessment & Plan (07/04/2025 12:31 PM CDT): Pt presented to OSH with RUQ abdominal pain, nausea and vomiting. He was found to have blood sugars in the 800s. Liver enzymes were elevated (AST 468, ALT 202, Tbili 1.4). There was concern for cholangitis and he was started on abx. They recommended ERCP and tried to transfer him to a hospital with the capabilities, but in the mean time pt felt better and left AMA. Since leaving his abdominal pain worsened, and he developed chills. The OSH called him to report positive blood cultures and to report back to the ED. He presented here. ED work up - Na 136, K 4.1, Cr 1.25 (b/l ~1.0), ALP 201, AST 42, ALT 55. Tbili 0.3. Glucose 300. Lipase 21. WBC 8.48. Hgb 11.0 (b/l). Plt 120. UA 1+ protein, 4+ glucose, 2+ ketones, noninfectious. Overread of OSH CT abdomen showed fluid filled nondilated loops of small bowel and terminal ileum which could represent enteritis. Stable pneumobilia, new periportal edema. Large amount of stool in color and stool ball in rectum concerning for stercoral colitis. Overread of OSH CT head wo contrast show no infarct or hemorrhage. - Biliary consult, appreciate recs - recommend MRI/MRCP and consult to IR if intervention warranted given patient's anatomy not being conducive to ERCP - MRI/MRCP shows interval increase in intrahepatic and extrahepatic biliary duct dilation (mild to moderate), mild periductal soft tissue thickening which is likely reactive or manifestation of cholangitis - IR consulted for consideration of drain placement - they feel there is no indication for intervention - working on getting OSH records - [place] Assessment & Plan (07/03/2025 7:21 AM CDT): Pt presented to OSH with RUQ abdominal pain, nausea and vomiting. He was found to have blood sugars in the 800s. Liver enzymes were elevated (AST 468, ALT 202, Tbili 1.4). There was concern for cholangitis and he was started on abx. They recommended ERCP and tried to transfer him to a hospital with the capabilities, but in the mean time pt felt better and left AMA. Since leaving his abdominal pain worsened, and he developed chills. The OSH called him to report positive blood cultures and to report back to the ED. He presented here. ED work up - Na 136, K 4.1, Cr 1.25 (b/l ~1.0), ALP 201, AST 42, ALT 55. Tbili 0.3. Glucose 300. Lipase 21. WBC 8.48. Hgb 11.0 (b/l). Plt 120. UA 1+ protein, 4+ glucose, 2+ ketones, noninfectious. Overread of OSH CT abdomen showed fluid filled nondilated loops of small bowel and terminal ileum which could represent enteritis. Stable pneumobilia, new periportal edema. Large amount of stool in color and stool ball in rectum concerning for stercoral colitis. Overread of OSH CT head wo contrast show no infarct or hemorrhage. - Biliary consult, appreciate recs - recommend MRI/MRCP and consult to IR for intervention given patient's anatomy not being conducive to ERCP - MRI/MRCP shows interval increase in intrahepatic and extrahepatic biliary duct dilation (mild to moderate), mild periductal soft tissue thickening which is likely reactive or manifestation of cholangitis - IR consulted for consideration of drain placement - they feel there is no indication for intervention - working on getting OSH records - [place] Assessment & Plan (07/02/2025 3:37 PM CDT): Pt presented to OSH with RUQ abdominal pain, nausea and vomiting. He was found to have blood sugars in the 800s. Liver enzymes were elevated (AST 468, ALT 202, Tbili 1.4). There was concern for cholangitis and he was started on abx. They recommended ERCP and tried to transfer him to a hospital with the capabilities, but in the mean time pt felt better and left AMA. Since leaving his abdominal pain worsened, and he developed chills. The OSH called him to report positive blood cultures and to report back to the ED. He presented here. ED work up - Na 136, K 4.1, Cr 1.25 (b/l ~1.0), ALP 201, AST 42, ALT 55. Tbili 0.3. Glucose 300. Lipase 21. WBC 8.48. Hgb 11.0 (b/l). Plt 120. UA 1+ protein, 4+ glucose, 2+ ketones, noninfectious. Overread of OSH CT abdomen showed fluid filled nondilated loops of small bowel and terminal ileum which could represent enteritis. Stable pneumobilia, new periportal edema. Large amount of stool in color and stool ball in rectum concerning for stercoral colitis. Overread of OSH CT head wo contrast show no infarct or hemorrhage. - Biliary consult, appreciate recs - recommend MRI/MRCP and consult to IR for intervention given patient's anatomy not being conducive to ERCP - MRI/MRCP shows interval increase in intrahepatic and extrahepatic biliary duct dilation (mild to moderate), mild periductal soft tissue thickening which is likely reactive or manifestation of cholangitis - IR consult for consideration of drain placement - working on getting OSH records [place] Assessment & Plan (07/01/2025 3:27 PM CDT): Pt presented to OSH with RUQ abdominal pain, nausea and vomiting. He was found to have blood sugars in the 800s. Liver enzymes were elevated (AST 468, ALT 202, Tbili 1.4). There was concern for cholangitis and he was started on abx. They recommended ERCP and tried to transfer him to a hospital with the capabilities, but in the mean time pt felt better and left AMA. Since leaving his abdominal pain worsened, and he developed chills. The OSH called him to report positive blood cultures and to report back to the ED. He presented here. ED work up - Na 136, K 4.1, Cr 1.25 (b/l ~1.0), ALP 201, AST 42, ALT 55. Tbili 0.3. Glucose 300. Lipase 21. WBC 8.48. Hgb 11.0 (b/l). Plt 120. UA 1+ protein, 4+ glucose, 2+ ketones, noninfectious. Overread of OSH CT abdomen showed fluid filled nondilated loops of small bowel and terminal ileum which could represent enteritis. Stable pneumobilia, new periportal edema. Large amount of stool in color and stool ball in rectum concerning for stercoral colitis. Overread of OSH CT head wo contrast show no infarct or hemorrhage. - Biliary consult, appreciate recs - MRI/MRCP - working on getting OSH records [place] Constipation 07/01/2025 07/04/2025 Assessment & Plan (07/04/2025 8:16 AM CDT): CT from OSH on 06/27 showing large amount of stool in colon and stool ball in rectum concerning for stercoral colitis. Attempted manual disimpaction, however no stool present. Pt states he had many BMs at OSH. KUB here shows moderate stool in colon. S/p mag citrate - pericolace BID - miralax daily PRN - dulcolax PRN Assessment & Plan (07/03/2025 3:45 PM CDT): CT from OSH on 06/27 showing large amount of stool in colon and stool ball in rectum concerning for stercoral colitis. Attempted manual disimpaction, however no stool present. Pt states he had many BMs at OSH. KUB here shows moderate stool in colon. - pericolace BID - miralax daily PRN - dulcolax PRN - add mag citrate today Assessment & Plan (07/02/2025 3:13 PM CDT): CT from OSH on 06/27 showing large amount of stool in colon and stool ball in rectum concerning for stercoral colitis. Attempted manual disimpaction, however no stool present. Pt states he had many BMs at OSH. - pericolace BID, miralax daily - dulcolax PRN Assessment & Plan (07/01/2025 3:27 PM CDT): CT showing large amount of stool in color and stool ball in rectum concerning for stercoral colitis. - pericolace BID, miralax daily - dulcolax PRN - enema PRN Disability examination 01/13/202401/21 Assessment & Plan (01/13/2024 [...] gabapentin. Assessment & Plan (08/14/2022 11:14 AM VALUE ANALYST): Chronic, ongoing w/o S/I Notably more isolated [...] CDT): Continue with Cymbalta as prior prescribed. Brunson refilled today in office as requested. DMII [...] of uncontrolled diabetes. -B12 normal -Continue home Brunson PRN, Cymbalta. PCP can start gabapentin once benzos are weaned to prevent further sedation. Assessment & Plan (01/06/2021 2:52 PM CDT): -likely 2/2 diabetic neuropathy with recent worsening in setting of uncontrolled diabetes. -B12 normal -Continue home Brunson PRN, Cymbalta. Would not start gabapentin at this time as could worsen sedation/fatigue. Assessment & Plan (01/05/2021 10:02 PM CDT): -likely 2/2 diabetic neuropathy with recent worsening in setting of uncontrolled diabetes -Will check B12 level given chart hx of B12 deficiency -Continue home Brunson PRN, Cymbalta. Would not start gabapentin at [...] 01/25/2021 Assessment & Plan (10/07/2019 7:01 AM VALUE ANALYST): No discrete mass though asymmetry L>>R. Will [...] 01/13/2021 Assessment & Plan (07/29/2019 12:53 PM VALUE ANALYST): Continue with current regimen and check labs [...] 1/2 Assessment & Plan (10/05/2020 12:58 PM VALUE ANALYST): No progression in symptoms though some longstanding [...] regularly Assessment & Plan (10/07/2019 7:01 AM VALUE ANALYST): Increasing the po intake as possible. Vitamin [...] palomino Assessment & Plan (10/05/2020 12:59 PM VALUE ANALYST): No complications though the chronic symptoms . Seeing his assembler metal furniture soon Assessment & Plan (07/05/2020 4:42 PM CDT): Discrepancy of current cardiac testing . He will clarify with his cardiologists and doing well enough on meds no adjustment. Assessment & Plan (04/05/2020 1:00 PM CDT): No recurrent sx. No further chest pain . Palpitations or other complaints. Assessment & Plan (10/06/2019 2:19 PM VALUE ANALYST): Atypical chest pain . NO new complications. Continue current regimen . Continue follow up with assembler metal furniture. Assessment & Plan (07/29/2019 12:53 PM VALUE ANALYST): No complications cardiac sx. Assessment & Plan [...] (01/22/2019): Added automatically from request for surgery [id number] Assessment & Plan (01/30/2019 11:32 AM CDT): [...] had cancer w/u for this. PCP and Air Analysis Engineering Technician feel likely r/t depression as well. Weight [...] had cancer w/u for this. PCP and Air Analysis Engineering Technician feel likely r/t depression as well. Weight [...] pending Assessment & Plan (11/04/2018 1:02 PM VALUE ANALYST): He thinks maybe related to poor po intake. No overt symptoms to suggest serious etiology though marked wt loss. Assessment & Plan (08/05/2018 4:14 PM VALUE ANALYST): Has now resolved. Eating better recently Assessment [...] 21 Assessment & Plan (10/05/2020 12:59 PM VALUE ANALYST): Continue duloxetin. Assessment & Plan (07/05/2020 4:43 PM CDT): NO SI/HI though chronic low mood and the isolation of pandemic difficult Assessment & Plan (04/05/2020 12:55 PM CDT): Has been limited socially given pandemic. For now duloxetine Assessment & Plan (10/07/2019 7:01 AM VALUE ANALYST): Stable on current regimen Though still depressed. NO SI/HI . Assessment & Plan (07/29/2019 12:52 PM VALUE ANALYST): No progression. NO SI/HI. Continue meds for [...] . Assessment & Plan (11/04/2018 1:06 PM VALUE ANALYST): He is having some marked increase in depression. Discussed this in great detail. Should work on cymbalta adherence. Assessment & Plan (08/05/2018 4:15 PM VALUE ANALYST): Stable on duloxetine. He would like to [...] delivery of dexcom supplies Hasn't seen his level vial inspector and tester since he states he slept through the appointment and unable to schedule properly . Will check labs if severe may need to admit to get htisunder control Will attempt to connect with his dm PAN WASHER HAND. Assessment & Plan (10/05/2020 12:58 PM VALUE ANALYST): Checking hba1c. He states his blood sugars are better though still remains quite elevated. Offered digital strategy specialist though for now he prefers to work with his dexcom and adjust insulin better. Assessment & Plan (08/04/2020 8:54 AM VALUE ANALYST): Very poorly controlled. Working on getting cgm and then do better with insulin adjustment Emilio Kiana Loera was last seen on our office [...] dexcom Assessment & Plan (10/06/2019 2:18 PM VALUE ANALYST): Continue with current regimen as per endocrine. No complications Assessment & Plan (07/29/2019 12:52 PM VALUE ANALYST): He will be seeing endocrine soon and [...] diabetes meds from depression. Has appointment with level vial inspector and tester at the end of the month to [...] insulin to carbohydrate ratio. Recommend downloading the Yapp[employer] application to phone to aid in carb [...] difficult. Assessment & Plan (11/04/2018 1:00 PM VALUE ANALYST): Diabetes is working with level vial inspector and tester. Will d/w them adjustment of meds Assessment & Plan (08/05/2018 4:21 PM VALUE ANALYST): Diabetes is being monitored by endocrine. No [...] marked elevation when he was down in [facility]. Hepatitis C virus infection 01/30/2014 01/20/2020 Overview (12/22/2016): Hepatitis C Alcoholic cirrhosis 01/13/2011 01/20/20 20 Assessment & Plan (11/04/2018 12:59 PM VALUE ANALYST): Continue with supportive . No use of etoh. Encounters Date Type Department Care Team Description 07/05/2025 Telephone [facility] Medicine Ophthalmology [address] [place] [address] Iza Benjamin MD PhD Reschedule 07/05/2025 SHOP/CHAP Initial Eligibility Review [facility] [address] [facility] Mailstop [phone] [place] [address] Basia Cota RN 06/30/2025 10:40 PM CDT - 07/04/2025 3:26 PM CDT Hospital Encounter [facility] [address] [place] [address] Michell Vasquez MD Thomas, Alex Anthony, MD Zetumer, MD Richy Burns, Laura Linda MD Cholangitis (HCC) (Primary Dx); Liver transplant recipient (HCC); Nausea and vomiting, unspecified vomiting type; Positive blood cultures; Concern for Cholangitis (HCC); Anxiety and depression; Uncontrolled type 2 diabetes mellitus with hyperglycemia (CMS/HCC) (HCC); Bacteremia Discharge Disposition: Left Against Medical Advice 06/02/2025 2:00 PM CDT Office Visit [facility] Medicine Surgery [address] [place] [phone] Ernesto Garcia, DPTiffanie Leg length discrepancy (Primary Dx); Type 2 diabetes mellitus with diabetic neuropathy, with long-term current use of insulin (HCC); Tinea unguium; Enlarged and hypertrophic nails; Balance problem; Dry skin 05/28/2025 Documentation [facility] Transplant Liver [address] [facility] [address] Mailstop [phone] [place] [address] Kaylee Gutierrez RN Appointment/Schedule s 05/26/2025 3:40 PM CDT Office Visit [facility] Endocrinology Metabolism and Lipid [address] [facility] Advanced Medicine 13th [place] [address] [place] [address] Marshall Sherman MD PhD Uncontrolled type 2 diabetes mellitus with hyperglycemia (HCC) (Primary Dx) 05/26/2025 Telephone [facility] Medicine Ophthalmology [address] [place] [address] Iza Benjamin MD PhD Post injection symptoms 05/25/2025 1:00 PM CDT Office Visit [facility] Medicine Ophthalmology [address] [facility] [address]th [place] [phone] Iza Benjamin MD PhD 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 associated with type 2 diabetes mellitus (HCC) (Primary Dx) 05/18/2025 9:30 AM CDT Office Visit [facility] Medicine Ophthalmology [address] [facility] [address]th [place] [phone] Iza Benjamin MD PhD 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 associated with diabetes mellitus of other type (Primary Dx); 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 associated with type 2 diabetes mellitus (HCC) 04/29/2025 Telephone [facility] Medicine Ophthalmology [address] [place] [address] Iza Benjamin MD PhD No Show; 1st est NOS letter sent 04/20/2025 Telephone [facility] Endocrinology Metabolism and Lipid [address] [facility] Medicine [address]th [place] [address] [place] [phone] Marshall Sherman MD PhD appt cx from Last 3 Months Immunizations Immunization Administration Dates Next Due Influenza, Quadrivalent, Spl it, Preservative Free, Intramuscular 06/21/2023,06/23/2021,07/05/2020,07/06,08/01/2015 Influenza, Trivalent, IM (MDV) 06/16/2011 Influenza, Trivalent, Preser vative Free, Intramuscular 07/04/2025,09/23/2013,06/02/2012,07/04 Influenza, Trivalent, Recomb inant, Egg Free, Preservative [...] often do you attend chur ch or episcopalian services? Never 03/23/2021 Do you belong to any clubs o r organizations such as taoist groups, unions, fraternal or athletic groups, or [...] staff should administer the PHQ-9) 6 12/12/2022 PRAPARE - Transportation Answer Date Re corded [...] place to sleep or slept in a prison (including now)? No 03/23/2021 Humiliation, Afraid, Rape, and Kick questionnair e Answer Date Recorded Within the last year, have y ou been afraid of your partner or ex-partner? No 07/01/2025 Within the last year, have y ou been humiliated or emotionally abused in other ways by your partner or ex-partner? No Within the last year, have y ou been kicked, hit, slapped, or otherwise physically hurt by your partner or ex-partner? No 07/01/2025 Within the last year, have y ou been raped or forced to have any kind of sexual activity by your partner or ex-partner? No 07/01/2025 Social Connection and Isolation Panel Answer Date Recorded In a typical week, how many times do you talk on the phone with family, friends, or neighbors? More than three times a week 07/01/2025 How often do you get togethe r with friends or relatives? More than three times a week 07/01/2025 How often do you attend chur ch or episcopalian services? Never 07/01/2025 Do you belong to any clubs o r organizations such as taoist groups, unions, fraternal or athletic groups, or school groups? No 07/01/2025 How often do you attend meet ings of the clubs or organizations you belong to? Never 07/01/2025 Are you , , di vorced, , never , or living with a partner? Patient declined 07/01/2025 AUDIT-C Answer Date Recorded Q1: How often do you have a drink containing alcohol? Never 07/01/2025 Q2: How many drinks containi ng alcohol do you have on a typical day when you are drinking? Patient does not drink Q3: How often do you have si x or more drinks on one occasion? Never 07/01/2025 Overall Financial Resource Strain (CARDIA) Answe r Date Recorded How hard is it for you to pa y for the very basics like food, housing, medical care, and heating? Somewhat hard 07/01/2025 [facility] ional [facility] - Occupational Stress Questionnaire Answer Date Recorded Do you feel stress - tense, restless, nervous, or anxious, or unable to sleep at night because your mind is troubled all the time - these days? Not at all 07/01/2025 Exercise Vital Sign Answer Date Recorde d On average, how many days pe r week do you engage in moderate to strenuous exercise (like a brisk walk)? 0 days 07/01/2025 On average, how many minutes do you engage in exercise at this level? 0 min 07/01/2025 Hunger Vital Sign Answer Date Recorded Within the past 12 months, y ou worried that your food would run out before you got the money to buy more. Sometimes true Within the past 12 months, t he food you bought just didn't last and you didn't have money to get more. Sometimes true PRAPARE - Transportation Answer Date Re corded In the past 12 months, has l ack of transportation kept you from medical appointments or from getting medications? No 06/16 In the past 12 months, has l ack of transportation kept you from meetings, work, or from getting things needed for daily living? No 07/01/2025 Housing Stability Vital Sign Answer Tyree e Recorded In the last 12 months, was t here a time when you were not able to pay the mortgage or rent on time? No 07/01/2025 Number of Times Moved in the Last Year Not on fi le 07/01/2025 At any time in the past 12 m [facility], were you homeless or living in a prison (including now)? No 07/01/2025 [facility] Utilities Answer Date Recorded In the past 12 months has th e electric, gas, oil, or water company threatened to shut off services in your home? Patient declined 07/01/2025 Personal Safety Answer Date Recorded Have you ever been in or are you currently in a harmful physical or emotional relationship or is someone making you feel afraid or unsafe? Denies 07/01/2025 Sex and Gender Information Value Date Recorded Sex Assigned at Not on file Legal Sex Male 1:20 AM VALUE ANALYST Gender Identity Not on file Sexual Orientation Not on file Obstetrics History Last Filed Vital Signs Vital Sign Reading Time Taken Comments Blood Pressure 126/66 07/04/2025 4:45 AM CDT Pulse 86 07/04/2025 8:13 AM CDT Temperature 36.5 C (97.7 F) 07/04/2025 4:45 AM CDT Respiratory Rate 17 07/04/2025 4:45 AM CDT Oxygen Saturation 96% 07/04/2025 4:45 AM CDT Inhaled Oxygen Concentration - - Weight 76.6 kg (168 lb 12.8 oz) 07/01/2025 7:15 AM CDT Height 185.4 cm (6' 1) 07/01/2025 7:15 AM CDT Body Mass Index 22.27 07/01/2025 7:15 AM CDT Plan of Treatment Health Maintenance Due Date Last Done Comments Pneumococcal vaccine <65 (1 of 2 - PCV) 1979 Albumin Creatinine Ratio, Urine 07/07/2019 8 Foot Exam 08/14/2023 08/14/2022, 03/17, 04/13/2022, Additional history exists Depression Screening 12/13/2023 12/12/2022, 12/12/2022, 06/12/2021, Additional history exists Regular Well Visit/Exam 18-64 01/12/2025, 12/12/2022, 01/05/2021 Covid-19 Vaccine (2024-2 6 season) 2025 05/03/2021, 12/23/2020, 11/18/2020 Hemoglobin A1C 11/23/2025 05/26/2025, 06/0 12/2024, 10/14/2024, Additional history exists Dilated Eye Exam 05/18/2026 05/18/2025, , 12/30/2024, Additional history exists Lipid Panel 06/30/2026 06/30/2025, 12/16, 11/13/2023, Additional history exists eGFR 07/03/2026 07/03/2025, 06/16, 07/01/2025, Additional history exists Colon Cancer Screening-Colonoscopy 02/14/2027 02/14/2017 Prostate Cancer Screening-PSA 07/03/2027, 01/13/2024, 01/02/2023, Additional history exists DTaP/Tdap/Td Vaccine (2 - Td or Tdap) 10/06/2029 10/06/2019 Colon Cancer Screening-CT Colonography Discontinued 02/14/2017 Colon Cancer Screening-DNA Stool Discontinued 02/15/20 17 Colon Cancer Screening-FIT Discontinued 02/14/2017 Colon Cancer Screening-Sigmoidoscopy Discontinued 02/14/2017 Hepatitis B Screening Completed 02/25/2019 Hepatitis C Screening Completed 01/20/2020 , 02/25/2019, 11/12/2017, Additional history exists Zoster Vaccine Completed 06/04/2022, 04/16/2022 Influenza Vaccine Completed 07/04/2025, , 06/21/2023, Additional history exists Medical Devices Implanted Type Area Wet Process Head Miller Device Identifier Shelf Expiration Date Model / Serial / Lot Cardiac Stents Heart Ivc Filter Inferior Vena Cava Procedures Procedure Name Priority Date/Time Associated Diagnosis Comments POCT GLUCOSE DEVICE Routine 07/04/2025 1 :00 PM CDT POCT GLUCOSE DEVICE Routine 07/04/2025 8 :22 AM CDT EGFR Routine 07/03/2025 9:40 PM CDT DIFFERENTIAL AUTO Routine 07/03/2025 9:4 0 PM CDT PSA, TOTAL AND FREE Routine 07/03/2025 9 :40 PM CDT CBC WITH AUTO DIFFERENTIAL Routine 07/03/2025 9:40 PM CDT PROTIME-INR Routine 07/03/2025 9:40 PM CDT COMPREHENSIVE METABOLIC PANEL Routine 07/03/2025 9:40 PM CDT POCT GLUCOSE DEVICE Routine 07/03/2025 8 :51 PM CDT POCT GLUCOSE DEVICE Routine 07/03/2025 5 :45 PM CDT POCT GLUCOSE DEVICE Routine 07/03/2025 5 :25 PM CDT POCT GLUCOSE DEVICE Routine 07/03/2025 1 2:43 PM CDT SIROLIMUS LEVEL TROUGH Routine 07/03/2025 10:56 AM CDT POCT GLUCOSE DEVICE Routine 07/03/2025 8 :23 AM CDT XR ABDOMEN AP 1 VIEW IP Routine 07/02/2025 10:08 PM CDT EGFR Routine 07/02/2025 9:42 PM CDT DIFFERENTIAL AUTO Routine 07/02/2025 9:4 2 PM CDT CBC WITH AUTO DIFFERENTIAL Routine 07/02/2025 9:42 PM CDT PROTIME-INR Routine 07/02/2025 9:42 PM CDT COMPREHENSIVE METABOLIC PANEL Routine 07/02/2025 9:42 PM CDT SIROLIMUS LEVEL TROUGH Timed 07/02/2025 9:42 PM CDT POCT GLUCOSE DEVICE Routine 07/02/2025 9 :18 PM CDT POCT GLUCOSE DEVICE Routine 07/02/2025 4 :54 PM CDT BENZODIAZEPINE CONFIRMATION BY MS STAT 07/02/2025 2:55 PM CDT DRUGS OF ABUSE SCREEN, URINE WITH REFLEX CONFIRMATION STAT 07/02/2025 2:55 PM CDT BLOOD CULTURE STAT 07/02/2025 2:55 PM CDT BLOOD CULTURE STAT 07/02/2025 2:55 PM CDT POCT GLUCOSE DEVICE Routine 07/02/2025 1 :15 PM CDT MRI ABDOMEN MRCP W WO CONTRAST INCL 3D (C) IP Routine 07/02/2025 12:43 PM CDT MAGNESIUM Timed 07/02/2025 10:54 AM CDT SIROLIMUS LEVEL TROUGH Routine 07/02/2025 10:54 AM CDT VANCOMYCIN LEVEL TROUGH Timed 07/02/2025 10:54 AM CDT POCT GLUCOSE DEVICE Routine 07/02/2025 8 :30 AM CDT POCT GLUCOSE DEVICE Routine 07/02/2025 3 :50 AM CDT XR CHEST 1 VIEW IP Routine 07/02/2025 1:05 AM CDT POCT GLUCOSE DEVICE Routine 07/02/2025 1 2:03 AM CDT EGFR Routine 07/01/2025 10:11 PM CDT DIFFERENTIAL AUTO Routine 07/01/2025 10: 11 PM CDT SIROLIMUS LEVEL TROUGH Routine 07/01/2025 10:11 PM CDT CBC WITH AUTO DIFFERENTIAL Routine 07/01/2025 10:11 PM CDT PROTIME-INR Routine 07/01/2025 10:11 PM CDT COMPREHENSIVE METABOLIC PANEL Routine 07/01/2025 10:11 PM CDT POCT GLUCOSE DEVICE Routine 07/01/2025 1 0:04 PM CDT RESPIRATORY PATHOGEN PANEL Routine 07/01/2025 4:29 PM CDT POCT GLUCOSE DEVICE Routine 07/01/2025 4 :19 PM CDT POCT GLUCOSE DEVICE Routine 07/01/2025 1 2:59 PM CDT POCT GLUCOSE DEVICE Routine 07/01/2025 8 :21 AM CDT SIROLIMUS LEVEL TROUGH Timed 07/01/2025 6:19 AM CDT POCT GLUCOSE DEVICE Routine 07/01/2025 5 :03 AM CDT XR TRANSFER OF OUTSIDE FILMS Routine 07/01/2025 1:[address] OUTSIDE CONSULT Routine 07/01/2025 1:[address] BODY OUTSIDE CONSULT Routine 07/01/2025 1:28 AM CDT BLOOD CULTURE STAT 07/01/2025 1:05 AM CDT BLOOD CULTURE STAT 07/01/2025 1:05 AM CDT LIPID PANEL STAT 06/30/2025 10:38 PM CDT EGFR STAT 06/30/2025 10:38 PM CDT DIFFERENTIAL AUTO STAT 06/30/2025 10: 38 PM CDT LIPASE STAT 06/30/2025 10:38 PM CDT COMPREHENSIVE METABOLIC PANEL STAT 06/30/2025 10:38 PM CDT CBC WITH AUTO DIFFERENTIAL STAT 06/30/2025 10:38 PM CDT URINALYSIS, MICROSCOPIC ONLY STAT 06/30/2025 10:30 PM CDT URINALYSIS AND REFLEX TO MICROSCOPIC STAT 06/30/2025 10:30 PM CDT POCT HEMOGLOBIN A1C Routine 05/26/2025 3 :10 [...] associated with diabetes mellitus of other type HEPATITIS C ANTIBODY Routine 02/25/2019 6:08 AM CDT ALBUMIN CREATININE RATIO, URINE Routine 07/07/2018 10:54 AM CDT Type 2 diabetes mellitus with complication, without long-term current use of insulin (HCC) Other proteinuria COLONOSCOPY REPORT 02/14/2017 from Last 3 Months or Most Recently Relevant to Health Maintenance Results * POCT glucose (07/04/2025 1:00 PM CDT) Glucose, POC 198 70 - 199 mg/dL Blood 07/04/2025 1:00 PM CDT 07/04/2025 1:00 PM CDT us Laura Lockhart MD LAB POCT ORDERABLES - DEVIC E Final Result [facility] Department [place] [address] * POCT glucose (07/04/2025 8:22 AM CDT) Glucose, POC 130 70 - 199 mg/dL Blood 07/04/2025 8:22 AM CDT 07/04/2025 8:22 AM CDT us Laura Lockhart MD LAB POCT ORDERABLES - DEVIC E Final Result Performing Organization Address City/[facility]/ZIP Co de Phone Number [facility] Department of Group [address] [place] [address] * eGFR (07/03/2025 9:40 PM CDT) eGFR 82 >=60 mL/min/1. 73 m2 Comment: Interpretive Data [...] interpretive data was last reviewed 2021. Blood 07/03/2025 9:40 PM CDT 07/03/2025 10:05 PM CDT us Laura Lockhart MD LAB BLOOD ORDERABLES Final Result [facility] Department [place] [address] * (ABNORMAL) Differential, auto (07/03/2025 9:40 PM CDT) Neutrophil abs 2.51 1.50 - 6.50 K/cumm Imm gran abs 0.02 0.00 - 0.10 K/cumm [facility] Lymphocyte abs 0.70(L) 0.80 - 3.30 K/cumm [facility] Monocyte abs 0.60 0.20 - 0.80 K/cumm [facility] Eosinophil abs 0.07 0.00 - 0.50 K/cumm [facility] Basophil abs 0.01 0.00 - 0.10 K/cumm [facility] Neutrophil pct 64.2 % [facility] Comment: Interpretive Data Percent cell count reference ranges are not reported, since discordance with absolute values may lead to misinterpretation of CBC data. Current Interpretive Data was last revised on 2017. Imm gran pct 0.5 % [facility] Comment: Interpretive Data Percent cell count reference ranges are not reported, since discordance with absolute values may lead to misinterpretation of CBC data. Current Interpretive Data was last revised on 2017. Lymphocyte pct 17.9 % [facility] Comment: Interpretive Data Percent cell count reference ranges are not reported, since discordance with absolute values may lead to misinterpretation of CBC data. Current Interpretive Data was last revised on 2017. Monocyte pct 15.3 % [facility] Comment: Interpretive Data Percent cell count reference ranges are not reported, since discordance with absolute values may lead to misinterpretation of CBC data. Current Interpretive Data was last revised on 2017. Eosinophil pct 1.8 % [facility] Comment: Interpretive Data Percent cell count reference ranges are not reported, since discordance with absolute values may lead to misinterpretation of CBC data. Current Interpretive Data was last revised on 2017. Basophil pct 0.3 % [facility] Comment: Interpretive Data Percent cell count reference ranges are not reported, since discordance with absolute values may lead to misinterpretation of CBC data. Current Interpretive Data was last revised on 2017. Blood 07/03/2025 9:40 PM CDT 07/03/2025 10:05 PM CDT us Laura Lockhart MD LAB BLOOD ORDERABLES Final Result [facility] Department [place] [address] * (ABNORMAL) CBC with auto differential (07/03/2025 9:40 PM CDT) WBC 3.91 3.80 - 9.90 K/cumm Hgb 10.3(L) 13.0 - 17.5 g/dL [facility] Hct 29.4(L) 38.9 - 50.3 % [facility] Plt 142(L) 150 - 400 K/cumm [facility] MPV 11.7 9.1 - 12.3 fL [facility] RBC 3.44(L) 4.30 - 5.80 M/cumm [facility] MCV 85.5 81.3 - 96.4 fL [facility] MCH 29.9 27.1 - 33.3 pg [facility] MCHC 35.0 32.3 - 35.7 g/dL [facility] RDW CV 13.0 11.1 - 14.9 % [facility] RDW SD 40.5 35.7 - 48.1 fL [facility] NRBC abs 0.00 0.00 - 0.01 K/cumm [facility] Blood 07/03/2025 9:40 PM CDT 07/03/2025 10:05 PM CDT Laura Lockhart MD LAB BLOOD ORDERABLES Final Result Performing Organization Address [facility] de Phone Number [facility] Department [place] [address] * Protime-INR (07/03/2025 9:40 PM CDT) PT 11.3 10.2 - 13.5 sec INR 1.00 0.90 - 1.20 [facility] Comment: Interpretive data Oral anticoagulant therapeutic ranges: Venous thromboembolism prophylaxis or treatment: 2.0-3.0 CARDIOLOGY Standard range: 2.0-3.0 High-intensity range: 2.5-3.5 Refer to indication-specific guidelines for appropriate target ranges for prosthetic heart valve replacement. Current interpretive data was last revised on 2019. Blood 07/03/2025 9:40 PM CDT 07/03/2025 10:14 PM CDT Laura Lockhart MD LAB BLOOD ORDERABLES Final Result Performing Organization Address [facility] de Phone Number [facility] Department [place] [address] * PSA, total and free (07/03/2025 9:40 PM CDT) PSA-free 1.1 ng/mL [place] [facility] PSA-Total 3.8 <=4.5 ng/mL [facility] PSA-Free/Total Ratio See Footnote [facility] Comment: Ratio not calculated because clinical usefulness is not defined except in range of total PSA 4.0-10.0 ng/mL. ADDITIONAL INFORMATION The testing method is an electrochemiluminescence assay manufactured by [employer] and performed on the Modular or Randolph system. Values obtained with different assay methods or kits may be different and cannot be used interchangeably. Test results cannot be interpreted as absolute evidence for the presence or absence of malignant disease. Test Performed by: [facility] [address] [place] [address] Billiard Player: Zeeshan Hernandez Ph.D.; CLIA# [id number] Blood 07/03/2025 9:40 PM CDT 07/03/2025 10:38 PM CDT us Natalynathan Cordova [facility] LAB BLOOD ORDERABLES Final Result [facility] Department [place] [address] [place] ref [facility] * (ABNORMAL) Comprehensive metabolic panel (07/03/2025 9:40 PM CDT) Sodium 140 135 - 145 mmol/L Potassium, pl 3.5 3.3 - 4.9 mmol/L [facility] Chloride 105 97 - 110 mmol/L [facility] CO2 27 22 - 32 mmol/L [facility] Anion gap 8 2 - 15 mmol/L [facility] BUN 13 6 - 25 mg/dL [facility] Creatinine 1.02 0.80 - 1.30 mg/dL [facility] Glucose 127 70 - 199 mg/dL [facility] Comment: Interpretive Data Fasting glucose >/= 126 mg/dl is diagnostic for diabetes. Fasting is defined as no caloric intake for at least 8 hours. Fasting glucose between 100 mg/dl to 125 mg/dl is diagnostic of prediabetes. In a patient with classic symptoms of hyperglycemia or hyperglycemic crisis, a random glucose >/= 200 mg/dl is diagnostic for diabetes. In the absence of unequivocal hyperglycemia, results should be confirmed by repeat testing. The classification and Diagnosis of Diabetes Diabetes Care 2021; 46: S19-S40. Current interpretive data was last revised 2022. Calcium 8.2(L) 8.5 - 10.3 mg/dL [facility] Bilirubin, total 0.2 0.1 - 1.2 mg/dL [facility] Protein, pl 5.6(L) 6.5 - 8.5 g/dL [facility] Albumin 2.7(L) 3.5 - 5.0 g/dL [facility] Alk phos 135(H) 40 - 130 Units/L [facility] ALT 25 7 - 55 Units/L [facility] AST 23 10 - 50 Units/L [facility] Blood 07/03/2025 9:40 PM CDT 07/03/2025 10:05 PM CDT Laura Lockhart MD LAB BLOOD ORDERABLES Final Result Performing Organization Address City/[facility]/ZIP Co de Phone Number [facility] [address] [place] [address] * POCT glucose (07/03/2025 8:51 PM CDT) Glucose, POC 145 70 - 199 mg/dL Blood 07/03/2025 8:51 PM CDT 07/03/2025 8:51 PM CDT Laura Lockhart MD LAB POCT ORDERABLES - DEVIC E Final Result Performing Organization Address [facility] Co de Phone Number [facility] [address] [place] [address] * (ABNORMAL) POCT glucose (07/03/2025 5:45 PM CDT) Glucose, POC 228(H) 70 - 199 mg/dL Blood 07/03/2025 5:45 PM CDT 07/03/2025 5:45 PM CDT Laura Lockhart MD LAB POCT ORDERABLES - DEVIC E Final Result Performing Organization Address City/[facility] Co de Phone Number [facility] [place] [address] * (ABNORMAL) POCT glucose (07/03/2025 5:25 PM CDT) Glucose, POC 244(H) 70 - 199 mg/dL Blood 07/03/2025 5:25 PM CDT 07/03/2025 5:25 PM CDT Laura Lockhart MD LAB POCT ORDERABLES - DEVIC E Final Result Performing Organization Address City/[facility] Co de Phone Number [facility] Department [place] [address] * (ABNORMAL) POCT glucose (07/03/2025 12:43 PM CDT) Glucose, POC 223(H) 70 - 199 mg/dL Blood 07/03/2025 12:4 3 PM CDT 07/03/2025 12:43 PM CDT Laura Lockhart MD LAB POCT ORDERABLES - DEVIC E Final Result Performing Organization Address [facility] de Phone Number [facility] Department [place] [address] * Sirolimus level trough (07/03/2025 10:56 AM CDT) Sirolimus trough 3.6 ng/mL Comment: Interpretive Data Testing performed by liquid chromatography-tandem mass spectrometry. Therapeutic concentrations vary depending on type of transplanted organ and time elapsed since transplant. Typical trough concentrations range from 4-20 ng/mL. This test was developed and its performance characteristics determined by the [facility] consistent with CLIA requirements. This test has not been cleared or approved by the US Food and Drug administration. Current interpretive data last reviewed 2019. Blood 07/03/2025 10:5 6 AM CDT 07/03/2025 11:12 AM CDT Lisa Cordova DNP LAB BLOOD ORDERABLES Final Result Performing Organization Address City/[facility]/ZIP Co de Phone Number [facility] Department [place] [address] * POCT glucose (07/03/2025 8:23 AM CDT) Glucose, POC 178 70 - 199 mg/dL Blood 07/03/2025 8:23 AM CDT 07/03/2025 8:23 AM CDT Laura Lockhart MD LAB POCT ORDERABLES - DEVIC E Final Result Performing Organization Address [facility] Co de Phone Number [facility] [address] [place] [address] * XR Abdomen Ap 1 Vw (07/02/2025 10:08 PM CDT) Anatomical Region Laterality Modality Body, Abdomen N/A Computed Radiogr aphy 07/03/2025 10:0 6 AM CDT Impressions 07/03/2025 10:14 AM CDT Moderate volume stool in the descending colon. The bowel gas pattern is within normal limits. Pneumobilia, unchanged as compared to CT 06/27/2025. Dictated by: Rebecca Moreno M.D. The radiology attending physician has personally reviewed this study, and had reviewed and/or edited this written report and agrees with it. Electronically signed by: Roshan Jett M.D. Narrative 07/03/2025 10:14 AM CDT EXAMINATION: Abdomen, one view. HISTORY: Constipation COMPARISON: CT 06/27/2025 Procedure Note Roshan Jett MD - 07/03/2025 EXAMINATION: Abdomen, one view. HISTORY: Constipation COMPARISON: CT 06/27/2025 IMPRESSION: Moderate volume stool in the descending colon. The bowel gas pattern is within normal limits. Pneumobilia, unchanged as compared to CT 06/27/2025. Dictated by: Rebecca Moreno M.D. The radiology attending physician has personally reviewed this study, and had reviewed and/or edited this written report and agrees with it. Electronically signed by: Roshan Jett M.D. Lisa Cordova [facility] IMG XR PROCEDURES Final Res ult * Sirolimus level trough (07/02/2025 9:42 PM CDT) Sirolimus trough 5.1 ng/mL Comment: Interpretive Data Testing performed by liquid chromatography-tandem mass spectrometry. Therapeutic concentrations vary depending on type of transplanted organ and time elapsed since transplant. Typical trough concentrations range from 4-20 ng/mL. This test was developed and its performance characteristics determined by the [facility] consistent with CLIA requirements. This test has not been cleared or approved by the [place] Food and Drug administration. Current interpretive data last reviewed 2019. Blood 07/02/2025 9:42 PM CDT 07/02/2025 10:01 PM [address]ative [facility] - 07/03/2025 3:21 AM CDT Just prior to administration of sirolimus. Lisa Cordova [facility] LAB BLOOD ORDERABLES Final Result [facility] Department [place] [address] * eGFR (07/02/2025 9:42 PM CDT) eGFR 88 >=60 mL/min/1. 73 m2 Comment: Interpretive Data [...] of Race in Diagnosing Kidney Disease, JASN 202). The CKD-EPI equation should not be used for patients with unstable renal function and has not been validated in children and those over 70. Current interpretive data was last reviewed 2021. Blood 07/02/2025 9:42 PM CDT 07/02/2025 10:01 PM CDT us Laura Lockhart MD LAB BLOOD ORDERABLES Final Result [facility] Department [place] [address] * (ABNORMAL) Differential, auto (07/02/2025 9:42 PM CDT) Neutrophil abs 3.70 1.50 - 6.50 K/cumm Imm gran abs 0.03 0.00 - 0.10 K/cumm [facility] Lymphocyte abs 0.64(L) 0.80 - 3.30 K/cumm [facility] Monocyte abs 0.51 0.20 - 0.80 K/cumm [facility] Eosinophil abs 0.07 0.00 - 0.50 K/cumm [facility] Basophil abs 0.02 0.00 - 0.10 K/cumm [facility] Neutrophil pct 74.4 % [facility] Comment: Interpretive Data Percent cell count reference ranges are not reported, since discordance with absolute values may lead to misinterpretation of CBC data. Current Interpretive Data was last revised on 2017. Imm gran pct 0.6 % [facility] Comment: Interpretive Data Percent cell count reference ranges are not reported, since discordance with absolute values may lead to misinterpretation of CBC data. Current Interpretive Data was last revised on 2017. Lymphocyte pct 12.9 % [facility] Comment: Interpretive Data Percent cell count reference ranges are not reported, since discordance with absolute values may lead to misinterpretation of CBC data. Current Interpretive Data was last revised on 2017. Monocyte pct 10.3 % [facility] Comment: Interpretive Data Percent cell count reference ranges are not reported, since discordance with absolute values may lead to misinterpretation of CBC data. Current Interpretive Data was last revised on 2017. Eosinophil pct 1.4 % [facility] Comment: Interpretive Data Percent cell count reference ranges are not reported, since discordance with absolute values may lead to misinterpretation of CBC data. Current Interpretive Data was last revised on 2017. Basophil pct 0.4 % [facility] Comment: Interpretive Data Percent cell count reference ranges are not reported, since discordance with absolute values may lead to misinterpretation of CBC data. Current Interpretive Data was last revised on 2017. Blood 07/02/2025 9:42 PM CDT 07/02/2025 10:01 PM CDT us Laura Lockhart MD LAB BLOOD ORDERABLES Final Result [facility] Department [place] [address] * (ABNORMAL) CBC with auto differential (07/02/2025 9:42 PM CDT) WBC 4.97 3.80 - 9.90 K/cumm Hgb 9.5(L) 13.0 - 17.5 g/dL [facility] Hct 28.0(L) 38.9 - 50.3 % [facility] Plt 107(L) 150 - 400 K/cumm [facility] MPV 12.2 9.1 - 12.3 fL [facility] RBC 3.19(L) 4.30 - 5.80 M/cumm [facility] MCV 87.8 81.3 - 96.4 fL [facility] MCH 29.8 27.1 - 33.3 pg [facility] MCHC 33.9 32.3 - 35.7 g/dL [facility] RDW CV 13.0 11.1 - 14.9 % [facility] RDW SD 41.6 35.7 - 48.1 fL [facility] NRBC abs 0.00 0.00 - 0.01 K/cumm [facility] Blood 07/02/2025 9:42 PM CDT 07/02/2025 10:01 PM CDT Laura Lockhart MD LAB BLOOD ORDERABLES Final Result Performing Organization Address [facility] de Phone Number [facility] Department [place] [address] * Protime-INR (07/02/2025 9:42 PM CDT) PT 11.3 10.2 - 13.5 sec INR 1.00 0.90 - 1.20 [facility] Comment: Interpretive data Oral anticoagulant therapeutic ranges: Venous thromboembolism prophylaxis or treatment: 2.0-3.0 CARDIOLOGY Standard range: 2.0-3.0 High-intensity range: 2.5-3.5 Refer to indication-specific guidelines for appropriate target ranges for prosthetic heart valve replacement. Current interpretive data was last revised on 2019. Blood 07/02/2025 9:42 PM CDT 07/02/2025 10:06 PM CDT Laura Lockhart MD LAB BLOOD ORDERABLES Final Result Performing Organization Address [facility] de Phone Number [facility] Department [place] [address] * (ABNORMAL) Comprehensive metabolic panel (07/02/2025 9:42 PM CDT) Sodium 142 135 - 145 mmol/L Potassium, pl 3.5 3.3 - 4.9 mmol/L [facility] Chloride 104 97 - 110 mmol/L [facility] CO2 25 22 - 32 mmol/L [facility] Anion gap 13 2 - 15 mmol/L [facility] BUN 11 6 - 25 mg/dL [facility] Creatinine 0.96 0.80 - 1.30 mg/dL [facility] Glucose 158 70 - 199 mg/dL [facility] Comment: Interpretive Data Fasting glucose >/= 126 mg/dl is diagnostic for diabetes. Fasting is defined as no caloric intake for at least 8 hours. Fasting glucose between 100 mg/dl to 125 mg/dl is diagnostic of prediabetes. In a patient with classic symptoms of hyperglycemia or hyperglycemic crisis, a random glucose >/= 200 mg/dl is diagnostic for diabetes. In the absence of unequivocal hyperglycemia, results should be confirmed by repeat testing. The classification and Diagnosis of Diabetes Diabetes Care 2021; 46: S19-S40. Current interpretive data was last revised 2022. Calcium 7.9(L) 8.5 - 10.3 mg/dL [facility] Bilirubin, total 0.2 0.1 - 1.2 mg/dL [facility] Protein, pl 5.3(L) 6.5 - 8.5 g/dL [facility] Albumin 2.6(L) 3.5 - 5.0 g/dL [facility] Alk phos 144(H) 40 - 130 Units/L [facility] ALT 29 7 - 55 Units/L [facility] AST 21 10 - 50 Units/L [facility] Blood 07/02/2025 9:42 PM CDT 07/02/2025 10:01 PM CDT Laura Lockhart MD LAB BLOOD ORDERABLES Final Result Performing Organization Address [facility]/ZIP Co de Phone Number [facility] [address] [place] [address] * POCT glucose (07/02/2025 9:18 PM CDT) [facility] Signature Glucose, POC 169 70 - 199 mg/dL Blood 07/02/2025 9:18 PM CDT 07/02/2025 9:18 PM CDT Laura Lockhart MD LAB POCT ORDERABLES - DEVIC E Final Result Performing Organization Address [facility]/ZIP Co de Phone Number [facility] Department [place] [address] * (ABNORMAL) POCT glucose (07/02/2025 4:54 PM CDT) Glucose, POC 252(H) 70 - 199 mg/dL Blood 07/02/2025 4:54 PM CDT 07/02/2025 4:54 PM CDT Laura Lockhart MD LAB POCT ORDERABLES - DEVIC E Final Result Performing Organization Address [facility] de Phone Number [facility] Department [place] [address] * (ABNORMAL) Benzodiazepine Confirmation by MS (07/02/2025 2:55 PM CDT) [facility] Alprazolam, ur Does Not Confirm CutOff 20 ng/ml Clonazepam, ur Does Not Confirm CutOff 20 ng/ml [facility] Flunitrazepam, ur Does Not Confirm CutOff 20 ng/ml [facility] Lorazepam, ur Does Not Confirm CutOff 20 ng/ml [facility] Midazolam, ur Does Not Confirm CutOff 100 ng/mL [facility] Nordiazepam, ur Does Not Confirm CutOff 20 ng/ml [facility] Oxazepam, ur Confirmed Positive(A) CutOff 20 ng/ml [facility] Temazepam, ur Confirmed Positive(A) CutOff 20 ng/ml [facility] Comment: Interpretive Data This test is performed by liquid chromatography tandem mass spectrometry and detects both free and conjugated drug metabolites. Questions concerning interpretation should be directed to the laboratory. The results of this test are intended for clinical use. This test was developed and its performance characteristics determined by [facility]. It has not been cleared or approved by the U.S. Food and Drug Administration. Urine 07/02/2025 2:55 PM CDT 07/02/2025 4:19 PM CDT us Laura Lockhart MD LAB URINE ORDERABLES Final Result Performing Organization Address [facility] Co de Phone Number [facility] Department [place] [address] * (ABNORMAL) Drugs of Abuse Screen, Urine with Reflex Confirmation (07/02/2025 2:55 PM CDT) [facility] Amphetamine, ur Not Detected CutOff 500ng/mL Comment: Interpretive Data - Amphetamines: Samples containing greater than 500 ng/mL d-methamphetamine or other cross-reacting amphetamine compounds are reported as positive. Amphetamine immunoassays are subject to significant false positive rates due to cross-reactivity of non-amphetamine drugs. Confirmatory testing required for definitive results. Current Interpretive Data was last reviewed 2023. Barbiturates, ur Not Detected CutOff 200ng/mL [facility] Comment: Interpretive Data - Barbiturates: Samples containing greater than 200 ng/mL secobarbital or other cross-reacting barbiturate compounds are reported as positive. False positive and false negative results are possible. Confirmatory testing required for definitive results. Current Interpretive Data was last reviewed 2023. Benzodiazepines, ur Screen Positive, presumptive (A) CutOff 100ng/mL [facility] Comment: Interpretive Data - Benzodiazepines: Samples containing greater than 100 ng/mL nordiazepam or other cross-reacting compounds are reported as positive. False positive and false negative results are possible. Confirmatory testing required for definitive results. Current Interpretive Data was last reviewed 2023. Cannabinoids, ur Screen Positive, presumptive (A) CutOff 50 ng/mL [facility] Comment: Interpretive Data - Cannabinoids: Samples containing greater than 50 ng/mL delta-9 THC -COOH or other cross- reacting compounds are reported as positive. False positive and false negative results are possible. Confirmatory testing required for definitive results. Current Interpretive Data was last reviewed 2023. Cocaine, ur Not Detected CutOff 150ng/mL [facility] Comment: Interpretive Data - Cocaine: Samples containing greater than 150 ng/mL benzoylecgonine or other cross- reacting compounds are reported as positive. False positive and false negative results are possible. Confirmatory testing required for definitive results. Current Interpretive Data was last reviewed 2023. Fentanyl, Ur Not Detected CutOff 5 ng/mL [facility] Comment: Interpretive Data - Fentanyl: Samples containing greater than 5 ng/mL norfentanyl, fentanyl, or other cross-reacting fentanyl compounds are reported as positive. False positive and false negative results are possible. Confirmatory testing required for definitive results. Current Interpretive Data was last reviewed 2023. Methadone, ur Not Detected CutOff 300ng/mL [facility] Comment: Interpretive Data - Methadone: Samples containing greater than 300 ng/mL d,l-methadone or other cross-reacting compounds are reported as positive. False positive and false negative results are possible. Confirmatory testing required for definitive results. Current Interpretive Data was last reviewed 2023. Opiates, ur Not Detected CutOff 300ng/mL [facility] Comment: Interpretive Data - Opiates: Samples containing greater than 300 ng/mL morphine or other cross-reacting compounds are reported as positive. False positive and false negative results are possible. Confirmatory testing required for definitive results. Current Interpretive Data was last reviewed 2023. Oxycodone, ur Not Detected CutOff 100ng/mL [facility] Comment: Interpretive Data - Oxycodone: Samples containing greater than 100 ng/mL oxycodone or other cross-reacting compounds are reported as positive. False positive and false negative results are possible. Confirmatory testing required for definitive results. Current Interpretive Data was last reviewed 2023. Phencyclidine, ur Not Detected CutOff 25 ng/mL [facility] Comment: Interpretive Data - Phencyclidine: Samples containing greater than 25 ng/mL phencyclidine or other cross-reacting compounds are reported as positive. False positive and false negative results are possible. Confirmatory testing required for definitive results. Current Interpretive Data was last reviewed 2023. Urine Creatinine 78 mg/dL [facility] Comment: Interpretive Data Urine Creatinine: < 10 mg/dL is extremely dilute = or > 10 but < 20 mg/dL is dilute = or > 20 mg/dL is normal Current Interpretive Data was last revised on 2017. Urine 07/02/2025 2:55 PM CDT 07/02/2025 4:19 PM CDT Narrative [facility] - 07/02/2025 4:47 PM CDT Drug Screening is performed by immunoassay for medical purposes. If positive, confirmation testing will be performed for amphetamines, benzodiazepines, cocaine, fentanyl, methadone, opiates, oxycodone, and phencyclidine. Laura Lockhart MD LAB URINE ORDERABLES Final Result [facility] Department [place] [address] * Blood culture Blood (07/02/2025 2:55 PM CDT) Report Final Report: No growth Blood 07/02/2025 2:55 PM CDT 07/02/2025 3:06 PM CDT Narrative [facility] - 07/06/2025 4:00 PM CDT Collection->Peripheral 1. Blood cultures are incubated for 4 days on a continuously monitored blood culture system. The first report of a negative culture is issued within 24 hours of receipt of the specimen in the laboratory. 2. Positive culture results are reported as soon as they are detected. 3. The most important factor for detection of microbes in the setting of bloodstream infection is the volume of blood submitted for culture. Failure to collect an optimal blood volume can result in false negative blood cultures. 4. For pediatric patients, the recommended blood volume to collect follows a weight based strategy. See the electronic test catalog for collection instructions. 5. For positive blood cultures, a rapid molecular test may be performed for organism identification using the randolph ePlex blood culture identification panel for gram positive (BCID-GP) and gram negative (BCID-GN) organisms. This nucleic acid amplification test detects microbial DNA in positive blood culture broth. This assay has been cleared by the [place] Food and Drug Administration and its performance characteristics have been verified by the [facility]biology Laboratory. For questions about this culture, contact the Microbiology Laboratory at [phone]. Interpretive data was last revised on 24. Lisa Cordova DNP LAB MICROBIOLOGY - GENERAL ORDERABLES Final Result Performing Organization Address City/[facility]/ZIP Co de Phone Number [facility] Department [place] [address] * Blood culture Blood (07/02/2025 2:55 PM CDT) Report Final Report: No growth Blood 07/02/2025 2:55 PM CDT 07/02/2025 3:06 PM CDT Narrative [facility] - 07/06/2025 4:00 PM CDT Collection->Peripheral 1. Blood cultures are incubated for 4 days on a continuously monitored blood culture system. The first report of a negative culture is issued within 24 hours of receipt of the specimen in the laboratory. 2. Positive culture results are reported as soon as they are detected. 3. The most important factor for detection of microbes in the setting of bloodstream infection is the volume of blood submitted for culture. Failure to collect an optimal blood volume can result in false negative blood cultures. 4. For pediatric patients, the recommended blood volume to collect follows a weight based strategy. See the electronic test catalog for collection instructions. 5. For positive blood cultures, a rapid molecular test may be performed for organism identification using the randolph ePlex blood culture identification panel for gram positive (BCID-GP) and gram negative (BCID-GN) organisms. This nucleic acid amplification test detects microbial DNA in positive blood culture broth. This assay has been cleared by the [place] Food and Drug Administration and its performance characteristics have been verified by the [facility]biology Laboratory. For questions about this culture, contact the Microbiology Laboratory at [phone]. Interpretive data was last revised on 24. us Lisa Cordova DNP LAB MICROBIOLOGY - GENERAL ORDERABLES Final Result [facility] Department [place] [address] * (ABNORMAL) POCT glucose (07/02/2025 1:15 PM CDT) Glucose, POC 240(H) 70 - 199 mg/dL Blood 07/02/2025 1:15 PM CDT 07/02/2025 1:15 PM CDT Laura Lockhart MD LAB POCT ORDERABLES - DEVIC E Final Result [facility] Department [place] [address] * MRI Abdomen MRCP W WO Contrast Incl 3D (07/02/2025 12:43 PM CDT) Anatomical Region Laterality Modality Body N/A Magnetic Resonan ce 07/02/2025 1:10 PM CDT Impressions 07/02/2025 1:10 PM CDT 1. 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 There is pneumobilia but also intrinsically T1 hyperintense filling defects within the dilated bile duct, predominantly involving the dependent extra hepatic duct and right intrahepatic ducts, favored to reflect sequela of reflux given the additional T1 hyperintense contents within the adjacent Magali limb. Pigmented intraductal stones may be an additional consideration but would be considered less likely. Mild periductal soft tissue thickening is likely reactive and/or manifestation of cholangitis. 2. Patent hepatic vasculature. No suspicious hepatic lesion. Electronically signed by: Daniel Merrill M.D. Narrative 07/02/2025 1:10 PM CDT EXAMINATION: 1. MAGNETIC RESONANCE IMAGING OF THE ABDOMEN WITH AND WITHOUT CONTRAST 2. THREE DIMENSIONAL RECONSTRUCTION OF THE BILIARY TREE AND PANCREATIC DUCT HISTORY: Orthotopic liver transplantation in 2004. Now with abdominal pain and elevated liver chemistries as well as concern for cholangitis. TECHNIQUE: Magnetic resonance imaging of the abdomen was performed prior to and following the administration of intravenous contrast. The raw data was processed on the scanner by the technologist for 3 dimensional reconstructions of the intrahepatic ducts, extrahepatics ducts, and pancreatic duct. Protocol: Liver MRCP Contrast: Dotarem (gadoterate) 14 mL COMPARISON: MRI dated 07/01/[address] dated 06/27/2025 FINDINGS: Liver: No steatosis or iron deposition. No hepatic surface nodularity. Stable changes of orthotopic liver transplantation. - Bile ducts: Mild to moderate intrahepatic and extrahepatic biliary duct dilatation which is increased from the prior examination. There is pneumobilia within the intrahepatic ducts within primarily the left lateral section but also involving the extra hepatic duct but there is also dependent intraluminal filling defects which have intermediate T2 signal and at least some degree of T1 hyperintensity (for instance series 35, image 45). There is also intrinsic T1 hyperintensity within the adjacent loops of bowel within the Magali limb. The hepaticojejunostomy itself looks patent, without clear stricture. There is mild periductal soft tissue thickening predominantly involving the extrahepatic duct but also involving the intrahepatic ducts on the right, slightly more pronounced on the prior CT compared with the current examination. - Focal liver lesions: No focal hepatic lesion. - Vasculature: Patent main and branch portal veins. Patent hepatic veins. The hepatic artery appears patent though is suboptimally evaluated. Gallbladder: Surgically absent Pancreas: Somewhat atrophic without suspicious lesion or pancreatic duct dilatation. Spleen: Normal in size Adrenals: Normal Kidneys: Normal Other Findings: No lymphadenopathy or osseous lesion. Procedure Note Daniel Merrill MD - 07/02/2025 EXAMINATION: 1. MAGNETIC RESONANCE IMAGING OF THE ABDOMEN WITH AND WITHOUT CONTRAST 2. THREE DIMENSIONAL RECONSTRUCTION OF THE BILIARY TREE AND PANCREATIC DUCT HISTORY: Orthotopic liver transplantation in 2004. Now with abdominal pain and elevated liver chemistries as well as concern for cholangitis. TECHNIQUE: Magnetic resonance imaging of the abdomen was performed prior to and following the administration of intravenous contrast. The raw data was processed on the scanner by the technologist for 3 dimensional reconstructions of the intrahepatic ducts, extrahepatics ducts, and pancreatic duct. Protocol: Liver MRCP Contrast: Dotarem (gadoterate) 14 mL COMPARISON: MRI dated 07/01/[address] dated 06/27/2025 FINDINGS: Liver: No steatosis or iron deposition. No hepatic surface nodularity. Stable changes of orthotopic liver transplantation. - Bile ducts: Mild to moderate intrahepatic and extrahepatic biliary duct dilatation which is increased from the prior examination. There is pneumobilia within the intrahepatic ducts within primarily the left lateral section but also involving the extra hepatic duct but there is also dependent intraluminal filling defects which have intermediate T2 signal and at least some degree of T1 hyperintensity (for instance series 35, image 45). There is also intrinsic T1 hyperintensity within the adjacent loops of bowel within the Magali limb. The hepaticojejunostomy itself looks patent, without clear stricture. There is mild periductal soft tissue thickening predominantly involving the extrahepatic duct but also involving the intrahepatic ducts on the right, slightly more pronounced on the prior CT compared with the current examination. - Focal liver lesions: No focal hepatic lesion. - Vasculature: Patent main and branch portal veins. Patent hepatic veins. The hepatic artery appears patent though is suboptimally evaluated. Gallbladder: Surgically absent Pancreas: Somewhat atrophic without suspicious lesion or pancreatic duct dilatation. Spleen: Normal in size Adrenals: Normal Kidneys: Normal Other Findings: No lymphadenopathy or osseous lesion. IMPRESSION: 1. 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 There is pneumobilia but also intrinsically T1 hyperintense filling defects within the dilated bile duct, predominantly involving the dependent extra hepatic duct and right intrahepatic ducts, favored to reflect sequela of reflux given the additional T1 hyperintense contents within the adjacent Magali limb. Pigmented intraductal stones may be an additional consideration but would be considered less likely. Mild periductal soft tissue thickening is likely reactive and/or manifestation of cholangitis. 2. Patent hepatic vasculature. No suspicious hepatic lesion. Electronically signed by: Daniel Merrill M.D. Lisa Cordova [facility] IMG MRI PROCEDURES Final Re sult * Sirolimus level trough (07/02/2025 10:54 AM CDT) Pathologist [facility] Sirolimus trough 5.8 ng/mL Comment: Interpretive Data Testing performed by liquid chromatography-tandem mass spectrometry. Therapeutic concentrations vary depending on type of transplanted organ and time elapsed since transplant. Typical trough concentrations range from 4-20 ng/mL. This test was developed and its performance characteristics determined by the [facility] consistent with CLIA requirements. This test has not been cleared or approved by the [place] Food and Drug administration. Current interpretive data last reviewed 2019. Blood 07/02/2025 10:5 4 AM CDT 07/02/2025 11:12 AM CDT Lisa Cordova [facility] LAB BLOOD ORDERABLES Final Result [facility] Department [place] [address] * Magnesium (07/02/2025 10:54 AM CDT) Magnesium 1.6 1.4 - 2.5 mg/dL Blood 07/02/2025 10:5 4 AM CDT 07/02/2025 11:12 AM CDT Laura Lockhart MD LAB BLOOD ORDERABLES Final Result [facility] Department [place] [address] * Vancomycin level trough Please draw before 4th dose of vancomycin. Thanks! (07/02/2025 10:54 AM CDT) Vancomycin trough 12.5 10.0 - 20.0 mcg/mL Blood 07/02/2025 10:5 4 AM CDT 07/02/2025 11:12 AM CDT Narrative [facility] - 07/02/2025 11:42 AM CDT Please draw before 4th dose of vancomycin. Thanks! Lisa Cordova DNP LAB BLOOD ORDERABLES Final Result Performing Organization Address City/[facility]/ZIP Co de Phone Number [facility] Department [place] [address] * POCT glucose (07/02/2025 8:30 AM CDT) Glucose, POC 113 70 - 199 mg/dL Blood 07/02/2025 8:30 AM CDT 07/02/2025 8:30 AM CDT Laura Lockhart MD LAB POCT ORDERABLES - DEVIC E Final Result Performing Organization Address City/[facility]/ZIP Co de Phone Number [facility] [address] [place] [address] * POCT glucose (07/02/2025 3:50 AM CDT) Glucose, POC 102 70 - 199 mg/dL Blood 07/02/2025 3:50 AM CDT 07/02/2025 3:50 AM CDT Laura Lockhart MD LAB POCT ORDERABLES - DEVIC E Final Result [facility] Department [place] [address] * XR Chest 1 View (07/02/2025 1:05 AM CDT) Anatomical Region Laterality Modality Body, Chest N/A Digital Radiogra phy 07/02/2025 9:27 AM CDT Impressions 07/02/2025 9:27 AM CDT The current study is compared with the prior radiograph dated 06/09/2024 The cardiomediastinal silhouette is within normal limits. Small lung volumes with associated bibasilar atelectasis. Right infrahilar nodular opacities may represent changes of aspiration versus partial atelectasis. No pneumothorax. Dictated by: Chema Mccracken M.D. The radiology attending physician has personally reviewed this study, and had reviewed and/or edited this written report and agrees with it. Electronically signed by: Francisco Chen M.D. Narrative 07/02/2025 9:27 AM CDT EXAMINATION: 1 view chest radiograph Procedure Note Francisco Chen MD - 07/02/2025 EXAMINATION: 1 view chest radiograph IMPRESSION: The current study is compared with the prior radiograph dated 06/09/2024 The cardiomediastinal silhouette is within normal limits. Small lung volumes with associated bibasilar atelectasis. Right infrahilar nodular opacities may represent changes of aspiration versus partial atelectasis. No pneumothorax. Dictated by: Chema Mccracken M.D. The radiology attending physician has personally reviewed this study, and had reviewed and/or edited this written report and agrees with it. Electronically signed by: Francisco Chen M.D. us [facility] IMG XR PROCEDURES Final Res ult * POCT glucose (07/02/2025 12:03 AM CDT) [facility] Glucose, POC 108 70 - 199 mg/dL Blood 07/02/2025 12:0 3 AM CDT 07/02/2025 12:03 AM CDT Laura Lockhart MD LAB POCT ORDERABLES - DEVIC E Final Result Performing Organization Address [facility] de Phone Number [facility] Department [place] [address] * Sirolimus level trough (07/01/2025 10:11 PM CDT) [facility] Sirolimus trough 6.4 ng/mL Comment: Interpretive Data Testing performed by liquid chromatography-tandem mass spectrometry. Therapeutic concentrations vary depending on type of transplanted organ and time elapsed since transplant. Typical trough concentrations range from 4-20 ng/mL. This test was developed and its performance characteristics determined by the [facility] consistent with CLIA requirements. This test has not been cleared or approved by the [place] Food and Drug administration. Current interpretive data last reviewed 2019. Blood 07/01/2025 10:1 1 PM CDT 07/01/2025 11:05 PM CDT [facility] LAB BLOOD ORDERABLES Final Result Performing Organization Address [facility] Co de Phone Number [facility] Department [place] [address] * eGFR (07/01/2025 10:11 PM CDT) [facility] eGFR 84 >=60 mL/min/1. 73 m2 Comment: Interpretive Data [...] of Race in Diagnosing Kidney Disease, JASN 202). The CKD-EPI equation should not be used for patients with unstable renal function and has not been validated in children and those over 70. Current interpretive data was last reviewed 2021. Blood 07/01/2025 10:1 1 PM CDT 07/01/2025 11:11 PM CDT us Laura Lockhart MD LAB BLOOD ORDERABLES Final Result [facility] Department [place] [address] * (ABNORMAL) Differential, auto (07/01/2025 10:11 PM CDT) Pathologist [facility] Neutrophil abs 3.86 1.50 - 6.50 K/cumm Imm gran abs 0.03 0.00 - 0.10 K/cumm [facility] Lymphocyte abs 0.60(L) 0.80 - 3.30 K/cumm [facility] Monocyte abs 0.48 0.20 - 0.80 K/cumm [facility] Eosinophil abs 0.05 0.00 - 0.50 K/cumm [facility] Basophil abs 0.01 0.00 - 0.10 K/cumm [facility] Neutrophil pct 76.8 % [facility] Comment: Interpretive Data Percent cell count reference ranges are not reported, since discordance with absolute values may lead to misinterpretation of CBC data. Current Interpretive Data was last revised on 2017. Imm gran pct 0.6 % [facility] Comment: Interpretive Data Percent cell count reference ranges are not reported, since discordance with absolute values may lead to misinterpretation of CBC data. Current Interpretive Data was last revised on 2017. Lymphocyte pct 11.9 % [facility] Comment: Interpretive Data Percent cell count reference ranges are not reported, since discordance with absolute values may lead to misinterpretation of CBC data. Current Interpretive Data was last revised on 2017. Monocyte pct 9.5 % [facility] Comment: Interpretive Data Percent cell count reference ranges are not reported, since discordance with absolute values may lead to misinterpretation of CBC data. Current Interpretive Data was last revised on 2017. Eosinophil pct 1.0 % [facility] Comment: Interpretive Data Percent cell count reference ranges are not reported, since discordance with absolute values may lead to misinterpretation of CBC data. Current Interpretive Data was last revised on 2017. Basophil pct 0.2 % [facility] Comment: Interpretive Data Percent cell count reference ranges are not reported, since discordance with absolute values may lead to misinterpretation of CBC data. Current Interpretive Data was last revised on 2017. Blood 07/01/2025 10:1 1 PM CDT 07/01/2025 11:05 PM CDT us Laura Lockhart MD LAB BLOOD ORDERABLES Final Result [facility] Department [place] [address] * (ABNORMAL) CBC with auto differential (07/01/2025 10:11 PM CDT) WBC 5.03 3.80 - 9.90 K/cumm Hgb 9.7(L) 13.0 - 17.5 g/dL [facility] Hct 28.8(L) 38.9 - 50.3 % [facility] Plt 99(L) 150 - 400 K/cumm [facility] MPV 11.8 9.1 - 12.3 fL [facility] RBC 3.29(L) 4.30 - 5.80 M/cumm [facility] MCV 87.5 81.3 - 96.4 fL [facility] MCH 29.5 27.1 - 33.3 pg [facility] MCHC 33.7 32.3 - 35.7 g/dL [facility] RDW CV 13.2 11.1 - 14.9 % [facility] RDW SD 42.0 35.7 - 48.1 fL [facility] NRBC abs 0.00 0.00 - 0.01 K/cumm [facility] Blood 07/01/2025 10:1 1 PM CDT 07/01/2025 11:05 PM CDT Laura Lockhart MD LAB BLOOD ORDERABLES Final Result Performing Organization Address City/[facility] Co de Phone Number [facility] [place] [address] * Protime-INR (07/01/2025 10:11 PM CDT) PT 10.6 10.2 - 13.5 sec INR 0.94 0.90 - 1.20 [facility] Comment: Interpretive data Oral anticoagulant therapeutic ranges: Venous thromboembolism prophylaxis or treatment: 2.0-3.0 CARDIOLOGY Standard range: 2.0-3.0 High-intensity range: 2.5-3.5 Refer to indication-specific guidelines for appropriate target ranges for prosthetic heart valve replacement. Current interpretive data was last revised on 2019. Blood 07/01/2025 10:1 1 PM CDT 07/01/2025 11:33 PM CDT Laura Lockhart MD LAB BLOOD ORDERABLES Final Result Performing Organization Address City/[facility] Co de Phone Number [facility] [address] [place] [address] * (ABNORMAL) Comprehensive metabolic panel (07/01/2025 10:11 PM CDT) Sodium 144 135 - 145 mmol/L Potassium, pl 3.1(L) 3.3 - 4.9 mmol/L [facility] Chloride 109 97 - 110 mmol/L [facility] CO2 26 22 - 32 mmol/L [facility] Anion gap 9 2 - 15 mmol/L [facility] BUN 13 6 - 25 mg/dL [facility] Creatinine 1.00 0.80 - 1.30 mg/dL [facility] Glucose 73 70 - 199 mg/dL [facility] Comment: Interpretive Data Fasting glucose >/= 126 mg/dl is diagnostic for diabetes. Fasting is defined as no caloric intake for at least 8 hours. Fasting glucose between 100 mg/dl to 125 mg/dl is diagnostic of prediabetes. In a patient with classic symptoms of hyperglycemia or hyperglycemic crisis, a random glucose >/= 200 mg/dl is diagnostic for diabetes. In the absence of unequivocal hyperglycemia, results should be confirmed by repeat testing. The classification and Diagnosis of Diabetes Diabetes Care 202; 46: S19-S40. Current interpretive data was last revised 2022. Calcium 8.6 8.5 - 10.3 mg/dL [facility] Bilirubin, total 0.2 0.1 - 1.2 mg/dL [facility] Protein, pl 5.4(L) 6.5 - 8.5 g/dL [facility] Albumin 2.6(L) 3.5 - 5.0 g/dL [facility] Alk phos 144(H) 40 - 130 Units/L [facility] ALT 37 7 - 55 Units/L [facility] AST 25 10 - 50 Units/L [facility] Blood 07/01/2025 10:1 1 PM CDT 07/01/2025 11:07 PM CDT us Laura Lockhart MD LAB BLOOD ORDERABLES Final Result [facility] [place] [address] * POCT glucose (07/01/2025 10:04 PM CDT) [facility] Glucose, POC 76 70 - 199 mg/dL Blood 07/01/2025 10:0 4 PM CDT 07/01/2025 10:04 PM CDT us Laura Lockhart MD LAB POCT ORDERABLES - DEVIC E Final Result [facility] Department [place] [address] * Respiratory pathogen panel Nasopharyngeal (07/01/2025 4:29 PM CDT) Pathologist [facility] Influenza A RNA Not Detected Not Detected Influenza B RNA Not Detected Not Detected [facility] RSV RNA Not Detected Not Detected [facility] COVID-19 RNA Not Detected Not Detected [facility] Coronavirus 229E RNA Not Detected Not Detected [facility] Coronavirus HKU1 RNA Not Detected Not Detected [facility] Coronavirus NL63 RNA Not Detected Not Detected [facility] Coronavirus OC43 RNA Not Detected Not Detected [facility] Adenovirus DNA Not Detected Not Detected [facility] Metapneumovirus RNA Not Detected Not Detected [facility] Rhinovirus/Enterov irus RNA Not Detected Not Detected [facility] Parainfluenza 1 RNA Not Detected Not Detected [facility] Parainfluenza 2 RNA Not Detected Not Detected [facility] Parainfluenza 3 RNA Not Detected Not Detected [facility] Parainfluenza 4 RNA Not Detected Not Detected [facility] B. pertussis DNA Not Detected Not Detected [facility] B. parapertussis DNA Not Detected Not Detected [facility] C. pneumoniae DNA Not Detected Not Detected [facility] M. pneumoniae DNA Not Detected Not Detected [facility] Nasopharyngeal 07/01/2025 4: 29 PM CDT 07/01/2025 4:51 PM CDT Narrative [facility] - 07/01/2025 5:44 PM CDT Is the Patient experiencing symptoms consistent with COVID?->Yes Surveillance testing for transplant patient?->No Interpretive Data The [employer] FilmArray Respiratory Panel (RP2.1) assay is a multiplexed real-time PCR based nucleic acid test capable of simultaneous qualitative detection and identification of multiple respiratory viral and bacterial nucleic acids, including SARS Coronavirus 2 (the causative agent of COVID-19). The following bacteria, viruses and virus subtypes can be identified using the FilmArray RP2.1 assay: Bordetella pertussis, Bordetella parapertussis, Chlamydia pneumoniae, Mycoplasma pneumoniae, Adenovirus, SARS Coronavirus 2, seasonal coronaviruses (Coronavirus HKU1, Coronavirus NL63, Coronavirus 229E, and Coronavirus OC43), Influenza A, Influenza A subtype H1, Influenza A subtype H3, Influenza A subtype 2009 H1, Influenza B, Metapneumovirus, Parainfluenza 1, Parainfluenza 2, Parainfluenza 3, Parainfluenza 4, RSV, Rhinovirus/Enterovirus. Due to the genetic similarity between human Rhinovirus and Enterovirus, the FilmArray RP2.1 assay cannot reliably differentiate them. Coronavirus OC43 may cross-react with some isolates of Coronavirus HKU1. A dual positive result may be due to cross-reactivity or may indicate a co- infection. The detection and identification of specific viral and bacterial nucleic acids from individuals exhibiting signs and symptoms of a respiratory infection aids in the diagnosis of respiratory infection if used in conjunction with other clinical and epidemiological information. The results of this test should not be used as the sole basis for diagnosis, treatment, or other management decisions. Negative results in the setting of a respiratory illness may be due to infection with pathogens that are not detected by this test. Positive results do not rule out infection/co-infection with other organisms. The agent(s) detected by the FilmArray RP2.1 may not be the definite cause of disease. Additional testing (lab, imaging, etc.) may be necessary when evaluating a patient with possible respiratory tract infection. The FilmArray RP2.1 assay has FDA clearance for testing of PAN WASHER HAND swabs. The performance of additional specimen types has been assessed by the performing laboratory. The performance characteristics of this assay have been determined by [facility] Infectious Disease [facility]. Current interpretive data was last revised on 22. Lisa Cordova [facility] LAB MICROBIOLOGY - GENERAL ORDERABLES Final Result [facility] Department [place] [address] * POCT glucose (07/01/2025 4:19 PM CDT) Glucose, POC 77 70 - 199 mg/dL Blood 07/01/2025 4:19 PM CDT 07/01/2025 4:19 PM CDT Laura Lockhart MD LAB POCT ORDERABLES - DEVIC E Final Result Performing Organization Address [facility] Co de Phone Number [facility] [address] [place] [address] * POCT glucose (07/01/2025 12:59 PM CDT) Glucose, POC 104 70 - 199 mg/dL Blood 07/01/2025 12:5 9 PM CDT 07/01/2025 12:59 PM CDT Laura Lockhart MD LAB POCT ORDERABLES - DEVIC E Final Result Performing Organization Address [facility] de Phone Number [facility] [address] [place] [address] * POCT glucose (07/01/2025 8:21 AM CDT) Glucose, POC 170 70 - 199 mg/dL Blood 07/01/2025 8:21 AM CDT 07/01/2025 8:21 AM CDT aLura Lockhart MD LAB POCT ORDERABLES - DEVIC E Final Result Performing Organization Address [facility] de Phone Number [facility] [address] [place] [address] * Sirolimus level trough (07/01/2025 6:19 AM CDT) [facility] Sirolimus trough 5.1 ng/mL Comment: Interpretive Data Testing performed by liquid chromatography-tandem mass spectrometry. Therapeutic concentrations vary depending on type of transplanted organ and time elapsed since transplant. Typical trough concentrations range from 4-20 ng/mL. This test was developed and its performance characteristics determined by the [facility] consistent with CLIA requirements. This test has not been cleared or approved by the [place] Food and Drug administration. Current interpretive data last reviewed 2019. Blood 07/01/2025 6:19 AM CDT 07/01/2025 6:35 AM CDT Garcia Vivas MD LAB BLOOD ORDERABLES Fin al Result Performing Organization Address [facility] de Phone Number [facility] Department [place] [address] * (ABNORMAL) POCT glucose (07/01/2025 5:03 AM CDT) [facility] Glucose, POC 314(H) 70 - 199 mg/dL Comment:Glu2: RN/MD Notified Glucose comment 1 Glu2: RN/MD Notified [facility] Blood 07/01/2025 5:03 AM CDT 07/01/2025 5:03 AM CDT Garcia Vivas MD LAB POCT ORDERABLES - DE VICE Final Result Performing Organization Address [facility] Phone Number [facility] Department [place] [address] * XR Outside Reference (07/01/2025 1:33 AM CDT) Impressions [facility] - 07/01/2025 1:33 AM CDT These images are for Reference purposes only and have not been reviewed by [facility] Radiology. There will be no report generated by a [facility] Radiologist. Narrative [facility] - 07/01/2025 1:33 AM CDT EXAMINATION: Images For Reference Purposes Only Michell Vasquez MD IMG XR PROCEDURES Final R esult Performing Organization Address [facility]/State/ZIP Co de Phone Number [email or web address] * Neuro CT Outside Consult (07/01/2025 1:31 AM CDT) Anatomical Region Laterality Modality N/A Computed Tomogra phy 07/01/2025 5:04 AM CDT Impressions 07/01/2025 10:04 AM CDT Suboptimal for infectious evaluation due to lack of intravenous contrast. No large acute territory infarct and no acute intracranial hemorrhage. The findings, conclusions and recommendations within this report do not replace the initial findings, conclusions and recommendations made at the facility where the study was performed based upon the imaging and clinical condition at that time. Comparison with the prior report and clinical history is necessary. The provided images may or may not represent the gambell source data set and thus may contain changes that may lower the accuracy of this second-opinion interpretation. Dictated by: Karley Laureano MD, PhD The radiology attending physician has personally reviewed this study, and had reviewed and/or edited this written report and agrees with it. Electronically signed by: Catina Roberto M.D. Narrative 07/01/2025 10:04 AM CDT EXAMINATION: RADIOLOGY CONSULTATION ON OUTSIDE IMAGING STUDY STUDY INITIALLY PERFORMED: 06/27/[address] [facility]. TYPE OF STUDY: Multiple CT images of the head without intravenous contrast are provided at the time of this interpretation. CONTRAST ROUTE: Contrast was administered via the intravenous route. The protocol was adequate to address the clinical question. The outside final report was not available at the time of this second opinion interpretation. TYPE OF CONSULTATION: Consult on outside imaging study with images submitted through Outside Image Sharing Service DATE OF CONSULTATION: 07/01/2025 5:01 AM HISTORY: 64-year-old with liver transplant, presenting with syncope COMPARISON: MR brain dated 12/14/2005. FINDINGS: There is no acute intracranial hemorrhage. Ventricles are without hydrocephalus. No mass effect or midline shift is present. Scattered ill-defined hypodensities in the periventricular and subcortical white matter are nonspecific, likely on the basis of chronic small vessel ischemic change. There is parenchymal volume loss. Bilateral lens replacements. The visualized portions of the mastoids are normal. The visualized portions of the paranasal sinuses are normal. No fractures are identified. Tomt-qi-[id number] intracranial atherosclerotic disease. Procedure Note Steve Roberto, Catina Lopez MD - 07/01/2025 EXAMINATION: RADIOLOGY CONSULTATION ON OUTSIDE IMAGING STUDY STUDY INITIALLY PERFORMED: 06/27/[address] [facility]. TYPE OF STUDY: Multiple CT images of the head without intravenous contrast are provided at the time of this interpretation. CONTRAST ROUTE: Contrast was administered via the intravenous route. The protocol was adequate to address the clinical question. The outside final report was not available at the time of this second opinion interpretation. TYPE OF CONSULTATION: Consult on outside imaging study with images submitted through Outside Image Sharing Service DATE OF CONSULTATION: 07/01/2025 5:01 AM HISTORY: 64-year-old with liver transplant, presenting with syncope COMPARISON: MR brain dated 12/14/2005. FINDINGS: There is no acute intracranial hemorrhage. Ventricles are without hydrocephalus. No mass effect or midline shift is present. Scattered ill-defined hypodensities in the periventricular and subcortical white matter are nonspecific, likely on the basis of chronic small vessel ischemic change. There is parenchymal volume loss. Bilateral lens replacements. The visualized portions of the mastoids are normal. The visualized portions of the paranasal sinuses are normal. No fractures are identified. Ghuq-cr-qraxvhpf intracranial atherosclerotic disease. IMPRESSION: Suboptimal for infectious evaluation due to lack of intravenous contrast. No large acute territory infarct and no acute intracranial hemorrhage. The findings, conclusions and recommendations within this report do not replace the initial findings, conclusions and recommendations made at the facility where the study was performed based upon the imaging and clinical condition at that time. Comparison with the prior report and clinical history is necessary. The provided images may or may not represent the gambell source data set and thus may contain changes that may lower the accuracy of this second-opinion interpretation. Dictated by: Karley Laureano MD, PhD The radiology attending physician has personally reviewed this study, and had reviewed and/or edited this written report and agrees with it. Electronically signed by: Catina Roberto M.D. us Michell Vasquez MD IMG CT PROCEDURES Final R esult * CT Body Outside Consult (07/01/2025 1:28 AM CDT) Anatomical Region Laterality Modality Body N/A Computed Tomogra phy 07/01/2025 10:0 4 AM CDT Impressions 07/01/2025 10:04 AM CDT 1. Postsurgical changes of liver transplant with stable pneumobilia. 2. Fluid-filled nondilated small bowel loops with normal caliber bowel loops and terminal ileum could represent sequela of enteritis. There is no significant bowel dilation or fecal elevation to suggest overt small bowel obstruction. 3. Patent fluid-filled hepaticojejunostomy with stable pneumobilia and new periportal edema. 4. Large amount of stool noted throughout the colon with a large stool ball in the rectum concerning for stercoral colitis and constipation. The findings, conclusions and recommendations within this report do not replace the initial findings, conclusions and recommendations made at the facility where the study was performed based upon the imaging and clinical condition at that time. Comparison with the prior report and clinical history is necessary. The provided images may or may not represent the gambell source data set and thus may contain changes that may lower the accuracy of this second-opinion interpretation. Electronically signed by: Darryn Rice MD Narrative 07/01/2025 10:04 AM CDT EXAMINATION: RADIOLOGY CONSULTATION ON OUTSIDE IMAGING STUDY STUDY INITIALLY PERFORMED: 06/27/[address] [facility]. TYPE OF STUDY: Multiple CT images of the abdomen and pelvis with intravenous contrast are provided at the time of this interpretation. CONTRAST ROUTE: Contrast was administered via the intravenous route. The protocol was adequate to address the clinical question. The outside final report was not available at the time of this second opinion interpretation. TYPE OF CONSULTATION: Consult on outside imaging study with images submitted through Outside Image Sharing Service DATE OF CONSULTATION: 07/01/2025 9:46 AM HISTORY: Vomiting and abdominal pain COMPARISON: CT chest abdomen pelvis 01/16/2019, MRI abdomen 07/02/2024 FINDINGS: Bilateral small effusions with associated atelectasis. There is calcified coronary artery atherosclerosis. There is no pericardial effusion. Postoperative changes of orthotopic liver transplant with pneumobilia. There is also mild periportal edema. Fluid-filled small bowel loops without significant dilation. There is also mildly distended fluid-filled bowel loops of the site of hepaticojejunostomy. Distal ileal bowel loops and terminal ileum are normal. Gaseous distention of the colonic bowel loops. There is large amount of stool in the rectum with rectal wall thickening and presacral fat stranding. Spleen is enlarged. Pancreas is normal. Adrenal glands normal. Kidneys enhance homogenously without hydronephrosis. Urinary bladder is normal. Prostate is enlarged in the transverse dimension. There is no abdominal or pelvic lymphadenopathy. There is no free intraperitoneal air or loculated fluid collection. Portal, splenic, superior mesenteric veins are patent. 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 No acute osseous abnormality. Procedure Note Darryn Rice MD - 07/01/2025 EXAMINATION: RADIOLOGY CONSULTATION ON OUTSIDE IMAGING STUDY STUDY INITIALLY PERFORMED: 06/27/[address] [facility]. TYPE OF STUDY: Multiple CT images of the abdomen and pelvis with intravenous contrast are provided at the time of this interpretation. CONTRAST ROUTE: Contrast was administered via the intravenous route. The protocol was adequate to address the clinical question. The outside final report was not available at the time of this second opinion interpretation. TYPE OF CONSULTATION: Consult on outside imaging study with images submitted through Outside Image Sharing Service DATE OF CONSULTATION: 07/01/2025 9:46 AM HISTORY: Vomiting and abdominal pain COMPARISON: CT chest abdomen pelvis 01/16/2019, MRI abdomen 07/02/2024 FINDINGS: Bilateral small effusions with associated atelectasis. There is calcified coronary artery atherosclerosis. There is no pericardial effusion. Postoperative changes of orthotopic liver transplant with pneumobilia. There is also mild periportal edema. Fluid-filled small bowel loops without significant dilation. There is also mildly distended fluid-filled bowel loops of the site of hepaticojejunostomy. Distal ileal bowel loops and terminal ileum are normal. Gaseous distention of the colonic bowel loops. There is large amount of stool in the rectum with rectal wall thickening and presacral fat stranding. Spleen is enlarged. Pancreas is normal. Adrenal glands normal. Kidneys enhance homogenously without hydronephrosis. Urinary bladder is normal. Prostate is enlarged in the transverse dimension. There is no abdominal or pelvic lymphadenopathy. There is no free intraperitoneal air or loculated fluid collection. Portal, splenic, superior mesenteric veins are patent. 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 No acute osseous abnormality. IMPRESSION: 1. Postsurgical changes of liver transplant with stable pneumobilia. 2. Fluid-filled nondilated small bowel loops with normal caliber bowel loops and terminal ileum could represent sequela of enteritis. There is no significant bowel dilation or fecal elevation to suggest overt small bowel obstruction. 3. Patent fluid-filled hepaticojejunostomy with stable pneumobilia and new periportal edema. 4. Large amount of stool noted throughout the colon with a large stool ball in the rectum concerning for stercoral colitis and constipation. The findings, conclusions and recommendations within this report do not replace the initial findings, conclusions and recommendations made at the facility where the study was performed based upon the imaging and clinical condition at that time. Comparison with the prior report and clinical history is necessary. The provided images may or may not represent the gambell source data set and thus may contain changes that may lower the accuracy of this second-opinion interpretation. Electronically signed by: Darryn Rice MD Garcia Vivas MD IM CT PROCEDURES Final Result * (ABNORMAL) Blood culture Blood Peripheral (07/01/2025 1:05 AM CDT) Direct Specimen Exam Molecular Analysis: Staphylococcus species detected by the randolph eplex BCID-GP panel. Single positive culture may represent contamination. This is most suggestive of a coagulase-negative Staphylococcus species. Please refer to final culture-based result for confirmation. This test does not exclude the possibility of a mixed bacterial infection. Notification of: Staphylococcus species called to and read back by: Jung Newsome MD ,[phone] on 07/01/2025 23:09:31 by: Gauri Schaffer [place] Direct Specimen Exam Stain: Gram Positive Bacilli Gram Positive Cocci in clusters Time to culture positivity (aerobic media): 19.3 hours Notification of: Gram Positive Bacilli and Gram Positive Cocci in clusters called to and read back by: Jung Harry MD ,[phone] on 07/01/2025 21:25:38 by: Gauri Schaffer [place] [facility] Report Final Report: Staphylococcus capitis Single blood culture positive for this microorganism. Isolate is a possible contaminant. If a similar isolate is recovered from a second blood culture collected within 3 days of this culture, both will be evaluated and, if determined to be the same species, antimicrobial susceptibility testing will be performed. (.) [facility] Organism ST[facility] Blood (Peripheral) 07/01/2025 1:05 AM CDT 07/01/2025 1:21 AM CDT Narrative [facility] - 07/06/2025 12:38 PM CDT From a different site than #1. Draw Blood cultures before administration of Antibiotics Collection->Peripheral 1. Blood cultures are incubated for 4 days on a continuously monitored blood culture system. The first report of a negative culture is issued within 24 hours of receipt of the specimen in the laboratory. 2. Positive culture results are reported as soon as they are detected. 3. The most important factor for detection of microbes in the setting of bloodstream infection is the volume of blood submitted for culture. Failure to collect an optimal blood volume can result in false negative blood cultures. 4. For pediatric patients, the recommended blood volume to collect follows a weight based strategy. See the electronic test catalog for collection instructions. 5. For positive blood cultures, a rapid molecular test may be performed for organism identification using the randolph ePlex blood culture identification panel for gram positive (BCID-GP) and gram negative (BCID-GN) organisms. This nucleic acid amplification test detects microbial DNA in positive blood culture broth. This assay has been cleared by the [place] Food and Drug Administration and its performance characteristics have been verified by the [facility] Microbiology Laboratory. For questions about this culture, contact the Microbiology Laboratory at [phone]. Interpretive data was last revised on 24. Guillermo Chatman MD LAB MICROBIOLOGY - GENERAL ORD ERABLES Final Result [facility] [place] [address] * Blood culture Blood Peripheral (07/01/2025 1:05 AM CDT) Report Final Report: No growth Blood (Peripheral) 07/01/2025 1:05 AM CDT 07/01/2025 1:21 AM CDT Narrative [facility] - 07/05/2025 7:01 AM CDT Draw Blood cultures before administration of Antibiotics Collection->Peripheral 1. Blood cultures are incubated for 4 days on a continuously monitored blood culture system. The first report of a negative culture is issued within 24 hours of receipt of the specimen in the laboratory. 2. Positive culture results are reported as soon as they are detected. 3. The most important factor for detection of microbes in the setting of bloodstream infection is the volume of blood submitted for culture. Failure to collect an optimal blood volume can result in false negative blood cultures. 4. For pediatric patients, the recommended blood volume to collect follows a weight based strategy. See the electronic test catalog for collection instructions. 5. For positive blood cultures, a rapid molecular test may be performed for organism identification using the randolph ePlex blood culture identification panel for gram positive (BCID-GP) and gram negative (BCID-GN) organisms. This nucleic acid amplification test detects microbial DNA in positive blood culture broth. This assay has been cleared by the [place] Food and Drug Administration and its performance characteristics have been verified by the [facility] Microbiology Laboratory. For questions about this culture, contact the Microbiology Laboratory at [phone]. Interpretive data was last revised on 24. us Guillermo Chatman MD LAB MICROBIOLOGY - GENERAL ORD ERABLES Final Result [facility] Department [place] [address] * eGFR (06/30/2025 10:38 PM CDT) eGFR 64 >=60 mL/min/1. 73 m2 Comment: Interpretive Data [...] Inclusion of Race in Diagnosing Kidney Disease, SUSYuliya 2020). The CKD-EPI equation should not be used for patients with unstable renal function and has not been validated in children and those over 70. Current interpretive data was last reviewed 2021. Blood 06/30/2025 10:3 8 PM CDT 06/30/2025 11:07 PM CDT us Yeison Carlisle MD LAB BLOOD ORDERABLES Fin al Result [facility] One [facility] Department [place] [address] * (ABNORMAL) Differential, auto (06/30/2025 10:38 PM CDT) Neutrophil abs 7.12(H) 1.50 - 6.50 K/cumm Imm gran abs 0.06 0.00 - 0.10 K/cumm [facility] Lymphocyte abs 0.73(L) 0.80 - 3.30 K/cumm [facility] Monocyte abs 0.46 0.20 - 0.80 K/cumm [facility] Eosinophil abs 0.08 0.00 - 0.50 K/cumm [facility] Basophil abs 0.03 0.00 - 0.10 K/cumm [facility] Neutrophil pct 84.0 % [facility] Comment: Interpretive Data Percent cell count reference ranges are not reported, since discordance with absolute values may lead to misinterpretation of CBC data. Current Interpretive Data was last revised on 2017. Imm gran pct 0.7 % [facility] Comment: Interpretive Data Percent cell count reference ranges are not reported, since discordance with absolute values may lead to misinterpretation of CBC data. Current Interpretive Data was last revised on 2017. Lymphocyte pct 8.6 % [facility] Comment: Interpretive Data Percent cell count reference ranges are not reported, since discordance with absolute values may lead to misinterpretation of CBC data. Current Interpretive Data was last revised on 2017. Monocyte pct 5.4 % [facility] Comment: Interpretive Data Percent cell count reference ranges are not reported, since discordance with absolute values may lead to misinterpretation of CBC data. Current Interpretive Data was last revised on 2017. Eosinophil pct 0.9 % [facility] Comment: Interpretive Data Percent cell count reference ranges are not reported, since discordance with absolute values may lead to misinterpretation of CBC data. Current Interpretive Data was last revised on 2017. Basophil pct 0.4 % [facility] Comment: Interpretive Data Percent cell count reference ranges are not reported, since discordance with absolute values may lead to misinterpretation of CBC data. Current Interpretive Data was last revised on 2017. Blood 06/30/2025 10:3 8 PM CDT 06/30/2025 11:07 PM CDT us Yeison Carlisle MD LAB BLOOD ORDERABLES Fin al Result [facility] One [facility] Department [place] [address] * (ABNORMAL) CBC with auto differential (06/30/2025 10:38 PM CDT) WBC 8.48 3.80 - 9.90 K/cumm Hgb 11.0(L) 13.0 - 17.5 g/dL [facility] Hct 32.7(L) 38.9 - 50.3 % [facility] Plt 120(L) 150 - 400 K/cumm [facility] MPV 11.8 9.1 - 12.3 fL [facility] RBC 3.72(L) 4.30 - 5.80 M/cumm [facility] MCV 87.9 81.3 - 96.4 fL [facility] MCH 29.6 27.1 - 33.3 pg [facility] MCHC 33.6 32.3 - 35.7 g/dL [facility] RDW CV 13.2 11.1 - 14.9 % [facility] RDW SD 42.5 35.7 - 48.1 fL [facility] NRBC abs 0.00 0.00 - 0.01 K/cumm [facility] Blood Venous blood specimen / Unknown 06/30/2025 10:38 PM CDT 06/30/2025 11:07 PM CDT Michell Vasquez MD LAB BLOOD ORDERABLES Jeanne l Result Performing Organization Address City/[facility] Co de Phone Number [facility] [place] [address] * Lipase (06/30/2025 10:38 PM CDT) Lipase 21 10 - 99 Units/L Blood Venous blood specimen / Unknown 06/30/2025 10:38 PM CDT 06/30/2025 11:07 PM CDT Michell Vasquez MD LAB BLOOD ORDERABLES Jeanne l Result Performing Organization Address [facility] de Phone Number [facility] [address] [place] [address] * (ABNORMAL) Lipid panel (06/30/2025 10:38 PM CDT) Cholesterol 91 30 - 199 mg/dL Comment: Interpretive Data [...] Data was last revised on 2018. Triglycerides 222(H) <=149 mg/dL [facility] Comment: Interpretive Data Ages < or = [...] Data was last revised on 2018. HDL 21(L) >=40 mg/dL [facility] Comment: Interpretive Data Ages < or = [...] on 2018. LDL, calculated 35 <=129 mg/dL [facility] Comment: Interpretive Data Ages < or = 19 years Acceptable: <110 mg/dL Borderline high: 110-129 mg/dL High: >or= 130 mg/dL Ages > or = 20 years Optimal: <100 mg/dL Near optimal: 100-129 mg/dL Borderline high: 130-159 mg/dL High: >160 mg/dL Calculated using the Syed LDL-C estimating equation. This equation was implemented on 2024. Prior to this date LDL-C was estimated using the Friedewald equation. Literature References: 1. Expert Panel on Integrated Guidelines for Cardiovascular Health and Risk Reduction in Children and Adolescents. Pediatrics 2011;128:S213 2. NCEP Expert Panel. Circulation 2004;110:227 3. Syed Moreno et al. JOSE ALEJANDRO Cardiol. 2020 January 14;5(5):540-548. doi: 10.1001/jamacardio.2020.0013 Current Interpretive Data was last revised on 2024. Non-HDL Cholesterol 70 mg/dL [facility] Comment: Interpretive Data Ages < or [...] was last revised on 2018. Chol/HDL ratio 4 [facility] Blood 06/30/2025 10:3 8 PM CDT 06/30/2025 11:07 PM CDT us Laura Lockhart MD LAB BLOOD ORDERABLES Final Result [facility] One [facility] Department [place] [address] * (ABNORMAL) Comprehensive metabolic panel (06/30/2025 10:38 PM CDT) Sodium 136 135 - 145 mmol/L Potassium, pl 4.1 3.3 - 4.9 mmol/L [facility] Chloride 101 97 - 110 mmol/L [facility] CO2 23 22 - 32 mmol/L [facility] Anion gap 12 2 - 15 mmol/L [facility] BUN 25 6 - 25 mg/dL [facility] Creatinine 1.25 0.80 - 1.30 mg/dL [facility] Glucose 300(H) 70 - 199 mg/dL [facility] Comment: Interpretive Data Fasting glucose >/= 126 mg/dl is diagnostic for diabetes. Fasting is defined as no caloric intake for at least 8 hours. Fasting glucose between 100 mg/dl to 125 mg/dl is diagnostic of prediabetes. In a patient with classic symptoms of hyperglycemia or hyperglycemic crisis, a random glucose >/= 200 mg/dl is diagnostic for diabetes. In the absence of unequivocal hyperglycemia, results should be confirmed by repeat testing. The classification and Diagnosis of Diabetes Diabetes Care 202; 46: S19-S40. Current interpretive data was last revised 2022. Calcium 9.1 8.5 - 10.3 mg/dL [facility] Bilirubin, total 0.3 0.1 - 1.2 mg/dL [facility] Protein, pl 6.4(L) 6.5 - 8.5 g/dL [facility] Albumin 3.1(L) 3.5 - 5.0 g/dL [facility] Alk phos 201(H) 40 - 130 Units/L [facility] ALT 55 7 - 55 Units/L [facility] AST 42 10 - 50 Units/L [facility] Blood 06/30/2025 10:3 8 PM CDT 06/30/2025 11:07 PM CDT us Michell Vasquez MD LAB BLOOD ORDERABLES Jeanne sarabia Result [facility] One [facility] Department [place] [address] * (ABNORMAL) Urinalysis reflex to microscopic (06/30/2025 10:30 PM CDT) Color, ur Yellow Yellow Clarity, ur Clear Clear [facility] Specific gravity, ur 1.019 1.003 - 1.030 [facility] pH, urine 5.5 [facility] Comment: Interpretive Data U rine pH is affected by diet, medications, systemic acid-base disturbances, and renal tubular function. pH may affect urinary stone formation. For example, urine pH below 6.0 may help reduce the tendency for calcium phosphate stones and pH greater than 6.0 may reduce the tendency for uric acid stone formation. Source: [facility] Current Interpretive Data was last revised on 2017 Protein, ur ql 1+(A) Negative [facility] Glucose, ur ql 4+(A) Negative [facility] Ketones, ur 2+(A) Negative [facility] Bilirubin, ur Negative Negative [facility] Blood, ur Negative Negative [facility] Urobilinogen, ur <2.0 <2.0 mg/dL [facility] Nitrite, ur Negative Negative [facility] Leukocyte esterase, ur Negative Negative [facility] UA reflex comment Reflex to microscopic UA will be performed. [facility] Urine 06/30/2025 10:3 0 PM CDT 06/30/2025 10:36 PM CDT Michell Vasquez MD LAB URINE ORDERABLES Jeanne l Result Performing Organization Address [facility] Co de Phone Number [facility] [place] [address] * (ABNORMAL) Urinalysis, microscopic only (06/30/2025 10:30 PM CDT) WBC, ur 0-5 0 - 5 /HPF RBC, ur 0-2 0 - 2 /HPF [facility] Epithelial cells, squamous, ur 1-5 0 - 5 /HPF [facility] Mucous, ur Present(A) [facility] Urine 06/30/2025 10:3 0 PM CDT 06/30/2025 10:36 PM CDT Result [facility] Michell Vasquez MD LAB URINE ORDERABLES Jeanne l Result Performing Organization Address [facility] de Phone Number [facility] Department [place] [address] * (ABNORMAL) POCT hemoglobin A1c (05/26/2025 3:10 [...] Proparacaine 0.5%. The anesthesia lot number is [id number]. The expiration date is 07/16/26. The manufacture of the medication is [employer]. Intravitreal Injection, Pharmacologic Agent Preparation included 5% betadine to ocular surface, 10% betadine to eyelids. A 30 gauge needle was used. Pharmaceutical Medication: 1.25 mg bevacizumab syringe 2.25 mg/0.09 mL Route: intravitreal, Site: Left Eye [facility]: 60276-757-66, Lot: [id number], Expiration date: 09/18/2025 Medication Billing The medication [...] Notes Pt signed consent HODA OS 05/25/25 us Iza Benjamin MD PhD OPHTH CLINIC PROCEDU [...] Proparacaine 0.5%. The anesthesia lot number is [id number]. The expiration date is 07/16/26. The manufacture of the medication is [employer]. Intravitreal Injection, Pharmacologic Agent Preparation included 5% betadine to ocular surface, 10% betadine to eyelids. A 30 gauge needle was used. Pharmaceutical Medication: 1.25 mg bevacizumab syringe 2.25 mg/0.09 mL Route: intravitreal, Site: Right Eye [facility]: 32596-224-81, Lot: [id number], Expiration date: 08/08/2025 Medication Billing The medication [...] PhD OPHTH TOMOGRAPHY Fin al Result * (ABNORMAL) Hepatitis C antibody (02/25/2019 6:08 AM CDT) Hep C Ab Reactive( A) Nonreactive [facility] Comment: Interpretive Data Positive results should be confirmed by a molecular method. If positive, a second separately collected sample should be submitted for Hepatitis C Virus (HCV) RNA Detection and Quantitation by Real-Time Reverse F[employer] Certified Powerplant Mechanic-PCR (RT-PCR). Current interpretive data was last revised on 2016. Blood specimen (specimen) 02/25/2019 6:08 AM CDT 02/25/2019 6:53 AM CDT Narrative [facility] - 02/25/2019 1:47 PM CDT Reggie Woodall MD LAB MICROBIOLOGY - GENERAL ORDERABLES Edited Result - Final Performing Organization Address [facility] Co de Phone Number [facility] Department [place] [address] * (ABNORMAL) Microalbumin / creatinine ratio, urine, random (07/07/2018 10:54 AM CDT) Microalbumin, ur 2,835.2 mcg/mL [facility] Creatinine, ur 307.10 mg/dL [facility] Microalbumin/c reat ratio 923.2(H) 0.1 - 29.9 mcg/mg Cr [facility] Urine 07/07/2018 10:5 4 AM CDT 07/07/2018 11:16 AM CDT Narrative [facility] - 07/07/2018 12:29 PM CDT Lucero Segura NP LAB URINE ORDERABLES Final Resul t Performing Organization Address [facility] Co de Phone Number [facility] Department [place] [address] * COLONOSCOPY REPORT (02/14/2017) Anatomical Region Laterality Modality Other Narrative 02/14/2017 Ordered by an unspecified provider. Historical Provider GI PROCEDURE ORDERABLES F inal Result from Last 3 Months or Most Recently Relevant to Health Maintenance Insurance [facility] MEDICARE ADVANTAGE [facility] MEDICARE ADVANTAGE MEDICARE [employer] MEDICARE GOLD [facility] MEDICARE ADVANTAGE IDPA [facility] MEDICARE ADVANTAGE IDPA Advance Directives For more information, please contact: [phone] * Full Code (Latest Code Status on File) Date Activated Date Inactivated Comments 07/01/2025 5:54 AM 07/04/2025 7:32 PM * Full Code Date Activated Date Inactivated Comments 06/09/2024 4:16 PM 06/14/2024 11:50 AM * Full Code Date Activated Date Inactivated Comments 06/23/2021 11:11 PM 06/26/2021 6:38 PM * Full Code Date Activated Date Inactivated Comments 03/20/2021 2:09 AM 03/24/2021 6:09 PM * Full Code Date Activated Date Inactivated Comments 01/05/2021 8:48 PM 01/08/2021 9:16 PM Care Teams Supervisor Contact Lens Relationship Specialty Start Date End Date ClaudioSerge jurado Corea, [address] [place] [address] PCP - General Family Medicine 07/02/25 Kaylee Gutierrez RN [address] [facility] [address] [place] [address] Planning Consultant 10/14/18 Kimberly Camarillo RN Registered Nurse Gastroenterology 01/27/19 Maco Palomino MD [address] [facility] [address] [place] [address] Cardiology 12/17/22 Angelina Richardson PA [address] [facility] IM ENDOCRINOLOGY, [facility] [address] [place] [address] Physician Floor Specialist Physician Floor Specialist 04/24/24 Marshall Sherman MD PhD [address] [facility] [place] [address] Consulting Physician Endocrinology Diabetes & Metabolism 07/23/24
--- OUTSIDE RECORDS SUMMARY | 2025-07-14 14:35 | XMS_ITS | Encounter Summary ---
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 Gender Identity Not on file Sexual Orientation Not on file documented as of this encounter Progress Notes * Ha Parham MD - 06/28/2025 5:20 PM CDT 64-year-old male with history of liver cirrhosis status post liver transplant presented to [facility] with complaint of fever initially had low blood pressure now better there was a concern for possible cholangitis, past does not have bed for 1 week however IR was contacted stating that patient could be managed medically but if needed cannot have PTC patient will need MRCP HA PARHAM MD documented in this encounter Nursing Notes * Diandra Diop RN - 06/28/2025 6:44 PM CDTSummary: CONNECT RN REPORT Accepting: CHANG Consulting: Dx: CHOLANGITIS Allergies: OXYCODONE Vitals: 134/67, HR118, 98%, RR18 Height/Weight: 72 65KG CC: NO COMPLAINTS AT THIS TIME PMH: LIVER TRANSPLANT PATIENT, HTN, HIGH CHOLESTEROL, DIABETES Isolation/Covid: NO Diarrhea: NO Stephenson: NO IV: 20GIV LFA, 20GIV RIGHT HAND Blood Cultures Drawn: PENDING Code Status: FULL Pain: 0/10 A&0 x 4 Assessment: DEHYDRATED Abnormal labs: WILL SEND X-Ray: CT/MRI: PUSHED Medications Given: MYXREDLIN INSULIN 10U, TYLENOL, 3.375 ZOSYN 3 TIMES, CELLCEPT 250MG, HOME MEDS GIVEN Arrival: GROUND ETA: WILL CALL documented in this encounter Plan of Treatment Not on file documented as of this encounter Visit Diagnoses Not on filedocumented in this encounter Additional Health Concerns Infection Onset Date Last Indicated Resolved Time MRSA 10/02/2018 10/02/2018 documented as of this encounter
--- OUTSIDE RECORDS SUMMARY | 2025-07-14 14:35 | XMS_ITS | Clinical Summary ---
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 Gender Identity Not on file Sexual Orientation Not on file Plan of Treatment Health Maintenance Due Date Last Done Comments Colorectal Cancer Screening Colonoscopy (10 Years) 1960 Annual Physical 1963 Hepatitis C 1978 Pneumococcal Vaccine: 50+ Years (1 of 1 - PCV) 2010 COVID-19 Vaccine ( - season) 2025 05/03/2021, 12/23/2020, 11/18/2020 Influenza Adult (#1) 2025 06/23/2024, 06/21/2023, 06/23/2021, Additional history exists DTaP, Tdap and Td Vaccines (2 - Td or Tdap) 10/06/2029 10/06/2019 RSV Immunization or 60+ Years (1 - 1-dose 75+ series) 2035 Zoster Vaccines Completed 06/04/2022, 04/16/2022 Hepatitis A Vaccines Aged Out No long er eligible based on patient's age to complete this topic Meningococcal B Vaccine Aged Out No l onger eligible based on patient's age to complete this topic Meningococcal Vaccine Aged Out No lisa caleb eligible based on patient's age to complete this topic RSV Immunizations Under 20 Months Aged Out No longer eligible based on patient's age to complete this topic Additional Health Concerns Infection Onset Date Last Indicated MRSA 10/02/2018 10/02/2018 Insurance [facility] MEDICARE MEDICAID
== END 2025-07-14 13:13 | disposition home or self-care (01) ==
LOC: CHSLAB 13:13
PROVIDERS: PCP Family Medicine; Visit Provider Family Medicine
DX: R10.9 Unspecified abdominal pain (principal); E11.9 Type 2 diabetes mellitus without complications
CPT/HCPCS: 36415; 80053; 83690; 85025

== ENCOUNTER 2025-07-19 08:46 | Outpatient (CLI) | payer MEDICARE, MEDICAID, SELFPAY ==
--- OUTSIDE RECORDS SUMMARY | 2024-05-28 07:30 | XMS_ITS ---
Author Organization [facility] [employer] Address [address] [facility] [address] [place] [address] Care Team Providers Care Oak Tanner Name Role Phone Theo Stringer MD Primary Care Provider Robby Owens Unavailable [phone] REASON FOR VISIT PT is injured Medications Medication SIG (Take, Route, Frequency, Duration) Notes Start Date End Date Status Ursodiol 300 MG Capsule Oral; Duration: 30 Days Not-Taking DULoxetine HCl 30 MG Capsule Delayed Release Particles 1 capsule every evening Orally Once a day; Duration: 90 days 04/27/2024 Active DULoxetine HCl 60 MG Capsule Delayed Release Particles Oral; Duration: 30 Days Not- Taking DULoxetine HCl 60 MG Capsule Delayed Release Particles Oral bid Active QUEtiapine Fumarate 50 MG Tablet 1 tablet at bedtime Orally Once a day; Duration: 30 days Active Gabapentin 100 MG Capsule Oral; Duration: 60 Days Not-Taking Temazepam 30 MG Capsule Oral Active Gabapentin 100 MG Capsule Oral Active Metoprolol Succinate ER 50 MG Tablet Extended Release 24 Hour Oral Active Tamsulosin HCl 0.4 MG Capsule Oral Active Sirolimus 2 mg Tablet Oral Active HYDROcodone-Acetaminophen 10-325 MG Tablet Oral Active Eliquis 5 MG Tablet Oral Active Toujeo SoloStar 300 UNIT/ML Solution Pen-injector Subcutaneous Active Mycophenolate Mofetil 250 MG Capsule Oral Active Lisinopril 5 MG Tablet Oral Active OneTouch Ultra 2 w/Device Kit Active HumaLOG KwikPen 100 UNIT/ML Solution Pen-injector Subcutaneous Active Ergocalciferol 1.25 MG (45062 UT) Capsule Oral Active Rosuvastatin Calcium 20 MG Tablet Oral Active Social History Sex Assigned At : Social History Observation Description Sex Assigned At Male Encounters Encounter Location Date Provider Diagnosis [facility] [employer] [place] [address] [place] [address] 05/28/2024 Robby Zapien Plan Of Treatment No Information Progress Notes * ALEJO RINGDOB:1960 ([age] yo M)Acc No.[id number]:05/28/2024 Patient: ALEJO DUPREE Provider: JUAN MIGUEL GARCIA :1960 A ge:63 Y S ex:Male Date:05/28/2024 Address:[address] [place], [place] [id number] Pcp:Theo Stringer MD Subjective: * Chief Complaints: * P T is injured * Medications: T akingQUEtiapine Fumarate 50 MG Tablet 1 tablet at bedtime Orally Once a day DULoxetine HCl 60 MG Capsule Delayed Release Particles Oral , Notes to Pharmacist: bidRosuvastatin Calcium 20 MG Tablet Oral HumaLOG KwikPen 100 UNIT/ML Solution Pen-injector Subcutaneous Ergocalciferol 1.25 MG (97279 UT) Capsule Oral Lisinopril 5 MG Tablet Oral OneTouch Ultra 2 w/Device Kit Eliquis 5 MG Tablet Oral Toujeo SoloStar 300 UNIT/ML Solution Pen-injector Subcutaneous Sirolimus 2 mg Tablet Oral HYDROcodone-Acetaminophen 10-325 MG Tablet Oral Mycophenolate Mofetil 250 MG Capsule Oral Metoprolol Succinate ER 50 MG Tablet Extended Release 24 Hour Oral Tamsulosin HCl 0.4 MG Capsule Oral Temazepam 30 MG Capsule Oral Gabapentin 100 MG Capsule Oral DULoxetine HCl 30 MG Capsule Delayed Release Particles 1 capsule every evening Orally Once a day Taking QUEtiapine Fumarate 50 MG Tablet 1 tablet at bedtime Orally Once a day Taking DULoxetine HCl 60 MG Capsule Delayed Release Particles Oral , Notes to Pharmacist: bidTaking Rosuvastatin Calcium 20 MG Tablet Oral Taking HumaLOG KwikPen 100 UNIT/ML Solution Pen-injector Subcutaneous Taking Ergocalciferol 1.25 MG (99667 UT) Capsule Oral Taking Lisinopril 5 MG Tablet Oral Taking OneTouch Ultra 2 w/Device Kit Taking Eliquis 5 MG Tablet Oral Taking Toujeo SoloStar 300 UNIT/ML Solution Pen-injector Subcutaneous Taking Sirolimus 2 mg Tablet Oral Taking HYDROcodone-Acetaminophen 10-325 MG Tablet Oral Taking Mycophenolate Mofetil 250 MG Capsule Oral Taking Metoprolol Succinate ER 50 MG Tablet Extended Release 24 Hour Oral Taking Tamsulosin HCl 0.4 MG Capsule Oral Taking Temazepam 30 MG Capsule Oral Taking Gabapentin 100 MG Capsule Oral Taking DULoxetine HCl 30 MG Capsule Delayed Release Particles 1 capsule every evening Orally Once a day Not-TakingGabapentin 100 MG Capsule Oral DULoxetine HCl 60 MG Capsule Delayed Release Particles Oral Ursodiol 300 MG Capsule Oral Not-Taking Gabapentin 100 MG Capsule Oral Not-Taking DULoxetine HCl 60 MG Capsule Delayed Release Particles Oral Not-Taking Ursodiol 300 MG Capsule Oral Billing Information: * Procedure Codes: * Electronic signature of JUAN MIGUEL Gallegos on 07/19/2025 at 09:04 AM DEPARTMENT HEAD Sign off status: Pending * Provider: JUAN MIGUEL GARCIA Date: 0 05/28/2024 Generated for Cresencio contreras/Vilma/Thiago on: 1 09/18/2024 09:04 AM DEPARTMENT HEAD
--- NOTE | ~2025-07-19 | US_ITS ---
LIMITED ABDOMINAL ULTRASOUND INDICATION: K83.09 - Other cholangitis COMPARISON: None. FINDINGS: Liver: Visualized portions of the liver are normal. Surface of the liver appears normal. There is evidence of air in the biliary tree as described on the prior CT. There is hepatopedal flow in the portal vein. Common bile duct: 10 mm, which is upper limits of normal in a postcholecystectomy patient. The curry are thickened. There is a relatively narrow lumen. Gallbladder: Surgically absent. There is a complex structure in the gallbladder fossa. In that area on the prior CT, there was some fluid, bile duct, and some small bowel containing air-fluid levels. This is all believed to be postoperative change. Pancreas: The imaged portions appear normal. Right kidney: Right kidney appears normal on the images provided. IMPRESSION: Findings as described in the gallbladder fossa, similar to the prior CT.Pneumobilia, which is known. This can lend suspicion to the diagnosis of cholangitis. However, it is chronic and postsurgical in this patient. Reviewed, dictated and finalized at location A. CE OR [employer]ROL PARK OFFICER IMPRESSION: Findings as described in the gallbladder fossa, similar to the prior CT.Pneumob ariana, which is known. This can lend suspicion to the diagnosis of cholangitis. However, it is chronic and postsurgical in this patient.
--- OUTSIDE RECORDS SUMMARY | 2025-07-19 09:04 | XMS_ITS | Data Portability ---
Author Organization [facility] Address [address] [place] [address] Care Team Providers Care Dispatcher Service Chief Name Role Phone OWEN DUFFY Primary Care Provider [phone] OWEN DUFFY Referring Provider Assessment No assessment [...] By Organization Details Last Modified Time 05/31/2017 [id number] bursitis: care instructions [email or web address] Not available 06/03/2017 09:08:43 Reason for Referral None Reported. Problems No Known Problems Procedures Surgical History Date Name Laterality Status Provider Name and Address Organization Details Recorded Time 05/31/2017 12061 Sm Joint completed [facility] 05/31/2017 14:37:54 05/31/2017 79499 X-rays 3v Feet Normal completed [facility] 05/31/2017 14:37:40 Imaging Results None recorded. Procedure Notes None recorded. Medical Equipment None Reported. Allergies No known drug allergies Medications Name Sig Start Date Stop Date Status Note LastModified by Organization Details LastModified Time pen needles mis [id number] active Not Available Not Available Not Available [...] Updated DateTime 05/31/2017 185.42 cm 23.7 kg/m2 91870.63 g [facility] 05/31/2017 14:27:20 Social History Question Answer Notes LastModified by Organizat ion Details LastModified Time Tobacco Smoking Status Never Smoker [facility] 05/31/2017 14:31:13 What Was The Date Of [...] Neurologic Disease N Sciatica N Heart Attack ([place]) N Diabetes Y Anxiety Disorder N Urinary Tract Infections N Bleeding Disorder N Arthritis Y Abuse [...] ICD10 Code Diagnosis IMO Codes Diagnosis Note [id number] Shyla Vanessa DPM [facility] [address] [place] [address] 05/31/2017 14:08:55 05/31/2017 14:54:42 Bursitis [id number] M71.9 RIght 5th Patient was seen and evaluated. Radiograph s were reviewed and discussed with the patient. Etiology of bursititis was discussed with the patient. Recommende d wider shoe gear and padding. Offered cortisone injection for acute pain. patient agreed and provided verbal consent. All questions answered. Patient to RTC in one month Pain in right foot [id number] 51190 M79.671 Health Concerns Section Related Observation LastModified by Organization Detai ls LastModified Time None Recorded Concern Status LastModified by Organization Details LastModified Time None Recorded Advance Directives Directive None Recorded Payers Insurance Date Sequence Insurance Name Policy Number Policy Cantrell Covered Member ID Cantrell Member ID Guarantor Name 05/31/2017 1 [place]ICARE [place] [facility] Emilio Bruno Loera [id number] Emilio Loera Notes Date Note Type Note [...] trauma to the area JAYME [facility] 05/31/2017 14:40:02
--- OUTSIDE RECORDS SUMMARY | 2025-07-19 09:04 | XMS_ITS | Encounter Summary ---
Author Organization [facility] Address [address] [facility] [place] [address] Care Team Providers Care Digital Marketing Associate Name Role Phone Theo Stringer MD Primary Care Provider [phone] Theo Stringer MD Unavailable [phone] Isaac Callahan MD Unavailable [phone] Reason for Visit * Reason Onset Date Comments MEDICATION REFILL 05/27/2019 Encounter Details Date Type Department Care Team (Late st Contact Info) Description 05/27/2019 Refill [facility] General Internal Medicine [address] [place] [address] Theo Stringer MD [address] [facility] [address] [place] [address] MEDICATION REFILL Social History Tobacco [...] on filedocumented in this encounter Care Teams Digital Marketing Associate Relationship Specialty Start Date End Date Theo Stringer MD [address] [place] [address] [address] [place] [address] PCP - General Internal Medicine 02/14/19 Thoe Stringer MD [address] [place] [address] [address] [place] [address] Internal Medicine 02/14/19 Isaac Callahan MD [address] [facility], [address] [address] Endocrinology 03/25/13 documented as of this encounter
--- OUTSIDE RECORDS SUMMARY | 2025-07-19 09:04 | XMS_ITS | Patient Health Record ---
Author Organization [facility] [employer] Address [facility] [facility] [address] [place] [address] Care Team Providers Care Power Builder Developer Name Role Phone Theo Stringer MD Primary Care Provider Robby Owens Unavailable [phone] Allergies No Known Allergies Reason For Referral No Information Medications Medication SIG (Take, Route, Frequency, Duration) Notes Start Date End Date Status Lisinopril 5 MG Tablet Oral Active Ergocalciferol 1.25 MG (93736 UT) Capsule Oral Active Gabapentin 100 MG [...] Particles Oral; Duration: 30 Days Not- Taking [employer] 2 w/Device Kit Active Gabapentin 100 MG [...] Status Risk Notes Problem Generalized anxiety disorder (86716412) Generalized anxiety disorder (F41.1) Active confirmed Problem Insomnia disorder related to another mental disorder (46062182) Insomnia due to other mental disorder (F51.05) Active confirmed Problem Recurrent major depressive episodes, moderate (563232990) Recurrent major depressive episodes, moderate (F33.1) Active confirmed Vital Signs Heart Rate 91 /min 10/02/2024 Blood pressure diastolic 72 mm Hg 10/02/2024 Weight-kg 76.2 kg 10/02/2024 Blood pressure systolic 123 mm Hg 10/02/2024 Weight 168 lbs 10/02/2024 Encounters Encounter Location Date Provider Diagnosis [facility] [address] [place] [address] 10/02/2024 Robby Zapien Generalized anxiety disorder F41.1 ; Insomnia due to other mental disorder F51.05 and Recurrent major depressive episodes, moderate F33.1 Assessments Encounter Date Diagnosis (ICD Code) Assessment Notes Treatment Notes Treatment Clinical Notes Section Notes 10/02/2024 Generalized anxiety disorder (ICD-10 - F41.1) 10/02/2024 Insomnia due to other mental disorder (ICD-10 - F51.05) persistent insomnia, he is on temazepam 30mg hs he has sleep apnea, does not use cpap discussed to not double temazepam, increased risk of side effects with benzodiazepine use and sleep apnea 10/02/2024 Recurrent major depressive episodes, moderate (ICD-10 - F33.1) 10/02/2024 Other 1. Depression: - Patient reports [...] hip. Plan: - Ensure appropriate follow-up with wildland fire operations specialist and/or primary care provider for further [...] Medicare Replacement/ Advantage - Ppo [address] [address] [place] [address] [id number] ALEJO RING Self - patient is the insured [place] [address] [address] [place] [address] [id number] ALEJO RING Self - patient is the insured Medical (General) History Medical History History ICD Code live transplant, sees liver specialist [facility]
--- OUTSIDE RECORDS SUMMARY | 2025-07-19 09:04 | XMS_ITS | Encounter Summary ---
Author Organization [facility] Address [address] [place] [address] Care Team Providers Care Concrete Mixing Plant Superintendent Name Role Phone Theo Stringer MD Primary Care Provider [phone] Theo Stringer MD Unavailable Isaac Callahan MD Unavailable [phone] Encounter Details Date Type Department Care Team (Late st Contact Info) Description 05/27/2019 Telephone [facility] General Internal Medicine [address] [facility] [address] [place] [address] Theo Stringer MD [address] [facility] [address] Adam [address] [place] [address] Social History Tobacco Use Types [...] on filedocumented in this encounter Care Teams Concrete Mixing Plant Superintendent Relationship Specialty Start Date End Date Theo Stringer MD [address] [place], [place] [address]GEMINI KO [address] [place] [phone] PCP - General Internal Medicine 02/14/19 Theo Stringer MD [address] [place] [address] JUJU KO [address] [place] [phone] Internal Medicine 02/14/19 Isaac Callahan MD [address] [place] [address] [address] [place] [phone] Endocrinology 03/25/13 documented as of this encounter
--- OUTSIDE RECORDS SUMMARY | 2025-07-19 09:05 | XMS_ITS | Encounter Summary ---
Author Organization [facility] Address [address] [place] [address] Phone Care Team Providers Care Infantry Weapons Officer Name Role Phone Serge Zuniga MD Primary Care Provider [phone] Reason for Visit * Reason Onset Date Comments Medication Management 07/12/2025 Encounter Details Date Type Department Care Team ([facility] st Contact Info) Description 07/12/2025 Telephone [facility] [address] [place] [address] Christina Galvez, PT Medication Management Social History Tobacco Use Types Packs/Day Years Used Date Smoking Tobacco: Never Assessed Sex and Gender Information Value Date Recorded Sex Assigned at Not on file Legal Sex Male 3:07 PM CDT Gender Identity Not on file Sexual Orientation Not on file documented as of this encounter Miscellaneous Notes * Telephone Encounter - Rosmery Schilling RN - 07/14/2025 4:31 PM CDT Office nurse, Sonia zapien. She has not received fax from [facility]. Fax number confirmed. Copy of Home Care Medication Review and medication list faxed to Serge Zuniga MD. Fax delivery confirmation received at 1630. * Telephone Encounter - Christina Galvez, PT - 07/12/2025 11:38 AM CDT Clinical Support - please fax the following to Dr. Serge Zuniga. Please respond to each line item below: Patient admitted to [facility] on 07-12-25 for Therapy services. [...] med discrepancies and respond by calling [facility] with orders at [place] [phone] Option 4, or by fax at [place] - [phone]. [1] No current outpatient medications on file. documented in this encounter Plan of Treatment Upcoming Encounters Date Type Department Care Team (Late st Contact Info) Description 07/19/2025 10:30 AM SUPERVISOR RECEIVING AND PROCESSING Appointment [facility] [address] [address] Fior Clayton PTA [place] 07/19/2025 11:30 AM SUPERVISOR RECEIVING AND PROCESSING Appointment [address] [address] Violet Koo OTA [place] 07/22/2025 1:00 AM SUPERVISOR RECEIVING AND PROCESSING Appointment [address] [address] Fior Clayton PTA [place] 07/22/2025 2:00 AM SUPERVISOR RECEIVING AND PROCESSING Appointment [address] [address] Violet Koo OTA [place] 07/27/2025 1:00 AM SUPERVISOR RECEIVING AND PROCESSING Appointment [address] [address] Fior Clayton PTA [place] 07/28/2025 1:00 AM SUPERVISOR RECEIVING AND PROCESSING Appointment [address] [address] Violet Koo OTA [place] 07/30/2025 1:00 AM SUPERVISOR RECEIVING AND PROCESSING Appointment [facility] [address] [place] [address] Fior Clayton, [place] 07/30/2025 2:00 AM SUPERVISOR RECEIVING AND PROCESSING Appointment [facility] [address] [place] [address] Violet Koo, [place] 08/02/2025 1:00 AM SUPERVISOR RECEIVING AND PROCESSING Appointment [facility] [address] [place] [address] Christina Galvez, PT 08/04/2025 1:00 AM SUPERVISOR RECEIVING AND PROCESSING Appointment [address] [address] Fior Clayton, [place] documented as of this encounter Visit Diagnoses Not on filedocumented in this encounter Care Teams Infantry Weapons Officer Relationship Specialty Start Date End Date Serge Zuniga MD [address] [place] [address] PCP - General Family Medicine 07/08/25 documented as of this encounter
--- OUTSIDE RECORDS SUMMARY | 2025-07-19 09:05 | XMS_ITS | Clinical Summary ---
Author Organization [facility] [employer] Address [address] [facility] [place] [address] Care Team Providers Care Hooker On Name Role Phone Theo Stringer MD Primary Care Provider [phone] Theo Stringer MD Unavailable [phone] Isaac Callahan MD Unavailable [phone] Source Comments [facility],non-owned Affiliates and Associated Physician Practices is amultiple site organization consisting of ambulatory clinics and hospital sitesin [place], [place], [place] and [place]. This disclosure is being madepursuant to the Care Everywhere program and may not contain all information available regarding this patient. Last updated 18.[facility] [employer] Allergies Active Allergy Reactions Criticality Noted Date [...] this topic Medical Devices Implanted Type Area Tear Down Man Device Identifier Shelf Expiration Date Model / Serial / Lot Sys Cor Stent 32mm 3mm Sng Monrl Implanted:Qty: 1 on 02/14/2019 by Clotilde Chao MD at [facility] Left: Coronary [employer] Scimed 08/26/2020 [id number] / / Description:Mid LAD Sys Cor Stent 12mm 3mm Sng Monrl Implanted:Qty: 1 on 02/14/2019 by Clotilde Chao MD at [facility] Left: Coronary [employer] Scimed 07/15/2020 [id number] / / Procedures Procedure Name Priority [...] mg/dL 02/17/2019 6:53 AM [facility] Creatinine 0.8 0.6 - 1.2 mg/dL 02/17/2019 6:53 AM [facility] Sodium 134(L) 136 - 145 mmol/L 02/17/2019 6:53 AM [facility] Potassium 4.0 3.5 - 4.5 mmol/L 02/17/2019 6:53 AM [facility] Chloride 97(L) 98 - 107 mmol/L 02/17/2019 6:53 AM [facility] CO2 28 22 - 29 mmol/L 02/17/2019 6:53 AM [facility] Glucose 253(H) 70 - 115 mg/dL 02/17/2019 6:53 AM [facility] Calcium 8.7 8.4 - 10.2 mg/dL 02/17/2019 6:53 AM [facility] Anion Gap 13 8 - 18 02/17/2019 6:53 AM [facility] BUN/Creatinine Ratio 18 7 - 23 02/17/2019 6:53 AM [facility] Osmolality Calculated 287 270 - 300 mOsm/kg 02/17/2019 6:53 AM [facility] eGFR >60 >60 mL/min/1.7 3 m2 02/17/2019 6:53 AM [facility] Blood BLOOD SPECIMEN / Unknown Lab Venipuncture / Unknown 02/17/2019 5:55 AM CDT 02/17/2019 6:19 AM [facility] Clotilde Chao MD LAB - CHEMISTRY ORDERABLES Final Result [address] [phone] * (ABNORMAL) HEMOGLOBIN A1C (02/15/2019 1:15 AM [facility]) Hemoglobin A1c 13.0(H) 4.4 - 6.3 % 02/15/2019 11:47 AM [facility] Estimated Average Glucose 326 mg/dL 02/15/2019 11:47 AM [facility] Comment: HbA1c Interpretation: Treatment target values recommended by ADA and other clinical organizations should be used to evaluate metabolic control in patients. Treatment Target Values: Normal : < 5.7% Pre-diabetes: 5.7-6.4% Diabetes: Equal to or greater than 6.5% Reference: [place] Diabetes Association Standards of Care in Diabetes -2014 In patients 70 years and older consider HbA1c target range of 7.0-7.5% Reference: Diabetes Mellitus in Older People: Position Statement on behalf of the International Association of Gerontology and Geriatrics (IAGG), the Diabetes Working Libertarian for Older People (EDWPOP), and the International Task Force of Experts in Diabetes. Jaya Branch et al. J [place] Medical Directors Association. 2012 Test results diagnostic of diabetes should be repeated for confirmation. The Sebia Capillary 2 assay for the measurement of HbA1c is a National Glycohemoglobin Standardization Program (NGSP)certified method. Blood BLOOD SPECIMEN / Unknown Venipuncture / Unknown 02/15/2019 1:15 AM CDT 02/15/2019 1:25 AM CDT Natali Ko DO LAB - CHEMISTRY ORDERABLES Final Result [address] [phone] from Last 3 Months or Most Recently Relevant to Health Maintenance Insurance MEDICARE MEDICARE MEDICARE MEDICAID - OUT OF STATE Advance Directives * Full Code (Latest Code Status on File) Date Activated Date Inactivated Comments 02/14/2019 11:43 PM 02/17/2019 5:53 PM Care Teams Hooker On Relationship Specialty Start Date End Date [facility] [address] [place] [address] PCP - General Internal Medicine 02/14/19 [facility] [address] [place] [phone] Internal Medicine 02/14/19 Isaac Callahan MD [address] [place] [phone] Endocrinology 03/25/13
--- OUTSIDE RECORDS SUMMARY | 2025-07-19 09:05 | XMS_ITS | Clinical Summary ---
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 Active ursodiol (ACTIGALL) 300 MG Capsule Take [...] needed for Mild or more severe pain. Discontinu ed(Therapy completed) amoxicillin-cl avulanate (AUGMENTIN) 875-125 MG Tablet Take 1 Tablet by mouth 2 times daily. 07/05/20 025 Encounters Date Type Department Care Team Description 07/16/2025 1:30 PM CDT Home Care Visit [address] [address] Fior Clayton PTA PT - HOME VISIT 07/16/2025 Travel 07/15/2025 12:00 PM CDT Home Care Visit [address] [address] Violet Koo OTA OT - HOME VISIT 07/15/2025 10:00 AM CDT Home Care Visit [address] [address] Basia Aivlez, HERPETOLOGY TEACHER HERPETOLOGY TEACHER - INITIAL EVALUATION 07/15/2025 Home Care Visit [address] [address] Violet Koo OTA TELEPHONE ENCOUNTER 07/13/2025 1:15 PM CDT Home Care Visit [address] [address] Nisha Williamson OT OT - INITIAL EVALUATION 07/13/2025 Home Care Visit [address] [address] Christina Galvez, PT CARE CONFERENCE 07/12/2025 9:30 AM CDT Home Care Visit [address] [address] Christina Galvez, PT PT - OASIS START OF CARE 07/12/[address] [address] Christina Galvez, PT Medication Management 07/12/2025 Plan of Care Documentation [address] [address] 07/09/2025 Home Care Visit [address] [address] Christina Galvez, PT TELEPHONE ENCOUNTER from Last 3 Months Social History Tobacco Use Types Packs/Day Years Used Date Smoking Tobacco: Never Assessed Sex and Gender Information Value Date Recorded Sex Assigned at Not on file Legal Sex Male 3:07 PM CDT Gender Identity Not on file Sexual Orientation Not on file Last Filed Vital Signs Vital Sign Reading Time Taken Comments Blood Pressure 148/74 07/16/2025 2:17 PM CDT Pulse 70 07/16/2025 2:17 PM CDT Temperature 36.3 C (97.3 F) 07/16/2025 2:17 PM CDT Respiratory Rate 18 07/16/2025 2:17 PM CDT Oxygen Saturation 97% 07/16/2025 2:17 PM CDT Inhaled Oxygen Concentration - - Weight - - Height 177.8 cm (5' 10) 07/12/2025 9:53 AM CDT Body Mass Index - - Plan of Treatment Upcoming Encounters Date Type Department Care Team (Late st Contact Info) Description 07/19/2025 10:30 AM WEB APPLICATIONS ADMINISTRATOR Appointment [address] [address] Fior Clayton, CHILD AND FAMILY THERAPIST CT 07/19/2025 11:30 AM WEB APPLICATIONS ADMINISTRATOR Appointment [address] [place] [address] Violet Koo, GLASS DESIGNER [place] 07/22/2025 1:00 AM WEB APPLICATIONS ADMINISTRATOR Appointment [facility] [address] [place] [address] Fior Clayton, CHILD AND FAMILY THERAPIST [place] 07/22/2025 2:00 AM WEB APPLICATIONS ADMINISTRATOR Appointment [facility] [address] [place] [address] Violet Koo, [place] 07/27/2025 1:00 AM WEB APPLICATIONS ADMINISTRATOR Appointment [facility] [address] [place] [address] Fior Clayton, CHILD AND FAMILY THERAPIST [place] 07/28/2025 1:00 AM WEB APPLICATIONS ADMINISTRATOR Appointment [facility] [address] [place] [address] Violet Koo, [place] 07/30/2025 1:00 AM WEB APPLICATIONS ADMINISTRATOR Appointment [facility] [address] [place] [address] Fior Clayton, CHILD AND FAMILY THERAPIST [place] 07/30/2025 2:00 AM WEB APPLICATIONS ADMINISTRATOR Appointment [facility] [address] [place] [address] Violet Koo, [place] 08/02/2025 1:00 AM WEB APPLICATIONS ADMINISTRATOR Appointment [address] [address] Christina Galvez, PT 08/04/2025 1:00 AM WEB APPLICATIONS ADMINISTRATOR [facility]ment [facility] [address] [place] [address] Fior Clayton, CHILD AND FAMILY THERAPIST CT Health Maintenance Due Date Last Done Comments [...] to complete this topic Insurance [facility]IC[facility] [place] Advance Directives * Full Code (Latest Code Status on File) Date Activated Date Inactivated Comments 07/12/2025 10:17 PM Care Teams Farm Equipment Mechanic Apprentice Relationship Specialty Start Date End Date Serge Zuniga MD [address] [place] [address] PCP - General Family Medicine 07/08/25
== END 2025-07-19 08:47 | disposition home or self-care (01) ==
LOC: CHSIMG 08:47
PROVIDERS: PCP Family Medicine; Visit Provider Family Medicine
DX: K83.09 Other cholangitis (principal)
CPT/HCPCS: 76705